=== PATIENT | female | born 1925 | race Caucasian/White ===

== ENCOUNTER 2016-08-24 10:37 | Inpatient (IN) | payer MEDICARE, BC ==
[2016-08-24] VITALS (12 sets, daily range): BP systolic 107–138; BP diastolic 62–98; PULSE 87–140; RESP 14–24; TEMP 97.5–98; O2SAT 94–100
[~2016-08-24] VITALS: Ht 157.5 cm; Wt 44.9 kg
[~2016-08-24 10:37] MED LIST: APIX2.5 PO; CHOL4 PO; FURO1TAB93 PO; NEBI5 PO; OMEP20TA OR; REFR0.5D4 EACH EYE; SIMV40TA PO; SYNT50TA PO; [UNRECOGNIZED DRUG - OTHER]
--- NOTE | 2016-08-24 11:05 | PD ---
HPI Chief Complaint: Cardiac Complaint Time Seen by Provider: 11:05 Travel History International Travel<30 days: No Contact w/Intl Traveler<30days: No History of Present Illness HPI 89 year old female presents to the emergency department for evaluation of shortness of breath for 2 weeks. Patient does report a history of atrial fibrillation, hypertension, CHF. She states that she saw her regulatory affairs strategy specialist, Dr. Mcgarry, 2 weeks ago for this issue. He wanted her to start a low dose of atenolol and stop the Bystolic. However, she states she is allergic to atenolol so she quit her Bystolic but did not start the atenolol. The patient denies any fevers or chills. She does report a mild cough and congestion. She denies any chest pain. She denies any leg edema. She states that her primary care physician is Dr. Vasquez. She states that she saw him today who sent her to the emergency department. Patient denies any abdominal pain. No vomiting. No other complaints. PFSH Past Medical History Hx Anticoagulant Therapy: Yes Anemia: Yes Arthritis: Yes Asthma: No Autoimmune Disease: No Blood Disorders: No Heart Rhythm Problems: Yes (A-FIB) Cancer: Yes (COLON) Cardiovascular Problems: Yes (A-FIB ) High Cholesterol: Yes Chemotherapy: Yes (FINISHED IN 2000) Chest Pain: No Congestive Heart Failure: Yes COPD: Yes Cerebrovascular Accident: Yes (no residual) Diabetes: No Diminished Hearing: No Endocrine: No GERD: Yes Genitourinary: Yes Hiatal Hernia: No Hypertension: Yes Immune Disorder: No Implanted Vascular Access Dvce: Yes Kidney Stones: Yes (left kidney- leave til having problems) Musculoskeletal: Yes Neurologic: Yes Psychiatric: No Reproductive: No Respiratory: Yes (COPD) Migraines: No Radiation Therapy: Yes (2000) Renal Failure: No Seizures: No Sleep Apnea: No Thyroid Disease: No Ulcer: Yes Menopausal: Yes Past Surgical History Abdominal Surgery: Yes (MULTIPLE COLONOSCOPY) AICD: No Arteriovenous Shunt: No Cardiac Surgery: No Cholecystectomy: Yes Ear Surgery: No Endocrine Surgery: No Eye Surgery: Yes (CATARACTS) Genitourinary Surgery: No Gynecologic Surgery: Yes (HYSTERECTOMY ) Hysterectomy: Yes Insulin Pump: No Joint Replacement: Yes (RIGHT HIP AND KNEE) Oral Surgery: Yes Pacemaker: No Thoracic Surgery: No Other Surgery: Yes ([place], hysterectomy, right hip, right knee) Social History Alcohol Use: No Tobacco Use: No Substance Use: No Allergies-Medications (Allergen,Severity, Reaction): Coded Allergies: Atenolol (Verified Allergy, Severe, 08/24/16) LIGHT HEADED/FAINT Cardizem (Verified Allergy, Severe, AIRWAY SWELLING, 05/25/16) AIRWAY OBSTRUCTION Levofloxacin (Verified Allergy, Severe, 05/25/16) Lisinopril (Verified Allergy, Severe, CP, 05/25/16) Phenergan (Verified Allergy, Severe, RASH, 05/25/16) Sulfa (Verified Allergy, Severe, 05/25/16) Toprol Xl (Verified Allergy, Severe, BRADYCARDIA, 05/25/16) Verapamil (Verified Allergy, Severe, Anaphylaxis, 05/25/16) Amoxicillin (Verified Allergy, Mild, 05/25/16) Levaquin (Verified Allergy, Mild, Irritability/Anxiety, 05/25/16) EDOXABAN (Verified Adverse Reaction, Severe, LIGHT HEADED, 08/24/16) Potassium (Verified Adverse Reaction, Severe, CAN'T BREATHE, 08/24/16) Uncoded Allergies: GINGERALE (Adverse Reaction, Severe, VOMITING, 08/24/16) Reported Meds & Prescriptions Reported Meds & Active Scripts Active Reported Tylenol Extra Strength (Acetaminophen) 500 Mg Tab 500 Mg PO Q4-6H PRN Ferrous Sulfate 325 Mg Tab 325 Mg PO DAILY Refresh Opth Drops (Polyvinyl Alcohol-Povidone Opth Drops) 1.4-0.6% Drops 1-2 Drop EACH EYE PRN PRN Centrum Silver (Multiple Vitamins W/ Minerals) 1 Tab 1 Tab PO DAILY Furosemide 20 Mg Tab 20 Mg PO DAILY Omeprazole 20 Mg Tab Mg PO DAILY Simvastatin 40 Mg Tab 40 Mg PO HS Synthroid (Levothyroxine Sodium) 50 Mcg Tab 50 Mcg PO DAILY Megestrol (Megestrol Acetate) 20 Mg Tab 20 Mg PO DAILY Eliquis (Apixaban) 2.5 Mg Tab 2.5 Mg PO BID Review of Systems Except as stated in HPI: all other systems reviewed are Neg Physical Exam Narrative GENERAL: Well-developed well-nourished elderly female patient, afebrile. SKIN: Warm and dry. HEAD: Normocephalic. Atraumatic. EYES: No scleral icterus. No injection or drainage. NECK: Supple, trachea midline. No JVD or lymphadenopathy. CARDIOVASCULAR: Patient has a regular rhythm with a heart rate between 120-150, without murmurs, gallops, or rubs. RESPIRATORY: Breath sounds equal bilaterally. No accessory muscle use. Lungs sounds clear to auscultation. GASTROINTESTINAL: Abdomen soft, non-tender, nondistended. MUSCULOSKELETAL: No cyanosis, or edema. BACK: Nontender without obvious deformity. No CVA tenderness. Data Data Last Documented VS Vital Signs Date Time Temp Pulse Resp B/P Pulse Ox O2 Delivery O2 Flow Rate FiO2 08/24/16 12:41 115 20 132/64 98 Nasal Cannula 2 08/24/16 11:02 98.0 Orders Electrocardiogram (08/24/16 10:44) Complete Blood Count With Diff (08/24/16 11:03) Basic Metabolic Panel (Bmp) (08/24/16 11:03) B-Type Natriuretic Peptide (08/24/16 11:03) Act Partial Throm Time (Ptt) (08/24/16 11:03) Prothrombin Time / Inr (Pt) (08/24/16 11:03) Magnesium (Mg) (08/24/16 11:03) Ckmb (Isoenzyme) Profile (08/24/16 11:03) Troponin I (08/24/16 11:03) Urinalysis - C+S If Indicated (08/24/16 11:03) Iv Access Insert/Monitor (08/24/16 11:03) Ecg Monitoring (08/24/16 11:03) Oximetry (08/24/16 11:03) Oxygen Administration (08/24/16 11:03) Chest, Single Ap (08/24/16 11:03) Sodium Chloride 0.9% Flush (Ns Flush) (08/24/16 11:15) CKMB (08/24/16 11:00) CKMB% (08/24/16 11:00) Amiodarone Inj (Cordarone Inj) (08/24/16 12:45) Amiodarone Inj (Cordarone Inj) (08/24/16 12:30) Diphenhydramine Inj (Benadryl Inj) (08/24/16 13:15) Admit Order (Ed Use Only) (08/24/16 13:50) Electrocardiogram (08/24/16 10:58) Labs Laboratory Tests Test 08/24/16 08/24/16 08/24/16 11:00 11:34 12:07 White Blood Count 7.4 TH/MM3 Red Blood Count 3.48 MIL/MM3 Hemoglobin 11.2 GM/DL Hematocrit 33.3 % Mean Corpuscular Volume 95.6 FL Mean Corpuscular Hemoglobin 32.1 PG Mean Corpuscular Hemoglobin 33.6 % Concent Red Cell Distribution Width 15.7 % Platelet Count 249 TH/MM3 Mean Platelet Volume 9.4 FL Neutrophils (%) (Auto) 79.5 % Lymphocytes (%) (Auto) 9.6 % Monocytes (%) (Auto) 9.5 % Eosinophils (%) (Auto) 0.9 % Basophils (%) (Auto) 0.5 % Neutrophils # (Auto) 5.9 TH/MM3 Lymphocytes # (Auto) 0.7 TH/MM3 Monocytes # (Auto) 0.7 TH/MM3 Eosinophils # (Auto) 0.1 TH/MM3 Basophils # (Auto) 0.0 TH/MM3 CBC Comment DIFF FINAL Differential Comment Sodium Level 137 MEQ/L Potassium Level 5.7 MEQ/L Chloride Level 112 MEQ/L Carbon Dioxide Level 16.7 MEQ/L Anion Gap 8 MEQ/L Blood Urea Nitrogen 31 MG/DL Creatinine 1.96 MG/DL Estimat Glomerular Filtration 24 ML/MIN Rate Random Glucose 95 MG/DL Calcium Level 8.7 MG/DL Magnesium Level 1.2 MG/DL Total Creatine Kinase 181 U/L Creatine Kinase MB 2.5 NG/ML Troponin I 0.04 NG/ML Urine Color YELLOW Urine Turbidity HAZY Urine pH 5.0 Urine Specific [place] 1.009 Urine Protein TRACE mg/dL Urine Glucose (UA) NEG mg/dL Urine Ketones NEG mg/dL Urine Occult Blood NEG Urine Nitrite NEG Urine Bilirubin NEG Urine Urobilinogen LESS THAN 2.0 MG/DL Urine Leukocyte Esterase SMALL Urine RBC 2 /hpf Urine WBC 4 /hpf Urine Squamous Epithelial 1 /hpf Cells Urine Amorphous Sediment RARE Microscopic Urinalysis Comment CULT NOT INDICATED Prothrombin Time 13.1 SEC Prothromb Time International 1.2 RATIO Ratio Activated Partial 28.5 SEC Thromboplast Time B-Type Natriuretic Peptide 730 PG/ML MDM Medical Decision Making Medical Screen Exam Complete: Yes Emergency Medical Condition: Yes Medical Record Reviewed: Yes Interpretation(s) Last Impressions Chest X-Ray 08/24/16 1103 Signed Impressions: Service Date/Time: August 11:08 - CONCLUSION: Stable appearance with no acute disease. Zack Baca MD Differential Diagnosis A. fib with RVR versus CHF exacerbation versus pneumonia versus ACS versus anemia Narrative Course 89-year-old female presents to the emergency department for evaluation of shortness of breath for 2 weeks. EKG shows atrial fibrillation with heart rate of 136. CBC, BMP, BNP, PTT, PT/INR, magnesium, CK, troponin are ordered and pending. Chest x-ray is ordered and pending. Patient reports allergy to Cardizem, Toprol, verapamil. Patient's regulatory affairs strategy specialist, Dr. Mcgarry is paged. CBC shows slight anemia with a Hgb of 11.2, Hct of 33.3. BMP shows hyperkalemia 5.7, but hemolysis is noted. BUS and is 31, currently 1.96 which is chronic for patient. CK is 181. CK-MB is 2.5. Troponin is 0.04. BNP [-]. Magnesium is 1.2. Coags show no acute abnormality. UA is negative for infection. Chest x-ray shows stable appearance with no acute disease. 1227 - I spoke with Dr. Mcgarry's PA, Nargis Cartwright, who recommends amiodarone bolus with drip and for the patient to be admitted with a consult to Dr. Mcgarry. [facility] is paged for admission. Dr. Romero accepted admission. Diagnosis Primary Impression: Atrial fibrillation Qualified Code: I48.2 - Chronic atrial fibrillation Additional Impression: Chronic kidney disease Qualified Code: N18.9 - Chronic kidney disease, unspecified stage Admitting Information Admitting Physician Requests: Admit Klarissa eWller Aug 24, 2016 11:05
[2016-08-24] MEDS ORDERED: LEVO.05 PO (11:15)
[2016-08-24] MEDS ORDERED: OMEP20TA PO (11:15)
[2016-08-24] MEDS ORDERED: SODIUM CHLORIDE 0.9% FLUSH 5 ML FLUSH IVF PRN (11:15)
[2016-08-24] MEDS ORDERED: MEGE20TA PO (11:15)
[2016-08-24] MEDS ORDERED: APIX2.5T PO (11:15)
[2016-08-24] MEDS ORDERED: SIMV40TA PO (11:15)
[2016-08-24] MEDS ORDERED: FURO20TA PO (11:18)
[2016-08-24] MEDS ORDERED: CENTTAB PO (11:18)
[2016-08-24] MEDS ORDERED: REFRDRO EACH EYE (11:18)
[2016-08-24] MEDS ORDERED: ACET-703 PO (11:18)
[2016-08-24] MEDS ORDERED: FERR325T PO (11:18)
[2016-08-24 11:26] LABS: AUTOMATED NEUTROPHIL # 5.9 TH/MM3 (1.8-7.7); BASOPHIL % 0.5 % (0.0-2.0); EOSINOPHIL # 0.1 TH/MM3 (0-0.4); EOSINOPHIL % 0.9 % (0.0-4.0); HEMATOCRIT 33.3 % (35.0-46.0); HEMO FLAGS DIFF FINAL; LYMPH % 9.6 % (9.0-44.0); LYMPHOCYTE # 0.7 TH/MM3 (1.0-4.8); MEAN CELL VOLUME 95.6 FL (80.0-100.0); MEAN CORPUSCULAR HEMOGLOBIN 32.1 PG (27.0-34.0); MEAN CORPUSCULAR HGB CONC 33.6 % (32.0-36.0); MONO % 9.5 % (0.0-8.0); NEUT % 79.5 % (16.0-70.0); PLATELET COUNT 249 TH/MM3 (150-450); RED BLOOD COUNT 3.48 MIL/MM3 (4.00-5.30); RED CELL DISTRIBUTION WIDTH 15.7 % (11.6-17.2); WHITE BLOOD COUNT 7.4 TH/MM3 (4.0-11.0)
[2016-08-24 11:46] LABS: BLOOD, URINE NEG (NEG); COMMENT (UR) CULT NOT INDICATED; CULTURE IF INDICATED CULT NOT INDICATED; GLUCOSE,URINE NEG (NEG); KETONE, URINE NEG (NEG); NITRITE,URINE NEG (NEG); SQUAMOUS EPITHELIAL CELL URINE 1 /hpf (0-5); URINE COLOR YELLOW (YELLW/STRAW)
--- NOTE | 2016-08-24 11:56 | RADRPT ---
EXAM DATE/TIME: 08/24/2016 11:08 [facility] COMPARISON: CHEST SINGLE AP, September 23, 2015, 13:37. INDICATIONS : Patient complains of short of breath. MEDICAL HISTORY : None. SURGICAL HISTORY : None. ENCOUNTER: Initial ACUITY: 1 day PAIN SCORE: 0/10 LOCATION: Bilateral chest FINDINGS: A single view of the chest demonstrates the lungs to be symmetrically aerated without evidence of mas s, infiltrate or effusion. Changes are present in the aorta. There are multiple overlying cardiac le ads. Ossification is noted in the mitral valve annulus. The cardiomediastinal contours are unremarkab le. Osseous structures are intact. CONCLUSION: Stable appearance with no acute disease. Zack Baca MD on August 24, 2016 at 11:49 Board Certified Radiologist. This report was verified electronically.
[2016-08-24 11:58] LABS: ANION GAP 8 MEQ/L (5-15); BICARBONATE 16.7 MEQ/L (21.0-32.0); BLOOD UREA NITROGEN 31 MG/DL (7-18); CHLORIDE 112 MEQ/L (98-107); CREATINE KINASE 181 U/L (26-192); GLOMERULAR FILTRATION RATE 24 ML/MIN (>89); MAGNESIUM 1.2 MG/DL (1.5-2.5); SODIUM (NA) 137 MEQ/L (136-145)
[2016-08-24 12:01] LABS: POTASSIUM 5.7 MEQ/L (3.5-5.1)
[2016-08-24 12:14] LABS: CKMB 2.5 NG/ML (0.5-3.6)
[2016-08-24] MEDS ORDERED: AMIODARONE INJ 150 MG in DEXTROSE 5% IN WATER 100ML INJ 97 ML IV ONE ×2 (12:30)
[2016-08-24 12:33] LABS: APTT (PATIENT) 28.5 SEC (24.3-30.1); INTERNATIONAL NORMALIZED RATIO 1.2 RATIO; PROTHROMBIN TIME - PATIENT 13.1 SEC (9.8-11.6)
[2016-08-24] MEDS ORDERED: AMIODARONE INJ 900 MG in D5W 500 ML (EXCEL BAG) 482 ML IV SCH (12:45)
[2016-08-24] MEDS ORDERED: diphenhydrAMINE HCL 50 MG/ML VIAL IV PUSH ONE (13:15)
[2016-08-24] MEDS: AMIODARONE INJ 450 MG in DEXTROSE 5% IN WATE(EXCEL) INJ 241 ML IV SCH ×2 (14:56)
--- NOTE | 2016-08-24 16:05 | MB ---
cc: ZEE CAM M.D., HUMAYUN A. M.D. DATE OF CONSULTATION: 08/24/2016. HISTORY OF PRESENT ILLNESS: Thank you for asking us to see this very pleasant 89-year-old white female who was admitted with atrial fibrillation with a rapid ventricular response. She was seen in the office by the undersigned recently and she was switched to atenolol, but it was felt that she had an allergy to atenolol so she quit her Bystolic but did not take the atenolol. She is now in atrial fibrillation with rapid ventricular response. MEDICATIONS: Her medications at home have included: 1. Eliquis. 2. Megestrol. 3. Synthroid. 4. Simvastatin. 5. Omeprazole. 6. Furosemide. 7. Peristaltic. 8. Centrum Silver. At this point, she is worried out having intravenous amiodarone to control her rate as she is worried she might be allergic to this. PAST MEDICAL HISTORY: Her past medical history is positive for: 1. Being on Eliquis. 2. Anemia. 3. Arthritis. 4. History of colon cancer with chemotherapy in 2000. 5. Congestive heart failure. 6. Hypertension. 7. Hyperlipidemia. 8. Hypothyroidism. 9. Gastroesophageal reflux disease (GERD). 10. Chronic kidney disease. 11. GI bleed. 12. Stroke in 2010. 13. Kidney stones. PAST SURGICAL HISTORY: 1. History of hip replacement. 2. Knee replacement. 3. Hysterectomy. SOCIAL HISTORY: Nonsmoker, nondrinker, no drugs. MEDICATIONS: Medications include : 1. Cardizem. 2. Atenolol. 4. Levofloxacin. 5. Lisinopril. 6. Phenergan. 7. Sulfa. 8. Toprol. 9. Verapamil. 10. Amoxicillin. 11. Levaquin. 12. Potassium. 13. Gloria lauri. REVIEW OF SYSTEMS: Denies seizure, headaches. The remainder of the review of systems is negative. PHYSICAL EXAMINATION: VITAL SIGNS: On examination, pulse was 128, blood pressure 138/95, respirations HEAD, EYES, EARS, NOSE, THROAT: Eyes show no xanthelasma. Mouth shows no cyanosis or pallor. NECK: No jugular venous distention. HEART: She had two heart sounds. No murmurs. CHEST: Clear. ABDOMEN: Abdomen soft. No hepatosplenomegaly. EXTREMITIES: Legs reveal no evidence of edema. NEUROLOGICAL EXAMINATION: Grossly intact. LABORATORY TESTS: INR 1.2. Creatinine 1.96. Potassium 5.7. Hemoglobin 11.2. EKGS: EKG showed atrial fibrillation with a rapid ventricular response. ASSESSMENT AND PLAN: 1. Rule out myocardial infarction with serial cardiac enzymes. Initial troponin was 0.04. 2. She has mild congestive heart failure with a BNP of 730, although her creatinine is markedly elevated. 3. INR is 1.2. The patient continues on Eliquis however. 4. We will continue her on her current medications with the addition of amiodarone if she converts. Thank you for asking us to see this very pleasant lady. Hawk Mcgarry MD, FRCP,[facility] RAFAELAJ/JCCarlos /2:39 PM /3:57 PM GUSTAVO
[2016-08-24] MEDS ORDERED: ONDANSETRON HCL 4 MG/2 ML VIAL IVP PRN (16:15)
[2016-08-24] MEDS ORDERED: ACETAMINOPHEN 325 MG TAB PO PRN ×2 (16:15)
[2016-08-24] MEDS ORDERED: SENNOSIDES 8.6 MG TAB PO PRN (16:15)
[2016-08-24] MEDS ORDERED: SODIUM CHLORIDE 0.9% FLUSH 5 ML FLUSH FLUSH PRN (16:15)
[2016-08-24] MEDS ORDERED: NALOXONE HCL 0.4 MG/ML AMP IV PRN (16:15)
[2016-08-24] MEDS ORDERED: PILL SPLITTER OTHER PRN (16:30)
--- NOTE | 2016-08-24 16:56 | HHI.HP ---
[facility] Service [facility] Primary Care Physician Juan R Evans MD Admission Diagnosis AFib with RVR Diagnoses: Chief Complaint: Shortness of breath, lightheaded Travel History International Travel<30 Days: No Contact w/Intl Traveler <30 Da: No Traveled to Known Affected Are: No History of Present Illness The patient is an 89-year-old female with past medical history of atrial fibrillation who is presenting to the hospital with 2 weeks of lightheadedness and shortness of breath. The patient says that over the past 2 weeks she has had episodes where the room spins around when she sits up from a chair. She says she has lightheaded and almost passes out sometimes. She says she has been having shortness of breath for the past 2 weeks as well. She says she has been taking Tylenol regularly and that has been helping with her symptoms. She went to her primary care doctor today where she was told to come to the emergency department for further evaluation and treatment. The patient does endorse palpitations. She mentions she has been having chest pain in the center of her chest rated at 8 out of 10 in severity. She describes the chest pain as pressure sensation. She says she has been feeling very cold lately. She says she has been eating well. She has not had any urinary difficulties. She has not had diarrhea or constipation. She has not had any recent travel. She denies any fever. Review of Systems Constitutional: COMPLAINS OF: Chills, Dizziness Respiratory: COMPLAINS OF: Shortness of breath Cardiovascular: COMPLAINS OF: Chest pain, Palpitations, Syncope, Dyspnea on Exertion Gastrointestinal: DENIES: Constipation, Nausea Genitourinary: DENIES: Dysuria Past Family Social History Past Medical History A fib Anemia Arthritis History of colon cancer with chemotherapy in 2000 Congestive heart failure Hypertension Hyperlipidemia Hypothyroidism Gastroesophageal reflux disease Chronic kidney disease GI bleed CVA Kidney stones Past Surgical History History of hip replacement Knee replacement Hysterectomy Allergies: Coded Allergies: Atenolol (Verified Allergy, Severe, 08/24/16) LIGHT HEADED/FAINT Cardizem (Verified Allergy, Severe, AIRWAY SWELLING, 05/25/16) AIRWAY OBSTRUCTION Levofloxacin (Verified Allergy, Severe, 05/25/16) Lisinopril (Verified Allergy, Severe, CP, 05/25/16) Phenergan (Verified Allergy, Severe, RASH, 05/25/16) Sulfa (Verified Allergy, Severe, 05/25/16) Toprol Xl (Verified Allergy, Severe, BRADYCARDIA, 05/25/16) Verapamil (Verified Allergy, Severe, Anaphylaxis, 05/25/16) Amoxicillin (Verified Allergy, Mild, 05/25/16) Levaquin (Verified Allergy, Mild, Irritability/Anxiety, 05/25/16) EDOXABAN (Verified Adverse Reaction, Severe, LIGHT HEADED, 08/24/16) Potassium (Verified Adverse Reaction, Severe, CAN'T BREATHE, 08/24/16) Uncoded Allergies: GINGERALE (Adverse Reaction, Severe, VOMITING, 08/24/16) Active Ordered Medications Current Medications Medications (Trade) Dose Ordered Sig/Neva Route Start Time Stop Time Status Last Admin (Cordarone Inj/ D5W ([place]) Inj) 250 ml @ 0 mls/hr CONTINUOUS IV 08/24/16 14:45 08/24/16 14:56 (NS Flush) 2 ml UNSCH PRN FLUSH 08/24/16 16:15 (NS Flush) 2 ml BID FLUSH 08/24/16 21:00 (Tylenol) 650 mg Q4H PRN PO 08/24/16 16:15 (Zofran Inj) 4 mg Q6H PRN IVP 08/24/16 16:15 (Colace) 100 mg Q12H PO 08/24/16 18:00 (Senokot) 17.2 mg Q12H PRN PO 08/24/16 16:15 (Tylenol) 650 mg Q6H PRN PO 08/24/16 16:15 (Roxicodone) 5 mg Q4H PRN PO 08/24/16 16:15 (Narcan Inj) 0.4 mg UNSCH PRN IV 08/24/16 16:15 (Eliquis) 2.5 mg BID PO 08/24/16 21:00 (Ferrous Sulfate) 325 mg DAILY PO 08/25/16 09:00 (Lasix) 20 mg DAILY PO 08/25/16 09:00 (Synthroid) 50 mcg DAILY@06 PO 08/25/16 06:00 (Megace) 20 mg DAILY PO 08/25/16 09:00 (Pravachol) 80 mg HS PO 08/24/16 21:00 Miscellaneous 1 ea 1 ea UNSCH PRN OTHER 08/24/16 16:30 (Magnesium Sulfate 1 Gm Premix) 100 ml @ 100 mls/hr Q1H IV 08/24/16 16:45 08/24/16 19:44 Family History CAD Brain aneurysm Social History The pt does not smoke or drink. Physical Exam Vital Signs Vital Signs Date Time Temp Pulse Resp B/P Pulse Ox O2 Delivery O2 Flow Rate FiO2 08/24/16 16:11 99 Nasal Cannula 2.00 08/24/16 14:35 95 20 115/77 99 Nasal Cannula 2 08/24/16 12:41 115 20 132/64 98 Nasal Cannula 2 08/24/16 11:45 128 20 138/95 94 Nasal Cannula 2 08/24/16 11:26 99 Room Air 08/24/16 11:02 98.0 128 20 136/98 98 08/24/16 10:42 97.5 140 24 122/89 98 Physical Exam GENERAL: This is a well-nourished, well-developed patient, in no apparent distress. SKIN: No rashes, ecchymoses or lesions. Cool and dry. HEAD: Atraumatic. Normocephalic. No temporal or scalp tenderness. EYES: Pupils equal round and reactive. Extraocular motions intact. No scleral icterus. No injection or drainage. ENT: Nose without bleeding, purulent drainage or septal hematoma. Throat without erythema, tonsillar hypertrophy or exudate. Uvula midline. Airway patent. NECK: Trachea midline. No JVD or lymphadenopathy. Supple, nontender, no meningeal signs. CARDIOVASCULAR: Tachycardic, irregularly irregular. RESPIRATORY: Clear to auscultation. Breath sounds equal bilaterally. No wheezes , rales, or rhonchi. GASTROINTESTINAL: Abdomen soft, non-tender, nondistended. No hepato-splenomegaly , or palpable masses. No guarding. MUSCULOSKELETAL: Extremities without clubbing, cyanosis, or edema. No joint tenderness, effusion, or edema noted. NEUROLOGICAL: Awake and alert. Cranial nerves II through XII intact. Motor and sensory grossly within normal limits. Five out of 5 muscle strength in all muscle groups. Normal speech. PSYCH: Mood and affect appropriate. Laboratory Laboratory Tests Test 08/24/16 08/24/16 08/24/16 11:00 11:34 12:07 White Blood Count 7.4 Red Blood Count 3.48 Hemoglobin 11.2 Hematocrit 33.3 Mean Corpuscular Volume 95.6 Mean Corpuscular Hemoglobin 32.1 Mean Corpuscular Hemoglobin 33.6 Concent Red Cell Distribution Width 15.7 Platelet Count 249 Mean Platelet Volume 9.4 Neutrophils (%) (Auto) 79.5 Lymphocytes (%) (Auto) 9.6 Monocytes (%) (Auto) 9.5 Eosinophils (%) (Auto) 0.9 Basophils (%) (Auto) 0.5 Neutrophils # (Auto) 5.9 Lymphocytes # (Auto) 0.7 Monocytes # (Auto) 0.7 Eosinophils # (Auto) 0.1 Basophils # (Auto) 0.0 CBC Comment DIFF FINAL Differential Comment Sodium Level 137 Potassium Level 5.7 Chloride Level 112 Carbon Dioxide Level 16.7 Anion Gap 8 Blood Urea Nitrogen 31 Creatinine 1.96 Estimat Glomerular Filtration 24 Rate Random Glucose 95 Calcium Level 8.7 Magnesium Level 1.2 Total Creatine Kinase 181 Creatine Kinase MB 2.5 Troponin I 0.04 Urine Color YELLOW Urine Turbidity HAZY Urine pH 5.0 Urine Specific [place] 1.009 Urine Protein TRACE Urine Glucose (UA) NEG Urine Ketones NEG Urine Occult Blood NEG Urine Nitrite NEG Urine Bilirubin NEG Urine Urobilinogen LESS THAN 2.0 Urine Leukocyte Esterase SMALL Urine RBC 2 Urine WBC 4 Urine Squamous Epithelial 1 Cells Urine Amorphous Sediment RARE Microscopic Urinalysis Comment CULT NOT INDICATED Prothrombin Time 13.1 Prothromb Time International 1.2 Ratio Activated Partial 28.5 Thromboplast Time B-Type Natriuretic Peptide 730 Result Diagram: 08/24/16 1100 08/24/16 1100 Imaging Last Impressions Chest X-Ray 08/24/16 1103 Signed Impressions: Service Date/Time: August 11:08 - CONCLUSION: Stable appearance with no acute disease. Zack Baca MD Assessment and Plan Assessment and Plan A fib with RVR The patient's docket specialist evaluated the patient in the emergency department. Heart rate has been controlled on an amiodarone drip. - Continue amiodarone per cardiology. - Telemetry. - Continue Eliquis. - trend troponins. - check a TSH level. Dyspnea/ lightheadedness Likely s/t A fib with RVR. CXR unremarkable. Improved. - treatment as above. - oxygen and nebs as needed. Chronic renal disease Creatinine is around baseline. - monitor as needed. - avoid nephrotoxins. Hypomagnesemia Magnesium level was 1.2. - replete with magnesium sulfate and monitor. CHF Echo in May with EF 45-50% and mod-severe MR and severe TR. BNP elevated over 700. - continue home Lasix. - follow up with cardiology. Hypothyroidism Pt is on levothyroxine as an outpt. - continue home meds. - check TSH in setting of A fib. PPx: Eliquis. Code Status Full Discussed Condition With Dr. Gunderson, pt. Physician Certification 2 Midnight Certification Type: Admission for Inpatient Services Order for Inpatient Services The services are ordered in accordance with Medicare regulations or non- Medicare payer requirements, as applicable. In the case of services not specified as inpatient-only, they are appropriately provided as inpatient services in accordance with the 2-midnight benchmark. Estimated LOS (days): 2 days is the estimated time the patient will need to remain in the hospital, assuming treatment plan goals are met and no additional complications. Post-Hospital Plan: Home Zack Romero DO Aug 24, 2016 16:56
[2016-08-24] MEDS: DOCUSATE SODIUM 100 MG CAP PO SCH (18:00)
[2016-08-24] MEDS: MAGNESIUM SULFATE 1 GM PREMIX 100 ML IV SCH ×3 (18:19→20:55)
[2016-08-24] MEDS: PRAVASTATIN SOD 80 MG TAB PO SCH (20:55)
[2016-08-24] MEDS: APIXABAN 2.5 MG TABLET PO SCH (20:55)
[2016-08-24] MEDS: SODIUM CHLORIDE 0.9% FLUSH 5 ML FLUSH FLUSH SCH (20:55)
[2016-08-25] VITALS (28 sets, daily range): BP systolic 101–121; BP diastolic 64–82; PULSE 89–110; RESP 16–18; TEMP 97.6–98.8; O2SAT 95–99
[2016-08-25] MEDS: AMIODARONE INJ 450 MG in DEXTROSE 5% IN WATE(EXCEL) INJ 241 ML IV SCH ×2 (03:26)
[2016-08-25] MEDS: LEVOTHYROXINE SODIUM 50 MCG TAB PO SCH (05:51)
[2016-08-25] MEDS: DOCUSATE SODIUM 100 MG CAP PO SCH ×3 (06:00→17:06)
[2016-08-25 06:28] LABS: AUTOMATED NEUTROPHIL # 9.5 TH/MM3 (1.8-7.7); BASOPHIL % 0.3 % (0.0-2.0); EOSINOPHIL # 0.1 TH/MM3 (0-0.4); EOSINOPHIL % 0.5 % (0.0-4.0); HEMO FLAGS DIFF FINAL; LYMPH % 5.2 % (9.0-44.0); LYMPHOCYTE # 0.6 TH/MM3 (1.0-4.8); MEAN CELL VOLUME 96.5 FL (80.0-100.0); MEAN CORPUSCULAR HEMOGLOBIN 32.1 PG (27.0-34.0); MEAN CORPUSCULAR HGB CONC 33.3 % (32.0-36.0); MONO % 6.8 % (0.0-8.0); NEUT % 87.2 % (16.0-70.0); PLATELET COUNT 172 TH/MM3 (150-450); RED BLOOD COUNT 3.22 MIL/MM3 (4.00-5.30); RED CELL DISTRIBUTION WIDTH 15.6 % (11.6-17.2); WHITE BLOOD COUNT 10.9 TH/MM3 (4.0-11.0)
[2016-08-25 06:53] LABS: BICARBONATE 13.3 MEQ/L (21.0-32.0); MAGNESIUM 1.9 MG/DL (1.5-2.5); POTASSIUM 4.3 MEQ/L (3.5-5.1)
--- NOTE | 2016-08-25 08:58 | HHI.PR ---
Subjective Remarks The patient feels much better this morning. She was sitting up in bed and wanted to go back to lay down in bed. She says she was feeling a little cold and wanted to be covered up in blankets. She had no acute complaints. Discussed with nursing. Objective Vitals Vital Signs Date Time Temp Pulse Resp B/P Pulse Ox O2 Delivery O2 Flow Rate FiO2 08/25/16 07:55 96 Room Air 08/25/16 07:55 96 08/25/16 07:55 97.9 96 16 108/67 95 08/25/16 06:00 96 08/25/16 05:00 92 08/25/16 04:00 96 08/25/16 03:00 98.3 89 18 110/64 99 08/25/16 03:00 89 08/25/16 02:00 94 08/25/16 01:00 98 08/25/16 00:00 95 08/24/16 23:00 97.9 93 18 108/76 100 08/24/16 23:00 93 08/24/16 22:00 87 08/24/16 21:00 92 08/24/16 20:30 98.0 94 22 125/83 99 08/24/16 20:30 91 08/24/16 19:32 93 14 107/91 Room Air 08/24/16 18:01 105 20 108/62 97 Nasal Cannula 2 08/24/16 16:11 99 Nasal Cannula 2.00 08/24/16 14:35 95 20 115/77 99 Nasal Cannula 2 08/24/16 12:41 115 20 132/64 98 Nasal Cannula 2 08/24/16 11:45 128 20 138/95 94 Nasal Cannula 2 08/24/16 11:26 99 Room Air 08/24/16 11:02 98.0 128 20 136/98 98 08/24/16 10:42 97.5 140 24 122/89 98 I/O 08/24/16 08/24/16 08/24/16 08/25/16 08/25/16 08/25/16 07:00 15:00 23:00 07:00 15:00 23:00 Intake Total 533 ml Output Total 425 ml Balance 108 ml Intake Oral 240 ml IV Total 293 ml Output Urine Total 425 ml # Voids 1 # Bowel Movements 1 0 Result Diagram: 08/25/16 0600 08/25/16 0600 Imaging Last Impressions Chest X-Ray 08/24/16 1103 Signed Impressions: Service Date/Time: August 11:08 - CONCLUSION: Stable appearance with no acute disease. Zack Baca MD Objective Remarks GENERAL: This is a well-nourished, well-developed patient, in no apparent distress. SKIN: No rashes, ecchymoses or lesions. Cool and dry. HEAD: Atraumatic. Normocephalic. No temporal or scalp tenderness. EYES: Pupils equal round and reactive. Extraocular motions intact. No scleral icterus. No injection or drainage. ENT: Nose without bleeding, purulent drainage or septal hematoma. Throat without erythema, tonsillar hypertrophy or exudate. Uvula midline. Airway patent. NECK: Trachea midline. No JVD or lymphadenopathy. Supple, nontender, no meningeal signs. CARDIOVASCULAR: Tachycardic, irregularly irregular. RESPIRATORY: Scattered rhonchi. GASTROINTESTINAL: Abdomen soft, non-tender, nondistended. No hepato-splenomegaly , or palpable masses. No guarding. MUSCULOSKELETAL: Extremities without clubbing, cyanosis, or edema. No joint tenderness, effusion, or edema noted. NEUROLOGICAL: Awake and alert. Cranial nerves II through XII intact. Motor and sensory grossly within normal limits. Five out of 5 muscle strength in all muscle groups. Normal speech. PSYCH: Mood and affect appropriate. Medications and IVs Current Medications Medications (Trade) Dose Ordered Sig/Neva Route Start Time Stop Time Status Last Admin (Cordarone Inj/ D5W ([place]) Inj) 250 ml @ 0 mls/hr CONTINUOUS IV 08/24/16 14:45 08/25/16 03:26 (NS Flush) 2 ml UNSCH PRN FLUSH 08/24/16 16:15 (NS Flush) 2 ml BID FLUSH 08/24/16 21:00 08/24/16 20:55 (Tylenol) 650 mg Q4H PRN PO 08/24/16 16:15 (Zofran Inj) 4 mg Q6H PRN IVP 08/24/16 16:15 (Colace) 100 mg Q12H PO 08/24/16 18:00 (Senokot) 17.2 mg Q12H PRN PO 08/24/16 16:15 (Tylenol) 650 mg Q6H PRN PO 08/24/16 16:15 (Roxicodone) 5 mg Q4H PRN PO 08/24/16 16:15 (Narcan Inj) 0.4 mg UNSCH PRN IV 08/24/16 16:15 (Eliquis) 2.5 mg BID PO 08/24/16 21:00 08/24/16 20:55 (Ferrous Sulfate) 325 mg DAILY PO 08/25/16 09:00 (Lasix) 20 mg DAILY PO 08/25/16 09:00 (Synthroid) 50 mcg DAILY@06 PO 08/25/16 06:00 08/25/16 05:51 (Megace) 20 mg DAILY PO 08/25/16 09:00 (Pravachol) 80 mg HS PO 08/24/16 21:00 08/24/16 20:55 (Pill Splitter) 1 ea UNSCH PRN OTHER 08/24/16 16:30 A/P Assessment and Plan A fib with RVR 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 Heart rate has been controlled on an amiodarone drip. The pt says her symptoms have resolved. TSH WNL and trops negative. - Continue amiodarone per cardiology. Switch to PO when appropriate. - Telemetry. - Continue Eliquis. Dyspnea/ lightheadedness Likely s/t A fib with RVR. CXR unremarkable. Symptoms have resolved with heart rate control. - treatment as above. - oxygen and nebs as needed. - incentive spirometry. - home oxygen walk test. - PT eval. Chronic renal disease Creatinine is around baseline. - monitor as needed. - avoid nephrotoxins. Hypomagnesemia Magnesium level was 1.2. Improved 08/25. - monitor. CHF Echo in May with EF 45-50% and mod-severe MR and severe TR. BNP elevated over 700. - continue home Lasix. - follow up with cardiology. - home oxygen walk test. Hypothyroidism Pt is on levothyroxine as an outpt. TSH WNL. - continue home meds. PPx: Eliquis. Discharge Planning Awaiting cardiology clearance. Zack Romero DO Aug 25, 2016 08:58
[2016-08-25] MEDS: FUROSEMIDE 20 MG TAB PO SCH (09:00)
[2016-08-25] MEDS: FERROUS SULFATE 325 MG (65 MG ELEMENTAL IRON) TAB PO SCH (09:00)
[2016-08-25] MEDS: APIXABAN 2.5 MG TABLET PO SCH ×2 (09:00→20:36)
[2016-08-25] MEDS: MEGESTROL ACETATE 40 MG TAB PO SCH (09:00)
[2016-08-25] MEDS: SODIUM CHLORIDE 0.9% FLUSH 5 ML FLUSH FLUSH SCH ×2 (09:00→20:36)
[2016-08-25 09:34] LABS: BLOOD GAS BASE EXCESS -10.6 mmol/L (-2-2); BLOOD GAS CARBOXYHEMOGLOBIN 1.6 % (0-4); BLOOD GAS HCO3 14 mmol/L (22-26); BLOOD GAS O2 HGB SATURATION 94 % (90-100); BLOOD GAS PCO2 23 mmHg (38-42); BLOOD GAS PO2 85 mmHg (61-120); BLOOD GAS TOTAL HGB 10.5 G/DL (12.0-16.0); CRITICAL VALUE YES; TEMP CORR TO 98.6
[2016-08-25 09:35] LABS: DRAW SITE LT RADIAL; FIO2 21 %; NUMBER OF ARTERIAL PUNCTURES 1; STAT NO; ULNAR PULSE PRESENT
--- NOTE | 2016-08-25 10:42 | PD.CARD.PN ---
Subjective Subjective Remarks HR improved on Amiodarone drip. Having pain and redness at IV infusion site. Patient feels "much better" compared to yesterday (Nargis Cartwright) Objective Medications Current Medications Medications (Trade) Dose Ordered Sig/Neva Route Start Time Stop Time Status Last Admin (Cordarone Inj/ D5W ([place]) Inj) 250 ml @ 0 mls/hr CONTINUOUS IV 08/24/16 14:45 08/25/16 03:26 (NS Flush) 2 ml UNSCH PRN FLUSH 08/24/16 16:15 (NS Flush) 2 ml BID FLUSH 08/24/16 21:00 08/24/16 20:55 (Tylenol) 650 mg Q4H PRN PO 08/24/16 16:15 (Zofran Inj) 4 mg Q6H PRN IVP 08/24/16 16:15 (Colace) 100 mg Q12H PO 08/24/16 18:00 (Senokot) 17.2 mg Q12H PRN PO 08/24/16 16:15 (Tylenol) 650 mg Q6H PRN PO 08/24/16 16:15 (Roxicodone) 5 mg Q4H PRN PO 08/24/16 16:15 (Narcan Inj) 0.4 mg UNSCH PRN IV 08/24/16 16:15 (Eliquis) 2.5 mg BID PO 08/24/16 21:00 08/24/16 20:55 (Ferrous Sulfate) 325 mg DAILY PO 08/25/16 09:00 (Lasix) 20 mg DAILY PO 08/25/16 09:00 (Synthroid) 50 mcg DAILY@06 PO 08/25/16 06:00 08/25/16 05:51 (Megace) 20 mg DAILY PO 08/25/16 09:00 (Pravachol) 80 mg HS PO 08/24/16 21:00 08/24/16 20:55 (Pill Splitter) 1 ea UNSCH PRN OTHER 08/24/16 16:30 Vital Signs / I&O Vital Signs Date Time Temp Pulse Resp B/P Pulse Ox O2 Delivery O2 Flow Rate FiO2 08/25/16 07:55 96 Room Air 08/25/16 07:55 96 08/25/16 07:55 97.9 96 16 108/67 95 08/25/16 06:00 96 08/25/16 05:00 92 08/25/16 04:00 96 08/25/16 03:00 98.3 89 18 110/64 99 08/25/16 03:00 89 08/25/16 02:00 94 08/25/16 01:00 98 08/25/16 00:00 95 08/24/16 23:00 97.9 93 18 108/76 100 08/24/16 23:00 93 08/24/16 22:00 87 08/24/16 21:00 92 08/24/16 20:30 98.0 94 22 125/83 99 08/24/16 20:30 91 08/24/16 19:32 93 14 107/91 Room Air 08/24/16 18:01 105 20 108/62 97 Nasal Cannula 2 08/24/16 16:11 99 Nasal Cannula 2.00 08/24/16 14:35 95 20 115/77 99 Nasal Cannula 2 08/24/16 12:41 115 20 132/64 98 Nasal Cannula 2 08/24/16 11:45 128 20 138/95 94 Nasal Cannula 2 08/24/16 11:26 99 Room Air 08/24/16 11:02 98.0 128 20 136/98 98 08/24/16 10:42 97.5 140 24 122/89 98 I/O 08/24/16 08/24/16 08/24/16 08/25/16 08/25/16 08/25/16 07:00 15:00 23:00 07:00 15:00 23:00 Intake Total 533 ml Output Total 425 ml Balance 108 ml Intake Oral 240 ml IV Total 293 ml Output Urine Total 425 ml # Voids 1 # Bowel Movements 1 0 Physical Exam GENERAL: Elderly female, no distress SKIN: Warm and dry. HEAD: Normocephalic. EYES: No scleral icterus. No injection or drainage. NECK: Supple, trachea midline. No lymphadenopathy. JVD 2 cm CARDIOVASCULAR: rate controlled, irreg irreg RESPIRATORY: Breath sounds equal bilaterally. No accessory muscle use. GASTROINTESTINAL: Abdomen soft, non-tender, nondistended. MUSCULOSKELETAL: No cyanosis, or edema. erythema of right forearm BACK: Nontender without obvious deformity. No CVA tenderness. Laboratory Laboratory Tests Test 1/1908/24/16 08/24/16 08/24/16 11:00 11:34 12:07 18:00 White Blood Count 7.4 TH/MM3 Red Blood Count 3.48 MIL/MM3 Hemoglobin 11.2 GM/DL Hematocrit 33.3 % Mean Corpuscular Volume 95.6 FL Mean Corpuscular Hemoglobin 32.1 PG Mean Corpuscular Hemoglobin 33.6 % Concent Red Cell Distribution Width 15.7 % Platelet Count 249 TH/MM3 Mean Platelet Volume 9.4 FL Neutrophils (%) (Auto) 79.5 % Lymphocytes (%) (Auto) 9.6 % Monocytes (%) (Auto) 9.5 % Eosinophils (%) (Auto) 0.9 % Basophils (%) (Auto) 0.5 % Neutrophils # (Auto) 5.9 TH/MM3 Lymphocytes # (Auto) 0.7 TH/MM3 Monocytes # (Auto) 0.7 TH/MM3 Eosinophils # (Auto) 0.1 TH/MM3 Basophils # (Auto) 0.0 TH/MM3 CBC Comment DIFF FINAL Differential Comment Sodium Level 137 MEQ/L Potassium Level 5.7 MEQ/L Chloride Level 112 MEQ/L Carbon Dioxide Level 16.7 MEQ/L Anion Gap 8 MEQ/L Blood Urea Nitrogen 31 MG/DL Creatinine 1.96 MG/DL Estimat Glomerular Filtration 24 ML/MIN Rate Random Glucose 95 MG/DL Calcium Level 8.7 MG/DL Magnesium Level 1.2 MG/DL Total Creatine Kinase 181 U/L Creatine Kinase MB 2.5 NG/ML Troponin I 0.04 NG/ML 0.04 NG/ML Urine Color YELLOW Urine Turbidity HAZY Urine pH 5.0 Urine Specific [place] 1.009 Urine Protein TRACE mg/dL Urine Glucose (UA) NEG mg/dL Urine Ketones NEG mg/dL Urine Occult Blood NEG Urine Nitrite NEG Urine Bilirubin NEG Urine Urobilinogen LESS THAN 2.0 MG/DL Urine Leukocyte Esterase SMALL Urine RBC 2 /hpf Urine WBC 4 /hpf Urine Squamous Epithelial 1 /hpf Cells Urine Amorphous Sediment RARE Microscopic Urinalysis Comment CULT NOT INDICATED Prothrombin Time 13.1 SEC Prothromb Time International 1.2 RATIO Ratio Activated Partial 28.5 SEC Thromboplast Time B-Type Natriuretic Peptide 730 PG/ML Test 08/24/16 08/25/16 08/25/16 22:56 06:00 09:24 Troponin I 0.04 NG/ML Thyroid Stimulating Hormone 2.050 uIU/ML 3rd Gen White Blood Count 10.9 TH/MM3 Red Blood Count 3.22 MIL/MM3 Hemoglobin 10.3 GM/DL Hematocrit 31.0 % Mean Corpuscular Volume 96.5 FL Mean Corpuscular Hemoglobin 32.1 PG Mean Corpuscular Hemoglobin 33.3 % Concent Red Cell Distribution Width 15.6 % Platelet Count 172 TH/MM3 Mean Platelet Volume 8.9 FL Neutrophils (%) (Auto) 87.2 % Lymphocytes (%) (Auto) 5.2 % Monocytes (%) (Auto) 6.8 % Eosinophils (%) (Auto) 0.5 % Basophils (%) (Auto) 0.3 % Neutrophils # (Auto) 9.5 TH/MM3 Lymphocytes # (Auto) 0.6 TH/MM3 Monocytes # (Auto) 0.7 TH/MM3 Eosinophils # (Auto) 0.1 TH/MM3 Basophils # (Auto) 0.0 TH/MM3 CBC Comment DIFF FINAL Differential Comment Sodium Level 134 MEQ/L Potassium Level 4.3 MEQ/L Chloride Level 111 MEQ/L Carbon Dioxide Level 13.3 MEQ/L Anion Gap 10 MEQ/L Blood Urea Nitrogen 30 MG/DL Creatinine 1.80 MG/DL Estimat Glomerular Filtration 26 ML/MIN Rate Random Glucose 106 MG/DL Calcium Level 8.1 MG/DL Magnesium Level 1.9 MG/DL Blood Gas Puncture Site LT RADIAL Blood Gas Patient Temperature 98.6 Blood Gas HCO3 14 mmol/L Blood Gas Base Excess -10.6 mmol/L Blood Gas Oxygen Saturation 94 % Arterial Blood pH 7.39 Arterial Blood Partial 23 mmHg Pressure CO2 Arterial Blood Partial 85 mmHg Pressure O2 Arterial Blood Oxygen Content 14.0 Vol % Arterial Blood 1.6 % Carboxyhemoglobin Arterial Blood Methemoglobin 1.0 % Blood Gas Hemoglobin 10.5 G/DL Blood Gas Inspired Oxygen 21 % Imaging Last 72 hours Impressions Chest X-Ray 08/24/16 1103 Signed Impressions: Service Date/Time: August 11:08 - CONCLUSION: Stable appearance with no acute disease. Zack Baca MD (Nargis Cartwright) Assessment and Plan Assessment and Plan Assessment Afib RVR, multiple allergies and side effects to rate control therapy. On Eliquis, dose appropriately for Cr, Age and weight Acute diastolic CHF exacerbation due to afib RVR. BNP increased, no evidence of CHF on CXR Chronic anemia, history of presumed GI bleed. H/H stable. SOB- see above Echo 04/2016 EF 45-50%, Moderate MR, Moderate TR Low bicarb- patient admits to long-standing history of diarrhea Multiple medication allergies and side effects Plan: Change from amio IV to amio po 200 mg BID. Will decrease to daily prior to discharge Attending aware of low bicarb Continue with careful diuresis with Lasix PO Assessment and plan discussed with Dr. Mcgarry (Nargis Cartwright) Assessment and Plan The exam, history, and the medical decision-making described in the above note were completed with the assistance of the mid-level provider. I reviewed and agree with the findings presented. I attest that I had a [id number] encounter with the patient on the same day, and personally performed and documented my assessment and findings in the medical record, Overall doing better, continue amiodarone. (Hawk Mcgarry MD) Nargis Cartwright Aug 25, 2016 10:42 Hawk Mcgarry MD Aug 25, 2016 14:29
[2016-08-25] MEDS: AMIODARONE 200 MG TAB PO SCH ×2 (11:35→20:36)
[2016-08-25] MEDS: PRAVASTATIN SOD 80 MG TAB PO SCH (20:36)
--- NOTE | 2016-08-25 22:59 | EKG ---
Date Performed: 08/24/2016 Time Performed: 13:17:05 PTAGE: 89 years EKG: ATRIAL FIBRILLATION WITH RAPID VENTRICULAR RESPONSE POSSIBLE ANTERIOR MYOCARDIAL INFARCTION INFERIOR MYOCARDIAL INFARCTION ABNORMAL ECG PREVIOUS TRACING : 08/24/2016 10.58 DOCTOR: Miller Dyer Interpretating Date/Time 08/25/2016 22:51:38
--- NOTE | 2016-08-25 23:03 | EKG ---
Date Performed: 08/24/2016 Time Performed: 10:58:38 PTAGE: 89 years EKG: ATRIAL FIBRILLATION WITH RAPID VENTRICULAR RESPONSE MARKED LEFT AXIS DEVIATION POSSIBLE ANT ERIOR MYOCARDIAL INFARCTION ABNORMAL ECG PREVIOUS TRACING : 05/25/2016 17.01 DOCTOR: Miller Dyer Interpretating Date/Time 08/25/2016 22:54:19
[2016-08-26] VITALS (27 sets, daily range): BP systolic 91–117; BP diastolic 53–67; PULSE 95–136; RESP 16–20; TEMP 98.5–99.1; O2SAT 96–100
[2016-08-26] MEDS: DOCUSATE SODIUM 100 MG CAP PO SCH ×2 (06:00→18:00)
[2016-08-26] MEDS: LEVOTHYROXINE SODIUM 50 MCG TAB PO SCH (06:16)
[2016-08-26 08:55] LABS: BICARBONATE 18.2 MEQ/L (21.0-32.0); MAGNESIUM 1.7 MG/DL (1.5-2.5); POTASSIUM 4.1 MEQ/L (3.5-5.1)
[2016-08-26] MEDS: FUROSEMIDE 20 MG TAB PO SCH (09:09)
[2016-08-26] MEDS: SODIUM CHLORIDE 0.9% FLUSH 5 ML FLUSH FLUSH SCH ×2 (09:09→21:21)
[2016-08-26] MEDS: MEGESTROL ACETATE 40 MG TAB PO SCH (09:09)
[2016-08-26] MEDS: AMIODARONE 200 MG TAB PO SCH ×2 (09:10→21:22)
[2016-08-26] MEDS: FERROUS SULFATE 325 MG (65 MG ELEMENTAL IRON) TAB PO SCH (09:10)
[2016-08-26] MEDS: APIXABAN 2.5 MG TABLET PO SCH ×2 (09:10→21:22)
--- NOTE | 2016-08-26 09:41 | HHI.PR ---
Subjective Remarks The patient was sitting up in a chair. She says she was tired and wanted to go to bed. She said she still has lightheadedness and dizziness sometimes. She said she had a bowel movement yesterday. She denied any chest pain or shortness of breath. Discussed with nursing. Objective Vitals Vital Signs Date Time Temp Pulse Resp B/P Pulse Ox O2 Delivery O2 Flow Rate FiO2 08/26/16 07:00 98.8 114 18 95/65 100 08/26/16 06:00 107 08/26/16 05:00 100 08/26/16 04:00 103 08/26/16 03:00 98.5 97 16 91/60 98 08/26/16 03:00 104 08/26/16 02:00 100 08/26/16 01:00 100 08/26/16 00:00 110 08/25/16 23:00 95 08/25/16 23:00 98.8 95 16 101/70 99 08/25/16 22:00 110 08/25/16 21:00 108 08/25/16 20:57 98 Nasal Cannula 2.00 08/25/16 20:00 101 08/25/16 20:00 98 Nasal Cannula 2.00 08/25/16 20:00 98.3 94 16 112/71 98 08/25/16 19:00 99 08/25/16 18:00 109 08/25/16 17:00 95 08/25/16 16:00 99 08/25/16 15:30 97.6 99 16 115/65 95 08/25/16 15:00 95 08/25/16 14:00 95 08/25/16 13:00 100 08/25/16 12:00 94 08/25/16 11:30 98.0 94 16 121/82 96 08/25/16 11:00 97 08/25/16 10:26 96 Nasal Cannula 2.00 08/25/16 10:00 99 I/O 08/25/16 08/25/16 08/25/16 08/26/16 08/26/16 08/26/16 07:00 15:00 23:00 07:00 15:00 23:00 Intake Total 533 ml 825 ml 240 ml Output Total 425 ml 600 ml 750 ml Balance 108 ml 225 ml -510 ml Intake Oral 240 ml 740 ml 240 ml IV Total 293 ml 85 ml Output Urine Total 425 ml 600 ml 750 ml # Bowel Movements 0 1 0 Result Diagram: 08/25/16 0600 08/26/16 0806 Imaging Last Impressions Chest X-Ray 08/24/16 1103 Signed Impressions: Service Date/Time: August 11:08 - CONCLUSION: Stable appearance with no acute disease. Zack Baca MD Objective Remarks GENERAL: This is a well-nourished, well-developed patient, in no apparent distress. SKIN: No rashes, ecchymoses or lesions. Cool and dry. HEAD: Atraumatic. Normocephalic. No temporal or scalp tenderness. EYES: Pupils equal round and reactive. Extraocular motions intact. No scleral icterus. No injection or drainage. ENT: Nose without bleeding, purulent drainage or septal hematoma. Throat without erythema, tonsillar hypertrophy or exudate. Uvula midline. Airway patent. NECK: Trachea midline. No JVD or lymphadenopathy. Supple, nontender, no meningeal signs. CARDIOVASCULAR: Tachycardic, irregularly irregular. RESPIRATORY: Scattered rhonchi. GASTROINTESTINAL: Abdomen soft, non-tender, nondistended. No hepato-splenomegaly , or palpable masses. No guarding. MUSCULOSKELETAL: Extremities without clubbing, cyanosis, or edema. No joint tenderness, effusion, or edema noted. NEUROLOGICAL: Awake and alert. Cranial nerves II through XII intact. Motor and sensory grossly within normal limits. Five out of 5 muscle strength in all muscle groups. Normal speech. PSYCH: Slightly flattened affect. Medications and IVs Current Medications Medications (Trade) Dose Ordered Sig/Neva Route Start Time Stop Time Status Last Admin (Cordarone Inj/ D5W ([place]) Inj) 250 ml @ 0 mls/hr CONTINUOUS IV 08/24/16 14:45 08/25/16 03:26 (NS Flush) 2 ml UNSCH PRN FLUSH 08/24/16 16:15 (NS Flush) 2 ml BID FLUSH 08/24/16 21:00 08/26/16 09:09 (Tylenol) 650 mg Q4H PRN PO 08/24/16 16:15 (Zofran Inj) 4 mg Q6H PRN IVP 08/24/16 16:15 (Colace) 100 mg Q12H PO 08/24/16 18:00 (Senokot) 17.2 mg Q12H PRN PO 08/24/16 16:15 (Tylenol) 650 mg Q6H PRN PO 08/24/16 16:15 (Roxicodone) 5 mg Q4H PRN PO 08/24/16 16:15 (Narcan Inj) 0.4 mg UNSCH PRN IV 08/24/16 16:15 (Eliquis) 2.5 mg BID PO 08/24/16 21:00 08/26/16 09:10 (Ferrous Sulfate) 325 mg DAILY PO 08/25/16 09:00 08/26/16 09:10 (Lasix) 20 mg DAILY PO 08/25/16 09:00 08/26/16 09:09 (Synthroid) 50 mcg DAILY@06 PO 08/25/16 06:00 08/26/16 06:16 (Megace) 20 mg DAILY PO 08/25/16 09:00 08/26/16 09:09 (Pravachol) 80 mg HS PO 08/24/16 21:00 08/25/16 20:36 (Pill Splitter) 1 ea UNSCH PRN OTHER 08/24/16 16:30 (Cordarone) 200 mg Q12HR PO 08/25/16 12:00 08/26/16 09:10 (Flu (Quadrivalent) Vaccine Inj) 0.5 ml ONCE ONCE IM 08/26/16 10:00 08/26/16 10:01 A/P Assessment and Plan A fib with RVR 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 Heart rate has been controlled on an amiodarone drip. The pt says her symptoms have resolved. TSH WNL and trops negative. - Continue amiodarone per cardiology. Currently on twice a day dosing. - Telemetry. - Continue Eliquis. Dyspnea/ lightheadedness Likely s/t A fib with RVR. CXR unremarkable. Symptoms have resolved with heart rate control. May be secondary to chronic anemia. - treatment as above. - oxygen and nebs. - incentive spirometry. - home oxygen walk test. The patient will require home oxygen. - PT eval. - CT of the chest is pending. Metabolic acidosis ABG revealed respiratory alkalosis with metabolic compensation. Bicarbonate level improved. - Respiratory workup as above. Chronic renal disease Creatinine is around baseline. - monitor as needed. - avoid nephrotoxins. CHF Echo in May with EF 45-50% and mod-severe MR and severe TR. BNP elevated over 700. - continue home Lasix. - follow up with cardiology. Hypothyroidism Pt is on levothyroxine as an outpt. TSH WNL. - continue home meds. PPx: Eliquis. Discharge Planning Awaiting clinical improvement. Zack Romero DO Aug 26, 2016 09:41
[2016-08-26] MEDS ORDERED: INFLUENZA VIRUS VACCINE (QUADRIVALENT) 0.5 ML SYR IM ONE (10:00)
[2016-08-26] MEDS: RESP: ALBUTEROL 2.5 MG/IPRATROPIUM 0.5 MG NEB (SCH) NEB ×3 (10:29→19:05)
[2016-08-26 10:46] LABS: FERRITIN 195 NG/ML (8-252); TRANSFERRIN IRON PROFILE 225 MG/DL (200-360)
[2016-08-26] MEDS: PRAVASTATIN SOD 80 MG TAB PO SCH (21:22)
[2016-08-27] VITALS (20 sets, daily range): BP systolic 110–117; BP diastolic 59–74; PULSE 96–127; RESP 18–20; TEMP 98.4–98.8; O2SAT 95–99
[2016-08-27] MEDS ORDERED: AMIODARONE 200 MG TAB PO ONE
[2016-08-27 06:59] LABS: HEMATOCRIT 27.4 % (35.0-46.0); MEAN CELL VOLUME 93.7 FL (80.0-100.0); MEAN CORPUSCULAR HEMOGLOBIN 32.2 PG (27.0-34.0); MEAN CORPUSCULAR HGB CONC 34.4 % (32.0-36.0); PLATELET COUNT 179 TH/MM3 (150-450); RED BLOOD COUNT 2.93 MIL/MM3 (4.00-5.30); REVIEW FLAG FINAL; WHITE BLOOD COUNT 7.8 TH/MM3 (4.0-11.0)
[2016-08-27 07:15] LABS: MAGNESIUM 1.5 MG/DL (1.5-2.5); POTASSIUM 3.4 MEQ/L (3.5-5.1)
[2016-08-27] MEDS: RESP: LEVALBUTEROL HYDROCHLORIDE 1.25 MG/3 ML NEB (SCH) NEB ×3 (08:00→19:18)
[2016-08-27] MEDS: FUROSEMIDE 20 MG TAB PO SCH (09:46)
[2016-08-27] MEDS: FERROUS SULFATE 325 MG (65 MG ELEMENTAL IRON) TAB PO SCH (09:46)
[2016-08-27] MEDS: AMIODARONE 200 MG TAB PO SCH ×2 (09:46→22:48)
[2016-08-27] MEDS: APIXABAN 2.5 MG TABLET PO SCH ×2 (09:47→22:47)
[2016-08-27] MEDS: MEGESTROL ACETATE 40 MG TAB PO SCH (09:47)
[2016-08-27] MEDS: DOCUSATE SODIUM 100 MG CAP PO SCH ×2 (09:48→18:26)
[2016-08-27] MEDS: LEVOTHYROXINE SODIUM 50 MCG TAB PO SCH (09:48)
[2016-08-27] MEDS: SODIUM CHLORIDE 0.9% FLUSH 5 ML FLUSH FLUSH SCH ×2 (09:48→22:48)
--- NOTE | 2016-08-27 11:38 | PD.CARD.PN ---
Subjective Subjective Remarks For Dr Mcgarry Pateint with rapid AF was on IV amiodarone now oral. HR in high 90s at rest. Amira is frail and lives with elderly . Yesterday I told nurse she needs social consult for placment. Objective Vital Signs / I&O Vital Signs Date Time Temp Pulse Resp B/P Pulse Ox O2 Delivery O2 Flow Rate FiO2 08/27/16 09:04 98.8 125 18 111/74 95 08/27/16 06:00 99 Nasal Cannula 2.00 08/27/16 02:00 119 08/27/16 01:00 122 08/27/16 00:00 125 08/26/16 23:07 99 Nasal Cannula 2.00 08/26/16 23:06 98.6 132 20 109/62 99 08/26/16 23:00 136 08/26/16 22:00 122 08/26/16 21:00 136 08/26/16 20:01 99 Nasal Cannula 2.00 08/26/16 20:00 125 08/26/16 20:00 98.5 127 20 117/63 98 08/26/16 19:00 122 08/26/16 18:00 117 08/26/16 17:00 108 08/26/16 16:56 96 Nasal Cannula 2.00 08/26/16 16:00 103 08/26/16 15:00 96 08/26/16 15:00 99.1 114 20 100/53 99 08/26/16 15:00 99 Nasal Cannula 2.00 08/26/16 14:00 109 08/26/16 13:00 110 08/26/16 12:00 100 08/26/16 11:42 100 Nasal Cannula 2.00 I/O 08/26/16 08/26/16 08/26/16 08/27/16 08/27/16 08/27/16 07:00 15:00 23:00 07:00 15:00 23:00 Intake Total 240 ml 1816 ml Output Total 750 ml 1 ml Balance -510 ml 1815 ml Intake Oral 240 ml 1080 ml IV Total 736 ml Output Urine Total 750 ml Stool Total 1 ml # Voids 2 # Bowel Movements 0 Physical Exam No JVD Decreased BS with rhonchi Irregular no S3 soft not tender abdomen tr edema somnolent this [facility] Laboratory Laboratory Tests Test 08/27/16 05:20 White Blood Count 7.8 TH/MM3 Red Blood Count 2.93 MIL/MM3 Hemoglobin 9.4 GM/DL Hematocrit 27.4 % Mean Corpuscular Volume 93.7 FL Mean Corpuscular Hemoglobin 32.2 PG Mean Corpuscular Hemoglobin 34.4 % Concent Red Cell Distribution Width 15.0 % Platelet Count 179 TH/MM3 Mean Platelet Volume 9.2 FL Sodium Level 136 MEQ/L Potassium Level 3.4 MEQ/L Chloride Level 107 MEQ/L Carbon Dioxide Level 17.0 MEQ/L Anion Gap 12 MEQ/L Blood Urea Nitrogen 36 MG/DL Creatinine 2.09 MG/DL Estimat Glomerular Filtration 22 ML/MIN Rate Random Glucose 85 MG/DL Calcium Level 7.8 MG/DL Magnesium Level 1.5 MG/DL Assessment and Plan Problem List: (1) COPD (chronic obstructive pulmonary disease) (2) Anemia (3) Afib (4) CHF (congestive heart failure) (5) Chronic kidney disease Problem Qualifiers (1) COPD (chronic obstructive pulmonary disease): Qualified Code: J44.9 - Chronic obstructive pulmonary disease, unspecified COPD type (2) Anemia: Qualified Code: D64.9 - Anemia, unspecified type (3) Afib: Qualified Code: I48.1 - Persistent atrial fibrillation (4) CHF (congestive heart failure): (5) Chronic kidney disease: Qualified Code: N18.4 - Chronic kidney disease, stage 4 (severe) Scott Lopez MD Aug 27, 2016 11:38
--- NOTE | 2016-08-27 13:35 | HHI.PR ---
Subjective Remarks The patient was resting in bed comfortably. She said she was breathing well. She said she will not take potassium because it gives her shortness of breath. Objective Vitals Vital Signs Date Time Temp Pulse Resp B/P Pulse Ox O2 Delivery O2 Flow Rate FiO2 08/27/16 13:09 97 Nasal Cannula 2.00 08/27/16 12:52 98.4 111 20 112/68 98 08/27/16 09:04 98.8 125 18 111/74 95 08/27/16 06:00 99 Nasal Cannula 2.00 08/27/16 02:00 119 08/27/16 01:00 122 08/27/16 00:00 125 08/26/16 23:07 99 Nasal Cannula 2.00 08/26/16 23:06 98.6 132 20 109/62 99 08/26/16 23:00 136 08/26/16 22:00 122 08/26/16 21:00 136 08/26/16 20:01 99 Nasal Cannula 2.00 08/26/16 20:00 125 08/26/16 20:00 98.5 127 20 117/63 98 08/26/16 19:00 122 08/26/16 18:00 117 08/26/16 17:00 108 08/26/16 16:56 96 Nasal Cannula 2.00 08/26/16 16:00 103 08/26/16 15:00 96 08/26/16 15:00 99.1 114 20 100/53 99 08/26/16 15:00 99 Nasal Cannula 2.00 08/26/16 14:00 109 I/O 08/26/16 08/26/16 08/26/16 08/27/16 08/27/16 08/27/16 07:00 15:00 23:00 07:00 15:00 23:00 Intake Total 240 ml 1816 ml Output Total 750 ml 1 ml 600 ml Balance -510 ml 1815 ml -600 ml Intake Oral 240 ml 1080 ml IV Total 736 ml Output Urine Total 750 ml 600 ml Stool Total 1 ml # Voids 2 # Bowel Movements 0 1 Result Diagram: 08/27/16 0520 08/27/16 0520 Imaging Last Impressions Chest X-Ray 08/24/16 1103 Signed Impressions: Service Date/Time: August 11:08 - CONCLUSION: Stable appearance with no acute disease. Zack Baca MD Objective Remarks GENERAL: This is a well-nourished, well-developed patient, in no apparent distress. SKIN: No rashes, ecchymoses or lesions. Cool and dry. HEAD: Atraumatic. Normocephalic. No temporal or scalp tenderness. EYES: Pupils equal round and reactive. Extraocular motions intact. No scleral icterus. No injection or drainage. ENT: Nose without bleeding, purulent drainage or septal hematoma. Throat without erythema, tonsillar hypertrophy or exudate. Uvula midline. Airway patent. NECK: Trachea midline. No JVD or lymphadenopathy. Supple, nontender, no meningeal signs. CARDIOVASCULAR: Tachycardic, irregularly irregular. RESPIRATORY: Clear to auscultation bilaterally. No wheezing, rales or rhonchi. GASTROINTESTINAL: Abdomen soft, non-tender, nondistended. No hepato-splenomegaly , or palpable masses. No guarding. MUSCULOSKELETAL: Extremities without clubbing, cyanosis, or edema. No joint tenderness, effusion, or edema noted. NEUROLOGICAL: Awake and alert. Cranial nerves II through XII intact. Motor and sensory grossly within normal limits. Five out of 5 muscle strength in all muscle groups. Normal speech. PSYCH: Slightly flattened affect. Medications and IVs Current Medications Medications (Trade) Dose Ordered Sig/Neva Route Start Time Stop Time Status Last Admin (Cordarone Inj/ D5W ([place]) Inj) 250 ml @ 0 mls/hr CONTINUOUS IV 08/24/16 14:45 08/25/16 03:26 (NS Flush) 2 ml UNSCH PRN FLUSH 08/24/16 16:15 (NS Flush) 2 ml BID FLUSH 08/24/16 21:00 08/27/16 09:48 (Tylenol) 650 mg Q4H PRN PO 08/24/16 16:15 (Zofran Inj) 4 mg Q6H PRN IVP 08/24/16 16:15 (Colace) 100 mg Q12H PO 08/24/16 18:00 08/27/16 09:48 (Senokot) 17.2 mg Q12H PRN PO 08/24/16 16:15 (Tylenol) 650 mg Q6H PRN PO 08/24/16 16:15 (Roxicodone) 5 mg Q4H PRN PO 08/24/16 16:15 (Narcan Inj) 0.4 mg UNSCH PRN IV 08/24/16 16:15 (Eliquis) 2.5 mg BID PO 08/24/16 21:00 08/27/16 09:47 (Ferrous Sulfate) 325 mg DAILY PO 08/25/16 09:00 08/27/16 09:46 (Lasix) 20 mg DAILY PO 08/25/16 09:00 08/27/16 09:46 (Synthroid) 50 mcg DAILY@06 PO 08/25/16 06:00 08/27/16 09:48 (Megace) 20 mg DAILY PO 08/25/16 09:00 08/27/16 09:47 (Pravachol) 80 mg HS PO 08/24/16 21:00 08/26/16 21:22 (Pill Splitter) 1 ea UNSCH PRN OTHER 08/24/16 16:30 Amiodarone HCl 200 mg 200 mg Q12HR PO 08/25/16 12:00 08/27/16 09:46 (Magnesium Sulfate 1 Gm Premix) 100 ml @ 100 mls/hr Q1H IV 08/27/16 13:30 08/27/16 15:29 UNV A/P Assessment and Plan A fib with RVR 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 Heart rate has been controlled on an amiodarone drip. The pt says her symptoms have resolved. TSH WNL and trops negative. Heart rate still in the low 100s- 120s. - Continue amiodarone by mouth twice a day per cardiology. - Telemetry. - Continue Eliquis. - Follow up with cardiology. Dyspnea/ lightheadedness Likely s/t A fib with RVR. CXR unremarkable. Symptoms have resolved with heart rate control. May be secondary to chronic anemia. - treatment as above. - oxygen and nebs. - incentive spirometry. - home oxygen walk test. The patient will require home oxygen. - PT eval. Metabolic acidosis Maybe secondary to underlying chronic renal disease. Bicarbonate level stable. - Continue to monitor. Chronic renal disease Creatinine is around baseline. - monitor as needed. - avoid nephrotoxins. CHF Echo in May with EF 45-50% and mod-severe MR and severe TR. BNP elevated over 700. - continue home Lasix. - follow up with cardiology. Hypothyroidism Pt is on levothyroxine as an outpt. TSH WNL. - continue home meds. PPx: Eliquis. Discharge Planning Awaiting clinical improvement. Zack Romero DO Aug 27, 2016 13:35
[2016-08-27] MEDS: MAGNESIUM SULFATE 1 GM PREMIX 100 ML IV SCH ×2 (14:43→16:47)
--- NOTE | 2016-08-27 16:50 | HHI.FF ---
Face to Face Verification Diagnosis: (1) Afib (2) Chronic kidney disease (3) CHF (congestive heart failure) Home Health Nursing Order: Medical education Signs/symptoms of disease process CHF education Oxygen administration education Medication education-adverse effect Nursing assessment with vital signs I have seen patient Pennie Calvert on 08/27/16. My clinical findings support the need for the requested home health care services because: Ltd mobility - disease progression Patient has SOB Deconditioned w/ increased weakness Limited ability to care for self I certify that my clinical findings support that this patient is homebound because: Unsteady gait/balance Unsafe to leave home unassisted Zack Romero DO Aug 27, 2016 16:50
[2016-08-27] MEDS: PRAVASTATIN SOD 80 MG TAB PO SCH (22:48)
[2016-08-28] VITALS (27 sets, daily range): BP systolic 114–128; BP diastolic 54–80; PULSE 93–133; RESP 18–20; TEMP 97.6–98.7; O2SAT 95–100
[2016-08-28 05:05] LABS: HEMATOCRIT 28.8 % (35.0-46.0); MEAN CELL VOLUME 94.1 FL (80.0-100.0); MEAN CORPUSCULAR HEMOGLOBIN 32.4 PG (27.0-34.0); MEAN CORPUSCULAR HGB CONC 34.4 % (32.0-36.0); PLATELET COUNT 200 TH/MM3 (150-450); RED BLOOD COUNT 3.06 MIL/MM3 (4.00-5.30); RED CELL DISTRIBUTION WIDTH 14.7 % (11.6-17.2); REVIEW FLAG FINAL; WHITE BLOOD COUNT 9.1 TH/MM3 (4.0-11.0)
[2016-08-28 05:34] LABS: BICARBONATE 18.5 MEQ/L (21.0-32.0); MAGNESIUM 2.2 MG/DL (1.5-2.5); POTASSIUM 3.4 MEQ/L (3.5-5.1)
[2016-08-28] MEDS: DOCUSATE SODIUM 100 MG CAP PO SCH ×2 (06:00→17:41)
[2016-08-28] MEDS: LEVOTHYROXINE SODIUM 50 MCG TAB PO SCH (06:00)
[2016-08-28] MEDS: RESP: LEVALBUTEROL HYDROCHLORIDE 1.25 MG/3 ML NEB (SCH) NEB ×3 (07:34→21:05)
[2016-08-28] MEDS: AMIODARONE 200 MG TAB PO SCH ×2 (08:17→20:44)
[2016-08-28] MEDS: FERROUS SULFATE 325 MG (65 MG ELEMENTAL IRON) TAB PO SCH (08:17)
[2016-08-28] MEDS: MEGESTROL ACETATE 40 MG TAB PO SCH (08:17)
[2016-08-28] MEDS: SODIUM CHLORIDE 0.9% FLUSH 5 ML FLUSH FLUSH SCH ×2 (08:18→20:43)
[2016-08-28] MEDS: APIXABAN 2.5 MG TABLET PO SCH ×2 (08:18→20:44)
--- NOTE | 2016-08-28 08:42 | HHI.PR ---
Subjective Remarks Follow up for Afib with RVR. Ms. Calvert is doing well. Denies any chest pain, SOB, fever, chills. She remains in Afib with RVR. Objective Vitals Vital Signs Date Time Temp Pulse Resp B/P Pulse Ox O2 Delivery O2 Flow Rate FiO2 08/28/16 07:35 99 Nasal Cannula 1.00 08/28/16 06:29 98.6 112 20 119/64 95 08/28/16 06:06 99 Nasal Cannula 2.00 08/28/16 06:00 108 08/28/16 05:00 107 08/28/16 04:00 105 08/28/16 03:00 104 08/28/16 02:00 112 08/28/16 01:00 108 08/28/16 00:25 98.6 100 20 117/79 99 08/28/16 00:11 99 Nasal Cannula 2.00 08/28/16 00:00 110 08/27/16 23:00 119 08/27/16 22:00 110 08/27/16 21:08 98.5 96 20 110/65 98 08/27/16 21:00 108 08/27/16 20:43 99 Nasal Cannula 2.00 08/27/16 20:00 111 08/27/16 19:19 95 Nasal Cannula 1.00 08/27/16 19:00 100 08/27/16 18:00 107 08/27/16 17:00 98.6 107 18 117/59 99 08/27/16 17:00 118 08/27/16 14:00 98 08/27/16 13:09 97 Nasal Cannula 2.00 08/27/16 13:00 104 08/27/16 12:52 98.4 111 20 112/68 98 08/27/16 11:00 103 08/27/16 10:00 109 08/27/16 09:04 98.8 125 18 111/74 95 08/27/16 09:00 127 I/O 08/27/16 08/27/16 08/27/16 08/28/16 08/28/16 08/28/16 07:00 15:00 23:00 07:00 15:00 23:00 Output Total 600 ml Balance -600 ml Output Urine Total 600 ml # Bowel Movements 1 Result Diagram: 1/23/17 0315 1/23/17 0315 Imaging Last Impressions Chest X-Ray 08/24/16 1103 Signed Impressions: Service Date/Time: August 11:08 - CONCLUSION: Stable appearance with no acute disease. Zack Baca MD Objective Remarks GENERAL: AOX3, NAD SKIN: Warm and dry. HEAD: Normocephalic. EYES: No scleral icterus. No injection or drainage. NECK: Supple, trachea midline. No JVD or lymphadenopathy. CARDIOVASCULAR: Irreg Irreg, tachycardic without murmurs, gallops, or rubs. RESPIRATORY: Breath sounds equal bilaterally. No accessory muscle use. GASTROINTESTINAL: Abdomen soft, non-tender, nondistended. MUSCULOSKELETAL: No cyanosis, or edema. BACK: Nontender without obvious deformity. No CVA tenderness. Procedures None. A/P Assessment and Plan Ms. Calvert is a pleasant 89 year old female with a history of Afib who was admitted to the hospital due to numbness of breath and lightheadedness. - A fib with RVR - Continue amiodarone 200mg Q12hrs. - Continue Apixaban 2.5mg BID. - Digoxin use is restricted due to patient's acute on chronic kidney disease. However, renal dosing maybe possible if rate control is difficult to achieve. - Dyspnea/ lightheadedness - Likely s/t A fib with RVR. CXR unremarkable. Symptoms have resolved with heart rate control. May be secondary to chronic anemia - Hgb stable 9.4 --> 9.9. No significant drop during this hospitalization. - oxygen and nebs - incentive spirometry. - home oxygen walk test on 08/25/2016 indicates need for home O2. Will need another walk test prior to discharge. - Metabolic acidosis - Acute on chronic kidney disease. - CKD Stage III - Nephrology has been consulted. - CHF - Echo in May with EF 45-50% and mod-severe MR and severe TR. BNP elevated over 700. - Lasix on hold per cardiology. - Hypothyroidism - Pt is on levothyroxine 50 mcg Qday. - continue home meds. Full code. Apixaban. Chyna Louis DO Aug 28, 2016 08:42
[2016-08-28] MEDS: FUROSEMIDE 20 MG TAB PO SCH (08:43)
--- NOTE | 2016-08-28 10:27 | PD.CARD.PN ---
Subjective Subjective Remarks The patient denies acute complaints today. "she feels better and better". Telemetry shows Afib with rate 100-110 bpm on evaluation. Hbg trending down. Creatine trending up. (Nargis Cartwright) Objective Medications Current Medications Medications (Trade) Dose Ordered Sig/Neva Route Start Time Stop Time Status Last Admin (Cordarone Inj/ D5W ([place]) Inj) 250 ml @ 0 mls/hr CONTINUOUS IV 08/24/16 14:45 08/25/16 03:26 (NS Flush) 2 ml UNSCH PRN FLUSH 08/24/16 16:15 (NS Flush) 2 ml BID FLUSH 08/24/16 21:00 08/28/16 08:18 (Tylenol) 650 mg Q4H PRN PO 08/24/16 16:15 (Zofran Inj) 4 mg Q6H PRN IVP 08/24/16 16:15 (Colace) 100 mg Q12H PO 08/24/16 18:00 08/27/16 18:26 (Senokot) 17.2 mg Q12H PRN PO 08/24/16 16:15 (Tylenol) 650 mg Q6H PRN PO 08/24/16 16:15 (Roxicodone) 5 mg Q4H PRN PO 08/24/16 16:15 (Narcan Inj) 0.4 mg UNSCH PRN IV 08/24/16 16:15 (Eliquis) 2.5 mg BID PO 08/24/16 21:00 08/28/16 08:18 (Ferrous Sulfate) 325 mg DAILY PO 08/25/16 09:00 08/28/16 08:17 (Lasix) 20 mg DAILY PO 08/25/16 09:00 08/27/16 09:46 (Synthroid) 50 mcg DAILY@06 PO 08/25/16 06:00 08/28/16 06:00 (Megace) 20 mg DAILY PO 08/25/16 09:00 08/28/16 08:17 (Pravachol) 80 mg HS PO 08/24/16 21:00 08/27/16 22:48 (Pill Splitter) 1 ea UNSCH PRN OTHER 08/24/16 16:30 (Cordarone) 200 mg Q12HR PO 08/25/16 12:00 08/28/16 08:17 Vital Signs / I&O Vital Signs Date Time Temp Pulse Resp B/P Pulse Ox O2 Delivery O2 Flow Rate FiO2 08/28/16 10:00 106 08/28/16 09:00 133 08/28/16 08:00 131 08/28/16 07:35 99 Nasal Cannula 1.00 08/28/16 07:30 94 Nasal Cannula 2.00 08/28/16 07:30 98.0 126 18 124/71 98 08/28/16 07:30 116 08/28/16 06:29 98.6 112 20 119/64 95 08/28/16 06:06 99 Nasal Cannula 2.00 08/28/16 06:00 108 08/28/16 05:00 107 08/28/16 04:00 105 08/28/16 03:00 104 08/28/16 02:00 112 08/28/16 01:00 108 08/28/16 00:25 98.6 100 20 117/79 99 08/28/16 00:11 99 Nasal Cannula 2.00 08/28/16 00:00 110 08/27/16 23:00 119 08/27/16 22:00 110 08/27/16 21:08 98.5 96 20 110/65 98 08/27/16 21:00 108 08/27/16 20:43 99 Nasal Cannula 2.00 08/27/16 20:00 111 08/27/16 19:19 95 Nasal Cannula 1.00 08/27/16 19:00 100 08/27/16 18:00 107 08/27/16 17:00 98.6 107 18 117/59 99 08/27/16 17:00 118 08/27/16 14:00 98 08/27/16 13:09 97 Nasal Cannula 2.00 08/27/16 13:00 104 08/27/16 12:52 98.4 111 20 112/68 98 08/27/16 11:00 103 I/O 08/27/16 08/27/16 08/27/16 08/28/16 08/28/16 08/28/16 07:00 15:00 23:00 07:00 15:00 23:00 Output Total 600 ml Balance -600 ml Output Urine Total 600 ml # Bowel Movements 1 Physical Exam GENERAL: Elderly female, no distress SKIN: Warm and dry. HEAD: Normocephalic. EYES: No scleral icterus. No injection or drainage. NECK: Supple, trachea midline. No lymphadenopathy. JVD 2 cm CARDIOVASCULAR: rate controlled, irreg irreg RESPIRATORY: Breath sounds equal bilaterally. No accessory muscle use. GASTROINTESTINAL: Abdomen soft, non-tender, nondistended. MUSCULOSKELETAL: No cyanosis, or edema. erythema of right forearm BACK: Nontender without obvious deformity. No CVA tenderness. Laboratory Laboratory Tests Test 08/28/16 03:15 White Blood Count 9.1 TH/MM3 Red Blood Count 3.06 MIL/MM3 Hemoglobin 9.9 GM/DL Hematocrit 28.8 % Mean Corpuscular Volume 94.1 FL Mean Corpuscular Hemoglobin 32.4 PG Mean Corpuscular Hemoglobin 34.4 % Concent Red Cell Distribution Width 14.7 % Platelet Count 200 TH/MM3 Mean Platelet Volume 9.1 FL Sodium Level 134 MEQ/L Potassium Level 3.4 MEQ/L Chloride Level 104 MEQ/L Carbon Dioxide Level 18.5 MEQ/L Anion Gap 12 MEQ/L Blood Urea Nitrogen 40 MG/DL Creatinine 2.17 MG/DL Estimat Glomerular Filtration 21 ML/MIN Rate Random Glucose 86 MG/DL Calcium Level 8.3 MG/DL Magnesium Level 2.2 MG/DL (Nargis Cartwright) Assessment and Plan Problem List: (1) COPD (chronic obstructive pulmonary disease) (2) Anemia (3) Afib (4) CHF (congestive heart failure) (5) Chronic kidney disease Assessment and Plan Assessment Afib RVR, multiple allergies and side effects to rate control therapy. On Eliquis, dose appropriately for Cr, Age and weight Acute diastolic CHF exacerbation due to afib RVR. BNP increased, no evidence of CHF on CXR. Chronic anemia, history of presumed GI bleed. H/H trending down. SOB- see above Echo 04/2016 EF 45-50%, Moderate MR, Moderate TR Metabolic acidosis with respiratory compromise Multiple medication allergies and side effects Plan: CONSULT NEPHROLOGY FOR LOW BICARB and worsening renal function. Hold Lasix We cannot use digoxin due to renal function. The patient has multiple contributing factors to elevated rate including worsening H/H and electrolyte abnormalities. Check occult stool for active bleeding Assessment and plan discussed with Dr. Mcgarry (Nargis Cartwright) Assessment and Plan The exam, history, and the medical decision-making described in the above note were completed with the assistance of the mid-level provider. I reviewed and agree with the findings presented. I attest that I had a [id number] encounter with the patient on the same day, and personally performed and documented my assessment and findings in the medical record.Doing better cardiac pierre will plan to address respiratory acidosis ?? RTA type 2 (Hawk Mcgarry MD) Problem Qualifiers (1) COPD (chronic obstructive pulmonary disease): Qualified Code: J44.9 - Chronic obstructive pulmonary disease, unspecified COPD type (2) Anemia: Qualified Code: D64.9 - Anemia, unspecified type (3) Afib: Qualified Code: I48.1 - Persistent atrial fibrillation (4) CHF (congestive heart failure): (5) Chronic kidney disease: Qualified Code: N18.4 - Chronic kidney disease, stage 4 (severe) Nargis Cartwright Aug 28, 2016 10:27 Hawk Mcgarry MD Aug 28, 2016 18:30
[2016-08-28] MEDS ORDERED: AMIODARONE 200 MG TAB PO ONE (19:00)
[2016-08-28] MEDS: PRAVASTATIN SOD 80 MG TAB PO SCH (20:43)
[2016-08-29] VITALS (18 sets, daily range): BP systolic 99–126; BP diastolic 55–68; PULSE 88–123; RESP 18–22; TEMP 97.7–98.9; O2SAT 97–99
[2016-08-29] MEDS: DOCUSATE SODIUM 100 MG CAP PO SCH (05:25)
[2016-08-29] MEDS: LEVOTHYROXINE SODIUM 50 MCG TAB PO SCH (05:25)
[2016-08-29] MEDS: FERROUS SULFATE 325 MG (65 MG ELEMENTAL IRON) TAB PO SCH (09:20)
[2016-08-29] MEDS: SODIUM CHLORIDE 0.9% FLUSH 5 ML FLUSH FLUSH SCH (09:20)
[2016-08-29] MEDS: MEGESTROL ACETATE 40 MG TAB PO SCH (09:20)
[2016-08-29] MEDS: APIXABAN 2.5 MG TABLET PO SCH (09:21)
[2016-08-29] MEDS: FUROSEMIDE 20 MG TAB PO SCH (09:21)
[2016-08-29] MEDS: AMIODARONE 200 MG TAB PO SCH (09:23)
[2016-08-29] MEDS: RESP: LEVALBUTEROL HYDROCHLORIDE 1.25 MG/3 ML NEB (SCH) NEB ×2 (09:33→13:32)
--- NOTE | 2016-08-29 10:01 | PD.CARD.PN ---
Subjective Subjective Remarks Patient denies acute complaints today. "I feel good" (Nargis Cartwright) Objective Medications Current Medications Medications (Trade) Dose Ordered Sig/Neva Route Start Time Stop Time Status Last Admin (Cordarone Inj/ D5W ([place]) Inj) 250 ml @ 0 mls/hr CONTINUOUS IV 08/24/16 14:45 08/25/16 03:26 (NS Flush) 2 ml UNSCH PRN FLUSH 08/24/16 16:15 (NS Flush) 2 ml BID FLUSH 08/24/16 21:00 08/29/16 09:20 (Tylenol) 650 mg Q4H PRN PO 08/24/16 16:15 (Zofran Inj) 4 mg Q6H PRN IVP 08/24/16 16:15 (Colace) 100 mg Q12H PO 08/24/16 18:00 08/27/16 18:26 (Senokot) 17.2 mg Q12H PRN PO 08/24/16 16:15 (Tylenol) 650 mg Q6H PRN PO 08/24/16 16:15 (Roxicodone) 5 mg Q4H PRN PO 08/24/16 16:15 (Narcan Inj) 0.4 mg UNSCH PRN IV 08/24/16 16:15 (Eliquis) 2.5 mg BID PO 08/24/16 21:00 08/29/16 09:21 (Ferrous Sulfate) 325 mg DAILY PO 08/25/16 09:00 08/29/16 09:20 (Lasix) 20 mg DAILY PO 08/25/16 09:00 08/29/16 09:21 (Synthroid) 50 mcg DAILY@06 PO 08/25/16 06:00 08/29/16 05:25 (Megace) 20 mg DAILY PO 08/25/16 09:00 08/29/16 09:20 (Pravachol) 80 mg HS PO 08/24/16 21:00 08/28/16 20:43 (Pill Splitter) 1 ea UNSCH PRN OTHER 08/24/16 16:30 (Cordarone) 200 mg Q12HR PO 08/25/16 12:00 08/29/16 09:23 Vital Signs / I&O Vital Signs Date Time Temp Pulse Resp B/P Pulse Ox O2 Delivery O2 Flow Rate FiO2 08/29/16 07:00 98.5 89 18 116/65 99 08/29/16 07:00 99 08/29/16 06:00 98 08/29/16 05:00 98.6 94 20 99/55 97 08/29/16 05:00 99 08/29/16 04:05 94 08/29/16 03:00 100 08/29/16 02:00 102 08/29/16 01:00 105 08/29/16 00:00 102 08/29/16 00:00 98.9 107 20 111/60 98 08/28/16 23:00 120 08/28/16 22:00 115 08/28/16 21:06 98 Nasal Cannula 1.00 08/28/16 21:00 98.7 106 18 120/80 100 08/28/16 21:00 100 Nasal Cannula 2.00 08/28/16 21:00 107 08/28/16 20:00 99 08/28/16 18:20 102 08/28/16 17:00 118 08/28/16 16:00 101 08/28/16 15:44 98 Nasal Cannula 2.00 08/28/16 15:00 113 08/28/16 15:00 97.6 113 20 114/54 98 08/28/16 14:08 121 08/28/16 13:23 109 08/28/16 12:10 106 08/28/16 11:58 94 Nasal Cannula 2.00 08/28/16 11:00 98.1 108 18 128/79 100 08/28/16 11:00 93 08/28/16 10:00 106 I/O 08/28/16 08/28/16 08/28/16 08/29/16 08/29/16 08/29/16 07:00 15:00 23:00 07:00 15:00 23:00 Intake Total 500 ml 240 ml Output Total 500 ml 800 ml Balance 0 ml -560 ml Intake Oral 500 ml IV Total 240 ml Output Urine Total 500 ml 800 ml # Bowel Movements 1 Physical Exam GENERAL: Elderly female, no distress, sitting up in the chair SKIN: Warm and dry. HEAD: Normocephalic. EYES: No scleral icterus. No injection or drainage. NECK: Supple, trachea midline. No lymphadenopathy CARDIOVASCULAR: rate controlled, irreg irreg RESPIRATORY: Breath sounds equal bilaterally. No accessory muscle use. GASTROINTESTINAL: Abdomen soft, non-tender, nondistended. MUSCULOSKELETAL: No cyanosis, or edema. BACK: Nontender without obvious deformity. No CVA tenderness. (Nargis Cartwright) Assessment and Plan Problem List: (1) COPD (chronic obstructive pulmonary disease) (2) Anemia (3) Afib (4) CHF (congestive heart failure) (5) Chronic kidney disease Assessment and Plan Assessment Afib RVR, multiple allergies and side effects to rate control therapy. On Eliquis, dose appropriately for Cr, Age and weight Acute diastolic CHF exacerbation due to afib RVR. BNP increased, no evidence of CHF on CXR. Chronic anemia, history of presumed GI bleed. H/H trending down. SOB- see above Echo 04/2016 EF 45-50%, Moderate MR, Moderate TR Metabolic acidosis with respiratory compromise Multiple medication allergies and side effects Plan: Recommend nephrology consult if ok with Dr Louis for RTA We cannot use digoxin due to renal function. The patient has multiple contributing factors to elevated rate including worsening H/H and electrolyte abnormalities. Continue Amiodarone. Decrease to daily Pending occult stool for active bleeding Check BMP and CBC this morning. Assessment and plan discussed with Dr. Mcgarry (Nargis Cartwright) Assessment and Plan The exam, history, and the medical decision-making described in the above note were completed with the assistance of the mid-level provider. I reviewed and agree with the findings presented. I attest that I had a [id number] encounter with the patient on the same day, and personally performed and documented my assessment and findings in the medical record.bHR still elevated waiting fro amiodarone to kick in (Hawk Mcgarry MD) Problem Qualifiers (1) COPD (chronic obstructive pulmonary disease): Qualified Code: J44.9 - Chronic obstructive pulmonary disease, unspecified COPD type (2) Anemia: Qualified Code: D64.9 - Anemia, unspecified type (3) Afib: Qualified Code: I48.1 - Persistent atrial fibrillation (4) CHF (congestive heart failure): (5) Chronic kidney disease: Qualified Code: N18.4 - Chronic kidney disease, stage 4 (severe) Nargis Cartwright Aug 29, 2016 10:01 Hawk Mcgarry MD Aug 29, 2016 13:33
[2016-08-29 11:27] LABS: HEMATOCRIT 33.9 % (35.0-46.0); MEAN CELL VOLUME 94.5 FL (80.0-100.0); MEAN CORPUSCULAR HEMOGLOBIN 31.8 PG (27.0-34.0); MEAN CORPUSCULAR HGB CONC 33.7 % (32.0-36.0); PLATELET COUNT 258 TH/MM3 (150-450); RED BLOOD COUNT 3.59 MIL/MM3 (4.00-5.30); RED CELL DISTRIBUTION WIDTH 14.5 % (11.6-17.2); REVIEW FLAG FINAL; WHITE BLOOD COUNT 7.3 TH/MM3 (4.0-11.0)
[2016-08-29 11:48] LABS: BICARBONATE 21.5 MEQ/L (21.0-32.0)
[2016-08-29] MEDS ORDERED: SODIUM BICARBONATE 650 MG TAB PO SCH (12:15)
--- NOTE | 2016-08-29 12:23 | PD.CONS ---
[facility] Service Nephrology Consult Requested By Reason for Consult CKD, "RTA" Primary Care Physician Juan R Evans MD History of Present Illness Ms. Calvert is an 89 year old lady with history of atrial fibrillation. She was admitted to the hospital with palpitations and found to have atrial fibrillation with RVR. She has been evaluated by Cardiology. She is on Eliquis. She claims allergy to multiple medications. EF is about 45 %. Patient is noted to have abnormal renal function. Creatinine between 1.9 and 2.1 as baseline. She has low bicarbonate, suggesting metabolic acidosis. ABG on the suggests metabolic acidosis with respiratory alkalosis, as PCO2 is lower than is expected compensation. Anion gap is not high. Review of Systems Constitutional: DENIES: Fatigue, Fever, Weight gain Respiratory: DENIES: Cough, Snoring, Hemoptysis Cardiovascular: DENIES: Chest pain, Palpitations, Dyspnea on Exertion, PND Gastrointestinal: DENIES: Abdominal pain, Black stools Musculoskeletal: DENIES: Joint pain, Muscle aches Neurologic: DENIES: Abnormal gait, Headache Past Family Social History Allergies: Coded Allergies: Atenolol (Verified Allergy, Severe, 08/24/16) LIGHT HEADED/FAINT Cardizem (Verified Allergy, Severe, AIRWAY SWELLING, 05/25/16) AIRWAY OBSTRUCTION Levofloxacin (Verified Allergy, Severe, 05/25/16) Lisinopril (Verified Allergy, Severe, CP, 05/25/16) Phenergan (Verified Allergy, Severe, RASH, 05/25/16) Sulfa (Verified Allergy, Severe, 05/25/16) Toprol Xl (Verified Allergy, Severe, BRADYCARDIA, 05/25/16) Verapamil (Verified Allergy, Severe, Anaphylaxis, 05/25/16) Amoxicillin (Verified Allergy, Mild, 05/25/16) Levaquin (Verified Allergy, Mild, Irritability/Anxiety, 05/25/16) EDOXABAN (Verified Adverse Reaction, Severe, LIGHT HEADED, 08/24/16) Potassium (Verified Adverse Reaction, Severe, CAN'T BREATHE, 08/24/16) Uncoded Allergies: GINGERALE (Adverse Reaction, Severe, VOMITING, 08/24/16) Past Medical History A fib Anemia Arthritis History of colon cancer with chemotherapy in 2000 Congestive heart failure Hypertension Hyperlipidemia Hypothyroidism Gastroesophageal reflux disease Chronic kidney disease GI bleed CVA Kidney stones Past Surgical History History of hip replacement Knee replacement Hysterectomy Reported Medications Tylenol Extra Strength (Acetaminophen) 500 Mg Tab 500 Mg PO Q4-6H PRN Ferrous Sulfate 325 Mg Tab 325 Mg PO DAILY Refresh Opth Drops (Polyvinyl Alcohol-Povidone Opth Drops) 1.4-0.6% Drops 1-2 Drop EACH EYE PRN PRN Centrum Silver (Multiple Vitamins W/ Minerals) 1 Tab 1 Tab PO DAILY Furosemide 20 Mg Tab 20 Mg PO DAILY Omeprazole 20 Mg Tab Mg PO DAILY Simvastatin 40 Mg Tab 40 Mg PO HS Synthroid (Levothyroxine Sodium) 50 Mcg Tab 50 Mcg PO DAILY Megestrol (Megestrol Acetate) 20 Mg Tab 20 Mg PO DAILY Eliquis (Apixaban) 2.5 Mg Tab 2.5 Mg PO BID Active Ordered Medications Current Medications Medications (Trade) Dose Ordered Sig/Neva Route Start Time Stop Time Status Last Admin (Cordarone Inj/ D5W (Welch) Inj) 250 ml @ 0 mls/hr CONTINUOUS IV 08/24/16 14:45 08/25/16 03:26 (NS Flush) 2 ml UNSCH PRN FLUSH 08/24/16 16:15 (NS Flush) 2 ml BID FLUSH 08/24/16 21:00 08/29/16 09:20 (Tylenol) 650 mg Q4H PRN PO 08/24/16 16:15 (Zofran Inj) 4 mg Q6H PRN IVP 08/24/16 16:15 (Colace) 100 mg Q12H PO 08/24/16 18:00 08/27/16 18:26 (Senokot) 17.2 mg Q12H PRN PO 08/24/16 16:15 (Tylenol) 650 mg Q6H PRN PO 08/24/16 16:15 (Roxicodone) 5 mg Q4H PRN PO 08/24/16 16:15 (Narcan Inj) 0.4 mg UNSCH PRN IV 08/24/16 16:15 (Eliquis) 2.5 mg BID PO 08/24/16 21:00 08/29/16 09:21 (Ferrous Sulfate) 325 mg DAILY PO 08/25/16 09:00 08/29/16 09:20 (Lasix) 20 mg DAILY PO 08/25/16 09:00 08/29/16 09:21 (Synthroid) 50 mcg DAILY@06 PO 08/25/16 06:00 08/29/16 05:25 (Megace) 20 mg DAILY PO 08/25/16 09:00 08/29/16 09:20 (Pravachol) 80 mg HS PO 08/24/16 21:00 08/28/16 20:43 (Pill Splitter) 1 ea UNSCH PRN OTHER 08/24/16 16:30 (Cordarone) 200 mg DAILY PO 08/30/16 09:00 Family History non contributory Social History no tobacco or ETOH Physical Exam Vital Signs Vital Signs Date Time Temp Pulse Resp B/P Pulse Ox O2 Delivery O2 Flow Rate FiO2 08/29/16 10:27 97 21 08/29/16 07:15 98 Room Air 08/29/16 07:00 98.5 89 18 116/65 99 08/29/16 07:00 99 08/29/16 07:00 100 Nasal Cannula 1.00 08/29/16 07:00 102 08/29/16 06:00 98 08/29/16 05:00 98.6 94 20 99/55 97 08/29/16 05:00 99 08/29/16 04:05 94 08/29/16 03:00 100 08/29/16 02:00 102 08/29/16 01:00 105 08/29/16 00:00 102 08/29/16 00:00 98.9 107 20 111/60 98 08/28/16 23:00 120 08/28/16 22:00 115 08/28/16 21:06 98 Nasal Cannula 1.00 08/28/16 21:00 98.7 106 18 120/80 100 08/28/16 21:00 100 Nasal Cannula 2.00 08/28/16 21:00 107 08/28/16 20:00 99 08/28/16 18:20 102 08/28/16 17:00 118 08/28/16 16:00 101 08/28/16 15:44 98 Nasal Cannula 2.00 08/28/16 15:00 113 08/28/16 15:00 97.6 113 20 114/54 98 08/28/16 14:08 121 08/28/16 13:23 109 08/28/16 12:10 106 Physical Exam GENERAL: comfortable. Alert and oriented. SKIN: Warm and dry. HEAD: Normocephalic. EYES: No scleral icterus. No injection or drainage. NECK: Supple, trachea midline. No JVD or lymphadenopathy. CARDIOVASCULAR:irregularly irregular. RESPIRATORY: Breath sounds equal bilaterally. No accessory muscle use. GASTROINTESTINAL: Abdomen soft, non-tender, nondistended. MUSCULOSKELETAL: No cyanosis, or edema. BACK: Nontender without obvious deformity. No CVA tenderness. Vital Signs Date Time Temp Pulse Resp B/P Pulse Ox O2 Delivery O2 Flow Rate FiO2 08/29/16 10:27 97 21 08/29/16 07:15 98 Room Air 08/29/16 07:00 98.5 89 18 116/65 99 08/29/16 07:00 99 08/29/16 07:00 100 Nasal Cannula 1.00 08/29/16 07:00 102 08/29/16 06:00 98 08/29/16 05:00 98.6 94 20 99/55 97 08/29/16 05:00 99 08/29/16 04:05 94 08/29/16 03:00 100 08/29/16 02:00 102 08/29/16 01:00 105 08/29/16 00:00 102 08/29/16 00:00 98.9 107 20 111/60 98 08/28/16 23:00 120 08/28/16 22:00 115 08/28/16 21:06 98 Nasal Cannula 1.00 08/28/16 21:00 98.7 106 18 120/80 100 08/28/16 21:00 100 Nasal Cannula 2.00 08/28/16 21:00 107 08/28/16 20:00 99 08/28/16 18:20 102 08/28/16 17:00 118 08/28/16 16:00 101 08/28/16 15:44 98 Nasal Cannula 2.00 08/28/16 15:00 113 08/28/16 15:00 97.6 113 20 114/54 98 08/28/16 14:08 121 08/28/16 13:23 109 Laboratory Laboratory Tests Test 08/29/16 11:01 White Blood Count 7.3 Red Blood Count 3.59 Hemoglobin 11.4 Hematocrit 33.9 Mean Corpuscular Volume 94.5 Mean Corpuscular Hemoglobin 31.8 Mean Corpuscular Hemoglobin 33.7 Concent Red Cell Distribution Width 14.5 Platelet Count 258 Mean Platelet Volume 8.7 Sodium Level 134 Potassium Level 4.0 Chloride Level 102 Carbon Dioxide Level 21.5 Anion Gap 11 Blood Urea Nitrogen 37 Creatinine 2.14 Estimat Glomerular Filtration 22 Rate Random Glucose 85 Calcium Level 8.7 Date/Time Procedure Status Source Growth 08/29/16 09:30 Stool Occult Blood (RICHARD) Received Stool Stool Pending Result Diagram: 08/29/16 1101 08/29/16 1101 Assessment and Plan Problem List: (1) Chronic kidney disease, stage 4 (severe) Plan: patient likely has nephrosclerosis due to hypertension or microvascular disease. Metabolic acidosis is likely due to renal disease. I doubt she has renal tubular acidosis. Obtain renal US. Obtain SPEP. Paraproteinemia is a common cause of proximal renal tubular acidosis in this age group. She is not on medications that are known to cause proximal RTA. Also noted is the fact that UA is benign without the presence of glucosuria. Furthermore, urine pH was 5, ( appropriately low) essentially ruling out RTA. Avoid nephrotoxic agents. Obtain renal US. (2) Afib Plan: rate controlled. On Eliquis. Cardiology following. (3) CHF (congestive heart failure) Plan: Improved symptoms. (4) COPD (chronic obstructive pulmonary disease) Plan: bronchodilators. Assessment and Plan Thanks for the consult. She can be discharged from renal standpoint. Problem Qualifiers (1) Afib: Qualified Code: I48.1 - Persistent atrial fibrillation (2) CHF (congestive heart failure): (3) COPD (chronic obstructive pulmonary disease): Qualified Code: J44.9 - Chronic obstructive pulmonary disease, unspecified COPD type Mario Mercado MD Aug 29, 2016 12:23
--- NOTE | 2016-08-29 14:08 | HHI.PR ---
Subjective Remarks Follow up for atrial fibrillation, CKD. Ms. Calvert is doing well. Sitting in her chair. Denies any acute concerns. Her heart rate has been mostly controlled - below 100. However, sometimes her heart rate does go above 120. Objective Vitals Vital Signs Date Time Temp Pulse Resp B/P Pulse Ox O2 Delivery O2 Flow Rate FiO2 08/29/16 13:00 98 08/29/16 12:00 102 08/29/16 11:00 97.7 88 22 126/68 99 08/29/16 11:00 108 08/29/16 11:00 99 Room Air 08/29/16 10:27 97 21 08/29/16 07:15 98 Room Air 08/29/16 07:00 98.5 89 18 116/65 99 08/29/16 07:00 99 08/29/16 07:00 100 Nasal Cannula 1.00 08/29/16 07:00 102 08/29/16 06:00 98 08/29/16 05:00 98.6 94 20 99/55 97 08/29/16 05:00 99 08/29/16 04:05 94 08/29/16 03:00 100 08/29/16 02:00 102 08/29/16 01:00 105 08/29/16 00:00 102 08/29/16 00:00 98.9 107 20 111/60 98 08/28/16 23:00 120 08/28/16 22:00 115 08/28/16 21:06 98 Nasal Cannula 1.00 08/28/16 21:00 98.7 106 18 120/80 100 08/28/16 21:00 100 Nasal Cannula 2.00 08/28/16 21:00 107 08/28/16 20:00 99 08/28/16 18:20 102 08/28/16 17:00 118 08/28/16 16:00 101 08/28/16 15:44 98 Nasal Cannula 2.00 08/28/16 15:00 113 08/28/16 15:00 97.6 113 20 114/54 98 08/28/16 14:08 121 I/O 08/28/16 08/28/16 08/28/16 08/29/16 08/29/16 08/29/16 07:00 15:00 23:00 07:00 15:00 23:00 Intake Total 500 ml 240 ml Output Total 500 ml 800 ml Balance 0 ml -560 ml Intake Oral 500 ml IV Total 240 ml Output Urine Total 500 ml 800 ml # Bowel Movements 1 Result Diagram: 08/29/16 1101 08/29/16 1101 Imaging Last Impressions Chest X-Ray 08/24/16 1103 Signed Impressions: Service Date/Time: August 11:08 - CONCLUSION: Stable appearance with no acute disease. Zack Baca MD Objective Remarks GENERAL: AOX3, NAD SKIN: Warm and dry. HEAD: Normocephalic. EYES: No scleral icterus. No injection or drainage. NECK: Supple, trachea midline. No JVD or lymphadenopathy. CARDIOVASCULAR: Irreg Irreg, tachycardic without murmurs, gallops, or rubs. RESPIRATORY: Breath sounds equal bilaterally. No accessory muscle use. GASTROINTESTINAL: Abdomen soft, non-tender, nondistended. MUSCULOSKELETAL: No cyanosis, or edema. BACK: Nontender without obvious deformity. No CVA tenderness. Procedures None. A/P Assessment and Plan Ms. Calvert is a pleasant 89 year old female with a history of Afib who was admitted to the hospital due to numbness of breath and lightheadedness. - A fib with RVR - Continue amiodarone 200mg Q12hrs. - Continue Apixaban 2.5mg BID. - Will discuss with Dr. Mcgarry regarding trying a beta brittani - metoprolol tartrate to control heart rate. Patient's long list of medication allergy is questionable. - Patient cannot tell me any specific symptoms of allergy. - Other option would be to give 0.125mg Digoxin Q48hrs - Nephrology recommended this dosing ONLY other agents cannot be used. - Dyspnea/ lightheadedness - Likely s/t A fib with RVR. CXR unremarkable. Symptoms have resolved with heart rate control. May be secondary to chronic anemia - Hgb stable 9.4 --> 9.9. No significant drop during this hospitalization. Hemoccult negative. - oxygen and nebs - incentive spirometry. - home oxygen walk test on 08/25/2016 indicates need for home O2. Will need another walk test prior to discharge. - Metabolic acidosis - Acute on chronic kidney disease. - CKD Stage III - Nephrology has been consulted. Nephrology started patient on oral sodium bicarb and cleared for discharge. - CHF, systolic. - Echo in May with EF 45-50% and mod-severe MR and severe TR. BNP elevated over 700. - Lasix on hold per cardiology. - Hypothyroidism - Pt is on levothyroxine 50 mcg Qday. - continue home meds. Full code. Apixaban. Chyna Louis DO Aug 29, 2016 2:08 pm
[2016-08-29] MEDS ORDERED: DIGOXIN 0.125 MG TAB PO SCH (14:30)
[2016-08-29 14:47] LABS: TOTAL PROTEIN SPE 6.1 GM/DL (6.0-7.6)
--- NOTE | 2016-08-29 15:33 | RADRPT ---
EXAM DATE/TIME: 08/29/2016 14:22 [facility] COMPARISON: No previous studies available for comparison. INDICATIONS : Increased BUN and creatinine. MEDICAL HISTORY : Congestive heart failure. Hypercholesterolemia. Hypertension. Cerebrovascular accident. Syncope. COPD . GERD. A-Fib. Ulcer. Anemia. Renal calculi, left kidney. SURGICAL HISTORY : Cholecystectomy. Hysterectomy. Cataract surgery. Oral surgery. Colonoscopy. Right hip and knee repl acement. ENCOUNTER: Initial ACUITY: 1 day PAIN SCORE: 3/10 LOCATION: Bilateral flank MEASUREMENTS: RIGHT KIDNEY: 8.8 x 4.0 x 4.3 cm LEFT KIDNEY: 7.7 x 4.3 x 3.9 cm FINDINGS: Bilateral kidneys there is the lower limits of normal vertical height and cortex is echogenic with so mewhat indistinct cortical medullary junctions consistent with right parenchymal disease and there is no evidence of hydronephrosis or obstructive uropathy. There is a 1.3 cm cyst right kidney upper marcelo e. Bladder is normal. CONCLUSION: Small echogenic kidneys decreased cortical width and loss of cortical medullary junction consistent w ith parenchymal disease. No evidence of obstructive uropathy Biju Barnhart MD on August 29, 2016 at 15:30 Board Certified Radiologist. This report was verified electronically.
[2016-08-29] MEDS ORDERED: AMIO200T PO (16:36)
[2016-08-29] MEDS ORDERED: DIGO0.12 PO (16:36)
[2016-08-29] MEDS ORDERED: SODI650T PO (16:41)
--- NOTE | 2016-08-29 16:43 | HHI.DS ---
Discharge Summary Admission Date Aug 24, 2016 at 1:52 pm Discharge Date: Aug 29, 2016 Admitting Diagnosis AFib with RVR (1) Atrial fibrillation ICD Code: I48.91 Diagnosis: Principal (2) Chronic kidney disease ICD Code: N18.9 (3) Hypothyroidism ICD Code: E03.9 Procedures None. Brief History - From Admission The patient is an 89-year-old female with past medical history of atrial fibrillation who is presenting to the hospital with 2 weeks of lightheadedness and shortness of breath. The patient says that over the past 2 weeks she has had episodes where the room spins around when she sits up from a chair. She says she has lightheaded and almost passes out sometimes. She says she has been having shortness of breath for the past 2 weeks as well. She says she has been taking Tylenol regularly and that has been helping with her symptoms. She went to her primary care doctor today where she was told to come to the emergency department for further evaluation and treatment. The patient does endorse palpitations. She mentions she has been having chest pain in the center of her chest rated at 8 out of 10 in severity. She describes the chest pain as pressure sensation. She says she has been feeling very cold lately. She says she has been eating well. She has not had any urinary difficulties. She has not had diarrhea or constipation. She has not had any recent travel. She denies any fever. CBC/BMP: 08/29/16 1101 08/29/16 1101 Significant Findings Laboratory Tests Test 08/27/16 08/28/16 08/29/16 05:20 03:15 11:01 Red Blood Count 2.93 MIL/MM3 3.06 MIL/MM3 3.59 MIL/MM3 (4.00-5.30) (4.00-5.30) (4.00-5.30) Hemoglobin 9.4 GM/DL 9.9 GM/DL 11.4 GM/DL (11.6-15.3) (11.6-15.3) (11.6-15.3) Hematocrit 27.4 % 28.8 % 33.9 % (35.0-46.0) (35.0-46.0) (35.0-46.0) Potassium Level 3.4 MEQ/L 3.4 MEQ/L (3.5-5.1) (3.5-5.1) Carbon Dioxide Level 17.0 MEQ/L 18.5 MEQ/L (21.0-32.0) (21.0-32.0) Blood Urea Nitrogen 36 MG/DL (7-18) 40 MG/DL (7-18) 37 MG/DL (7-18) Creatinine 2.09 MG/DL 2.17 MG/DL 2.14 MG/DL (0.50-1.00) (0.50-1.00) (0.50-1.00) Estimat Glomerular Filtration 22 ML/MIN (>89) 21 ML/MIN (>89) 22 ML/MIN (>89) Rate Calcium Level 7.8 MG/DL 8.3 MG/DL (8.5-10.1) (8.5-10.1) Sodium Level 134 MEQ/L 134 MEQ/L (136-145) (136-145) Imaging Last Impressions Renal Ultrasound 08/29/16 0000 Signed Impressions: Service Date/Time: Monday, August 29, 2016 14:22 - CONCLUSION: Small echogenic kidneys decreased cortical width and loss of cortical medullary junction consistent with parenchymal disease. No evidence of obstructive uropathy Biju Barnhart MD Chest X-Ray 08/24/16 1103 Signed Impressions: Service Date/Time: August 11:08 - CONCLUSION: Stable appearance with no acute disease. Zack Baca MD PE at Discharge GENERAL: AOX3, NAD SKIN: Warm and dry. HEAD: Normocephalic. EYES: No scleral icterus. No injection or drainage. NECK: Supple, trachea midline. No JVD or lymphadenopathy. CARDIOVASCULAR: Irreg Irreg, tachycardic without murmurs, gallops, or rubs. RESPIRATORY: Breath sounds equal bilaterally. No accessory muscle use. GASTROINTESTINAL: Abdomen soft, non-tender, nondistended. MUSCULOSKELETAL: No cyanosis, or edema. BACK: Nontender without obvious deformity. No CVA tenderness. Pt update on day of discharge Patient is doing well. No acute concerns. Denies any chest pain, SOB, fever, chills. Hospital Course Ms. Calvert is a pleasant 89 year old female with a history of Afib who was admitted to the hospital due to numbness of breath and lightheadedness. - A fib with RVR - Continue amiodarone 200mg Q12hrs. - Continue Apixaban 2.5mg BID. - Will discuss with Dr. Mcgarry regarding trying a beta brittani - metoprolol tartrate to control heart rate. - Patient cannot tell me any specific symptoms of allergy. - Other option would be to give 0.125mg Digoxin Q48hrs - Nephrology recommended this dosing ONLY other agents cannot be used. - Discussed with cardiology - we will start patient on Digoxin 0.125mg Every other day. Patient understands this arrangement as well. - Cardiology follow up in one week. - Dyspnea/ lightheadedness - Likely s/t A fib with RVR. CXR unremarkable. Symptoms have resolved with heart rate control. May be secondary to chronic anemia - Hgb stable 9.4 --> 9.9. No significant drop during this hospitalization. Hemoccult negative. - oxygen and nebs - incentive spirometry. - home oxygen walk test on 08/25/2016 indicates need for home O2. - Metabolic acidosis - Acute on chronic kidney disease. - CKD Stage III - Nephrology has been consulted. No RTA. Nephrology started patient on oral sodium bicarb and cleared for discharge. - Nephrology also ordered 24 hour urine which can be done in the outpatient setting. - CHF, systolic. - Echo in May with EF 45-50% and mod-severe MR and severe TR. BNP elevated over 700. - Continue lasix 20mg Qday. - Hypothyroidism - Pt is on levothyroxine 50 mcg Qday. Discussed with patient and friend in the room. Patient will be discharged today. Patient's friend will drive her home. Pt Condition on Discharge: Good Discharge Disposition: Discharge Home Discharge Time: > 30 minutes Discharge Instructions DIET: Follow Instructions for: Heart Healthy Diet Activities you can perform: Regular-No Restrictions Follow up Referrals: Cardiology - 1 Week with Hawk Mcgarry MD Nephrology - 1 Week with Mario Mercado MD PCP Follow-up - 2 Weeks New Medications: Oxygen tank (Oxygen tank) 1 Ea Tank 2 LITER SHADIA.CANULA CONTINUOUS Oxygen Concentrator Portable Gaseous 2 L/min via Nasal Cannula Continuous For 99 months HYPOXEMIA PREVENTION #2 CYLINDER Amiodarone (Amiodarone) 200 Mg Tab 200 MG PO DAILY Afib #30 TAB Digoxin (Digoxin) 0.125 Mg Tab 0.125 MG PO EVERY OTHER DAY START on 08/31/2016. Afib #30 TAB Sodium Bicarbonate (Sodium Bicarbonate) 650 Mg Tab 650 MG PO Q12HR kidney #60 TAB Continued Medications: Acetaminophen (Tylenol Extra Strength) 500 Mg Tab 500 MG PO Q4-6H PRN PAIN Ref 0 TAB Apixaban (Eliquis) 2.5 Mg Tab 2.5 MG PO BID Blood Clot Prevention Ref 0 TAB Ferrous Sulfate (Ferrous Sulfate) 325 Mg Tab 325 MG PO DAILY Nutritional Supplement Ref 0 TAB Furosemide (Furosemide) 20 Mg Tab 20 MG PO DAILY Ref 0 TAB Levothyroxine (Synthroid) 50 Mcg Tab 50 MCG PO DAILY Thyroid Ref 0 TAB Megestrol (Megestrol) 20 Mg Tab 20 MG PO DAILY Ref 0 TAB Multiple Vitamins W/ Minerals (Centrum Silver) 1 Tab 1 TAB PO DAILY Nutritional Supplement Ref 0 TAB Omeprazole (Omeprazole) 20 Mg Tab MG PO DAILY Ref 0 TAB Polyvinyl Alcohol-Povidone Opth Drops (Refresh Opth Drops) 1.4-0.6% Drops 1-2 DROP EACH EYE PRN PRN DRY EYE Ref 0 BOTTLE Simvastatin (Simvastatin) 40 Mg Tab 40 MG PO HS Cholesterol Management Ref 0 TAB Chyna Louis DO Aug 29, 2016 4:43 pm
[2016-08-29 22:30] LABS: ALBUMIN SPE 3.37 GM/DL (3.50-5.00); ALPHA 1 GLOBULIN 0.28 GM/DL (0.11-0.29); ALPHA 2 GLOBULIN 0.9 GM/DL (0.22-1.00); BETA GLOBULINS (SPE) 0.57 GM/DL (0.53-1.03)
[2016-08-30] MEDS ORDERED: AMIODARONE 200 MG TAB PO SCH (09:00)
== END 2016-08-29 18:25 | disposition home health service (06) | DRG 308 ==
LOC: NEPA 10:37 → NEDA 13:52 → NEDH 18:13 → HCIN 20:20
PROVIDERS: ADMIT Hospitalist; ATTEND Hospitalist
DX: I48.1 Persistent atrial fibrillation (principal); I50.23 Acute on chronic systolic (congestive) heart failure; E87.2 Acidosis; E87.3 Alkalosis; E87.5 Hyperkalemia; I08.1 Rheumatic disorders of both mitral and tricuspid valves; E83.42 Hypomagnesemia; N18.4 Chronic kidney disease, stage 4 (severe); I13.0 Hypertensive heart and chronic kidney disease with heart failure and stage 1 through stage 4 chronic kidney disease, or unspecified chronic kidney disease; J44.9 Chronic obstructive pulmonary disease, unspecified; D64.9 Anemia, unspecified; I48.2 Chronic atrial fibrillation; E03.9 Hypothyroidism, unspecified; E78.5 Hyperlipidemia, unspecified; R42 Dizziness and giddiness; K21.9 Gastro-esophageal reflux disease without esophagitis; Z85.038 Personal history of other malignant neoplasm of large intestine; Z92.21 Personal history of antineoplastic chemotherapy; Z86.73 Personal history of transient ischemic attack (TIA), and cerebral infarction without residual deficits; Z88.1 Allergy status to other antibiotic agents; Z88.2 Allergy status to sulfonamides; Z88.8 Allergy status to other drugs, medicaments and biological substances
CPT/HCPCS: 36600; 71010; 76775; 80048; 81001; 82272; 82550; 82552; 82607; 82728; 82746; 82805; 83540; 83550; 83735; 83880; 84165; 84443; 84484; 85025; 85027; 85610; 85730; 93005; 94150; 94620; 94640; 94664; 96374; 96375; J0282; J1200; J3475; J7060; J7614

== ENCOUNTER → 2016-08-31 | Outpatient (CLI) | payer MEDICARE, BC ==
[~2016-08-31] MED LIST changes: +ACET-703 PO; +ACET325T PO; +ADVI200C5 PO; +AMIO200T PO; -APIX2.5 PO; +APIX2.5T PO; +BUSP5TAB PO; +BYST2.5T2 PO; +CENTTAB PO; -CHOL4 PO; +CHOL4POW4 PO; +CULT10CA PO; +DIGO0.12 PO; +DULC10SU3 RECTAL; +FERR325T PO; +FLEEENE3 RECTAL; -FURO1TAB93 PO; +FURO20TA PO; +LATA0.002 EACH EYE; +LEVA.63I NEB; +LEVO.05 PO; +LEVO75TA3 PO; +LOPE2TAB PO; +MAGN400T2 PO; +MEGE20TA PO; -NEBI5 PO; +NORM0.9I4 IV; +NYST1000 SWISH-SWAL; -OMEP20TA OR; +OMEP20TA PO; -REFR0.5D4 EACH EYE; +REFRDRO EACH EYE; +SODI650T PO; -SYNT50TA PO; +TRAM50TA PO; +[UNRECOGNIZED DRUG - CODE] SQ; -[UNRECOGNIZED DRUG - OTHER]
[2016-09-01 07:13] LABS: URINE TOTAL PROTEIN TIMED 15.1 MG/DL
== END ==
LOC: CLAB 14:42
PROVIDERS: ATTEND Hospitalist
DX: I48.91 Unspecified atrial fibrillation (principal)
CPT/HCPCS: 86335

== ENCOUNTER 2016-09-05 01:17 | Inpatient (IN) | payer MEDICARE, BC ==
[2016-09-05] VITALS (11 sets, daily range): BP systolic 112–142; BP diastolic 56–76; PULSE 92–130; RESP 17–20; TEMP 97.1–98.1; O2SAT 98–100
[~2016-09-05] VITALS: Ht 167.6 cm; Wt 51.2 kg
[~2016-09-05 01:17] MED LIST changes: -ACET325T PO; -ADVI200C5 PO; -BUSP5TAB PO; -BYST2.5T2 PO; -CHOL4POW4 PO; -CULT10CA PO; -DULC10SU3 RECTAL; -FLEEENE3 RECTAL; -LATA0.002 EACH EYE; -LEVA.63I NEB; -LEVO75TA3 PO; -LOPE2TAB PO; -MAGN400T2 PO; -NORM0.9I4 IV; -NYST1000 SWISH-SWAL; -TRAM50TA PO; -[UNRECOGNIZED DRUG - CODE] SQ
[2016-09-05] MEDS ORDERED: SODIUM CHLORIDE 0.9% FLUSH 5 ML FLUSH IVF PRN ×2 (01:30→04:00)
[2016-09-05 02:01] LABS: HEMATOCRIT 30.6 % (35.0-46.0); MEAN CELL VOLUME 95.3 FL (80.0-100.0); MEAN CORPUSCULAR HEMOGLOBIN 32.5 PG (27.0-34.0); MEAN CORPUSCULAR HGB CONC 34.1 % (32.0-36.0); PLATELET COUNT 226 TH/MM3 (150-450); RED BLOOD COUNT 3.21 MIL/MM3 (4.00-5.30); RED CELL DISTRIBUTION WIDTH 14.5 % (11.6-17.2); WHITE BLOOD COUNT 7.6 TH/MM3 (4.0-11.0)
--- NOTE | 2016-09-05 02:01 | RADRPT ---
EXAM DATE/TIME: 09/05/2016 01:45 [facility] COMPARISON: CHEST SINGLE AP, August 24, 2016, 11:08. INDICATIONS : Shortness of breath. MEDICAL HISTORY : Hypertension. Hypercholesterolemia. Carcinoma, colon. CHF, AFIB, COPD, Ulcer, GERD, Kidney stones , Arthritis, Anemia SURGICAL HISTORY : Cholecystectomy. Total knee replacement, right. Hysterectomy. Right total hip replacement ENCOUNTER: Initial ACUITY: 1 day PAIN SCORE: 0/10 LOCATION: Bilateral chest FINDINGS: Vague opacity seen laterally of the right mid to upper lung, could be focal pneumonia or a mass. Lung s otherwise appear clear. No pleural effusion or pneumothorax. Heart size stable, upper limits of normal. Thoracic aorta is tortuous and atherosclerotic. CONCLUSION: Suspected mass versus focal infiltrate laterally of the right midlung. Noncontrast chest CT recommend ed. Jones Lucero MD on September 05, 2016 at 1:57 Board Certified Radiologist. This report was verified electronically.
[2016-09-05 02:03] LABS: HEMO FLAGS AUTO DIFF
[2016-09-05 02:13] LABS: APTT (PATIENT) 31.1 SEC (24.3-30.1); INTERNATIONAL NORMALIZED RATIO 1.2 RATIO; PROTHROMBIN TIME - PATIENT 13.4 SEC (9.8-11.6)
[2016-09-05 02:28] LABS: ALT (GPT) 27 U/L (10-53); ANION GAP 12 MEQ/L (5-15); AST (GOT) 32 U/L (15-37); BICARBONATE 18.2 MEQ/L (21.0-32.0); BLOOD UREA NITROGEN 31 MG/DL (7-18); CHLORIDE 105 MEQ/L (98-107); GLOMERULAR FILTRATION RATE 20 ML/MIN (>89); MAGNESIUM 1.3 MG/DL (1.5-2.5); POTASSIUM 3.5 MEQ/L (3.5-5.1); SODIUM (NA) 135 MEQ/L (136-145)
[2016-09-05 02:32] LABS: ALKALINE PHOSPHATASE 63 U/L (45-117); TOTAL BILIRUBIN ADULT 0.5 MG/DL (0.2-1.0)
[2016-09-05 02:36] LABS: CREATINE KINASE 88 U/L (26-192)
[2016-09-05 02:38] LABS: BANDS 4 % (0-6); BASOPHILS 1 % (0-2); NEUTROPHIL # MANUAL DIFF 5.8 TH/MM3 (1.8-7.7); POLYS (SEG NEUTROPHILS) 72 % (16-70); SCAN/DIFF FINAL DIFF MANUAL; WBC DIFF SAMPLE 100
[2016-09-05 02:39] LABS: PLATELET ESTIMATE SMEAR NORMAL (NORMAL); PLATELET MORPHOLOGY NORMAL (NORMAL)
--- NOTE | 2016-09-05 03:26 | PD ---
HPI Chief Complaint: Respiratory Symptoms Time Seen by Provider: 01:26 Travel History International Travel<30 days: No Contact w/Intl Traveler<30days: No Traveled to known affect area: No History of Present Illness HPI 89-year-old female presents to the emergency department by EMS transport from home for evaluation of shortness of breath with cough and congestion. 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 Evans as her primary care provider. Patient was recently hospitalized August 24 and was discharged with new prescription for Elocon this amiodarone and digoxin. Patient was found to be intolerant of beta blockers and calcium channel brittani specifically atenolol and Cardizem. Patient has done fairly well as an outpatient until recently her has been ill with respiratory illness and she seemed to develop similar symptoms. No reported fever or chills. Per EMS report patient did have low O2 saturations at home was placed on supplemental oxygen updraft treatments were administered. Patient does have history of atrial fibrillation was noted to have mild RVR however after updraft treatments heart rate had increased and is starting to taper after removal of bronchodilator therapy. PFSH Past Medical History Narrative Medical Chronic kidney disease electrolytes disturbance CHF EF 45-50% hypothyroidism anemia arthritis colon cancer chemotherapy high blood pressure dyslipidemia GI bleed CVA no tobacco use no alcohol use Hx Anticoagulant Therapy: Yes Anemia: Yes Arthritis: Yes Asthma: No Autoimmune Disease: No Blood Disorders: No Heart Rhythm Problems: Yes (A-FIB) Cancer: Yes (COLON) Cardiovascular Problems: Yes High Cholesterol: Yes Chemotherapy: Yes (FINISHED IN 2000) Chest Pain: No Congestive Heart Failure: Yes COPD: Yes Cerebrovascular Accident: Yes (no residual) Diabetes: No Diminished Hearing: No Endocrine: No GERD: Yes Genitourinary: Yes Hiatal Hernia: No Hypertension: Yes Immune Disorder: No Implanted Vascular Access Dvce: Yes Kidney Stones: Yes (left kidney- leave til having problems) Musculoskeletal: Yes Neurologic: Yes Psychiatric: No Reproductive: No Respiratory: Yes (COPD) Immunizations Current: Yes Migraines: No Radiation Therapy: Yes (2000) Renal Failure: No Seizures: No Sleep Apnea: No Thyroid Disease: No Ulcer: Yes Tetanus Vaccination: Unknown Influenza Vaccination: Yes ?: Not Menopausal: Yes Past Surgical History Abdominal Surgery: Yes (MULTIPLE COLONOSCOPY) AICD: No Arteriovenous Shunt: No Cardiac Surgery: No Cholecystectomy: Yes Ear Surgery: No Endocrine Surgery: No Eye Surgery: Yes (CATARACTS) Genitourinary Surgery: No Gynecologic Surgery: Yes (HYSTERECTOMY ) Hysterectomy: Yes Insulin Pump: No Joint Replacement: Yes (RIGHT HIP AND KNEE) Oral Surgery: Yes Pacemaker: No Thoracic Surgery: No Other Surgery: Yes ([place], hysterectomy, right hip, right knee) Social History Alcohol Use: No Tobacco Use: No Substance Use: No Allergies-Medications (Allergen,Severity, Reaction): Coded Allergies: Atenolol (Verified Allergy, Severe, 09/05/16) LIGHT HEADED/FAINT Cardizem (Verified Allergy, Severe, AIRWAY SWELLING, 09/05/16) AIRWAY OBSTRUCTION Levofloxacin (Verified Allergy, Severe, 09/05/16) Lisinopril (Verified Allergy, Severe, CP, 09/05/16) Phenergan (Verified Allergy, Severe, RASH, 09/05/16) Sulfa (Verified Allergy, Severe, 09/05/16) Toprol Xl (Verified Allergy, Severe, BRADYCARDIA, 09/05/16) Verapamil (Verified Allergy, Severe, Anaphylaxis, 09/05/16) Amoxicillin (Verified Allergy, Mild, 09/05/16) Levaquin (Verified Allergy, Mild, Irritability/Anxiety, 09/05/16) EDOXABAN (Verified Adverse Reaction, Severe, LIGHT HEADED, 09/05/16) Potassium (Verified Adverse Reaction, Severe, CAN'T BREATHE, 09/05/16) Uncoded Allergies: GINGERALE (Adverse Reaction, Severe, VOMITING, 08/24/16) Reported Meds & Prescriptions Reported Meds & Active Scripts Active Sodium Bicarbonate 650 Mg Tab 650 Mg PO Q12HR Digoxin 0.125 Mg Tab 0.125 Mg PO EVERY OTHER DAY START on 08/31/2016. Amiodarone (Amiodarone HCl) 200 Mg Tab 200 Mg PO DAILY Reported Tylenol Extra Strength (Acetaminophen) 500 Mg Tab 500 Mg PO Q4-6H PRN Ferrous Sulfate 325 Mg Tab 325 Mg PO DAILY Refresh Opth Drops (Polyvinyl Alcohol-Povidone Opth Drops) 1.4-0.6% Drops 1-2 Drop EACH EYE PRN PRN Centrum Silver (Multiple Vitamins W/ Minerals) 1 Tab 1 Tab PO DAILY Furosemide 20 Mg Tab 20 Mg PO DAILY Omeprazole 20 Mg Tab Mg PO DAILY Simvastatin 40 Mg Tab 40 Mg PO HS Synthroid (Levothyroxine Sodium) 50 Mcg Tab 50 Mcg PO DAILY Megestrol (Megestrol Acetate) 20 Mg Tab 20 Mg PO DAILY Eliquis (Apixaban) 2.5 Mg Tab 2.5 Mg PO BID Review of Systems Except as stated in HPI: all other systems reviewed are Neg General / Constitutional: Positive: Chills, No: Fever HENT: No: Congestion Cardiovascular: No: Chest Pain or Discomfort Respiratory: Positive: Cough, Shortness of Breath, Wheezing Gastrointestinal: No: Nausea, Vomiting, Abdominal Pain Genitourinary: No: Dysuria, Flank Pain Musculoskeletal: No: Myalgias, Arthralgias Skin: No Rash Neurologic: Positive: Weakness, No: Dizziness, Syncope, Focal Abnormalities, Coordination Problem Psychiatric: Positive: Anxiety Hematologic/Lymphatic: No: Easy Bruising Physical Exam Narrative GENERAL: Frail elderly appearing female in mild respiratory distress SKIN: Warm and dry. HEAD: Normocephalic. EYES: No scleral icterus. No injection or drainage. NECK: Supple, trachea midline. No JVD or lymphadenopathy. CARDIOVASCULAR: Increased irregular irregular Regular rate and rhythm without murmurs, gallops, or rubs. RESPIRATORY: Breath sounds equal bilaterally clear to auscultation except for crackles to the right base. No accessory muscle use. GASTROINTESTINAL: Abdomen soft, non-tender, nondistended. MUSCULOSKELETAL: No cyanosis, or edema. BACK: Nontender without obvious deformity. No CVA tenderness. Data Data Last Documented VS Vital Signs Date Time Temp Pulse Resp B/P Pulse Ox O2 Delivery O2 Flow Rate FiO2 09/05/16 01:33 130 20 130/70 100 Room Air 09/05/16 01:24 98.0 Orders Complete Blood Count With Diff (09/05/16 01:26) Comprehensive Metabolic Panel (09/05/16 01:26) B-Type Natriuretic Peptide (09/05/16 01:26) Act Partial Throm Time (Ptt) (09/05/16 01:26) Prothrombin Time / Inr (Pt) (09/05/16 01:26) Magnesium (Mg) (09/05/16 01:26) Ckmb (Isoenzyme) Profile (09/05/16 01:26) Troponin I (1/31/17 01:26) Urinalysis - C+S If Indicated (09/05/16 01:26) Influenzae A/B Antigen (09/05/16 01:26) Blood Culture (09/05/16 01:26) Iv Access Insert/Monitor (09/05/16 01:26) Electrocardiogram (09/05/16 01:26) Ecg Monitoring (09/05/16 01:26) Oximetry (09/05/16 01:26) Oxygen Administration (09/05/16 01:26) Chest, Single Ap (09/05/16 01:26) Sodium Chloride 0.9% Flush (Ns Flush) (09/05/16 01:30) Lactic Acid (09/05/16 01:26) Digoxin (09/05/16 03:27) Ceftriaxone Inj (Rocephin Inj) (09/05/16 03:30) Ct Thorax/ Chest Wo Iv Contras (09/05/16 ) Admit To Inpatient (09/05/16 ) Vital Signs (Adult) Q4H (09/05/16 03:45) Activity Oob With Assistance (09/05/16 03:45) Classer / Telemetry .CONTINUOUS (09/05/16 03:45) Intake + Output RICH.QSHIFT (09/05/16 03:45) Diet Heart Healthy (09/05/16 Breakfast) Sodium Chloride 0.9% Flush (Ns Flush) (09/05/16 03:45) Sodium Chloride 0.9% Flush (Ns Flush) (09/05/16 09:00) Creatine Kinase (Cpk) (09/05/16 07:45) Creatine Kinase (Cpk) (09/05/16 13:45) Troponin I (09/05/16 07:45) Troponin I (09/05/16 13:45) Electrocardiogram (09/05/16 07:45) Electrocardiogram (09/05/16 13:45) Pt Request For Service (09/05/16 03:45) Naloxone Inj (Narcan Inj) (09/05/16 03:45) Inpatient Certification (09/05/16 ) Ceftriaxone Inj (Rocephin Inj) (09/05/16 14:00) Admit Order (Ed Use Only) (09/05/16 ) ^ Saline Lock (09/05/16 03:48) Resp Oxygen Gary C Titrat 1-4 L (09/05/16 ) ^ Notify Dr: Other (09/05/16 03:48) Sodium Chloride 0.9% Flush (Ns Flush) (09/05/16 09:00) Sodium Chloride 0.9% Flush (Ns Flush) (09/05/16 04:00) Labs Laboratory Tests Test 09/05/16 09/05/16 01:35 01:45 White Blood Count 7.6 TH/MM3 Red Blood Count 3.21 MIL/MM3 Hemoglobin 10.4 GM/DL Hematocrit 30.6 % Mean Corpuscular Volume 95.3 FL Mean Corpuscular Hemoglobin 32.5 PG Mean Corpuscular Hemoglobin 34.1 % Concent Red Cell Distribution Width 14.5 % Platelet Count 226 TH/MM3 Mean Platelet Volume 8.8 FL Neutrophils (%) (Auto) % Lymphocytes (%) (Auto) % Monocytes (%) (Auto) % Eosinophils (%) (Auto) % Basophils (%) (Auto) % Neutrophils # (Auto) TH/MM3 Lymphocytes # (Auto) TH/MM3 Monocytes # (Auto) TH/MM3 Eosinophils # (Auto) TH/MM3 Basophils # (Auto) TH/MM3 CBC Comment AUTO DIFF Differential Total Cells 100 Counted Neutrophils % (Manual) 72 % Band Neutrophils % 4 % Lymphocytes % 18 % Monocytes % 5 % Basophils % 1 % Neutrophils # (Manual) 5.8 TH/MM3 Differential Comment FINAL DIFF MANUAL Platelet Estimate NORMAL Platelet Morphology Comment NORMAL Red Cell Morphology Comment NORMAL Prothrombin Time 13.4 SEC Prothromb Time International 1.2 RATIO Ratio Activated Partial 31.1 SEC Thromboplast Time Sodium Level 135 MEQ/L Potassium Level 3.5 MEQ/L Chloride Level 105 MEQ/L Carbon Dioxide Level 18.2 MEQ/L Anion Gap 12 MEQ/L Blood Urea Nitrogen 31 MG/DL Creatinine 2.31 MG/DL Estimat Glomerular Filtration 20 ML/MIN Rate Random Glucose 117 MG/DL Calcium Level 8.6 MG/DL Magnesium Level 1.3 MG/DL Total Bilirubin 0.5 MG/DL Aspartate Amino Transf 32 U/L (AST/SGOT) Alanine Aminotransferase 27 U/L (ALT/SGPT) Alkaline Phosphatase 63 U/L Total Creatine Kinase 88 U/L Troponin I 0.07 NG/ML B-Type Natriuretic Peptide 559 PG/ML Total Protein 7.1 GM/DL Albumin 3.5 GM/DL Lactic Acid Level 3.2 mmol/L MDM Medical Decision Making Medical Screen Exam Complete: Yes Emergency Medical Condition: Yes Medical Record Reviewed: Yes Interpretation(s) EKG: Atrial fibrillation with rapid ventricular response QS septally no acute ST elevation lateral ischemic changes noted Last Impressions Chest X-Ray 09/05/16 0126 Signed Impressions: Service Date/Time: Monday, September 05, 2016 01:45 - CONCLUSION: Suspected mass versus focal infiltrate laterally of the right midlung. Noncontrast chest CT recommended. Jones Lucero MD CBC & BMP Diagram 09/05/16 01:35 troponin I: elevated 0.07 bnp: 559, mildly elevated Differential Diagnosis Dyspnea, exacerbation COPD, CHF, pneumonia, PE, ACS, atrial fibrillation with RVR Narrative Course Patient was on early childhood specialist IV access obtained specimens collected and sent for resulting including blood cultures and influenza antigen and lactic acid; patient presently comfortable voicing no concerns or complaints denies shortness of breath and heart rate is diminishing its rate as patient is settling down and no further bronchodilator therapy administered Patient resting comfortably waiting on lab results Chest x-ray reveals possible infiltrate versus right-sided mass with recommendation for CT noncontrast to be performed CBC is automated differential total white cell count is normal however manual differential shows elevated 72% neutrophils also lactic acid is elevated at 3.5 patient treated presumptively with Rocephin and may need to add doxycycline as patient is currently on amiodarone and therefore may not tolerate azithromycin nor quinolones however she is allergic to Levaquin so we would not administer that medication; additional iv antibiotic doxycycline x 1 dose. Patient also noted to have troponin elevation of 0.07 and elevation of BNP of 559. Serial enzymes will be needed although no acute ST elevation or injury pattern change on EKG dated patient does have chronic ischemic changes and QRS septally inferiorly,. Low-dose Lasix administered IV Patient informed of plan for admission Physician Communication Physician Communication discussed w Dr Mayen for admission Diagnosis Primary Impression: Dyspnea Qualified Code: R06.00 - Dyspnea, unspecified type Additional Impressions: Pneumonia Qualified Code: J18.1 - Pneumonia of right middle lobe due to infectious organism COPD (chronic obstructive pulmonary disease) Qualified Code: J44.1 - Chronic obstructive pulmonary disease with acute exacerbation Atrial fibrillation Qualified Code: I48.1 - Persistent atrial fibrillation Admitting Information Admitting Physician Requests: it Kristy Brooks MD Sep 05, 2016 03:26
[2016-09-05] MEDS ORDERED: cefTRIAXone INJ 1,000 MG in SODIUM CHLORIDE 0.9% INJ 100 ML IV ONE (03:30)
[2016-09-05] MEDS ORDERED: NALOXONE HCL 0.4 MG/ML AMP IV PRN (03:45)
[2016-09-05] MEDS ORDERED: DOXYCYCLINE INJ 100 MG in SODIUM CHLORIDE 0.9% INJ 100 ML IV ONE (04:00)
[2016-09-05] MEDS ORDERED: FUROSEMIDE 20 MG/2 ML VIAL IV PUSH ONE (04:00)
--- NOTE | 2016-09-05 04:25 | RADRPT ---
EXAM DATE/TIME: 09/05/2016 03:55 [facility] COMPARISON: No previous studies available for comparison. INDICATIONS : Abnormal chest x-ray, short of breath. RADIATION DOSE: 3.36 CTDIvol (mGy) MEDICAL HISTORY : Cardiovascular disease. Hypertension. Chronic obstructive pulmonary disease. GERD, colon cancer SURGICAL HISTORY : Cholecystectomy. Hysterectomy. right hip and knee replacement ENCOUNTER: Initial ACUITY: 1 day PAIN SCALE: 0/10 LOCATION: chest TECHNIQUE: Volumetric scanning of the chest was performed. Using automated exposure control and adjustment of t he mA and/or kV according to patient size, radiation dose was kept as low as reasonably achievable to obtain optimal diagnostic quality images. FINDINGS: LUNGS: Very mild and focal infiltrates seen posterolaterally in the right upper lobe, series 3 image 27. No pulmonary mass demonstrated. Lungs are otherwise clear. No pleural effusion. No pneumothorax. PLEURAE: There is no pleural thickening or pleural effusion. MEDIASTINUM: There is mild panchamber enlargement of the heart. There is atherosclerotic plaque of the thoracic an d visualized portions of the upper abdominal aorta and branch vessels. No aneurysm. Central pulmonary arteries are prominent caliber suggesting pulmonary hypertension. There is dense calcification of th e mitral valve annulus. AXILLAE: Within normal limits. No lymphadenopathy. MUSCULOSKELETAL: Within normal limits for patient age. MISCELLANEOUS: The visualized upper abdominal organs demonstrate no acute abnormality. CONCLUSION: 1. Small and very mild infiltrate in the right upper lobe. No pulmonary mass. 2. Mild panchamber enlargement of the heart. 3. Suspected pulmonary hypertension. 4. Severely atherosclerotic aorta. Jones Lucero MD on September 05, 2016 at 4:20 Board Certified Radiologist. This report was verified electronically.
[2016-09-05] MEDS ORDERED: Vancomycin Consult Pharmacy 1 EA OTHER SCH (08:45)
[2016-09-05] MEDS ORDERED: SODIUM CHLORIDE 0.9% FLUSH 5 ML FLUSH FLUSH SCH (09:00)
[2016-09-05] MEDS ORDERED: SODIUM CHLORIDE 0.9% FLUSH 5 ML FLUSH IVF SCH (09:00)
--- NOTE | 2016-09-05 09:43 | HHI.HP ---
[facility] Service [place] [facility] Primary Care Physician Juan R Evans MD Admission Diagnosis dyspnea, early pneumonia, exac copd, afrvr Diagnoses: Chief Complaint: Shortness of breath Travel History International Travel<30 Days: No Contact w/Intl Traveler <30 Da: No Traveled to Known Affected Are: No History of Present Illness The patient is an 89-year-old female with past medical history of atrial fibrillation and congestive heart failure who was recently admitted to the hospital for atrial fibrillation who is presenting with increasing shortness of breath. The patient had been at home for 1 week since being discharged from the hospital and as of yesterday started to develop symptoms of shortness of breath. She says she has a productive cough of yellow sputum. She says she has had a measured temperature at home but she is unsure what the value was. She says she has had some chest pain associated with the coughing fits. She says the shortness of breath got so bad that she had to call 911. She says she has a neighbor who visits her often and he came down with the symptoms of cough and shortness of breath before she did and she believes she got the symptoms from him. She said the breathing treatment in the emergency department helped. She says she has been tolerating a diet well. She denies any diarrhea or constipation. She says she has been ambulating without a walker. Review of Systems Constitutional: COMPLAINS OF: Fever, DENIES: Change in appetite Respiratory: COMPLAINS OF: Cough, Sputum production, Shortness of breath Cardiovascular: COMPLAINS OF: Chest pain, Dyspnea on Exertion Gastrointestinal: DENIES: Constipation, Diarrhea Musculoskeletal: COMPLAINS OF: Muscle aches Neurologic: DENIES: Abnormal gait Past Family Social History Past Medical History A fib Anemia Arthritis History of colon cancer with chemotherapy in 2000 Congestive heart failure Hypertension Hyperlipidemia Hypothyroidism Gastroesophageal reflux disease Chronic kidney disease GI bleed CVA Kidney stones Past Surgical History History of hip replacement Knee replacement Hysterectomy Allergies: Coded Allergies: Atenolol (Verified Allergy, Severe, 09/05/16) LIGHT HEADED/FAINT Cardizem (Verified Allergy, Severe, AIRWAY SWELLING, 09/05/16) AIRWAY OBSTRUCTION Levofloxacin (Verified Allergy, Severe, 09/05/16) Lisinopril (Verified Allergy, Severe, CP, 09/05/16) Phenergan (Verified Allergy, Severe, RASH, 09/05/16) Sulfa (Verified Allergy, Severe, 09/05/16) Toprol Xl (Verified Allergy, Severe, BRADYCARDIA, 09/05/16) Verapamil (Verified Allergy, Severe, Anaphylaxis, 09/05/16) Amoxicillin (Verified Allergy, Mild, 09/05/16) Levaquin (Verified Allergy, Mild, Irritability/Anxiety, 09/05/16) EDOXABAN (Verified Adverse Reaction, Severe, LIGHT HEADED, 09/05/16) Potassium (Verified Adverse Reaction, Severe, CAN'T BREATHE, 09/05/16) Uncoded Allergies: GINGERALE (Adverse Reaction, Severe, VOMITING, 08/24/16) Active Ordered Medications Current Medications Medications (Trade) Dose Ordered Sig/Neva Route Start Time Stop Time Status Last Admin (NS Flush) 2 ml UNSCH PRN IVF 09/05/16 01:30 09/05/16 03:45 (NS Flush) 2 ml UNSCH PRN FLUSH 09/05/16 03:45 Naloxone HCl 0.4 mg 0.4 mg UNSCH PRN IV 09/05/16 03:45 Magnesium Sulfate/ Dextrose 100 ml @ 100 mls/hr Q1H IV 09/05/16 11:00 09/05/16 13:59 Cefepime HCl 2000 mg/Sodium Chloride 100 ml @ 200 mls/hr DAILY IV 09/05/16 09:00 Pharmacy Profile Note 0 ml @ 0 mls/hr UNSCH OTHER 09/05/16 08:45 (Vancomycin Inj/ NS 250 ml Inj) 257.5 ml @ 257.5 mls/ hr ONCE ONCE IV 09/05/16 10:00 09/05/16 10:59 Family History CAD Brain aneurysm Social History The pt does not smoke or drink. Physical Exam Vital Signs Vital Signs Date Time Temp Pulse Resp B/P Pulse Ox O2 Delivery O2 Flow Rate FiO2 09/05/16 08:00 98.1 97 20 112/56 100 09/05/16 06:10 110 20 142/76 100 Room Air 09/05/16 04:24 100 09/05/16 01:33 130 20 130/70 100 Room Air 09/05/16 01:32 20 09/05/16 01:32 Room Air 09/05/16 01:24 98.0 128 20 134/73 100 Physical Exam GENERAL: This is a well-nourished, well-developed patient, in no apparent distress. SKIN: No rashes, ecchymoses or lesions. Cool and dry. HEAD: Atraumatic. Normocephalic. No temporal or scalp tenderness. EYES: Pupils equal round and reactive. Extraocular motions intact. No scleral icterus. No injection or drainage. ENT: Nose without bleeding, purulent drainage or septal hematoma. Throat without erythema, tonsillar hypertrophy or exudate. Uvula midline. Airway patent. NECK: Trachea midline. No JVD or lymphadenopathy. Supple, nontender, no meningeal signs. CARDIOVASCULAR: Tachycardic, irregularly irregular. No murmur appreciated. RESPIRATORY: Mild crackles at the right lung base. GASTROINTESTINAL: Abdomen soft, non-tender, nondistended. No hepato-splenomegaly , or palpable masses. No guarding. MUSCULOSKELETAL: Extremities without clubbing, cyanosis, or edema. No joint tenderness, effusion, or edema noted. NEUROLOGICAL: Awake and alert. Cranial nerves II through XII intact. Motor and sensory grossly within normal limits. Five out of 5 muscle strength in all muscle groups. Normal speech. PSYCH: Mood and affect appropriate. Laboratory Laboratory Tests Test 09/05/16 09/05/16 01:35 01:45 White Blood Count 7.6 Red Blood Count 3.21 Hemoglobin 10.4 Hematocrit 30.6 Mean Corpuscular Volume 95.3 Mean Corpuscular Hemoglobin 32.5 Mean Corpuscular Hemoglobin 34.1 Concent Red Cell Distribution Width 14.5 Platelet Count 226 Mean Platelet Volume 8.8 Neutrophils (%) (Auto) Lymphocytes (%) (Auto) Monocytes (%) (Auto) Eosinophils (%) (Auto) Basophils (%) (Auto) Neutrophils # (Auto) Lymphocytes # (Auto) Monocytes # (Auto) Eosinophils # (Auto) Basophils # (Auto) CBC Comment AUTO DIFF Differential Total Cells 100 Counted Neutrophils % (Manual) 72 Band Neutrophils % 4 Lymphocytes % 18 Monocytes % 5 Basophils % 1 Neutrophils # (Manual) 5.8 Differential Comment FINAL DIFF MANUAL Platelet Estimate NORMAL Platelet Morphology Comment NORMAL Red Cell Morphology Comment NORMAL Prothrombin Time 13.4 Prothromb Time International 1.2 Ratio Activated Partial 31.1 Thromboplast Time Sodium Level 135 Potassium Level 3.5 Chloride Level 105 Carbon Dioxide Level 18.2 Anion Gap 12 Blood Urea Nitrogen 31 Creatinine 2.31 Estimat Glomerular Filtration 20 Rate Random Glucose 117 Calcium Level 8.6 Magnesium Level 1.3 Total Bilirubin 0.5 Aspartate Amino Transf 32 (AST/SGOT) Alanine Aminotransferase 27 (ALT/SGPT) Alkaline Phosphatase 63 Total Creatine Kinase 88 Troponin I 0.07 B-Type Natriuretic Peptide 559 Total Protein 7.1 Albumin 3.5 Digoxin Level 0.5 Lactic Acid Level 3.2 Date/Time Procedure Status Source Growth 09/05/16 01:45 Aerobic Blood Culture Received Blood Peripheral Pending 09/05/16 01:45 Anaerobic Blood Culture Received Blood Peripheral Pending 09/05/16 01:40 Influenza Types A,B Antigen (RICHARD) - Final Complete Nasal Washing NEGATIVE FOR FLU A AND B ANTIGEN.... Result Diagram: 09/05/16 0135 09/05/16 013 Imaging Last Impressions Chest X-Ray 09/05/16 0126 Signed Impressions: Service Date/Time: Monday, September 05, 2016 01:45 - CONCLUSION: Suspected mass versus focal infiltrate laterally of the right midlung. Noncontrast chest CT recommended. Jones Lucero MD Chest CT 09/05/16 0000 Signed Impressions: Service Date/Time: Monday, September 05, 2016 03:55 - CONCLUSION: 1. Small and very mild infiltrate in the right upper lobe. No pulmonary mass. 2. Mild panchamber enlargement of the heart. 3. Suspected pulmonary hypertension. 4. Severely atherosclerotic aorta. Jones Lucero MD Assessment and Plan Assessment and Plan HCAP The pt has shortness of breath and a productive cough. CXR and CT scan imaging indicative of a right infiltrate. She was recently hospitalized. Has lactic acid level of 3.1. - start cefepime and vanco to treat HCAP. - oxygen and nebs as needed. - incentive spirometry. - sputum and blood cultures. - trend lactate. - consider pulmonology consult. - physical therapy. A fib with RVR Recently admitted for Afib with RVR. On Amiodarone and digoxin. - Continue home meds. - Telemetry. - Continue Eliquis. - trend troponins. Chronic renal disease Creatinine is around baseline. Started on bicarbonate on last admission by nephrology. - monitor as needed. - avoid nephrotoxins. - continue sodium bicarbonate. - hold Lasix for now. Hypomagnesemia Magnesium level was 1.3. - replete with magnesium sulfate and monitor. CHF Echo in May with EF 45-50% and mod-severe MR and severe TR. BNP elevated over 500. Appears euvolemic. - holding home Lasix. - monitor fluid status. PPx: Jacque. Discussed Condition With Pt. Physician Certification 2 Midnight Certification Type: Admission for Inpatient Services Order for Inpatient Services The services are ordered in accordance with Medicare regulations or non- Medicare payer requirements, as applicable. In the case of services not specified as inpatient-only, they are appropriately provided as inpatient services in accordance with the 2-midnight benchmark. Estimated LOS (days): 2 days is the estimated time the patient will need to remain in the hospital, assuming treatment plan goals are met and no additional complications. Post-Hospital Plan: Not yet determined Zack Romero DO Sep 05, 2016 09:42
[2016-09-05] MEDS ORDERED: VANCOMYCIN INJ 750 MG in SODIUM CHLOR 0.9% 250 ML INJ 250 ML IV ONE (10:00)
[2016-09-05] MEDS: CEFEPIME INJ 2,000 MG in SODIUM CHLORIDE 0.9% INJ 100 ML IV SCH (10:10)
[2016-09-05] MEDS ORDERED: cloNIDine HCL 0.1 MG TAB PO PRN (10:15)
[2016-09-05] MEDS ORDERED: PILL SPLITTER OTHER PRN (10:15)
[2016-09-05] MEDS ORDERED: RESP: ALBUTEROL 2.5 MG/IPRATROPIUM 0.5 MG NEB (SCH) NEB ONE (10:30)
[2016-09-05] MEDS: SODIUM CHLOR 0.9% 1000 ML INJ 1,000 ML IV SCH ×2 (11:00→21:00)
[2016-09-05] MEDS: MAGNESIUM SULFATE 1 GM PREMIX 100 ML IV SCH ×3 (11:06→15:08)
[2016-09-05] MEDS: AMIODARONE 200 MG TAB PO SCH (12:04)
[2016-09-05] MEDS: SODIUM BICARBONATE 650 MG TAB PO SCH ×2 (12:05→21:10)
[2016-09-05] MEDS: FERROUS SULFATE 325 MG (65 MG ELEMENTAL IRON) TAB PO SCH (12:05)
[2016-09-05] MEDS: LEVOTHYROXINE SODIUM 50 MCG TAB PO SCH (12:05)
[2016-09-05] MEDS: APIXABAN 2.5 MG TABLET PO SCH ×2 (12:05→21:10)
[2016-09-05] MEDS: MEGESTROL ACETATE 40 MG TAB PO SCH (12:05)
--- NOTE | 2016-09-05 13:45 | EKG ---
Date Performed: 09/05/2016 Time Performed: 01:27:54 PTAGE: 89 years EKG: ATRIAL FIBRILLATION WITH RAPID VENTRICULAR RESPONSE MARKED LEFT AXIS DEVIATION POSSIBLE ANT ERIOR MYOCARDIAL INFARCTION ST DEPRESSION, CONSIDER SUBENDOCARDIAL INJURY ABNORMAL ECG Compared to pr ior tracing no significant change PREVIOUS TRACING 08/24/2016 13.17.05 DOCTOR: Linda Ascencio Interpretating Date/Time 09/05/2016 13:43:46
[2016-09-05] MEDS ORDERED: cefTRIAXone INJ 1,000 MG in SODIUM CHLORIDE 0.9% INJ 100 ML IV SCH (14:00)
[2016-09-05] MEDS: DOCUSATE SODIUM 100 MG CAP PO SCH (21:10)
[2016-09-05] MEDS: PRAVASTATIN SOD 80 MG TAB PO SCH (21:10)
[2016-09-05 22:07] LABS: BICARBONATE 16.2 MEQ/L (21.0-32.0); MAGNESIUM 2.5 MG/DL (1.5-2.5); POTASSIUM 3.9 MEQ/L (3.5-5.1)
[2016-09-06] VITALS (11 sets, daily range): BP systolic 105–146; BP diastolic 63–83; PULSE 95–112; RESP 17–20; TEMP 96.4–98.7; O2SAT 91–99
[2016-09-06] MEDS: RESP: ALBUTEROL 2.5 MG/IPRATROPIUM 0.5 MG NEB (PRN) NEB ×2 (05:10→16:57)
[2016-09-06] MEDS: LEVOTHYROXINE SODIUM 50 MCG TAB PO SCH (06:34)
[2016-09-06] MEDS: DOCUSATE SODIUM 100 MG CAP PO SCH ×2 (09:00→21:00)
[2016-09-06] MEDS: FERROUS SULFATE 325 MG (65 MG ELEMENTAL IRON) TAB PO SCH (10:01)
[2016-09-06] MEDS: MEGESTROL ACETATE 40 MG TAB PO SCH (10:01)
[2016-09-06] MEDS: AMIODARONE 200 MG TAB PO SCH (10:01)
[2016-09-06] MEDS: APIXABAN 2.5 MG TABLET PO SCH ×2 (10:01→22:33)
[2016-09-06] MEDS: SODIUM BICARBONATE 650 MG TAB PO SCH ×2 (10:01→22:32)
[2016-09-06] MEDS: CEFEPIME INJ 2,000 MG in SODIUM CHLORIDE 0.9% INJ 100 ML IV SCH (10:06)
[2016-09-06] MEDS: VANCOMYCIN INJ 750 MG in SODIUM CHLOR 0.9% 250 ML INJ 250 ML IV SCH (12:09)
--- NOTE | 2016-09-06 14:13 | HHI.PR ---
Subjective Remarks The patient said that she had a breathing fit overnight and it improved after she received a breathing treatment with a nebulizer. She said that she has been feeling lightheaded upon ambulation. She said that goes away when she rests. She has been having bowel movements. Objective Vitals Vital Signs Date Time Temp Pulse Resp B/P Pulse Ox O2 Delivery O2 Flow Rate FiO2 09/06/16 12:57 96.9 95 20 139/80 98 09/06/16 08:38 98.7 112 20 109/69 99 09/06/16 08:00 112 09/06/16 07:47 98.7 112 20 109/69 99 09/06/16 05:18 104 09/06/16 05:17 98 21 09/06/16 04:40 97.6 98 17 105/63 96 09/06/16 00:04 97.7 105 18 144/67 98 09/05/16 20:02 97.2 101 17 115/69 98 09/05/16 16:00 97.4 100 18 118/62 99 I/O 09/05/16 09/05/16 09/05/16 09/06/16 09/06/16 09/06/16 07:00 15:00 23:00 07:00 15:00 23:00 Intake Total 300 ml 480 ml 120 ml 120 ml 100 ml Balance 300 ml 480 ml 120 ml 120 ml 100 ml Intake Oral 480 ml 120 ml 120 ml 100 ml IV Total 300 ml # Voids 2 2 3 1 # Bowel Movements 1 Result Diagram: 09/05/16 0135 09/06/16 0730 Imaging Last Impressions Chest X-Ray 09/05/16 0126 Signed Impressions: Service Date/Time: Monday, September 05, 2016 01:45 - CONCLUSION: Suspected mass versus focal infiltrate laterally of the right midlung. Noncontrast chest CT recommended. Jones Lucero MD Chest CT 09/05/16 0000 Signed Impressions: Service Date/Time: Monday, September 05, 2016 03:55 - CONCLUSION: 1. Small and very mild infiltrate in the right upper lobe. No pulmonary mass. 2. Mild panchamber enlargement of the heart. 3. Suspected pulmonary hypertension. 4. Severely atherosclerotic aorta. Jones Lucero MD Objective Remarks GENERAL: This is a well-nourished, well-developed patient, in no apparent distress. SKIN: No rashes, ecchymoses or lesions. Cool and dry. HEAD: Atraumatic. Normocephalic. No temporal or scalp tenderness. EYES: Pupils equal round and reactive. Extraocular motions intact. No scleral icterus. No injection or drainage. ENT: Nose without bleeding, purulent drainage or septal hematoma. Throat without erythema, tonsillar hypertrophy or exudate. Uvula midline. Airway patent. NECK: Trachea midline. No JVD or lymphadenopathy. Supple, nontender, no meningeal signs. CARDIOVASCULAR: Tachycardic, irregularly irregular. No murmur appreciated. RESPIRATORY: Mild crackles at the bases. GASTROINTESTINAL: Abdomen soft, non-tender, nondistended. No hepato-splenomegaly , or palpable masses. No guarding. MUSCULOSKELETAL: Extremities without clubbing, cyanosis, or edema. No joint tenderness, effusion, or edema noted. NEUROLOGICAL: Awake and alert. Cranial nerves II through XII intact. Motor and sensory grossly within normal limits. Five out of 5 muscle strength in all muscle groups. Normal speech. PSYCH: Mood and affect appropriate. Medications and IVs Current Medications Medications (Trade) Dose Ordered Sig/Neva Route Start Time Stop Time Status Last Admin (NS Flush) 2 ml UNSCH PRN IVF 09/05/16 01:30 09/05/16 03:45 (NS Flush) 2 ml UNSCH PRN FLUSH 09/05/16 03:45 Naloxone HCl 0.4 mg 0.4 mg UNSCH PRN IV 09/05/16 03:45 Cefepime HCl 2000 mg/Sodium Chloride 100 ml @ 200 mls/hr DAILY IV 09/05/16 09:00 09/06/16 10:06 (Vancomycin Consult Pharmacy) 0 ml @ 0 mls/hr UNSCH OTHER 09/05/16 08:45 (Cordarone) 200 mg DAILY PO 09/05/16 09:45 09/06/16 10:01 (Eliquis) 2.5 mg BID PO 09/05/16 09:45 09/06/16 10:01 (Ferrous Sulfate) 325 mg DAILY PO 09/05/16 09:45 09/06/16 10:01 (Synthroid) 50 mcg DAILY@0600 PO 09/05/16 09:45 09/06/16 06:34 (Megace) 20 mg DAILY PO 09/05/16 09:45 09/06/16 10:01 (Sodium Bicarbonate) 650 mg Q12HR PO 09/05/16 09:45 09/06/16 10:01 (Pravachol) 80 mg HS PO 09/05/16 21:00 09/05/16 21:10 (Colace) 100 mg BID PO 09/05/16 21:00 09/05/16 21:10 (Tylenol) 650 mg Q4H PRN PO 09/05/16 10:00 (Catapres) 0.1 mg Q6H PRN PO 09/05/16 10:15 Miscellaneous 1 ea 1 ea UNSCH PRN OTHER 09/05/16 10:15 (Vancomycin Inj/ NS 250 ml Inj) 257.5 ml @ 250 mls/hr Q24H IV 09/06/16 11:00 09/06/16 12:09 Miscellaneous Information SPECIFIC LAB TO BE DRAWN:VANCOMYCIN TROUGH DATE TO... ONCE ONCE XX 09/08/16 10:45 09/08/16 10:46 A/P Assessment and Plan HCAP The pt has shortness of breath and a productive cough. CXR and CT scan imaging indicative of a right infiltrate. She was recently hospitalized. Had lactic acid level of 5. - continue cefepime and vanco to treat HCAP. - oxygen and nebs as needed. - incentive spirometry. - sputum and blood cultures. - trend lactate. - consider pulmonology consult. - physical therapy. - Guaifenesin. - IV fluids. - Repeat chest x-ray. A fib with RVR Recently admitted for Afib with RVR. On Amiodarone and digoxin. Trops peaked at 0.11. Likely s/t tachycardia, PNA. - Continue home meds. - Telemetry. - Continue Eliquis. Chronic renal disease Creatinine is around baseline. Started on bicarbonate on last admission by nephrology. - monitor as needed. - avoid nephrotoxins. - continue sodium bicarbonate. - hold Lasix for now. - IVFs. Hypomagnesemia/ hypophosphatemia Magnesium level was 1.3. Phos also low. - replete with magnesium sulfate and Na-phos and monitor. CHF Echo in May with EF 45-50% and mod-severe MR and severe TR. BNP elevated over 500. Appears euvolemic. - holding home Lasix. - monitor fluid status. - repeat CXR. D/c fluids if evidence of congestion. PPx: Jacque. Discharge Planning Awaiting clinical improvement. Zack Romero DO Sep 06, 2016 14:13
[2016-09-06] MEDS ORDERED: SODIUM CHLOR 0.9% 1000 ML INJ 1,000 ML IV SCH (14:15)
[2016-09-06] MEDS ORDERED: SODIUM PHOSPHATE INJ 30 MMOL in SODIUM CHLOR 0.9% 250 ML INJ 250 ML IV ONE (15:00)
[2016-09-06] MEDS: guaiFENesin E.R. 600 MG TAB PO SCH ×2 (15:27→22:37)
--- NOTE | 2016-09-06 15:31 | RADRPT ---
EXAM DATE/TIME: 09/06/2016 14:26 [facility] COMPARISON: CT THORAX W/O CONTRAST, September 05, 2016, 3:55. CHEST SINGLE AP, September 05, 2016, 1:45. INDICATIONS: Cough and difficulty breathing for 2 days. MEDICAL HISTORY: Cardiovascular disease. Hypertension. Chronic obstructive pulmonary disease. GERD, colon cancer. SURGICAL HISTORY: Cholecystectomy. Hysterectomy. Right hip and knee replacement ENCOUNTER: Initial ACUITY: 2 days PAIN SCORE: 2/10 LOCATION: Bilateral chest FINDINGS: Heart is enlarged, pulmonary vascularity is normal. Minimal parenchymal changes are seen laterally i n the right lung partially obscured by EKG lead. There is no pneumothorax. Calcified valve azygous is noted. CONCLUSION: 1. Compensated cardiomegaly. 2. Minimal air space disease laterally in the right lung. Quang Gardner MD FACR on September 06, 2016 at 14:50 Board Certified Radiologist. This report was verified electronically.
--- NOTE | 2016-09-06 15:56 | EKG ---
Date Performed: 09/05/2016 Time Performed: 22:34:13 PTAGE: 89 years EKG: ATRIAL FIBRILLATION WITH RAPID VENTRICULAR RESPONSE WITH ABERRANT CONDUCTION OR VENTRICULAR PREMATURE COMPLEXES INTRAVENTRICULAR CONDUCTION DELAY POSSIBLE ANTERIOR MYOCARDIAL INFARCTION , OF I NDETERMINATE AGE Compared to prior tracing no significant change ABNORMAL ECG PREVIOUS TRACING : 09/05/2016 01.27 DOCTOR: Hawk Mcgarry Interpretating Date/Time 09/06/2016 15:54:47
[2016-09-06] MEDS: RESP: ALBUTEROL 2.5 MG/IPRATROPIUM 0.5 MG NEB (SCH) NEB (19:33)
[2016-09-06] MEDS: PRAVASTATIN SOD 80 MG TAB PO SCH (22:32)
[2016-09-07] VITALS (10 sets, daily range): BP systolic 119–154; BP diastolic 67–83; PULSE 90–121; RESP 18–23; TEMP 97–99.3; O2SAT 95–99
[2016-09-07] MEDS: RESP: ALBUTEROL 2.5 MG/IPRATROPIUM 0.5 MG NEB (PRN) NEB ×3 (02:12→21:37)
[2016-09-07] MEDS ORDERED: AMIODARONE 200 MG TAB PO ONE (06:30)
[2016-09-07] MEDS: LEVOTHYROXINE SODIUM 50 MCG TAB PO SCH (06:58)
[2016-09-07 07:24] LABS: HEMATOCRIT 26.1 % (35.0-46.0); MEAN CELL VOLUME 95.8 FL (80.0-100.0); MEAN CORPUSCULAR HEMOGLOBIN 32.3 PG (27.0-34.0); MEAN CORPUSCULAR HGB CONC 33.7 % (32.0-36.0); PLATELET COUNT 171 TH/MM3 (150-450); RED BLOOD COUNT 2.73 MIL/MM3 (4.00-5.30); RED CELL DISTRIBUTION WIDTH 14.8 % (11.6-17.2); REVIEW FLAG FINAL; WHITE BLOOD COUNT 14.7 TH/MM3 (4.0-11.0)
[2016-09-07 07:54] LABS: BICARBONATE 13.4 MEQ/L (21.0-32.0); MAGNESIUM 1.8 MG/DL (1.5-2.5); POTASSIUM 3.6 MEQ/L (3.5-5.1)
[2016-09-07] MEDS: RESP: ALBUTEROL 2.5 MG/IPRATROPIUM 0.5 MG NEB (SCH) NEB (08:00)
[2016-09-07 08:07] LABS: CALCIUM-PROTEIN CORRECTED 8.1 MG/DL (8.5-10.1)
[2016-09-07] MEDS: AMIODARONE 200 MG TAB PO SCH (08:41)
[2016-09-07] MEDS: APIXABAN 2.5 MG TABLET PO SCH ×2 (08:41→22:10)
[2016-09-07] MEDS: SODIUM BICARBONATE 650 MG TAB PO SCH ×2 (08:42→22:10)
[2016-09-07] MEDS: FERROUS SULFATE 325 MG (65 MG ELEMENTAL IRON) TAB PO SCH (08:42)
[2016-09-07] MEDS: MEGESTROL ACETATE 40 MG TAB PO SCH (08:42)
[2016-09-07] MEDS: DIGOXIN 0.125 MG TAB PO SCH (08:43)
[2016-09-07] MEDS: DOCUSATE SODIUM 100 MG CAP PO SCH ×2 (08:43→22:10)
[2016-09-07] MEDS: guaiFENesin E.R. 600 MG TAB PO SCH ×2 (08:43→22:10)
[2016-09-07] MEDS ORDERED: DIGOXIN 0.125 MG TAB PO SCH (09:00)
[2016-09-07] MEDS: CEFEPIME INJ 2,000 MG in SODIUM CHLORIDE 0.9% INJ 100 ML IV SCH (11:50)
--- NOTE | 2016-09-07 11:59 | PD.CONS ---
HPI Service Cardiology Physicians Consult Requested By Dr. Romero Reason for Consult Afib RVR Primary Care Physician Juan R Evans MD History of Present Illness The patient is an 89 year old female known to our practice recently in the hospital for afib RVR with a medical history of persistent atrial fibrillation on oral anticoagulation, Mod MR, Mod TR, chronic diastolic CHF, chronic anemia, COPD and electrolyte abnormalities. The patient presented to the hospital with severe SOB, wheezing, coughing, and near syncope. We were consulted for afib with RVR. Today, on evaluation, she feels better compared to admission, but continues to have SOB and wheezing. CXR suggests pneumonia. Historically, the patient has a history of multiple drug allergies and side effects to rate control therapy. Digoxin and amiodarone were started recently. She is unable to tolerate CCB or BB. (Nargis Cartwright) Review of Systems Consitutional: COMPLAINS OF: Fatigue, DENIES: Fever, Chills, Weight gain, Weight loss Eyes: DENIES: Amaurosis Fugax, Change in vision HEENT: COMPLAINS OF: Lightheadedness, DENIES: Change in hearing Respiratory: COMPLAINS OF: Cough, Shortness of breath, Wheezing, Sputum production, DENIES: See HPI, Snoring Cardiovascular: COMPLAINS OF: Tachycardia, DENIES: See HPI, Chest pain, Palpitations, Syncope Gastrointestinal: DENIES: Nausea, Vomiting, Change in bowel habits, Reflux, Bloody stools, Melena Genitourinary: DENIES: Urinary incontinence, Difficulty voiding Integumentary: DENIES: Rash Neurologic: DENIES: Tingling or numbness, Memory problems, Poor Balance, Stroke symptoms Musculoskeletal: DENIES: Joint pain, Muscle pain, Limited range of motion, Back pain Hematologic: DENIES: Bruising tendencies, Bleeding tendencies Endocrine: DENIES: Weight gain, Weight loss, Thyroid disease (Nargis Cartwright ) Past Family Social History Allergies: Coded Allergies: Atenolol (Verified Allergy, Severe, 09/05/16) LIGHT HEADED/FAINT Cardizem (Verified Allergy, Severe, AIRWAY SWELLING, 09/05/16) AIRWAY OBSTRUCTION Levofloxacin (Verified Allergy, Severe, 09/05/16) Lisinopril (Verified Allergy, Severe, CP, 09/05/16) Phenergan (Verified Allergy, Severe, RASH, 09/05/16) Sulfa (Verified Allergy, Severe, 09/05/16) Toprol Xl (Verified Allergy, Severe, BRADYCARDIA, 09/05/16) Verapamil (Verified Allergy, Severe, Anaphylaxis, 09/05/16) Amoxicillin (Verified Allergy, Mild, 09/05/16) Levaquin (Verified Allergy, Mild, Irritability/Anxiety, 09/05/16) EDOXABAN (Verified Adverse Reaction, Severe, LIGHT HEADED, 09/05/16) Potassium (Verified Adverse Reaction, Severe, CAN'T BREATHE, 09/05/16) Uncoded Allergies: GINGERALE (Adverse Reaction, Severe, VOMITING, 08/24/16) Past Medical History See HPI Past Surgical History Hip replacement Knee replacement Hysterectomy Reported Medications Reviewed Active Ordered Medications Current Medications Medications (Trade) Dose Ordered Sig/Neva Route Start Time Stop Time Status Last Admin (NS Flush) 2 ml UNSCH PRN IVF 09/05/16 01:30 09/05/16 03:45 (NS Flush) 2 ml UNSCH PRN FLUSH 09/05/16 03:45 Naloxone HCl 0.4 mg 0.4 mg UNSCH PRN IV 09/05/16 03:45 Cefepime HCl 2000 mg/Sodium Chloride 100 ml @ 200 mls/hr DAILY IV 09/05/16 09:00 09/06/16 10:06 (Vancomycin Consult Pharmacy) 0 ml @ 0 mls/hr UNSCH OTHER 09/05/16 08:45 (Cordarone) 200 mg DAILY PO 09/05/16 09:45 09/07/16 08:41 (Eliquis) 2.5 mg BID PO 09/05/16 09:45 09/07/16 08:41 (Ferrous Sulfate) 325 mg DAILY PO 09/05/16 09:45 09/07/16 08:42 (Synthroid) 50 mcg DAILY@0600 PO 09/05/16 09:45 09/07/16 06:58 (Megace) 20 mg DAILY PO 09/05/16 09:45 09/07/16 08:42 (Sodium Bicarbonate) 650 mg Q12HR PO 09/05/16 09:45 09/07/16 08:42 (Pravachol) 80 mg HS PO 09/05/16 21:00 09/06/16 22:32 (Colace) 100 mg BID PO 09/05/16 21:00 09/07/16 08:43 (Tylenol) 650 mg Q4H PRN PO 09/05/16 10:00 (Catapres) 0.1 mg Q6H PRN PO 09/05/16 10:15 Miscellaneous 1 ea 1 ea UNSCH PRN OTHER 09/05/16 10:15 (Vancomycin Inj/ NS 250 ml Inj) 257.5 ml @ 250 mls/hr Q24H IV 09/06/16 11:00 09/06/16 12:09 Miscellaneous Information SPECIFIC LAB TO BE DRAWN:VANCOMYCIN TROUGH DATE TO... ONCE ONCE XX 09/08/16 10:45 09/08/16 10:46 (Mucinex Er) 1,200 mg BID PO 09/06/16 15:00 09/07/16 08:43 Family History non contributory Social History Non smoker, no ETOH, no drugs (Nargis Cartwright) Physical Exam Vital Signs Vital Signs Date Time Temp Pulse Resp B/P Pulse Ox O2 Delivery O2 Flow Rate FiO2 09/07/16 09:11 96 09/07/16 08:01 99.3 121 20 142/83 96 09/07/16 04:00 97.0 119 18 119/67 99 09/07/16 02:12 95 09/07/16 00:00 98.0 90 18 138/70 98 09/06/16 20:00 97.0 97 18 134/78 93 09/06/16 16:57 96.4 95 20 146/83 91 09/06/16 16:57 97 21 09/06/16 14:14 97 09/06/16 12:57 96.9 95 20 139/80 98 Physical Exam GENERAL: Mild distress, elderly, this female SKIN: Warm and dry. HEAD: Atraumatic. Normocephalic. EYES: Pupils equal and round. No scleral icterus. No injection or drainage. ENT: No nasal bleeding or discharge. NECK: Trachea midline. No JVD. CARDIOVASCULAR: Irregularly irregular, tachycardia, murmur RESPIRATORY: Accessory muscle use. Wheezing bilateral GASTROINTESTINAL: Abdomen soft, non-tender, nondistended. MUSCULOSKELETAL: Extremities without clubbing, cyanosis, or edema. Ecchymosis right arm NEUROLOGICAL: Awake and alert. No obvious cranial nerve deficits. Normal speech. PSYCHIATRIC: Appropriate mood and affect; insight and judgment normal. Laboratory Laboratory Tests Test 09/07/16 07:04 White Blood Count 14.7 Red Blood Count 2.73 Hemoglobin 8.8 Hematocrit 26.1 Mean Corpuscular Volume 95.8 Mean Corpuscular Hemoglobin 32.3 Mean Corpuscular Hemoglobin 33.7 Concent Red Cell Distribution Width 14.8 Platelet Count 171 Mean Platelet Volume 8.4 Sodium Level 137 Potassium Level 3.6 Chloride Level 110 Carbon Dioxide Level 13.4 Anion Gap 14 Blood Urea Nitrogen 29 Creatinine 1.83 Estimat Glomerular Filtration 26 Rate Random Glucose 84 Lactic Acid Level 1.6 Calcium Level 7.4 Protein Corrected Calcium 8.1 Phosphorus Level 3.4 Magnesium Level 1.8 Total Protein 5.8 Date/Time Procedure Status Source Growth 09/05/16 01:45 Aerobic Blood Culture - Preliminary Resulted Blood Peripheral NO GROWTH IN 2 DAYS 09/05/16 01:45 Anaerobic Blood Culture - Preliminary Resulted Blood Peripheral NO GROWTH IN 2 DAYS 09/05/16 01:40 Influenza Types A,B Antigen (RICHARD) - Final Complete Nasal Washing NEGATIVE FOR FLU A AND B ANTIGEN.... (Nargis Cartwright) Result Diagram: 09/07/16 0704 09/07/16 0704 Imaging Last 72 hours Impressions Chest X-Ray 09/06/16 0000 Signed Impressions: Service Date/Time: Tuesday, September 06, 2016 14:26 - CONCLUSION: 1. Compensated cardiomegaly. 2. Minimal air space disease laterally in the right lung. Quang Gardner MD FACR Chest X-Ray 09/05/16 0126 Signed Impressions: Service Date/Time: Monday, September 05, 2016 01:45 - CONCLUSION: Suspected mass versus focal infiltrate laterally of the right midlung. Noncontrast chest CT recommended. Jones Lucero MD Chest CT 09/05/16 0000 Signed Impressions: Service Date/Time: Monday, September 05, 2016 03:55 - CONCLUSION: 1. Small and very mild infiltrate in the right upper lobe. No pulmonary mass. 2. Mild panchamber enlargement of the heart. 3. Suspected pulmonary hypertension. 4. Severely atherosclerotic aorta. Jones Lucero MD (Nargis Cartwright) Assessment and Plan Assessment and Plan ASSESSMENT RUL Pneumonia Persistent atrial fibrillation with increased ventricular rate. On Eliquis, Amio and digoxin. Unable to tolerate CCB and BB due to allergies/side effects Chronic diastolic CHF Chronic anemia. Moderate MR, Moderate TR on echo 04/2016 Renal insufficiency/chronic low bicarb. Evaluated by Nephrology on recent admission PLAN Elevated HR physiologic secondary to underlying infection and albuterol. The patient is hemodynamically stable and denies palpitations. Caution with amio/digoxin- amio increases risk for digoxin toxicity. Also renal insufficiency No evidence of CHF on CXR. BNP elevated due to pneumonia. Will continue to hold Lasix Consult Pulmonary medicine if ok with Hospitalist We will continue to follow with you Patient seen and evaluated by Dr Mcgarry. (Nargis Cartwright) Assessment and Plan The exam, history, and the medical decision-making described in the above note were completed with the assistance of the mid-level provider. I reviewed and agree with the findings presented. I attest that I had a [id number] encounter with the patient on the same day, and personally performed and documented my assessment and findings in the medical record. Doing much better ( Hawk Mcgarry MD) Nargis Cartwright Sep 07, 2016 11:59 Hawk Mcgarry MD Sep 08, 2016 16:18
[2016-09-07] MEDS: VANCOMYCIN INJ 750 MG in SODIUM CHLOR 0.9% 250 ML INJ 250 ML IV SCH (12:21)
--- NOTE | 2016-09-07 14:43 | HHI.PR ---
Subjective Remarks The patient said she had a bad coughing fit overnight. She said she has been nauseous. She says she is short of breath. She said she doesn't want to get out of bed today. She says they have a hard time getting an IV on her. Discussed with nursing. Objective Vitals Vital Signs Date Time Temp Pulse Resp B/P Pulse Ox O2 Delivery O2 Flow Rate FiO2 09/07/16 12:50 98.9 115 20 154/80 96 09/07/16 09:11 96 09/07/16 08:01 99.3 121 20 142/83 96 09/07/16 04:00 97.0 119 18 119/67 99 09/07/16 02:12 95 09/07/16 00:00 98.0 90 18 138/70 98 09/06/16 20:00 97.0 97 18 134/78 93 09/06/16 16:57 96.4 95 20 146/83 91 09/06/16 16:57 97 21 I/O 09/06/16 09/06/16 09/06/16 09/07/16 09/07/16 09/07/16 07:00 15:00 23:00 07:00 15:00 23:00 Intake Total 120 ml 340 ml 240 ml Balance 120 ml 340 ml 240 ml Intake Oral 120 ml 340 ml 240 ml # Voids 3 3 3 2 # Bowel Movements 1 2 1 Result Diagram: 09/07/16 0704 09/07/16 0704 Imaging Last Impressions Chest X-Ray 09/06/16 0000 Signed Impressions: Service Date/Time: Tuesday, September 06, 2016 14:26 - CONCLUSION: 1. Compensated cardiomegaly. 2. Minimal air space disease laterally in the right lung. Quang Gardner MD FACR Chest CT 09/05/16 0000 Signed Impressions: Service Date/Time: Monday, September 05, 2016 03:55 - CONCLUSION: 1. Small and very mild infiltrate in the right upper lobe. No pulmonary mass. 2. Mild panchamber enlargement of the heart. 3. Suspected pulmonary hypertension. 4. Severely atherosclerotic aorta. Jones Lucero MD Objective Remarks GENERAL: This is a well-nourished, well-developed patient, in no apparent distress. SKIN: No rashes, ecchymoses or lesions. Cool and dry. HEAD: Atraumatic. Normocephalic. No temporal or scalp tenderness. EYES: Pupils equal round and reactive. Extraocular motions intact. No scleral icterus. No injection or drainage. ENT: Nose without bleeding, purulent drainage or septal hematoma. Throat without erythema, tonsillar hypertrophy or exudate. Uvula midline. Airway patent. NECK: Trachea midline. No JVD or lymphadenopathy. Supple, nontender, no meningeal signs. CARDIOVASCULAR: Tachycardic, irregularly irregular. No murmur appreciated. RESPIRATORY: Diffuse wheezing. GASTROINTESTINAL: Abdomen soft, non-tender, nondistended. No hepato-splenomegaly , or palpable masses. No guarding. MUSCULOSKELETAL: Extremities without clubbing, cyanosis, or edema. No joint tenderness, effusion, or edema noted. NEUROLOGICAL: Awake and alert. Cranial nerves II through XII intact. Motor and sensory grossly within normal limits. Five out of 5 muscle strength in all muscle groups. Normal speech. PSYCH: Mood and affect appropriate. Medications and IVs Current Medications Medications (Trade) Dose Ordered Sig/Neva Route Start Time Stop Time Status Last Admin (NS Flush) 2 ml UNSCH PRN IVF 09/05/16 01:30 09/05/16 03:45 (NS Flush) 2 ml UNSCH PRN FLUSH 09/05/16 03:45 Naloxone HCl 0.4 mg 0.4 mg UNSCH PRN IV 09/05/16 03:45 Cefepime HCl 2000 mg/Sodium Chloride 100 ml @ 200 mls/hr DAILY IV 09/05/16 09:00 09/07/16 11:50 (Vancomycin Consult Pharmacy) 0 ml @ 0 mls/hr UNSCH OTHER 09/05/16 08:45 (Cordarone) 200 mg DAILY PO 09/05/16 09:45 09/07/16 08:41 (Eliquis) 2.5 mg BID PO 09/05/16 09:45 09/07/16 08:41 (Ferrous Sulfate) 325 mg DAILY PO 09/05/16 09:45 09/07/16 08:42 (Synthroid) 50 mcg DAILY@0600 PO 09/05/16 09:45 09/07/16 06:58 (Megace) 20 mg DAILY PO 09/05/16 09:45 09/07/16 08:42 (Sodium Bicarbonate) 650 mg Q12HR PO 09/05/16 09:45 09/07/16 08:42 (Pravachol) 80 mg HS PO 09/05/16 21:00 09/06/16 22:32 (Colace) 100 mg BID PO 09/05/16 21:00 09/07/16 08:43 (Tylenol) 650 mg Q4H PRN PO 09/05/16 10:00 (Catapres) 0.1 mg Q6H PRN PO 09/05/16 10:15 Miscellaneous 1 ea 1 ea UNSCH PRN OTHER 09/05/16 10:15 (Vancomycin Inj/ NS 250 ml Inj) 257.5 ml @ 250 mls/hr Q24H IV 09/06/16 11:00 09/07/16 12:21 Miscellaneous Information SPECIFIC LAB TO BE DRAWN:VANCOMYCIN TROUGH DATE TO... ONCE ONCE XX 09/08/16 10:45 09/08/16 10:46 Guaifenesin 1200 mg 1,200 mg BID PO 09/06/16 15:00 09/07/16 08:43 (Magnesium Sulfate 1 Gm Premix) 100 ml @ 100 mls/hr Q1H IV 09/07/16 14:30 09/07/16 16:29 UNV A/P Assessment and Plan HCAP/ COPD exacerbation The pt has shortness of breath and a productive cough. CXR and CT scan imaging indicative of a right infiltrate. She was recently hospitalized. Had lactic acid level of 5. - continue cefepime and vanco to treat HCAP. - oxygen and nebs as needed. - incentive spirometry. - sputum and blood cultures. - pulmonology consult requested. - physical therapy. - Solumedrol, guaifenesin. A fib with RVR Recently admitted for Afib with RVR. On Amiodarone and digoxin. Trops peaked at 0.11. Likely s/t tachycardia, PNA. - Continue home meds. - Telemetry. - Continue Eliquis. - cardiology consult requested. Chronic renal disease Creatinine is around baseline. Started on bicarbonate on last admission by nephrology. - monitor as needed. - avoid nephrotoxins. - continue sodium bicarbonate. - hold Lasix for now. Hypomagnesemia/ hypophosphatemia Magnesium level was 1.3. Phos also low. Improved 2/. - replete with magnesium sulfate and Na-phos and monitor. CHF Echo in May with EF 45-50% and mod-severe MR and severe TR. BNP elevated over 500. Appears euvolemic. - holding home Lasix. - monitor fluid status. PPx: Jacque. Discharge Planning Awaiting clinical improvement. Zack Romero DO Sep 07, 2016 14:43
[2016-09-07] MEDS: MAGNESIUM SULFATE 1 GM PREMIX 100 ML IV SCH ×2 (16:35→18:16)
[2016-09-07] MEDS: methylPREDNISolone SOD SUCC 40 MG/1 ML VIAL IV PUSH SCH (18:16)
[2016-09-07] MEDS: PRAVASTATIN SOD 80 MG TAB PO SCH (22:10)
[2016-09-08] VITALS (10 sets, daily range): BP systolic 129–148; BP diastolic 67–83; PULSE 100–118; RESP 18–28; TEMP 96–98.1; O2SAT 95–98
[2016-09-08] MEDS: methylPREDNISolone SOD SUCC 40 MG/1 ML VIAL IV PUSH SCH ×4 (05:31→18:09)
[2016-09-08] MEDS: LEVOTHYROXINE SODIUM 50 MCG TAB PO SCH (05:31)
[2016-09-08 07:16] LABS: MAGNESIUM 2.2 MG/DL (1.5-2.5); POTASSIUM 3.8 MEQ/L (3.5-5.1)
[2016-09-08 07:20] LABS: HEMATOCRIT 26.3 % (35.0-46.0); MEAN CELL VOLUME 94.8 FL (80.0-100.0); MEAN CORPUSCULAR HEMOGLOBIN 32.8 PG (27.0-34.0); MEAN CORPUSCULAR HGB CONC 34.6 % (32.0-36.0); PLATELET COUNT 181 TH/MM3 (150-450); RED BLOOD COUNT 2.77 MIL/MM3 (4.00-5.30); RED CELL DISTRIBUTION WIDTH 14.8 % (11.6-17.2); REVIEW FLAG FINAL; WHITE BLOOD COUNT 9.5 TH/MM3 (4.0-11.0)
[2016-09-08] MEDS: CEFEPIME INJ 2,000 MG in SODIUM CHLORIDE 0.9% INJ 100 ML IV SCH (09:55)
[2016-09-08] MEDS: AMIODARONE 200 MG TAB PO SCH (09:55)
[2016-09-08] MEDS: FERROUS SULFATE 325 MG (65 MG ELEMENTAL IRON) TAB PO SCH (09:55)
[2016-09-08] MEDS: MEGESTROL ACETATE 40 MG TAB PO SCH (09:56)
[2016-09-08] MEDS: DOCUSATE SODIUM 100 MG CAP PO SCH ×2 (09:56→21:00)
[2016-09-08] MEDS: guaiFENesin E.R. 600 MG TAB PO SCH ×2 (09:56→21:41)
[2016-09-08] MEDS: SODIUM BICARBONATE 650 MG TAB PO SCH ×2 (09:56→21:42)
[2016-09-08] MEDS: APIXABAN 2.5 MG TABLET PO SCH ×2 (09:56→21:42)
--- NOTE | 2016-09-08 10:02 | PD.CARD.PN ---
Subjective Subjective Remarks The patient is breathing easier today. Less wheezing. Slept well last night. She continues to have afib with rate 100-130 bpm on tele. Occasional PVCs. No palpitations. She states that "whatever antibiotic they gave me last night is making my skin crawl" -- No rash or itching. Objective Medications Current Medications Medications (Trade) Dose Ordered Sig/Neva Route Start Time Stop Time Status Last Admin (NS Flush) 2 ml UNSCH PRN IVF 09/05/16 01:30 09/05/16 03:45 (NS Flush) 2 ml UNSCH PRN FLUSH 09/05/16 03:45 Naloxone HCl 0.4 mg 0.4 mg UNSCH PRN IV 09/05/16 03:45 Cefepime HCl 2000 mg/Sodium Chloride 100 ml @ 200 mls/hr DAILY IV 09/05/16 09:00 09/07/16 11:50 (Vancomycin Consult Pharmacy) 0 ml @ 0 mls/hr UNSCH OTHER 09/05/16 08:45 (Cordarone) 200 mg DAILY PO 09/05/16 09:45 09/07/16 08:41 (Eliquis) 2.5 mg BID PO 09/05/16 09:45 09/07/16 22:10 (Ferrous Sulfate) 325 mg DAILY PO 09/05/16 09:45 09/07/16 08:42 (Synthroid) 50 mcg DAILY@0600 PO 09/05/16 09:45 09/08/16 05:31 (Megace) 20 mg DAILY PO 09/05/16 09:45 09/07/16 08:42 (Sodium Bicarbonate) 650 mg Q12HR PO 09/05/16 09:45 09/07/16 22:10 (Pravachol) 80 mg HS PO 09/05/16 21:00 09/07/16 22:10 (Colace) 100 mg BID PO 09/05/16 21:00 09/07/16 22:10 (Tylenol) 650 mg Q4H PRN PO 09/05/16 10:00 (Catapres) 0.1 mg Q6H PRN PO 09/05/16 10:15 Miscellaneous 1 ea 1 ea UNSCH PRN OTHER 09/05/16 10:15 (Vancomycin Inj/ NS 250 ml Inj) 257.5 ml @ 250 mls/hr Q24H IV 09/06/16 11:00 09/07/16 12:21 Miscellaneous Information SPECIFIC LAB TO BE DRAWN:VANCOMYCIN TROUGH DATE TO... ONCE ONCE XX 09/08/16 10:45 09/08/16 10:46 (Mucinex Er) 1,200 mg BID PO 09/06/16 15:00 09/07/16 22:10 (SoluMEDROL INJ) 40 mg Q6HR IV PUSH 09/07/16 18:00 09/08/16 05:31 Vital Signs / I&O Vital Signs Date Time Temp Pulse Resp B/P Pulse Ox O2 Delivery O2 Flow Rate FiO2 09/08/16 08:05 96.0 118 18 133/83 95 09/08/16 05:00 98.0 104 23 129/67 97 09/08/16 00:00 98.1 105 23 130/69 98 09/07/16 21:37 98 Nasal Cannula 09/07/16 20:30 97.9 115 23 135/74 98 09/07/16 16:20 97.6 115 20 138/77 97 09/07/16 12:50 98.9 115 20 154/80 96 I/O 09/07/16 09/07/16 09/07/16 09/08/16 09/08/16 09/08/16 07:00 15:00 23:00 07:00 15:00 23:00 Intake Total 240 ml 500 ml 1000 ml Balance 240 ml 500 ml 1000 ml Intake Oral 240 ml 500 ml 1000 ml # Voids 3 2 1 8 # Bowel Movements 2 1 0 0 Physical Exam GENERAL: Looks better today, no distress SKIN: Warm and dry. HEAD: Normocephalic. EYES: No scleral icterus. No injection or drainage. NECK: Supple, trachea midline. 1 cm JVD CARDIOVASCULAR: Irregularly irregular, systolic murmur, tachycardia RESPIRATORY: Breath sounds equal bilaterally. Less wheezing, no accessory muscle use GASTROINTESTINAL: Abdomen soft, non-tender, nondistended. MUSCULOSKELETAL: No cyanosis, or edema. BACK: Nontender without obvious deformity Laboratory Laboratory Tests Test 09/08/16 06:34 White Blood Count 9.5 TH/MM3 Red Blood Count 2.77 MIL/MM3 Hemoglobin 9.1 GM/DL Hematocrit 26.3 % Mean Corpuscular Volume 94.8 FL Mean Corpuscular Hemoglobin 32.8 PG Mean Corpuscular Hemoglobin 34.6 % Concent Red Cell Distribution Width 14.8 % Platelet Count 181 TH/MM3 Mean Platelet Volume 8.6 FL Sodium Level 134 MEQ/L Potassium Level 3.8 MEQ/L Chloride Level 108 MEQ/L Carbon Dioxide Level 15.0 MEQ/L Anion Gap 11 MEQ/L Blood Urea Nitrogen 25 MG/DL Creatinine 1.71 MG/DL Estimat Glomerular Filtration 28 ML/MIN Rate Random Glucose 139 MG/DL Calcium Level 7.9 MG/DL Magnesium Level 2.2 MG/DL Imaging Last 72 hours Impressions Chest X-Ray 09/06/16 0000 Signed Impressions: Service Date/Time: Tuesday, September 06, 2016 14:26 - CONCLUSION: 1. Compensated cardiomegaly. 2. Minimal air space disease laterally in the right lung. Quang Gardner MD FACR Assessment and Plan Assessment and Plan ASSESSMENT RUL Pneumonia Persistent atrial fibrillation with increased ventricular rate. On Eliquis, Amio and digoxin. Unable to tolerate CCB and BB due to allergies/side effects Chronic diastolic CHF Chronic anemia. Moderate MR, Moderate TR on echo 04/2016 Renal insufficiency/chronic low bicarb. Evaluated by Nephrology on recent admission Slight elevation of troponin. Suspect demand ischemia and CKD. Last stress test 2011 negative PLAN Elevated HR physiologic secondary to underlying infection and albuterol. Caution with amio/digoxin- amio increases risk for digoxin toxicity. Also renal insufficiency We will continue to follow with you We will consider outpatient ischemic workup for slightly elevated troponin. Patient seen and evaluated by Dr Mcgarry. Nargis Cartwright Sep 08, 2016 10:02
[2016-09-08] MEDS ORDERED: PHARMACY ORDERED LAB XX ONE (10:45)
[2016-09-08] MEDS: VANCOMYCIN INJ 750 MG in SODIUM CHLOR 0.9% 250 ML INJ 250 ML IV SCH (13:25)
--- NOTE | 2016-09-08 13:50 | HHI.PR ---
Subjective Remarks The patient said that she was feeling better today. She said she received an IV medication last night because her to have a reaction. She says it was similar to the reaction she had with potassium in the past. She was able to work with physical therapy today. She says she saw her pegger dobby looms earlier. Objective Vitals Vital Signs Date Time Temp Pulse Resp B/P Pulse Ox O2 Delivery O2 Flow Rate FiO2 09/08/16 12:28 96.1 118 28 130/70 98 09/08/16 09:29 96 21 09/08/16 08:05 96.0 118 18 133/83 95 09/08/16 05:00 98.0 104 23 129/67 97 09/08/16 00:00 98.1 105 23 130/69 98 09/07/16 21:37 98 Nasal Cannula 09/07/16 20:30 97.9 115 23 135/74 98 09/07/16 16:20 97.6 115 20 138/77 97 I/O 09/07/16 09/07/16 09/07/16 09/08/16 09/08/16 09/08/16 07:00 15:00 23:00 07:00 15:00 23:00 Intake Total 240 ml 500 ml 1000 ml Balance 240 ml 500 ml 1000 ml Intake Oral 240 ml 500 ml 1000 ml # Voids 3 2 1 8 1 # Bowel Movements 2 1 0 0 1 Result Diagram: 09/08/16 0634 09/08/16 0634 Imaging Last Impressions Chest X-Ray 09/06/16 0000 Signed Impressions: Service Date/Time: Tuesday, September 06, 2016 14:26 - CONCLUSION: 1. Compensated cardiomegaly. 2. Minimal air space disease laterally in the right lung. Quang Gardner MD FACR Chest CT 09/05/16 0000 Signed Impressions: Service Date/Time: Monday, September 05, 2016 03:55 - CONCLUSION: 1. Small and very mild infiltrate in the right upper lobe. No pulmonary mass. 2. Mild panchamber enlargement of the heart. 3. Suspected pulmonary hypertension. 4. Severely atherosclerotic aorta. Jones Lucero MD Objective Remarks GENERAL: This is a well-nourished, well-developed patient, in no apparent distress, slightly hard of hearing. SKIN: No rashes, ecchymoses or lesions. Cool and dry. HEAD: Atraumatic. Normocephalic. No temporal or scalp tenderness. EYES: Pupils equal round and reactive. Extraocular motions intact. No scleral icterus. No injection or drainage. ENT: Nose without bleeding, purulent drainage or septal hematoma. Throat without erythema, tonsillar hypertrophy or exudate. Uvula midline. Airway patent. NECK: Trachea midline. No JVD or lymphadenopathy. Supple, nontender, no meningeal signs. CARDIOVASCULAR: Tachycardic, irregularly irregular. No murmur appreciated. RESPIRATORY: Diffuse wheezing has improved. GASTROINTESTINAL: Abdomen soft, non-tender, nondistended. No hepato-splenomegaly , or palpable masses. No guarding. MUSCULOSKELETAL: Extremities without clubbing, cyanosis, or edema. No joint tenderness, effusion, or edema noted. NEUROLOGICAL: Awake and alert. Cranial nerves II through XII intact. Motor and sensory grossly within normal limits. Five out of 5 muscle strength in all muscle groups. Normal speech. PSYCH: Mood and affect appropriate. Medications and IVs Current Medications Medications (Trade) Dose Ordered Sig/Neva Route Start Time Stop Time Status Last Admin (NS Flush) 2 ml UNSCH PRN IVF 09/05/16 01:30 09/05/16 03:45 (NS Flush) 2 ml UNSCH PRN FLUSH 09/05/16 03:45 Naloxone HCl 0.4 mg 0.4 mg UNSCH PRN IV 09/05/16 03:45 Cefepime HCl 2000 mg/Sodium Chloride 100 ml @ 200 mls/hr DAILY IV 09/05/16 09:00 09/08/16 09:55 (Vancomycin Consult Pharmacy) 0 ml @ 0 mls/hr UNSCH OTHER 09/05/16 08:45 (Cordarone) 200 mg DAILY PO 09/05/16 09:45 09/08/16 09:55 (Eliquis) 2.5 mg BID PO 09/05/16 09:45 09/08/16 09:56 (Ferrous Sulfate) 325 mg DAILY PO 09/05/16 09:45 09/08/16 09:55 (Synthroid) 50 mcg DAILY@0600 PO 09/05/16 09:45 09/08/16 05:31 (Megace) 20 mg DAILY PO 09/05/16 09:45 09/08/16 09:56 (Sodium Bicarbonate) 650 mg Q12HR PO 09/05/16 09:45 09/08/16 09:56 (Pravachol) 80 mg HS PO 09/05/16 21:00 09/07/16 22:10 (Colace) 100 mg BID PO 09/05/16 21:00 09/08/16 09:56 (Tylenol) 650 mg Q4H PRN PO 09/05/16 10:00 (Catapres) 0.1 mg Q6H PRN PO 09/05/16 10:15 Miscellaneous 1 ea 1 ea UNSCH PRN OTHER 09/05/16 10:15 (Vancomycin Inj/ NS 250 ml Inj) 257.5 ml @ 250 mls/hr Q24H IV 09/06/16 11:00 09/08/16 13:25 (Mucinex Er) 1,200 mg BID PO 09/06/16 15:00 09/08/16 09:56 (SoluMEDROL INJ) 40 mg Q6HR IV PUSH 09/07/16 18:00 09/08/16 13:26 A/P Assessment and Plan HCAP/ COPD exacerbation The pt has shortness of breath and a productive cough. CXR and CT scan imaging indicative of a right infiltrate. She was recently hospitalized. Had lactic acid level of 5. - continue cefepime and vanco to treat HCAP. - oxygen and nebs as needed. - incentive spirometry. - sputum and blood cultures. NGTD. - pulmonology consult requested. - physical therapy. - Solumedrol, guaifenesin. A fib with RVR Recently admitted for Afib with RVR. On Amiodarone and digoxin. Trops peaked at 0.11. Likely s/t tachycardia, PNA. Appreciate cardiology consult. - Continue home meds. - Telemetry. - Continue Eliquis. Chronic renal disease Creatinine is around baseline. Started on bicarbonate on last admission by nephrology. - monitor as needed. - avoid nephrotoxins. - continue sodium bicarbonate. - hold Lasix for now. Hypomagnesemia/ hypophosphatemia Magnesium level was 1.3. Phos also low. Improved 2/2. - replete with magnesium sulfate and Na-phos and monitor. CHF Echo in May with EF 45-50% and mod-severe MR and severe TR. BNP elevated over 500. Appears euvolemic. - holding home Lasix. - monitor fluid status. Metabolic acidosis Bicarb level is low and pt appears to be having respiratory compensation. May be s/t renal disease. - check an ABG. - follow labs. - consider nephrology consult. PPx: Jacque. Discharge Planning Awaiting clinical improvement. Zack Romero DO Sep 08, 2016 13:50
[2016-09-08 13:59] LABS: BLOOD GAS BASE EXCESS -9.1 mmol/L (-2-2); BLOOD GAS CARBOXYHEMOGLOBIN 1.4 % (0-4); BLOOD GAS HCO3 14 mmol/L (22-26); BLOOD GAS METHEMOGLOBIN 0.9 % (0-2); BLOOD GAS O2 HGB SATURATION 96 % (90-100); BLOOD GAS OXYGEN CONTENT 12.1 Vol % (12.0-20.0); BLOOD GAS PCO2 20 mmHg (38-42); BLOOD GAS PO2 98 mmHg (61-120); BLOOD GAS TOTAL HGB 8.9 G/DL (12.0-16.0); TEMP CORR TO 98.6
[2016-09-08 14:00] LABS: CRITICAL VALUE YES; DRAW SITE LT RADIAL; FIO2 21 %; NUMBER OF ARTERIAL PUNCTURES 1; STAT NO; ULNAR PULSE PRESENT
--- NOTE | 2016-09-08 20:20 | HHI.PR ---
Subjective Remarks 89 YOWF with Pneumonia,CHF,AF Has mild wheezing Not able to expactorate No Fever Objective Vital Signs Vital Signs Date Time Temp Pulse Resp B/P Pulse Ox O2 Delivery O2 Flow Rate FiO2 09/08/16 16:23 96.1 110 18 148/78 98 09/08/16 12:28 96.1 118 28 130/70 98 09/08/16 09:29 96 21 09/08/16 08:05 96.0 118 18 133/83 95 09/08/16 08:00 110 09/08/16 05:00 98.0 104 23 129/67 97 09/08/16 00:00 98.1 105 23 130/69 98 09/07/16 21:37 98 Nasal Cannula 09/07/16 20:30 97.9 115 23 135/74 98 I/O 09/07/16 09/07/16 09/07/16 09/08/16 09/08/16 09/08/16 07:00 15:00 23:00 07:00 15:00 23:00 Intake Total 240 ml 500 ml 1000 ml 520 ml Balance 240 ml 500 ml 1000 ml 520 ml Intake Oral 240 ml 500 ml 1000 ml 520 ml # Voids 3 2 1 8 3 # Bowel Movements 2 1 0 0 2 Result Diagram: 09/08/16 0634 09/08/16 0634 Objective Remarks GENERAL: Thin built WF, NAD SKIN: Warm and dry. HEAD: Normocephalic. EYES: No scleral icterus. No injection or drainage. NECK: Supple, trachea midline. No JVD or lymphadenopathy. CARDIOVASCULAR: Regular rate and rhythm without murmurs, gallops, or rubs. RESPIRATORY: Breath sounds equal bilaterally. No accessory muscle use. GASTROINTESTINAL: Abdomen soft, non-tender, nondistended. MUSCULOSKELETAL: No cyanosis, or edema. BACK: Nontender without obvious deformity. No CVA tenderness. A/P Assessment and Plan Pneumonia CHF AF CKD PLAN: Cont Abx Aerosol nebs IV Solumedrol Monitor Lytes Acapella q 1 hr while awake Nash Dutta MD Sep 08, 2016 20:20
[2016-09-08] MEDS: PRAVASTATIN SOD 80 MG TAB PO SCH (21:41)
[2016-09-08] MEDS: RESP: ALBUTEROL 2.5 MG/IPRATROPIUM 0.5 MG NEB (PRN) NEB (21:49)
[2016-09-09] VITALS (8 sets, daily range): BP systolic 130–150; BP diastolic 68–81; PULSE 106–130; RESP 20–23; TEMP 96.1–98.4; O2SAT 95–98
[2016-09-09] MEDS: LEVOTHYROXINE SODIUM 50 MCG TAB PO SCH (06:38)
[2016-09-09] MEDS: methylPREDNISolone SOD SUCC 40 MG/1 ML VIAL IV PUSH SCH ×4 (06:38→22:19)
[2016-09-09 08:14] LABS: BICARBONATE 16.2 MEQ/L (21.0-32.0); MAGNESIUM 2.1 MG/DL (1.5-2.5); POTASSIUM 3.7 MEQ/L (3.5-5.1)
[2016-09-09] MEDS: AMIODARONE 200 MG TAB PO SCH (08:57)
[2016-09-09] MEDS: SODIUM BICARBONATE 650 MG TAB PO SCH ×2 (08:57→22:20)
[2016-09-09] MEDS: DIGOXIN 0.125 MG TAB PO SCH (08:57)
[2016-09-09] MEDS: APIXABAN 2.5 MG TABLET PO SCH ×2 (08:57→22:18)
[2016-09-09] MEDS: DOCUSATE SODIUM 100 MG CAP PO SCH ×2 (08:58→21:00)
[2016-09-09] MEDS: FERROUS SULFATE 325 MG (65 MG ELEMENTAL IRON) TAB PO SCH (08:58)
[2016-09-09] MEDS: MEGESTROL ACETATE 40 MG TAB PO SCH (08:58)
[2016-09-09] MEDS: guaiFENesin E.R. 600 MG TAB PO SCH ×2 (08:58→22:19)
[2016-09-09] MEDS: CEFEPIME INJ 2,000 MG in SODIUM CHLORIDE 0.9% INJ 100 ML IV SCH (08:59)
[2016-09-09] MEDS: RESP: ALBUTEROL 2.5 MG/IPRATROPIUM 0.5 MG NEB (PRN) NEB (09:05)
--- NOTE | 2016-09-09 11:28 | PD.CARD.PN ---
Objective Vital Signs / I&O Vital Signs Date Time Temp Pulse Resp B/P Pulse Ox O2 Delivery O2 Flow Rate FiO2 09/09/16 09:05 98 21 09/09/16 04:45 98.4 118 22 135/68 96 09/09/16 00:30 97.7 115 23 138/74 97 09/08/16 21:50 98 21 09/08/16 21:00 98.1 110 23 140/75 96 09/08/16 18:00 100 09/08/16 16:23 96.1 110 18 148/78 98 09/08/16 12:28 96.1 118 28 130/70 98 I/O 09/08/16 09/08/16 09/08/16 09/09/16 09/09/16 09/09/16 07:00 15:00 23:00 07:00 15:00 23:00 Intake Total 1000 ml 520 ml 900 ml 625 ml Output Total 600 ml Balance 1000 ml 520 ml 900 ml 25 ml Intake Oral 1000 ml 520 ml 900 ml 625 ml Output Urine Total 600 ml # Voids 8 3 1 # Bowel Movements 0 2 0 0 Physical Exam EXAM GENERAL: alert, oriented Mild distress and anxious EYES: sclera white, conjunctiva quiet MOUTH: mucous membranes are moist and pink NECK: supple, trachea midline LUNGS: decreased air entry HEART: regular rate, S1 S2 ABDOMEN: soft, flat, non-tender, bowel sounds present EXTREMITIES: no edema, no calf tenderness Laboratory Laboratory Tests Test 09/08/16 09/08/16 09/09/16 11:45 13:52 06:13 Vancomycin Level Trough 9.9 MCG/ML Blood Gas Puncture Site LT RADIAL Blood Gas Patient Temperature 98.6 Blood Gas HCO3 14 mmol/L Blood Gas Base Excess -9.1 mmol/L Blood Gas Oxygen Saturation 96 % Arterial Blood pH 7.46 Arterial Blood Partial 20 mmHg Pressure CO2 Arterial Blood Partial 98 mmHg Pressure O2 Arterial Blood Oxygen Content 12.1 Vol % Arterial Blood 1.4 % Carboxyhemoglobin Arterial Blood Methemoglobin 0.9 % Blood Gas Hemoglobin 8.9 G/DL Blood Gas Inspired Oxygen 21 % Sodium Level 134 MEQ/L Potassium Level 3.7 MEQ/L Chloride Level 105 MEQ/L Carbon Dioxide Level 16.2 MEQ/L Anion Gap 13 MEQ/L Blood Urea Nitrogen 29 MG/DL Creatinine 1.87 MG/DL Estimat Glomerular Filtration 25 ML/MIN Rate Random Glucose 134 MG/DL Calcium Level 7.6 MG/DL Magnesium Level 2.1 MG/DL Assessment and Plan Assessment and Plan The exam, history, and the medical decision-making described in the above note were completed with the assistance of the mid-level provider. I reviewed and agree with the findings presented. I attest that I had a [id number] encounter with the patient on the same day, and personally performed and documented my assessment and findings in the medical record. Doing much better Hawk Mcgarry MD Sep 09, 2016 11:28
[2016-09-09] MEDS: VANCOMYCIN INJ 750 MG in SODIUM CHLOR 0.9% 250 ML INJ 250 ML IV SCH (11:51)
--- NOTE | 2016-09-09 13:18 | HHI.PR ---
Subjective Remarks The patient complained of shortness of breath earlier but she says she was feeling better now. She said she tolerated her lunch. She talked to her lease analyst earlier today. Objective Vitals Vital Signs Date Time Temp Pulse Resp B/P Pulse Ox O2 Delivery O2 Flow Rate FiO2 09/09/16 12:12 98.0 106 20 130/73 96 09/09/16 09:05 98 21 09/09/16 04:45 98.4 118 22 135/68 96 09/09/16 00:30 97.7 115 23 138/74 97 09/08/16 21:50 98 21 09/08/16 21:00 98.1 110 23 140/75 96 09/08/16 18:00 100 09/08/16 16:23 96.1 110 18 148/78 98 I/O 09/08/16 09/08/16 09/08/16 09/09/16 09/09/16 09/09/16 07:00 15:00 23:00 07:00 15:00 23:00 Intake Total 1000 ml 520 ml 900 ml 625 ml Output Total 600 ml Balance 1000 ml 520 ml 900 ml 25 ml Intake Oral 1000 ml 520 ml 900 ml 625 ml Output Urine Total 600 ml # Voids 8 3 1 # Bowel Movements 0 2 0 0 1 Result Diagram: 09/08/16 0634 09/09/16 0613 Imaging Last Impressions Chest X-Ray 09/06/16 0000 Signed Impressions: Service Date/Time: Tuesday, September 06, 2016 14:26 - CONCLUSION: 1. Compensated cardiomegaly. 2. Minimal air space disease laterally in the right lung. Quang Gardner MD FACR Chest CT 09/05/16 0000 Signed Impressions: Service Date/Time: Monday, September 05, 2016 03:55 - CONCLUSION: 1. Small and very mild infiltrate in the right upper lobe. No pulmonary mass. 2. Mild panchamber enlargement of the heart. 3. Suspected pulmonary hypertension. 4. Severely atherosclerotic aorta. Jones Lucero MD Objective Remarks GENERAL: This is a well-nourished, well-developed patient, in no apparent distress, slightly hard of hearing. SKIN: No rashes, ecchymoses or lesions. Cool and dry. HEAD: Atraumatic. Normocephalic. No temporal or scalp tenderness. EYES: Pupils equal round and reactive. Extraocular motions intact. No scleral icterus. No injection or drainage. ENT: Nose without bleeding, purulent drainage or septal hematoma. Throat without erythema, tonsillar hypertrophy or exudate. Uvula midline. Airway patent. NECK: Trachea midline. No JVD or lymphadenopathy. Supple, nontender, no meningeal signs. CARDIOVASCULAR: Tachycardic, irregularly irregular. No murmur appreciated. RESPIRATORY: Diffuse wheezing has improved. GASTROINTESTINAL: Abdomen soft, non-tender, nondistended. No hepato-splenomegaly , or palpable masses. No guarding. MUSCULOSKELETAL: Extremities without clubbing, cyanosis, or edema. No joint tenderness, effusion, or edema noted. NEUROLOGICAL: Awake and alert. Cranial nerves II through XII intact. Motor and sensory grossly within normal limits. Five out of 5 muscle strength in all muscle groups. Normal speech. PSYCH: Mood and affect appropriate. Medications and IVs Current Medications Medications (Trade) Dose Ordered Sig/Neva Route Start Time Stop Time Status Last Admin (NS Flush) 2 ml UNSCH PRN IVF 09/05/16 01:30 09/05/16 03:45 (NS Flush) 2 ml UNSCH PRN FLUSH 09/05/16 03:45 Naloxone HCl 0.4 mg 0.4 mg UNSCH PRN IV 09/05/16 03:45 Cefepime HCl 2000 mg/Sodium Chloride 100 ml @ 200 mls/hr DAILY IV 09/05/16 09:00 09/09/16 08:59 (Vancomycin Consult Pharmacy) 0 ml @ 0 mls/hr UNSCH OTHER 09/05/16 08:45 (Cordarone) 200 mg DAILY PO 09/05/16 09:45 09/09/16 08:57 (Eliquis) 2.5 mg BID PO 09/05/16 09:45 09/09/16 08:57 (Ferrous Sulfate) 325 mg DAILY PO 09/05/16 09:45 09/09/16 08:58 (Synthroid) 50 mcg DAILY@0600 PO 09/05/16 09:45 09/09/16 06:38 (Megace) 20 mg DAILY PO 09/05/16 09:45 09/09/16 08:58 (Sodium Bicarbonate) 650 mg Q12HR PO 09/05/16 09:45 09/09/16 08:57 (Pravachol) 80 mg HS PO 09/05/16 21:00 09/08/16 21:41 (Colace) 100 mg BID PO 09/05/16 21:00 09/08/16 09:56 (Tylenol) 650 mg Q4H PRN PO 09/05/16 10:00 (Catapres) 0.1 mg Q6H PRN PO 09/05/16 10:15 Miscellaneous 1 ea 1 ea UNSCH PRN OTHER 09/05/16 10:15 (Vancomycin Inj/ NS 250 ml Inj) 257.5 ml @ 250 mls/hr Q24H IV 09/06/16 11:00 09/09/16 11:51 (Mucinex Er) 1,200 mg BID PO 09/06/16 15:00 09/09/16 08:58 (SoluMEDROL INJ) 40 mg Q6HR IV PUSH 09/07/16 18:00 09/09/16 11:52 Miscellaneous Information SPECIFIC LAB TO BE ... ONCE ONCE XX 09/10/16 10:45 09/10/16 10:46 A/P Assessment and Plan HCAP/ COPD exacerbation The pt has shortness of breath and a productive cough. CXR and CT scan imaging indicative of a right infiltrate. She was recently hospitalized. Had lactic acid level of 5. - continue cefepime and vanco to treat HCAP. - oxygen and nebs as needed. - incentive spirometry, Acapella. - sputum and blood cultures. NGTD. - pulmonology following. - physical therapy. - Solumedrol, guaifenesin. A fib with RVR Recently admitted for Afib with RVR. On Amiodarone and digoxin. Trops peaked at 0.11. Likely s/t tachycardia, PNA. Appreciate cardiology consult. - Continue home meds. - Telemetry. - Continue Eliquis. Chronic renal disease/ metabolic acidosis Creatinine is around baseline. Started on bicarbonate on last admission by nephrology. Bicarb level is low and pt appears to be having respiratory compensation. ABG noted. - monitor BMP. - avoid nephrotoxins. - continue PO sodium bicarbonate. - hold Lasix for now. - Monitor I's and O's. - Consider nephrology consult. Hypomagnesemia/ hypophosphatemia Magnesium level was 1.3. Phos also low. Improved 2/2. - replete with magnesium sulfate and Na-phos and monitor. CHF Echo in May with EF 45-50% and mod-severe MR and severe TR. BNP elevated over 500. Appears euvolemic. - holding home Lasix. - monitor fluid status. PPx: Eliquis. Discharge Planning Awaiting clinical improvement. Zack Romero DO Sep 09, 2016 13:18
--- NOTE | 2016-09-09 14:07 | RADRPT ---
EXAM DATE/TIME: 09/09/2016 13:45 [facility] COMPARISON: CHEST SINGLE AP, September 06, 2016, 14:26. INDICATIONS : Shortness of breath. MEDICAL HISTORY : Hypertension. Chronic obstructive pulmonary disease. Atrial fibrillation. SURGICAL HISTORY : None. ENCOUNTER: Initial ACUITY: 1 day PAIN SCORE: 0/10 LOCATION: Bilateral chest FINDINGS: A single view of the chest demonstrates cardiomegaly with bibasilar densities. Small pleural effusion s bilaterally.. Osseous structures are intact. CONCLUSION: 1. Cardiomegaly with small bilateral pleural effusions and probable bibasilar atelectasis. Margarito Woodard MD on September 09, 2016 at 14:05 Board Certified Radiologist. This report was verified electronically.
--- NOTE | 2016-09-09 18:16 | HHI.PR ---
Subjective Remarks 89 YOWF with Pneumonia,CHF,AF Has mild wheezing Not able to expactorate No Fever Breathing much better today Daughter at [facility] Objective Vital Signs Vital Signs Date Time Temp Pulse Resp B/P Pulse Ox O2 Delivery O2 Flow Rate FiO2 09/09/16 15:35 96.1 110 20 150/80 96 09/09/16 12:12 98.0 106 20 130/73 96 09/09/16 09:37 130 09/09/16 09:05 98 21 09/09/16 04:45 98.4 118 22 135/68 96 09/09/16 00:30 97.7 115 23 138/74 97 09/08/16 21:50 98 21 09/08/16 21:00 98.1 110 23 140/75 96 I/O 09/08/16 09/08/16 09/08/16 09/09/16 09/09/16 09/09/16 07:00 15:00 23:00 07:00 15:00 23:00 Intake Total 1000 ml 520 ml 900 ml 625 ml 720 ml Output Total 600 ml Balance 1000 ml 520 ml 900 ml 25 ml 720 ml Intake Oral 1000 ml 520 ml 900 ml 625 ml 720 ml Output Urine Total 600 ml # Voids 8 3 1 3 # Bowel Movements 0 2 0 0 1 Result Diagram: 09/08/16 0634 09/09/16 0613 Objective Remarks GENERAL: Thin built WF, NAD SKIN: Warm and dry. HEAD: Normocephalic. EYES: No scleral icterus. No injection or drainage. NECK: Supple, trachea midline. No JVD or lymphadenopathy. CARDIOVASCULAR: Regular rate and rhythm without murmurs, gallops, or rubs. RESPIRATORY: Breath sounds equal bilaterally. No accessory muscle use. GASTROINTESTINAL: Abdomen soft, non-tender, nondistended. MUSCULOSKELETAL: No cyanosis, or edema. BACK: Nontender without obvious deformity. No CVA tenderness. A/P Assessment and Plan Pneumonia CHF AF CKD PLAN: Cont Abx Aerosol nebs IV Solumedrol Monitor Lytes Acapella q 1 hr while awake DW Daughter and pt at BS Nash Dutta MD Sep 09, 2016 18:16
[2016-09-09] MEDS: PRAVASTATIN SOD 80 MG TAB PO SCH (22:19)
[2016-09-09] MEDS: SODIUM CHLORIDE 0.9% FLUSH 5 ML FLUSH FLUSH PRN (22:22)
[2016-09-10] VITALS (7 sets, daily range): BP systolic 122–155; BP diastolic 62–85; PULSE 70–120; RESP 18–21; TEMP 95.7–98.3; O2SAT 93–98
[2016-09-10] MEDS: ONDANSETRON HCL 4 MG/2 ML VIAL IV PUSH PRN (06:12)
[2016-09-10] MEDS: LEVOTHYROXINE SODIUM 50 MCG TAB PO SCH (06:12)
[2016-09-10] MEDS: SODIUM BICARBONATE 650 MG TAB PO SCH ×2 (09:30→17:30)
[2016-09-10] MEDS: APIXABAN 2.5 MG TABLET PO SCH ×2 (09:30→20:28)
[2016-09-10] MEDS: guaiFENesin E.R. 600 MG TAB PO SCH ×2 (09:30→20:29)
[2016-09-10] MEDS: methylPREDNISolone SOD SUCC 40 MG/1 ML VIAL IV PUSH SCH ×2 (09:30→20:29)
[2016-09-10] MEDS: DOCUSATE SODIUM 100 MG CAP PO SCH ×2 (09:31→20:29)
[2016-09-10] MEDS: AMIODARONE 200 MG TAB PO SCH (09:31)
[2016-09-10] MEDS: FERROUS SULFATE 325 MG (65 MG ELEMENTAL IRON) TAB PO SCH (09:31)
[2016-09-10] MEDS: CEFEPIME INJ 2,000 MG in SODIUM CHLORIDE 0.9% INJ 100 ML IV SCH (09:31)
[2016-09-10] MEDS: MEGESTROL ACETATE 40 MG TAB PO SCH (09:31)
[2016-09-10 10:11] LABS: BICARBONATE 14.9 MEQ/L (21.0-32.0); POTASSIUM 3.7 MEQ/L (3.5-5.1)
[2016-09-10] MEDS ORDERED: PHARMACY ORDERED LAB XX ONE (10:45)
--- NOTE | 2016-09-10 10:56 | HHI.PR ---
Subjective Remarks The patient was nauseous this morning. She said her breathing was better. She says she overall feels better except for the nausea. Nursing was at the bedside. Objective Vitals Vital Signs Date Time Temp Pulse Resp B/P Pulse Ox O2 Delivery O2 Flow Rate FiO2 09/10/16 07:56 96.8 120 18 155/84 96 09/10/16 04:38 98.3 105 21 134/63 96 09/10/16 00:33 97.1 111 21 125/85 93 09/09/16 21:50 96 21 09/09/16 20:00 96.5 106 21 132/81 95 09/09/16 15:35 96.1 110 20 150/80 96 09/09/16 12:12 98.0 106 20 130/73 96 I/O 09/09/16 09/09/16 09/09/16 09/10/16 09/10/16 09/10/16 07:00 15:00 23:00 07:00 15:00 23:00 Intake Total 625 ml 720 ml Output Total 600 ml Balance 25 ml 720 ml Intake Oral 625 ml 720 ml Output Urine Total 600 ml # Voids 3 1 # Bowel Movements 0 1 1 Result Diagram: 09/08/16 0634 09/10/16 0830 Imaging Last Impressions Chest X-Ray 09/09/16 0000 Signed Impressions: Service Date/Time: Friday, September 09, 2016 13:45 - CONCLUSION: 1. Cardiomegaly with small bilateral pleural effusions and probable bibasilar atelectasis. Margarito Woodard MD Chest CT 09/05/16 0000 Signed Impressions: Service Date/Time: Monday, September 05, 2016 03:55 - CONCLUSION: 1. Small and very mild infiltrate in the right upper lobe. No pulmonary mass. 2. Mild panchamber enlargement of the heart. 3. Suspected pulmonary hypertension. 4. Severely atherosclerotic aorta. Jones Lucero MD Objective Remarks GENERAL: This is a well-nourished, well-developed patient, in no apparent distress, slightly hard of hearing. SKIN: No rashes, ecchymoses or lesions. Cool and dry. HEAD: Atraumatic. Normocephalic. No temporal or scalp tenderness. EYES: Pupils equal round and reactive. Extraocular motions intact. No scleral icterus. No injection or drainage. ENT: Nose without bleeding, purulent drainage or septal hematoma. Throat without erythema, tonsillar hypertrophy or exudate. Uvula midline. Airway patent. NECK: Trachea midline. No JVD or lymphadenopathy. Supple, nontender, no meningeal signs. CARDIOVASCULAR: Tachycardic, irregularly irregular. No murmur appreciated. RESPIRATORY: Diffuse wheezing has improved, slight crackles at the left base. GASTROINTESTINAL: Abdomen soft, non-tender, nondistended. No hepato-splenomegaly , or palpable masses. No guarding. MUSCULOSKELETAL: Extremities without clubbing, cyanosis, or edema. No joint tenderness, effusion, or edema noted. NEUROLOGICAL: Awake and alert. Cranial nerves II through XII intact. Motor and sensory grossly within normal limits. Five out of 5 muscle strength in all muscle groups. Normal speech. PSYCH: Mood and affect appropriate. Medications and IVs Current Medications Medications (Trade) Dose Ordered Sig/Neva Route Start Time Stop Time Status Last Admin (NS Flush) 2 ml UNSCH PRN IVF 09/05/16 01:30 09/05/16 03:45 (NS Flush) 2 ml UNSCH PRN FLUSH 09/05/16 03:45 09/09/16 22:22 Naloxone HCl 0.4 mg 0.4 mg UNSCH PRN IV 09/05/16 03:45 Cefepime HCl 2000 mg/Sodium Chloride 100 ml @ 200 mls/hr DAILY IV 09/05/16 09:00 09/10/16 09:31 (Vancomycin Consult Pharmacy) 0 ml @ 0 mls/hr UNSCH OTHER 09/05/16 08:45 (Cordarone) 200 mg DAILY PO 09/05/16 09:45 09/10/16 09:31 (Eliquis) 2.5 mg BID PO 09/05/16 09:45 09/10/16 09:30 (Ferrous Sulfate) 325 mg DAILY PO 09/05/16 09:45 09/10/16 09:31 (Synthroid) 50 mcg DAILY@0600 PO 09/05/16 09:45 09/10/16 06:12 (Megace) 20 mg DAILY PO 09/05/16 09:45 09/10/16 09:31 (Sodium Bicarbonate) 650 mg Q12HR PO 09/05/16 09:45 09/10/16 09:30 (Pravachol) 80 mg HS PO 09/05/16 21:00 09/09/16 22:19 (Colace) 100 mg BID PO 09/05/16 21:00 09/08/16 09:56 (Tylenol) 650 mg Q4H PRN PO 09/05/16 10:00 (Catapres) 0.1 mg Q6H PRN PO 09/05/16 10:15 Miscellaneous 1 ea 1 ea UNSCH PRN OTHER 09/05/16 10:15 (Vancomycin Inj/ NS 250 ml Inj) 257.5 ml @ 250 mls/hr Q24H IV 09/06/16 11:00 09/09/16 11:51 (Mucinex Er) 1,200 mg BID PO 09/06/16 15:00 09/10/16 09:30 (SoluMEDROL INJ) 40 mg BID IV PUSH 09/09/16 21:00 09/10/16 09:30 (Zofran Inj) 4 mg Q6HR PRN IV PUSH 09/10/16 05:45 09/10/16 06:12 A/P Assessment and Plan HCAP/ COPD exacerbation The pt has shortness of breath and a productive cough. CXR and CT scan imaging indicative of a right infiltrate. She was recently hospitalized. Had lactic acid level of 5. Influenza negative. Symptoms improving 09/10. - continue cefepime and vanco to treat HCAP. - oxygen and nebs as needed. - incentive spirometry, Acapella. - sputum and blood cultures. NGTD. - pulmonology following. - physical therapy. - Solumedrol, guaifenesin. A fib with RVR Recently admitted for Afib with RVR. On Amiodarone and digoxin. Trops peaked at 0.11. Likely s/t tachycardia, PNA. Appreciate cardiology consult. HR in the low 100s 09/10. - Continue home meds. - Telemetry. - Continue Eliquis. Chronic renal disease/ metabolic acidosis Creatinine is around baseline. Started on bicarbonate on last admission by nephrology. Bicarb level is low and pt appears to be having respiratory compensation. ABG noted. - monitor BMP. - avoid nephrotoxins. - continue PO sodium bicarbonate. - hold Lasix for now. - Monitor I's and O's. - nephrology consult consult requested. Hypomagnesemia/ hypophosphatemia Magnesium level was 1.3. Phos also low. Improved. - replete with magnesium sulfate and Na-phos and monitor. CHF Echo in May with EF 45-50% and mod-severe MR and severe TR. BNP elevated over 500. Appears euvolemic. - holding home Lasix. - monitor fluid status. Anemia Hemoglobin is around baseline. Likely s/t renal disease. - monitor as needed. PPx: Jacque. Discharge Planning Awaiting clinical improvement. Zack Romero DO Sep 10, 2016 10:56
--- NOTE | 2016-09-10 13:20 | PD.CARD.PN ---
Subjective Subjective Remarks Breathing better, yellow sputum, tachycardia with ambulation, HR at rest improved Objective Medications Current Medications Medications (Trade) Dose Ordered Sig/Neva Route Start Time Stop Time Status Last Admin (NS Flush) 2 ml UNSCH PRN IVF 09/05/16 01:30 09/05/16 03:45 (NS Flush) 2 ml UNSCH PRN FLUSH 09/05/16 03:45 09/09/16 22:22 Naloxone HCl 0.4 mg 0.4 mg UNSCH PRN IV 09/05/16 03:45 Cefepime HCl 2000 mg/Sodium Chloride 100 ml @ 200 mls/hr DAILY IV 09/05/16 09:00 09/10/16 09:31 (Vancomycin Consult Pharmacy) 0 ml @ 0 mls/hr UNSCH OTHER 09/05/16 08:45 (Cordarone) 200 mg DAILY PO 09/05/16 09:45 09/10/16 09:31 (Eliquis) 2.5 mg BID PO 09/05/16 09:45 09/10/16 09:30 (Ferrous Sulfate) 325 mg DAILY PO 09/05/16 09:45 09/10/16 09:31 (Synthroid) 50 mcg DAILY@0600 PO 09/05/16 09:45 09/10/16 06:12 (Megace) 20 mg DAILY PO 09/05/16 09:45 09/10/16 09:31 (Sodium Bicarbonate) 650 mg Q12HR PO 09/05/16 09:45 09/10/16 09:30 (Pravachol) 80 mg HS PO 09/05/16 21:00 09/09/16 22:19 (Colace) 100 mg BID PO 09/05/16 21:00 09/08/16 09:56 (Tylenol) 650 mg Q4H PRN PO 09/05/16 10:00 (Catapres) 0.1 mg Q6H PRN PO 09/05/16 10:15 Miscellaneous 1 ea 1 ea UNSCH PRN OTHER 09/05/16 10:15 (Vancomycin Inj/ NS 250 ml Inj) 257.5 ml @ 250 mls/hr Q24H IV 09/06/16 11:00 09/09/16 11:51 (Mucinex Er) 1,200 mg BID PO 09/06/16 15:00 09/10/16 09:30 (SoluMEDROL INJ) 40 mg BID IV PUSH 09/09/16 21:00 09/10/16 09:30 (Zofran Inj) 4 mg Q6HR PRN IV PUSH 09/10/16 05:45 09/10/16 06:12 Vital Signs / I&O Vital Signs Date Time Temp Pulse Resp B/P Pulse Ox O2 Delivery O2 Flow Rate FiO2 09/10/16 12:38 97.8 70 18 127/70 98 09/10/16 07:56 96.8 120 18 155/84 96 09/10/16 04:38 98.3 105 21 134/63 96 09/10/16 00:33 97.1 111 21 125/85 93 09/09/16 21:50 96 21 09/09/16 20:00 96.5 106 21 132/81 95 09/09/16 15:35 96.1 110 20 150/80 96 I/O 09/09/16 09/09/16 09/09/16 09/10/16 09/10/16 09/10/16 07:00 15:00 23:00 07:00 15:00 23:00 Intake Total 625 ml 720 ml Output Total 600 ml Balance 25 ml 720 ml Intake Oral 625 ml 720 ml Output Urine Total 600 ml # Voids 3 1 # Bowel Movements 0 1 1 Physical Exam GENERAL: Looks better today, no distress SKIN: Warm and dry. HEAD: Normocephalic. EYES: No scleral icterus. No injection or drainage. NECK: Supple, trachea midline. 3 cm JVD CARDIOVASCULAR: Irregularly irregular, systolic murmur, tachycardia RESPIRATORY: Breath sounds equal bilaterally. wheezing, no accessory muscle use GASTROINTESTINAL: Abdomen soft, non-tender, nondistended. MUSCULOSKELETAL: No cyanosis, or edema. BACK: Nontender without obvious deformity Laboratory Laboratory Tests Test 09/10/16 09/10/16 08:30 12:05 Sodium Level 131 MEQ/L Potassium Level 3.7 MEQ/L Chloride Level 103 MEQ/L Carbon Dioxide Level 14.9 MEQ/L Anion Gap 13 MEQ/L Blood Urea Nitrogen 35 MG/DL Creatinine 2.03 MG/DL Estimat Glomerular Filtration 23 ML/MIN Rate Random Glucose 135 MG/DL Calcium Level 7.7 MG/DL Magnesium Level 2.0 MG/DL Vancomycin Level Trough 17.8 MCG/ML Imaging Last 72 hours Impressions Chest X-Ray 09/09/16 0000 Signed Impressions: Service Date/Time: Friday, September 09, 2016 13:45 - CONCLUSION: 1. Cardiomegaly with small bilateral pleural effusions and probable bibasilar atelectasis. Margarito Woodard MD Assessment and Plan Assessment and Plan ASSESSMENT RUL Pneumonia Persistent atrial fibrillation with increased ventricular rate. On Eliquis, Amio and digoxin. Unable to tolerate CCB and BB due to allergies/side effects Chronic diastolic CHF with some exacerbation Chronic anemia. Moderate MR, Moderate TR on echo 04/2016 Renal insufficiency Slight elevation of troponin. Suspect demand ischemia and CKD. Last stress test 2011 negative PLAN Elevated HR physiologic secondary to underlying infection and albuterol. Caution with amio/digoxin- amio increases risk for digoxin toxicity. Give lasix 20 mg PO once today Evaluated by Nephrology on recent admission- pending consult We will consider outpatient ischemic workup for slightly elevated troponin. Assessment and plan discussed with Nargis Jimenez Sep 10, 2016 13:20
[2016-09-10] MEDS ORDERED: FUROSEMIDE 20 MG TAB PO ONE (13:30)
[2016-09-10] MEDS: VANCOMYCIN INJ 750 MG in SODIUM CHLOR 0.9% 250 ML INJ 250 ML IV SCH (14:21)
--- NOTE | 2016-09-10 16:37 | HHI.PR ---
Subjective Remarks 89 YOWF with Pneumonia,CHF,AF Has mild wheezing Not able to expactorate No Fever Breathing much better today Was feeling sick due to spitting up Mucous Better now Objective Vital Signs Vital Signs Date Time Temp Pulse Resp B/P Pulse Ox O2 Delivery O2 Flow Rate FiO2 09/10/16 15:47 96.9 100 20 130/83 98 09/10/16 15:41 96 09/10/16 12:38 97.8 70 18 127/70 98 09/10/16 07:56 96.8 120 18 155/84 96 09/10/16 04:38 98.3 105 21 134/63 96 09/10/16 00:33 97.1 111 21 125/85 93 09/09/16 21:50 96 21 09/09/16 20:00 96.5 106 21 132/81 95 I/O 09/09/16 09/09/16 09/09/16 09/10/16 09/10/16 09/10/16 07:00 15:00 23:00 07:00 15:00 23:00 Intake Total 625 ml 720 ml 1820 ml Output Total 600 ml Balance 25 ml 720 ml 1820 ml Intake Oral 625 ml 720 ml 1320 ml IV Total 500 ml Output Urine Total 600 ml # Voids 3 1 3 # Bowel Movements 0 1 1 2 Result Diagram: 09/08/16 0634 09/10/16 0830 Objective Remarks GENERAL: Thin built WF, NAD SKIN: Warm and dry. HEAD: Normocephalic. EYES: No scleral icterus. No injection or drainage. NECK: Supple, trachea midline. No JVD or lymphadenopathy. CARDIOVASCULAR: Regular rate and rhythm without murmurs, gallops, or rubs. RESPIRATORY: Breath sounds equal bilaterally. No accessory muscle use. GASTROINTESTINAL: Abdomen soft, non-tender, nondistended. MUSCULOSKELETAL: No cyanosis, or edema. BACK: Nontender without obvious deformity. No CVA tenderness. A/P Assessment and Plan Pneumonia CHF AF CKD PLAN: Cont Abx Aerosol nebs IV Solumedrol Monitor Lytes Acapella q 1 hr while awake Nash Dutta MD Sep 10, 2016 16:37
[2016-09-10 17:42] LABS: BACTERIA, URINE RARE /hpf; BLOOD, URINE MOD (NEG); COMMENT (UR) CULT NOT INDICATED; CULTURE IF INDICATED CULT NOT INDICATED; GLUCOSE,URINE NEG (NEG); KETONE, URINE NEG (NEG); MUCUS URINE FEW /lpf (OCC); NITRITE,URINE NEG (NEG); PH, URINE 5.5 (5.0-8.5); SQUAMOUS EPITHELIAL CELL URINE 1 /hpf (0-5); URINE COLOR LIGHT-YELLOW (YELLW/STRAW)
--- NOTE | 2016-09-10 17:58 | MB ---
cc: JENNIFER BLANK MD DATE OF CONSULTATION: 09/10/2016. REASON FOR CONSULTATION: Decreased bicarbonate level. HISTORY OF PRESENT ILLNESS: This is an 89-year-old female with history of atrial fibrillation as well as congestive heart failure. The patient was recently admitted in the hospital in August for atrial fibrillation. She had been home for one week after discharge and presented again with shortness of breath. She was found to have findings of a hospital-acquired pneumonia and was admitted here to the hospital. She was also found to have ongoing atrial fibrillation and she seen with cardiology and continued on medical management with Eliquis, amiodarone and digoxin. She has multiple allergies to multiple other medications. The patient was recently seen here in August with Dr. Mercado for findings of decreased bicarbonate levels. At that point she was considered to have of some metabolic acidosis secondary to her chronic kidney disease. Her creatinine has been stable through this hospital course and she has a baseline creatinine that has ranged between 1.90 and 1.1. Her creatinine is 2.0 today corresponding to a GFR in the 20s with chronic kidney disease stage IV. Of note, her bicarbonate level on admission here was 16.2. Over the course her hospital stay, her serum bicarbonate levels have ranged between 16 and 13 and the level of 14.9 today. A blood gas was done which showed a pH of 7.46, a CO2 of 20 and a bicarbonate at 14. On her previous hospital visit, the patient was started on p.o. sodium bicarbonate with Dr. Mercado. At this time the patient is resting in bed comfortably. Lasix was started today with cardiology. The patient reports her symptoms of shortness of breath have significantly improved since her admission here and her breathing is significantly improved. She has voided several times after she was given Lasix earlier. She has no acute complaints at this time. REVIEW OF SYSTEMS: No fevers, no chills, no nausea, no vomiting, no diarrhea, no chest pains. Patient has had some abdominal pains; however, this is improved today. The patient had initial dyspnea which is improved at this time. No dizziness. No loss of consciousness. Otherwise, her review of systems is negative. PAST MEDICAL HISTORY: 1. Atrial fibrillation. 2. Anemia. 3. Arthritis. 4. Colon cancer with chemotherapy in 2000. 5. Congestive heart failure. 6. Hypertension. 7. Dyslipidemia. 8. Hypothyroidism. 9. Gastroesophageal reflux disease (GERD). 10. Chronic kidney disease. Apparently a baseline GFR in the 20s with baseline creatinine between 1.9 and 2.1. 11. History of GI bleed. 12. CVA. 13. Kidney stones. PAST SURGICAL HISTORY: 1. Hip replacement. 2. Knee replacement. 3. Hysterectomy. ALLERGIES: 1. ATENOLOL. 2. CARDIZEM. 3. LEVOFLOXACIN. 4. LISINOPRIL. 5. PHENERGAN. 6. SULFA. 7. METOPROLOL. 8. VERAPAMIL. 9. AMOXICILLIN. 10. LEVAQUIN. 11. EDOXABAN. 12. POTASSIUM. 13. TREVON APURVA. FAMILY HISTORY: Family history includes coronary disease, brain aneurysms. SOCIAL HISTORY: No tobacco or alcohol use. PHYSICAL EXAMINATION: VITAL SIGNS: At the time of evaluation, temperature 97.8, pulse 70, respiratory rate 18, blood pressure 127/70, pulse oximetry 98. GENERAL: Awake, alert and oriented and in no apparent distress. HEAD, EYES, EARS, NOSE, THROAT: Neck soft supple. No lymphadenopathy. CARDIAC: Regular rate and rhythm. PULMONARY: Bilateral wheezing. ABDOMEN: The abdomen is soft, nontender and nondistended. EXTREMITIES: No edema. LABORATORY FINDINGS: ABG with pH 7.46, pCO2 28, pO2 98, bicarbonate of 14, this is on September 08. Sodium 131, potassium 3.7, chloride 103, bicarb 14.9, BUN 35, creatinine 2.03, glucose of 135. White count 9.5, hemoglobin 9.1, hematocrit 96.3 with platelet count 181,000. The patient had a recent acid pep which was done on previous admission which was negative. ASSESSMENT AND PLAN; 1. Decreased bicarbonate level. The patient has a serum bicarbonate of 14.9 today. Upon review of her labs, she has recently had a decrease in bicarbonate levels. However, this appears to be a compensatory response to low CO2 levels consistent with respiratory alkalosis. I suspect she has some chronic respiratory alkalosis due to intrinsic lung disease, perhaps secondary to her recent pneumonia as well as congestive heart failure. At this point, the primary management will be further treatment of pulmonary issues. She is being followed with pulmonary at this time. She is receiving and inhalers and she has significant wheezing on exam. Diuretics were started today with cardiology and this should further help her respiratory symptoms. At this point she reports her breathing is significantly improved since her admission here and again I believe much of this bicarbonate depression is secondary to her decreased CO2. She does have chronic kidney disease with a GFR in the 20s and has been started previously on sodium bicarbonate. Agree to continue with sodium bicarbonate at this time and will go ahead and increase the dose from 650 q. 12 hours to three times a day dosing. Otherwise this is stable and continue to treat underlying respiratory issues. IV sodium bicarbonate would be ideal; however given her CHF and pulmonary symptoms, will continue with PO NaHCO3. 2. Chronic kidney disease. The patient has a baseline creatinine between 1.9 and 2.1. Her creatinine is near her baseline range at this point. Continue to monitor her closely. Of note, caution with Vancomycin as the patient is being treated for hospital-acquired pneumonia and closely monitor her Vancomycin levels. 3. Pneumonia. The patient presented with hospital-acquired pneumonia after a recent admission here. She is being treated with Solu-Medrol and antibiotics as well as Vancomycin and cefepime. Closely monitor Vancomycin dosing and stop Vancomycin when possible. Continue to monitor with the primary team. 4. Congestive heart failure. The patient has a known ejection fraction between 45 and 50%. She was started on p.o. Lasix at 20 milligrams today. Further diuresis may further help her congestive heart failure as well as her pulmonary issues. Continue to monitor with cardiology. 5. History of atrial fibrillation. The patient has multiple allergies to drugs and she is currently being managed for atrial fibrillation with Eliquis, amiodarone and Digoxin. Continue to closely monitor the digoxin levels. 6. Hyponatremia. The patient has a serum sodium of 131. Lasix was started today and agree with Lasix as this should further help with volume overload and may help the patient's serum sodium level as well. Should creatinine be stable tomorrow, may consider to further increase Lasix dosing as tolerated. MD ARAMIS Taylor/SOM /3:34 PM /5:41 PM GUSTAVO
[2016-09-10] MEDS: SODIUM CHLORIDE 0.9% FLUSH 5 ML FLUSH FLUSH PRN (20:27)
[2016-09-10] MEDS: PRAVASTATIN SOD 80 MG TAB PO SCH (20:28)
[2016-09-11] VITALS (8 sets, daily range): BP systolic 127–166; BP diastolic 64–88; PULSE 83–130; RESP 20–26; TEMP 95.5–98.6; O2SAT 93–96
[2016-09-11 06:50] LABS: BLOOD GAS BASE EXCESS -7.8 mmol/L (-2-2); BLOOD GAS CARBOXYHEMOGLOBIN 1.4 % (0-4); BLOOD GAS HCO3 16 mmol/L (22-26); BLOOD GAS METHEMOGLOBIN 0.8 % (0-2); BLOOD GAS O2 HGB SATURATION 95 % (90-100); BLOOD GAS OXYGEN CONTENT 12.5 Vol % (12.0-20.0); BLOOD GAS PCO2 23 mmHg (38-42); BLOOD GAS PO2 85 mmHg (61-120); BLOOD GAS TOTAL HGB 9.3 G/DL (12.0-16.0); TEMP CORR TO 98.6
[2016-09-11] MEDS: ONDANSETRON HCL 4 MG/2 ML VIAL IV PUSH PRN (06:50)
[2016-09-11 06:51] LABS: CRITICAL VALUE YES; DRAW SITE RT RADIAL; NUMBER OF ARTERIAL PUNCTURES 1; OXYGEN DEVICE NO
[2016-09-11] MEDS: LEVOTHYROXINE SODIUM 50 MCG TAB PO SCH (06:51)
[2016-09-11 06:52] LABS: STAT NO; ULNAR PULSE PRESENT
[2016-09-11 08:15] LABS: BICARBONATE 16.5 MEQ/L (21.0-32.0); MAGNESIUM 1.8 MG/DL (1.5-2.5); POTASSIUM 3.9 MEQ/L (3.5-5.1)
[2016-09-11 08:17] LABS: HEMATOCRIT 28.8 % (35.0-46.0); MEAN CELL VOLUME 93.4 FL (80.0-100.0); MEAN CORPUSCULAR HEMOGLOBIN 31.4 PG (27.0-34.0); MEAN CORPUSCULAR HGB CONC 33.7 % (32.0-36.0); PLATELET COUNT 234 TH/MM3 (150-450); RED BLOOD COUNT 3.09 MIL/MM3 (4.00-5.30); RED CELL DISTRIBUTION WIDTH 14.3 % (11.6-17.2); REVIEW FLAG FINAL; WHITE BLOOD COUNT 17.7 TH/MM3 (4.0-11.0)
[2016-09-11] MEDS: DOCUSATE SODIUM 100 MG CAP PO SCH ×2 (09:00→21:00)
[2016-09-11] MEDS: CEFEPIME INJ 2,000 MG in SODIUM CHLORIDE 0.9% INJ 100 ML IV SCH (09:00)
[2016-09-11] MEDS: DIGOXIN 0.125 MG TAB PO SCH (09:32)
[2016-09-11] MEDS: SODIUM BICARBONATE 650 MG TAB PO SCH ×3 (09:32→17:41)
[2016-09-11] MEDS: guaiFENesin E.R. 600 MG TAB PO SCH ×2 (09:32→21:07)
[2016-09-11] MEDS: MEGESTROL ACETATE 40 MG TAB PO SCH (09:32)
[2016-09-11] MEDS: AMIODARONE 200 MG TAB PO SCH (09:33)
[2016-09-11] MEDS: APIXABAN 2.5 MG TABLET PO SCH ×2 (09:33→21:06)
[2016-09-11] MEDS: methylPREDNISolone SOD SUCC 40 MG/1 ML VIAL IV PUSH SCH ×2 (09:34→21:07)
[2016-09-11] MEDS: FERROUS SULFATE 325 MG (65 MG ELEMENTAL IRON) TAB PO SCH (09:34)
--- NOTE | 2016-09-11 10:34 | HHI.NPPN ---
Subjective Complaints: Shortness of Breath General Problems: Mebatolic Acidosis Interval History Renal function is stable. She is reporting nausea, decreased oral intake. Still coughing. (Berna Godinez) Review of Systems Respiratory Lungs: SOB, Cough, Sputum (Berna Godinez) Gastrointestinal Gastrointestinal: Nausea & Vomiting (Berna Godinez) Objective Data Data 09/10/16 09/11/16 19:00 07:00 Intake Total 1820 ml Balance 1820 ml Intake Oral 1320 ml IV Total 500 ml # Voids 3 3 # Bowel Movements 2 Vital Signs Date Time Temp Pulse Resp B/P Pulse Ox O2 Delivery O2 Flow Rate FiO2 09/11/16 08:00 96.2 103 26 139/88 93 09/11/16 05:00 97.1 100 20 127/65 94 09/11/16 00:15 98.6 83 20 166/78 95 09/10/16 20:31 95.7 104 20 122/62 95 09/10/16 15:47 96.9 100 20 130/83 98 09/10/16 15:41 96 09/10/16 12:38 97.8 70 18 127/70 98 (Berna Godinez) -: 09/11/16 0651 09/11/16 0651 Imaging Last 72 hours Impressions Chest X-Ray 09/09/16 0000 Signed Impressions: Service Date/Time: Friday, September 09, 2016 13:45 - CONCLUSION: 1. Cardiomegaly with small bilateral pleural effusions and probable bibasilar atelectasis. Margarito Woodard MD (Berna Godinez) Physical Exam General Appearance: Well Developed, Well Nourished, Comfortable (Berna Godinez) Throat Throat Exam: Oral Mucosa [place] & Moist (Berna Godinez) Pulmonary Resp Exam: Breath Sounds Equal, Crackles (Berna Godinez) Cardiology CV Exam: Good Perfusion, Irregular (Berna Godinez) Gastrointestinal/Abdomen GI Exam: Soft, Non-Tender (Berna Godinez) Musculoskeletal MS Exam: Joints Intact, Normal Tone (Berna Godinez) Integumentary Skin Exam: Clear, Warm, Dry, Intact (Berna Godinez) Extremeties Extremities Exam: No Edema, Pedal Pulses Palpable (Berna Godinez) Neurologic Neuro Exam: Alert, Awake, Oriented, Speech Clear, Moving All Extremities ( Berna Godinez) Psychiatric Psych Exam: Appropriate Responses (Berna Godinez) Assessment/Plan Discussed Condition With: Patient Assessment Summary: Anemia of CKD, CKD Stage IV Electrolyte Assessment: Metabolic Acidosis Problem List: (1) Chronic kidney disease, stage 4 (severe) Plan: baseline creatinine 1.8-2 renal function is stable and at baseline this admission she has improving compensatory acidosis secondary to pulmonary disease with respiratory alkalosis, on oral bicarbonate TID fluid volume status stable continue lasix BID per cardiology renal panel in am avoid IVF and nephrotoxins (2) CHF (congestive heart failure) Plan: on lasix to manage fluid volume status EF 40-50% (3) Atrial fibrillation Plan: rate controlled , on digoxin, amiodarone, and Eliquis for anticoagulation (4) Pneumonia Plan: she is on cefepime, solumedrol, ad vancomycin vanc level is high today, minimize antimicrobial therapy when able (5) Anemia Plan: on oral iron , hemoglobin stable (Berna Godinez) Problem List: (1) Chronic kidney disease, stage 4 (severe) Plan: baseline creatinine 1.8-2 renal function is stable and at baseline this admission she has improving compensatory decrease in bicarbonate secondary to pulmonary disease with respiratory alkalosis. May also have underlying metabolic acidosis. fluid volume status stable continue lasix BID per cardiology renal panel in am avoid IVF and nephrotoxins (2) CHF (congestive heart failure) Plan: on lasix to manage fluid volume status EF 40-50% (3) Atrial fibrillation Plan: rate controlled , on digoxin, amiodarone, and Eliquis for anticoagulation (4) Pneumonia Plan: she is on cefepime, solumedrol, ad vancomycin vanc level is high today, minimize antimicrobial therapy when able (5) Anemia Plan: on oral iron , hemoglobin stable (Mario Mercado MD) Problem Qualifiers (1) Atrial fibrillation: Qualified Code: I48.1 - Persistent atrial fibrillation (2) Pneumonia: Qualified Code: J18.1 - Pneumonia of right middle lobe due to infectious organism Berna Godinez Sep 11, 2016 10:08 Mario Mercado MD Sep 12, 2016 10:03
[2016-09-11] MEDS: VANCOMYCIN INJ 750 MG in SODIUM CHLOR 0.9% 250 ML INJ 250 ML IV SCH (12:03)
--- NOTE | 2016-09-11 14:52 | PD.CARD.PN ---
Subjective Subjective Remarks The patient had an episode of emesis this morning. Continues to have a productive cough. Tele - afib with increased ventricular rates with ambulation. Objective Medications Current Medications Medications (Trade) Dose Ordered Sig/Neva Route Start Time Stop Time Status Last Admin (NS Flush) 2 ml UNSCH PRN IVF 09/05/16 01:30 09/05/16 03:45 (NS Flush) 2 ml UNSCH PRN FLUSH 09/05/16 03:45 09/10/16 20:27 Naloxone HCl 0.4 mg 0.4 mg UNSCH PRN IV 09/05/16 03:45 Cefepime HCl 2000 mg/Sodium Chloride 100 ml @ 200 mls/hr DAILY IV 09/05/16 09:00 09/11/16 09:00 (Vancomycin Consult Pharmacy) 0 ml @ 0 mls/hr UNSCH OTHER 09/05/16 08:45 (Cordarone) 200 mg DAILY PO 09/05/16 09:45 09/11/16 09:33 (Eliquis) 2.5 mg BID PO 09/05/16 09:45 09/11/16 09:33 (Ferrous Sulfate) 325 mg DAILY PO 09/05/16 09:45 09/11/16 09:34 (Synthroid) 50 mcg DAILY@0600 PO 09/05/16 09:45 09/11/16 06:51 (Megace) 20 mg DAILY PO 09/05/16 09:45 09/11/16 09:32 (Pravachol) 80 mg HS PO 09/05/16 21:00 09/10/16 20:28 (Colace) 100 mg BID PO 09/05/16 21:00 09/08/16 09:56 (Tylenol) 650 mg Q4H PRN PO 09/05/16 10:00 (Catapres) 0.1 mg Q6H PRN PO 09/05/16 10:15 Miscellaneous 1 ea 1 ea UNSCH PRN OTHER 09/05/16 10:15 (Vancomycin Inj/ NS 250 ml Inj) 257.5 ml @ 250 mls/hr Q24H IV 09/06/16 11:00 09/11/16 12:03 (Mucinex Er) 1,200 mg BID PO 09/06/16 15:00 09/11/16 09:32 (SoluMEDROL INJ) 40 mg BID IV PUSH 09/09/16 21:00 09/11/16 09:34 (Zofran Inj) 4 mg Q6HR PRN IV PUSH 09/10/16 05:45 09/11/16 06:50 (Sodium Bicarbonate) 650 mg TID PO 09/10/16 18:00 09/11/16 13:00 Vital Signs / I&O Vital Signs Date Time Temp Pulse Resp B/P Pulse Ox O2 Delivery O2 Flow Rate FiO2 09/11/16 12:00 95.6 102 26 134/87 93 09/11/16 08:00 96.2 103 26 139/88 93 09/11/16 05:00 97.1 100 20 127/65 94 09/11/16 00:15 98.6 83 20 166/78 95 09/10/16 20:31 95.7 104 20 122/62 95 09/10/16 15:47 96.9 100 20 130/83 98 09/10/16 15:41 96 I/O 09/10/16 09/10/16 09/10/16 09/11/16 09/11/16 09/11/16 07:00 15:00 23:00 07:00 15:00 23:00 Intake Total 1820 ml Balance 1820 ml Intake Oral 1320 ml IV Total 500 ml # Voids 1 4 2 # Bowel Movements 1 2 Physical Exam GENERAL: Looks better today, no distress SKIN: Warm and dry. HEAD: Normocephalic. EYES: No scleral icterus. No injection or drainage. NECK: Supple, trachea midline. 2 cm JVD CARDIOVASCULAR: Irregularly irregular, systolic murmur, tachycardia RESPIRATORY: Breath sounds equal bilaterally. wheezing, no accessory muscle use GASTROINTESTINAL: Abdomen soft, non-tender, nondistended. MUSCULOSKELETAL: No cyanosis, or edema. BACK: Nontender without obvious deformity Laboratory Laboratory Tests Test 09/10/16 09/11/16 09/11/16 17:00 06:38 06:51 Urine Color LIGHT-YELLOW Urine Turbidity CLEAR Urine pH 5.5 Urine Specific [place] 1.012 Urine Protein 30 mg/dL Urine Glucose (UA) NEG mg/dL Urine Ketones NEG mg/dL Urine Occult Blood MOD Urine Nitrite NEG Urine Bilirubin NEG Urine Urobilinogen LESS THAN 2.0 MG/DL Urine Leukocyte Esterase NEG Urine RBC LESS THAN 1 /hpf Urine WBC 2 /hpf Urine Squamous Epithelial 1 /hpf Cells Urine Bacteria RARE /hpf Urine Mucus FEW /lpf Microscopic Urinalysis Comment CULT NOT INDICATED Blood Gas Puncture Site RT RADIAL Blood Gas Patient Temperature 98.6 Blood Gas HCO3 16 mmol/L Blood Gas Base Excess -7.8 mmol/L Blood Gas Oxygen Saturation 95 % Arterial Blood pH 7.45 Arterial Blood Partial 23 mmHg Pressure CO2 Arterial Blood Partial 85 mmHg Pressure O2 Arterial Blood Oxygen Content 12.5 Vol % Arterial Blood 1.4 % Carboxyhemoglobin Arterial Blood Methemoglobin 0.8 % Blood Gas Hemoglobin 9.3 G/DL Oxygen Delivery Device NO White Blood Count 17.7 TH/MM3 Red Blood Count 3.09 MIL/MM3 Hemoglobin 9.7 GM/DL Hematocrit 28.8 % Mean Corpuscular Volume 93.4 FL Mean Corpuscular Hemoglobin 31.4 PG Mean Corpuscular Hemoglobin 33.7 % Concent Red Cell Distribution Width 14.3 % Platelet Count 234 TH/MM3 Mean Platelet Volume 9.0 FL Hematology Comments Sodium Level 132 MEQ/L Potassium Level 3.9 MEQ/L Chloride Level 103 MEQ/L Carbon Dioxide Level 16.5 MEQ/L Anion Gap 13 MEQ/L Blood Urea Nitrogen 38 MG/DL Creatinine 2.05 MG/DL Estimat Glomerular Filtration 23 ML/MIN Rate Random Glucose 118 MG/DL Calcium Level 7.6 MG/DL Magnesium Level 1.8 MG/DL Imaging Last 72 hours Impressions Chest X-Ray 09/09/16 0000 Signed Impressions: Service Date/Time: Friday, September 09, 2016 13:45 - CONCLUSION: 1. Cardiomegaly with small bilateral pleural effusions and probable bibasilar atelectasis. Margarito Woodard MD Assessment and Plan Assessment and Plan ASSESSMENT RUL Pneumonia Persistent atrial fibrillation with increased ventricular rate. On Eliquis, Amio and digoxin. Unable to tolerate CCB and BB due to allergies/side effects. Chronic diastolic CHF Chronic anemia. Moderate MR, Moderate TR on echo 04/2016 Renal insufficiency Slight elevation of troponin. Suspect demand ischemia and CKD. Last stress test 2011 negative PLAN Elevated HR physiologic secondary to underlying infection and albuterol. Caution with amio/digoxin-now with nausea. Will hold digoxin. Possible toxicity. Serum dig level not helpful due to amio. We will consider outpatient ischemic workup for slightly elevated troponin. Assessment and plan discussed with Nargis Jimenezb 6, 2017 14:52
[2016-09-11] MEDS: RESP: ALBUTEROL 2.5 MG/IPRATROPIUM 0.5 MG NEB (PRN) NEB ×2 (15:37→21:39)
--- NOTE | 2016-09-11 17:23 | HHI.PR ---
Subjective Remarks Follow up for COPD, pneumonia. Ms. Calvert is doing well. Not on any supplemental O2, denies any fever, chills. Objective Vitals Vital Signs Date Time Temp Pulse Resp B/P Pulse Ox O2 Delivery O2 Flow Rate FiO2 09/11/16 16:00 95.5 98 24 155/67 93 09/11/16 15:39 96 21 09/11/16 12:00 95.6 102 26 134/87 93 09/11/16 08:00 96.2 103 26 139/88 93 09/11/16 05:00 97.1 100 20 127/65 94 09/11/16 00:15 98.6 83 20 166/78 95 09/10/16 20:31 95.7 104 20 122/62 95 I/O 09/10/16 09/10/16 09/10/16 09/11/16 09/11/16 09/11/16 07:00 15:00 23:00 07:00 15:00 23:00 Intake Total 1820 ml Balance 1820 ml Intake Oral 1320 ml IV Total 500 ml # Voids 1 4 2 1 # Bowel Movements 1 2 1 Result Diagram: 09/11/16 0651 09/11/16 0651 Imaging Last Impressions Chest X-Ray 09/09/16 0000 Signed Impressions: Service Date/Time: Friday, September 09, 2016 13:45 - CONCLUSION: 1. Cardiomegaly with small bilateral pleural effusions and probable bibasilar atelectasis. Margarito Woodard MD Chest CT 09/05/16 0000 Signed Impressions: Service Date/Time: Monday, September 05, 2016 03:55 - CONCLUSION: 1. Small and very mild infiltrate in the right upper lobe. No pulmonary mass. 2. Mild panchamber enlargement of the heart. 3. Suspected pulmonary hypertension. 4. Severely atherosclerotic aorta. Jones Lucero MD Objective Remarks GENERAL: AOx3, NAD. SKIN: Warm and dry. HEAD: Normocephalic. EYES: No scleral icterus. No injection or drainage. NECK: Supple, trachea midline. No JVD or lymphadenopathy. CARDIOVASCULAR: Regular rate and rhythm without murmurs, gallops, or rubs. RESPIRATORY: Breath sounds equal bilaterally. No accessory muscle use. GASTROINTESTINAL: Abdomen soft, non-tender, nondistended. MUSCULOSKELETAL: No cyanosis, or edema. BACK: Nontender without obvious deformity. No CVA tenderness. Procedures None. A/P Assessment and Plan HCAP/ COPD exacerbation The pt has shortness of breath and a productive cough. CXR and CT scan imaging indicative of a right infiltrate. She was recently hospitalized. Had lactic acid level of 5. Influenza negative. Symptoms improving 09/10. - Received cefepime and vanco for pneumonia. Currently not requiring any supplemental O2. We can switch her to PO Levaquin. - We will provide Levaquin 500mg Q48hrs X 2 doses. - oxygen and nebs as needed. - incentive spirometry, Acapella. - sputum and blood cultures. NGTD. - pulmonology following. - A fib with RVR - Recently admitted for Afib with RVR. - On amiodarone. Digoxin on hold today. Continue Apixaban. - Chronic renal disease/ metabolic acidosis - Creatinine is around baseline. Started on bicarbonate on last admission by nephrology. Bicarb level is low and pt appears to be having respiratory compensation. ABG noted. - monitor BMP. - avoid nephrotoxins. - continue PO sodium bicarbonate. - hold Lasix for now. - Monitor I's and O's. - Hypomagnesemia/ hypophosphatemia - Magnesium replaced. Magnesium 1.8 on 09/11/2016. - Mild systolic CHF. - Echo in May with EF 45-50% and mod-severe MR and severe TR. BNP elevated over 500. Appears euvolemic. - holding home Lasix. - monitor fluid status. - Probable Anemia of chronic disease. - Hemoglobin is around baseline. Likely s/t renal disease. Full code. Apixaban 2.5mg BID. Chyna Louis DO Sep 11, 2016 17:23
--- NOTE | 2016-09-11 19:29 | HHI.PR ---
Subjective Remarks 89 YOWF with Pneumonia,CHF,AF Has mild wheezing Not able to expactorate No Fever Breathing much better today ' I am not going home until comletly better" Objective Vital Signs Vital Signs Date Time Temp Pulse Resp B/P Pulse Ox O2 Delivery O2 Flow Rate FiO2 09/11/16 16:00 95.5 98 24 155/67 93 09/11/16 15:39 96 21 09/11/16 12:00 95.6 102 26 134/87 93 09/11/16 08:00 96.2 103 26 139/88 93 09/11/16 05:00 97.1 100 20 127/65 94 09/11/16 00:15 98.6 83 20 166/78 95 09/10/16 20:31 95.7 104 20 122/62 95 I/O 09/10/16 09/10/16 09/10/16 09/11/16 09/11/16 09/11/16 07:00 15:00 23:00 07:00 15:00 23:00 Intake Total 1820 ml Balance 1820 ml Intake Oral 1320 ml IV Total 500 ml # Voids 1 4 2 1 # Bowel Movements 1 2 1 Result Diagram: 09/11/16 0651 09/11/16 0651 Objective Remarks GENERAL: Thin built WF, NAD SKIN: Warm and dry. HEAD: Normocephalic. EYES: No scleral icterus. No injection or drainage. NECK: Supple, trachea midline. No JVD or lymphadenopathy. CARDIOVASCULAR: Regular rate and rhythm without murmurs, gallops, or rubs. RESPIRATORY: Breath sounds equal bilaterally. No accessory muscle use. GASTROINTESTINAL: Abdomen soft, non-tender, nondistended. MUSCULOSKELETAL: No cyanosis, or edema. BACK: Nontender without obvious deformity. No CVA tenderness. A/P Assessment and Plan Pneumonia CHF AF CKD PLAN: Cont Abx Aerosol nebs IV Solumedrol Monitor Lytes Acapella q 1 hr while awake DC plans underway. Nash Dutta MD Sep 11, 2016 19:29
[2016-09-11] MEDS: PRAVASTATIN SOD 80 MG TAB PO SCH (21:06)
[2016-09-12] VITALS (8 sets, daily range): BP systolic 110–168; BP diastolic 66–101; PULSE 94–112; RESP 18–26; TEMP 95.4–97.5; O2SAT 91–98
[2016-09-12] MEDS: LEVOTHYROXINE SODIUM 50 MCG TAB PO SCH (05:55)
--- NOTE | 2016-09-12 06:43 | RADRPT ---
EXAM DATE/TIME: 09/12/2016 05:25 [facility] COMPARISON: CHEST SINGLE AP, September 09, 2016, 13:45. INDICATIONS : Coughing, short of breath, pain in chest and back from coughing MEDICAL HISTORY : Chronic obstructive pulmonary disease. A-fib SURGICAL HISTORY : N/A ENCOUNTER: Subsequent ACUITY: 1 week PAIN SCORE: 2/10 LOCATION: Bilateral chest FINDINGS: Calcification of the mitral anulus and extensive aortic calcification. Cardiomegaly. Small right effu grace not excluded. Improved aeration. CONCLUSION: Improved aeration. Wenceslao Bobby MD on September 12, 2016 at 6:41 Board Certified Radiologist. This report was verified electronically.
--- NOTE | 2016-09-12 08:02 | PD.CARD.PN ---
Subjective Subjective Remarks Primary complaint today is "my mouth is dry, and I cant taste anything". Continues to have a productive cough, No palpitations, cp, or edema. Objective Vital Signs / I&O Vital Signs Date Time Temp Pulse Resp B/P Pulse Ox O2 Delivery O2 Flow Rate FiO2 09/12/16 04:00 97.5 101 20 159/83 97 09/12/16 00:00 97.5 108 18 138/76 98 09/11/16 20:00 95.9 112 20 141/64 96 09/11/16 20:00 130 09/11/16 16:00 95.5 98 24 155/67 93 09/11/16 15:39 96 21 09/11/16 12:00 95.6 102 26 134/87 93 09/11/16 08:00 96.2 103 26 139/88 93 I/O 09/11/16 09/11/16 09/11/16 09/12/16 09/12/16 09/12/16 07:00 15:00 23:00 07:00 15:00 23:00 Output Total 1950 ml Balance -1950 ml Output Urine Total 1950 ml # Voids 2 1 # Bowel Movements 1 1 Physical Exam GENERAL: Looks better today, no distress SKIN: Warm and dry. HEAD: Normocephalic. ORAL THRUSH EYES: No scleral icterus. No injection or drainage. NECK: Supple, trachea midline. CARDIOVASCULAR: Irregularly irregular, systolic murmur, tachycardia RESPIRATORY: Breath sounds equal bilaterally. wheezing, no accessory muscle use GASTROINTESTINAL: Abdomen soft, non-tender, nondistended. MUSCULOSKELETAL: No cyanosis, or edema. BACK: Nontender without obvious deformity Laboratory Laboratory Tests Test 09/12/16 05:25 Creatinine 2.26 MG/DL Estimat Glomerular Filtration 20 ML/MIN Rate Imaging Last 72 hours Impressions Chest X-Ray 09/12/16 0600 Signed Impressions: Service Date/Time: Monday, September 12, 2016 05:25 - CONCLUSION: Improved aeration. Wenceslao Bobby MD Assessment and Plan Assessment and Plan ASSESSMENT RUL Pneumonia Persistent atrial fibrillation with increased ventricular rate. On Eliquis, Amio and digoxin. Unable to tolerate CCB and BB due to allergies/side effects. Chronic diastolic CHF Chronic anemia. Moderate MR, Moderate TR on echo 04/2016 Renal insufficiency Slight elevation of troponin. Suspect demand ischemia and CKD. Last stress test 2011 negative Oral thrush PLAN Elevated HR physiologic secondary to underlying infection and albuterol. Continue amio, resume digoxin and add bystolic 2.5 mg once per day Start Swish and swallow for thrush We will consider outpatient ischemic workup for slightly elevated troponin. Assessment and plan discussed with Nargis Jimenez Sep 12, 2016 08:02
[2016-09-12] MEDS: APIXABAN 2.5 MG TABLET PO SCH ×2 (08:43→22:10)
[2016-09-12] MEDS: SODIUM BICARBONATE 650 MG TAB PO SCH ×2 (08:43→17:22)
[2016-09-12] MEDS: FERROUS SULFATE 325 MG (65 MG ELEMENTAL IRON) TAB PO SCH (08:43)
[2016-09-12] MEDS: guaiFENesin E.R. 600 MG TAB PO SCH ×2 (08:45→22:10)
[2016-09-12] MEDS: AMIODARONE 200 MG TAB PO SCH (08:45)
[2016-09-12] MEDS: MEGESTROL ACETATE 40 MG TAB PO SCH (08:45)
[2016-09-12] MEDS: DOCUSATE SODIUM 100 MG CAP PO SCH ×2 (08:46→21:00)
[2016-09-12] MEDS: NYSTATIN SUSP 500,000 U/5 ML CUP SWISH-SWAL SCH ×4 (08:52→21:00)
[2016-09-12] MEDS ORDERED: LEVOFLOXACIN 500 MG TAB PO SCH (09:00)
--- NOTE | 2016-09-12 10:24 | HHI.NPPN ---
Subjective Complaints: Shortness of Breath General Problems: [place] Acidosis Renal Failure: Chronic, Acute Interval History Sitting up on edge of bed. Still weak with cough. Creatinine slightly elevated today. (Berna Godinez) Review of Systems General Constitutional: Fatigue (Berna Godinez) Respiratory Lungs: SOB, Cough, Sputum (Berna Godinez) Gastrointestinal Gastrointestinal: Nausea & Vomiting (Berna Godinez) Objective Data Data 09/11/16 09/12/16 19:00 07:00 Output Total 1950 ml Balance -1950 ml Output Urine Total 1950 ml # Voids 1 # Bowel Movements 1 1 Vital Signs Date Time Temp Pulse Resp B/P Pulse Ox O2 Delivery O2 Flow Rate FiO2 09/12/16 08:00 96.1 100 26 168/101 94 09/12/16 04:00 97.5 101 20 159/83 97 09/12/16 00:00 97.5 108 18 138/76 98 09/11/16 20:00 95.9 112 20 141/64 96 09/11/16 20:00 130 09/11/16 16:00 95.5 98 24 155/67 93 09/11/16 15:39 96 21 09/11/16 12:00 95.6 102 26 134/87 93 (Berna Godinez) -: 09/11/16 0651 09/12/16 0525 Imaging Last 72 hours Impressions Chest X-Ray 09/12/16 0600 Signed Impressions: Service Date/Time: Monday, September 12, 2016 05:25 - CONCLUSION: Improved aeration. Wenceslao Bobby MD (Berna Godinez) Physical Exam General Appearance: Well Developed, Well Nourished, No Acute Distress, Comfortable ( Berna Godinez) Throat Throat Exam: Oral Mucosa [place] & Moist (Berna Godinez) Pulmonary Resp Exam: Breath Sounds Equal, Crackles (Berna Godinez) Cardiology CV Exam: Good Perfusion, Irregular (Berna Godinez) Gastrointestinal/Abdomen GI Exam: Soft, Non-Tender, Bowel Sounds Present (Berna Godinez) Musculoskeletal MS Exam: Joints Intact, Normal Tone (Berna Godinez) Integumentary Skin Exam: Clear, Warm, Dry, Intact (Berna Godinez) Extremeties Extremities Exam: No Edema, Pedal Pulses Palpable (Berna Godinez) Neurologic Neuro Exam: Alert, Awake, Oriented, Speech Clear, Moving All Extremities ( Berna Godinez) Psychiatric Psych Exam: Appropriate Responses (Berna Godinez) Assessment/Plan Discussed Condition With: Patient Assessment Summary: Anemia of CKD, Hypertension, CKD Stage IV Electrolyte Assessment: Metabolic Acidosis Problem List: (1) Chronic kidney disease, stage 4 (severe) Plan: baseline creatinine 1.8-2 creatinine slightly elevated today she has improving compensatory decrease in bicarbonate secondary to pulmonary disease with respiratory alkalosis. May also have underlying metabolic acidosis. on oral bicarb tid fluid volume status stable, tolerating oral fluids continue lasix BID per cardiology renal panel in am avoid IVF and nephrotoxins, vancomycin and solumedrol have been stopped (2) CHF (congestive heart failure) Plan: on lasix to manage fluid volume status EF 40-50% (3) Atrial fibrillation Plan: tachycardic earlier, rate controlled on exam on digoxin, amiodarone, and Eliquis for anticoagulation (4) Pneumonia Plan: she is on cefepime CXR reviewed vanc has been stopped (5) Anemia Plan: on oral iron , hemoglobin stable (Berna Godinez) Plan patient was seen and examined. Agree with above assessment and plan. (Mario Mercado MD) Problem Qualifiers (1) Atrial fibrillation: Qualified Code: I48.1 - Persistent atrial fibrillation (2) Pneumonia: Qualified Code: J18.1 - Pneumonia of right middle lobe due to infectious organism Berna Godinez Sep 12, 2016 10:24 Mario Mercado MD Sep 12, 2016 19:22
[2016-09-12 11:48] LABS: BASOPHIL % 0.2 % (0.0-2.0); HEMATOCRIT 27.7 % (35.0-46.0); HEMO FLAGS AUTO DIFF; LYMPH % 1.2 % (9.0-44.0); LYMPHOCYTE # 0.2 TH/MM3 (1.0-4.8); MEAN CELL VOLUME 93.2 FL (80.0-100.0); MEAN CORPUSCULAR HEMOGLOBIN 31.2 PG (27.0-34.0); MEAN CORPUSCULAR HGB CONC 33.4 % (32.0-36.0); MONO % 7.2 % (0.0-8.0); NEUT % 91.4 % (16.0-70.0); PLATELET COUNT 239 TH/MM3 (150-450); RED BLOOD COUNT 2.97 MIL/MM3 (4.00-5.30); RED CELL DISTRIBUTION WIDTH 14.2 % (11.6-17.2); WHITE BLOOD COUNT 18.6 TH/MM3 (4.0-11.0)
[2016-09-12 12:10] LABS: PLATELET ESTIMATE SMEAR NORMAL (NORMAL); PLATELET MORPHOLOGY NORMAL (NORMAL); SCAN/DIFF AUTO DIFF CONFIRMED
--- NOTE | 2016-09-12 12:16 | HHI.PR ---
Subjective Remarks Offered pneumonia, atrial fibrillation. Ms. Calvert is currently doing well. Denies any chest pain, shortness of breath, fever or chills. She is currently off of antibiotics and steroid. Her heart rate has been in the low 100s. Cardiology rounded on patient today and recommended resuming digoxin. Objective Vitals Vital Signs Date Time Temp Pulse Resp B/P Pulse Ox O2 Delivery O2 Flow Rate FiO2 09/12/16 10:47 95.4 94 20 110/70 98 09/12/16 08:00 96.1 100 26 168/101 94 09/12/16 04:00 97.5 101 20 159/83 97 09/12/16 00:00 97.5 108 18 138/76 98 09/11/16 20:00 95.9 112 20 141/64 96 09/11/16 20:00 130 09/11/16 16:00 95.5 98 24 155/67 93 09/11/16 15:39 96 21 I/O 09/11/16 09/11/16 09/11/16 09/12/16 09/12/16 09/12/16 07:00 15:00 23:00 07:00 15:00 23:00 Output Total 1950 ml Balance -1950 ml Output Urine Total 1950 ml # Voids 2 1 # Bowel Movements 1 1 Result Diagram: 09/12/16 1130 09/12/16 0525 Imaging Last Impressions Chest X-Ray 09/12/16 0600 Signed Impressions: Service Date/Time: Monday, September 12, 2016 05:25 - CONCLUSION: Improved aeration. Wenceslao Bobby MD Chest CT 09/05/16 0000 Signed Impressions: Service Date/Time: Monday, September 05, 2016 03:55 - CONCLUSION: 1. Small and very mild infiltrate in the right upper lobe. No pulmonary mass. 2. Mild panchamber enlargement of the heart. 3. Suspected pulmonary hypertension. 4. Severely atherosclerotic aorta. Jones Lucero MD Objective Remarks GENERAL: AOx3, NAD. SKIN: Warm and dry. HEAD: Normocephalic. EYES: No scleral icterus. No injection or drainage. NECK: Supple, trachea midline. No JVD or lymphadenopathy. CARDIOVASCULAR: Irregular irregular mildly tachycardic without murmurs, gallops , or rubs. RESPIRATORY: Breath sounds equal bilaterally. No accessory muscle use. GASTROINTESTINAL: Abdomen soft, non-tender, nondistended. MUSCULOSKELETAL: No cyanosis, or edema. BACK: Nontender without obvious deformity. No CVA tenderness. Procedures None. A/P Assessment and Plan HCAP/ COPD exacerbation The pt has shortness of breath and a productive cough. CXR and CT scan imaging indicative of a right infiltrate. She was recently hospitalized. Had lactic acid level of 5. Influenza negative. Symptoms improving 09/10. - Received cefepime and vanco for pneumonia. Currently not requiring any supplemental O2. - Patient received about 6-7 days of antibiotics. Patient is allergic to Levaquin. We'll discontinue all her antibiotics. - CXR reviewed by me - better aeration. - Discontinue steroid as well. - oxygen and nebs as needed. - incentive spirometry, Acapella. - sputum and blood cultures. NGTD. - pulmonology following. - A fib with RVR - Recently admitted for Afib with RVR. - On amiodarone.Continue Apixaban. Resume digoxin. - Chronic renal disease/ metabolic acidosis - Creatinine is around baseline. Started on bicarbonate on last admission by nephrology. Bicarb level is low and pt appears to be having respiratory compensation. ABG noted. - Will repeat CBC, BMP in the AM. - avoid nephrotoxins. - continue PO sodium bicarbonate. - hold Lasix for now. - Monitor I's and O's. - Hypomagnesemia/ hypophosphatemia - Magnesium replaced. Magnesium 1.8 on 09/11/2016. - Mild systolic CHF. - Echo in May with EF 45-50% and mod-severe MR and severe TR. BNP elevated over 500. Appears euvolemic. - holding home Lasix. - monitor fluid status. - Probable Anemia of chronic disease. - Hemoglobin is around baseline. Likely due to renal disease. Full code. Apixaban 2.5mg BID. Chyna Louis DO Sep 12, 2016 12:16 pm
[2016-09-12] MEDS ORDERED: NYST1000 SWISH-SWAL (12:57)
[2016-09-12] MEDS ORDERED: BYST2.5T2 PO (12:57)
[2016-09-12] MEDS ORDERED: NEBIVOLOL 2.5 MG TAB PO SCH (13:00)
[2016-09-12] MEDS: NEBIVOLOL 2.5 MG TAB PO SCH (17:21)
--- NOTE | 2016-09-12 20:15 | HHI.PR ---
Subjective Remarks 89 YOWF with Pneumonia,CHF,AF Has mild wheezing Not able to expactorate No Fever Breathing much better today had a coughing episode, better now. Objective Vital Signs Vital Signs Date Time Temp Pulse Resp B/P Pulse Ox O2 Delivery O2 Flow Rate FiO2 09/12/16 16:00 96.4 106 20 143/85 96 09/12/16 12:00 95.4 94 20 110/70 98 09/12/16 10:47 95.4 94 20 110/70 98 09/12/16 08:00 96.1 100 26 168/101 94 09/12/16 07:00 111 09/12/16 04:00 97.5 101 20 159/83 97 09/12/16 00:00 97.5 108 18 138/76 98 I/O 09/11/16 09/11/16 09/11/16 09/12/16 09/12/16 09/12/16 07:00 15:00 23:00 07:00 15:00 23:00 Intake Total 480 ml Output Total 1950 ml Balance -1950 ml 480 ml Intake Oral 480 ml Output Urine Total 1950 ml # Voids 2 1 2 # Bowel Movements 1 1 1 Result Diagram: 09/12/16 1130 09/12/16 0525 Objective Remarks GENERAL: Thin built WF, NAD SKIN: Warm and dry. HEAD: Normocephalic. EYES: No scleral icterus. No injection or drainage. NECK: Supple, trachea midline. No JVD or lymphadenopathy. CARDIOVASCULAR: Regular rate and rhythm without murmurs, gallops, or rubs. RESPIRATORY: Breath sounds equal bilaterally. No accessory muscle use. GASTROINTESTINAL: Abdomen soft, non-tender, nondistended. MUSCULOSKELETAL: No cyanosis, or edema. BACK: Nontender without obvious deformity. No CVA tenderness. A/P Assessment and Plan Pneumonia CHF AF CKD PLAN: Cont Abx Aerosol nebs IV Solumedrol Monitor Lytes Acapella q 1 hr while awake DC plans underway. VERÓNICA pt and her daughter at Nash Dutta MD Sep 12, 2016 20:15
[2016-09-12] MEDS: PRAVASTATIN SOD 80 MG TAB PO SCH (22:09)
[2016-09-13] VITALS (10 sets, daily range): BP systolic 118–132; BP diastolic 57–78; PULSE 77–109; RESP 18–20; TEMP 96.7–97.2; O2SAT 93–98
[2016-09-13] MEDS: LEVOTHYROXINE SODIUM 50 MCG TAB PO SCH (05:29)
[2016-09-13] MEDS: NEBIVOLOL 2.5 MG TAB PO SCH (09:10)
[2016-09-13] MEDS: DOCUSATE SODIUM 100 MG CAP PO SCH ×2 (09:10→21:00)
[2016-09-13] MEDS: AMIODARONE 200 MG TAB PO SCH (09:10)
[2016-09-13] MEDS: DIGOXIN 0.125 MG TAB PO SCH (09:11)
[2016-09-13] MEDS: FERROUS SULFATE 325 MG (65 MG ELEMENTAL IRON) TAB PO SCH (09:11)
[2016-09-13] MEDS: MEGESTROL ACETATE 40 MG TAB PO SCH (09:12)
[2016-09-13] MEDS: guaiFENesin E.R. 600 MG TAB PO SCH ×2 (09:12→21:56)
[2016-09-13] MEDS: APIXABAN 2.5 MG TABLET PO SCH ×2 (09:12→21:56)
[2016-09-13] MEDS: NYSTATIN SUSP 500,000 U/5 ML CUP SWISH-SWAL SCH ×4 (09:12→21:56)
[2016-09-13] MEDS: SODIUM BICARBONATE 650 MG TAB PO SCH ×3 (09:12→18:06)
--- NOTE | 2016-09-13 09:37 | PD.CARD.PN ---
Subjective Subjective Remarks Nausea, increased difficulty breathing this morning. Anxious Objective Medications Current Medications Medications (Trade) Dose Ordered Sig/Neva Route Start Time Stop Time Status Last Admin (NS Flush) 2 ml UNSCH PRN IVF 09/05/16 01:30 09/05/16 03:45 (NS Flush) 2 ml UNSCH PRN FLUSH 09/05/16 03:45 09/10/16 20:27 (Narcan Inj) 0.4 mg UNSCH PRN IV 09/05/16 03:45 (Cordarone) 200 mg DAILY PO 09/05/16 09:45 09/13/16 09:10 (Eliquis) 2.5 mg BID PO 09/05/16 09:45 09/13/16 09:12 (Ferrous Sulfate) 325 mg DAILY PO 09/05/16 09:45 09/13/16 09:11 (Synthroid) 50 mcg DAILY@0600 PO 09/05/16 09:45 09/13/16 05:29 (Megace) 20 mg DAILY PO 09/05/16 09:45 09/13/16 09:12 (Pravachol) 80 mg HS PO 09/05/16 21:00 09/12/16 22:09 (Colace) 100 mg BID PO 09/05/16 21:00 09/13/16 09:10 (Tylenol) 650 mg Q4H PRN PO 09/05/16 10:00 (Catapres) 0.1 mg Q6H PRN PO 09/05/16 10:15 (Pill Splitter) 1 ea UNSCH PRN OTHER 09/05/16 10:15 (Mucinex Er) 1,200 mg BID PO 09/06/16 15:00 09/13/16 09:12 (Zofran Inj) 4 mg Q6HR PRN IV PUSH 09/10/16 05:45 09/11/16 06:50 (Sodium Bicarbonate) 650 mg TID PO 09/10/16 18:00 09/13/16 09:12 (Mycostatin Liq) 5 ml QID SWISH-SWAL 09/12/16 09:00 09/13/16 09:12 (Robitussin Ac 200-20 Mg/10 ml Liq) 10 ml Q6H PRN PO 09/12/16 11:15 (Bystolic) 2.5 mg DAILY PO 09/12/16 14:00 09/13/16 09:10 Vital Signs / I&O Vital Signs Date Time Temp Pulse Resp B/P Pulse Ox O2 Delivery O2 Flow Rate FiO2 09/13/16 08:15 97.2 100 20 132/70 94 09/13/16 04:00 97.2 84 18 118/78 97 09/13/16 00:41 109 09/13/16 00:00 97.2 100 20 118/74 98 09/12/16 20:00 96.7 112 20 121/66 91 09/12/16 16:00 96.4 106 20 143/85 96 09/12/16 12:00 95.4 94 20 110/70 98 09/12/16 10:47 95.4 94 20 110/70 98 I/O 09/12/16 09/12/16 09/12/16 09/13/16 09/13/16 09/13/16 07:00 15:00 23:00 07:00 15:00 23:00 Intake Total 480 ml Output Total 1950 ml 900 ml Balance -1950 ml 480 ml -900 ml Intake Oral 480 ml Output Urine Total 1950 ml 900 ml # Voids 2 # Bowel Movements 1 1 Physical Exam GENERAL: mild distress, anxious SKIN: Warm and dry. HEAD: Normocephalic. ORAL THRUSH improved EYES: No scleral icterus. No injection or drainage. NECK: Supple, trachea midline. CARDIOVASCULAR: Irregularly irregular, systolic murmur RESPIRATORY: Breath sounds equal bilaterally. wheezing, no accessory muscle use GASTROINTESTINAL: Abdomen soft, non-tender, nondistended. MUSCULOSKELETAL: No cyanosis, or edema. BACK: Nontender without obvious deformity Laboratory Laboratory Tests Test 09/12/16 11:30 White Blood Count 18.6 TH/MM3 Red Blood Count 2.97 MIL/MM3 Hemoglobin 9.3 GM/DL Hematocrit 27.7 % Mean Corpuscular Volume 93.2 FL Mean Corpuscular Hemoglobin 31.2 PG Mean Corpuscular Hemoglobin 33.4 % Concent Red Cell Distribution Width 14.2 % Platelet Count 239 TH/MM3 Mean Platelet Volume 8.5 FL Neutrophils (%) (Auto) 91.4 % Lymphocytes (%) (Auto) 1.2 % Monocytes (%) (Auto) 7.2 % Eosinophils (%) (Auto) 0.0 % Basophils (%) (Auto) 0.2 % Neutrophils # (Auto) 17.0 TH/MM3 Lymphocytes # (Auto) 0.2 TH/MM3 Monocytes # (Auto) 1.3 TH/MM3 Eosinophils # (Auto) 0.0 TH/MM3 Basophils # (Auto) 0.0 TH/MM3 CBC Comment AUTO DIFF Differential Comment AUTO DIFF CONFIRMED Platelet Estimate NORMAL Platelet Morphology Comment NORMAL Hematology Comments Imaging Last 72 hours Impressions Chest X-Ray 09/12/16 0600 Signed Impressions: Service Date/Time: Monday, September 12, 2016 05:25 - CONCLUSION: Improved aeration. Wenceslao Bobby MD Assessment and Plan Assessment and Plan ASSESSMENT RUL Pneumonia Persistent atrial fibrillation with increased ventricular rate. On Eliquis, Amio and digoxin. Unable to tolerate CCB and BB due to allergies/side effects. Chronic diastolic CHF Chronic anemia. Moderate MR, Moderate TR on echo 04/2016 Renal insufficiency Slight elevation of troponin. Suspect demand ischemia and CKD. Last stress test 2011 negative Oral thrush PLAN Continue amio and bystolic. Stop dig on basis of nausea. Serum dig level not accurate bc patient is on amio. Swish and swallow for thrush Breathing treatments We will consider outpatient ischemic workup for slightly elevated troponin. Assessment and plan discussed with Nargis Jimenez Sep 13, 2016 09:37
[2016-09-13] MEDS: RESP: ALBUTEROL 2.5 MG/IPRATROPIUM 0.5 MG NEB (PRN) NEB (09:38)
[2016-09-13] MEDS ORDERED: NEBIVOLOL 2.5 MG TAB PO ONE (10:30)
[2016-09-13 10:57] LABS: BICARBONATE 16.7 MEQ/L (21.0-32.0); POTASSIUM 3.6 MEQ/L (3.5-5.1)
[2016-09-13 11:19] LABS: BASOPHIL % 0.1 % (0.0-2.0); EOSINOPHIL % 0.2 % (0.0-4.0); HEMO FLAGS DIFF FINAL; LYMPH % 2.1 % (9.0-44.0); LYMPHOCYTE # 0.4 TH/MM3 (1.0-4.8); MEAN CELL VOLUME 92.8 FL (80.0-100.0); MEAN CORPUSCULAR HEMOGLOBIN 31.1 PG (27.0-34.0); MEAN CORPUSCULAR HGB CONC 33.5 % (32.0-36.0); MONO % 6.4 % (0.0-8.0); NEUT % 91.2 % (16.0-70.0); PLATELET COUNT 214 TH/MM3 (150-450); RED BLOOD COUNT 3.02 MIL/MM3 (4.00-5.30); RED CELL DISTRIBUTION WIDTH 14.2 % (11.6-17.2); WHITE BLOOD COUNT 18.7 TH/MM3 (4.0-11.0)
--- NOTE | 2016-09-13 11:28 | HHI.NPPN ---
Subjective Complaints: Shortness of Breath General Problems: Mebatolic Acidosis Renal Failure: Chronic, Acute Interval History She is anxious this morning, actively vomiting/dry heaving. Tachypneic today. Renal function is better. (Berna Godinez) Review of Systems General Constitutional: Fatigue (Berna Godinez) Respiratory Lungs: SOB, Cough, Sputum (Berna Godinez) Gastrointestinal Gastrointestinal: Nausea & Vomiting (Berna Godinez) Objective Data Data 09/12/16 09/13/16 19:00 07:00 Intake Total 480 ml Output Total 900 ml Balance 480 ml -900 ml Intake Oral 480 ml Output Urine Total 900 ml # Voids 2 # Bowel Movements 1 Vital Signs Date Time Temp Pulse Resp B/P Pulse Ox O2 Delivery O2 Flow Rate FiO2 09/13/16 11:11 92 09/13/16 09:38 93 21 09/13/16 08:15 97.2 100 20 132/70 94 09/13/16 04:00 97.2 84 18 118/78 97 09/13/16 00:41 109 09/13/16 00:00 97.2 100 20 118/74 98 09/12/16 20:00 96.7 112 20 121/66 91 09/12/16 16:00 96.4 106 20 143/85 96 09/12/16 12:00 95.4 94 20 110/70 98 (Berna Godinez) -: 09/13/16 1012 09/13/16 1012 Imaging Last 72 hours Impressions Chest X-Ray 09/12/16 0600 Signed Impressions: Service Date/Time: Monday, September 12, 2016 05:25 - CONCLUSION: Improved aeration. Wenceslao Bobby MD (Berna Godinez) Physical Exam General Appearance: Well Developed, Well Nourished, No Acute Distress, Comfortable, Anxious (Berna Godinez) Throat Throat Exam: Oral Mucosa [place] & Moist (Berna Godinez) Pulmonary Resp Exam: Breath Sounds Equal, Crackles, Rhonchi Resp Remarks wheezing (Berna Godinez) Cardiology CV Exam: Good Perfusion, Irregular (Berna Godinez) Gastrointestinal/Abdomen GI Exam: Soft, Non-Tender, Bowel Sounds Present (Berna Godinez) Musculoskeletal MS Exam: Joints Intact, Normal Tone (Berna Godinez) Integumentary Skin Exam: Clear, Warm, Dry, Intact (Berna Godinez) Extremeties Extremities Exam: No Edema, Pedal Pulses Palpable (Berna Godinez) Neurologic Neuro Exam: Alert, Awake, Oriented, Speech Clear, Moving All Extremities ( Berna Godinez) Psychiatric Psych Exam: Appropriate Responses (Berna Godinez) Assessment/Plan Discussed Condition With: Patient Assessment Summary: Anemia of CKD, Hypertension, CKD Stage IV Electrolyte Assessment: Hypocalcemia, Hyponatremia, Metabolic Acidosis Problem List: (1) Chronic kidney disease, stage 4 (severe) Plan: baseline creatinine 1.8-2 creatinine has improved today she has improving compensatory decrease in bicarbonate secondary to pulmonary disease with respiratory alkalosis. May also have underlying metabolic acidosis. on oral bicarb tid fluid volume status stable, tolerating oral fluids , she is not on diuretic therapy renal panel in am avoid IVF and nephrotoxins, medications reviewed (2) CHF (congestive heart failure) Plan: on lasix to manage fluid volume status EF 40-50% (3) Atrial fibrillation Plan: rate controlled on exam Digoxin held as difficult to measure serum levels while on amiodarone, changed to Bystolic on Eliquis for anticoagulation (4) Pneumonia Plan: she is on cefepime CXR reviewed may benefit from nebs (5) Anemia Plan: on oral iron , hemoglobin stable (6) Hypocalcemia Plan: ionized calcium in process check vitamin D, PTH (7) Hyponatremia Plan: check urine and serum osmolality may need fluid restriction (Berna Godinez) Plan patient was seen and examined. Chronically ill. May have chronic respiratory alkalosis due to chronic lung disease. 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 (Mario Mercado MD) Problem Qualifiers (1) Atrial fibrillation: Qualified Code: I48.1 - Persistent atrial fibrillation (2) Pneumonia: Qualified Code: J18.1 - Pneumonia of right middle lobe due to infectious organism Berna Godinez Sep 13, 2016 11:28 Mario Mercado MD Sep 14, 2016 09:15
[2016-09-13 11:30] LABS: CALCIUM-PROTEIN CORRECTED 8.5 MG/DL (8.5-10.1)
--- NOTE | 2016-09-13 13:16 | HHI.PR ---
Subjective Remarks Follow-up for atrial fibrillation, pneumonia. Ms. Calvert is doing well. She does report feeling more fatigued than usual. Earlier this morning apparently she was having some respiratory difficulty. However at the time of this presentation she is doing well and not requiring any supplemental oxygen. She received breathing treatment this morning. Objective Vitals Vital Signs Date Time Temp Pulse Resp B/P Pulse Ox O2 Delivery O2 Flow Rate FiO2 09/13/16 12:25 97.1 95 20 118/57 96 09/13/16 11:11 92 09/13/16 09:38 93 21 09/13/16 08:15 97.2 100 20 132/70 94 09/13/16 04:00 97.2 84 18 118/78 97 09/13/16 00:41 109 09/13/16 00:00 97.2 100 20 118/74 98 09/12/16 20:00 96.7 112 20 121/66 91 09/12/16 16:00 96.4 106 20 143/85 96 I/O 09/12/16 09/12/16 09/12/16 09/13/16 09/13/16 09/13/16 06:59 14:59 22:59 06:59 14:59 22:59 Intake Total 480 ml Output Total 1950 ml 900 ml Balance -1950 ml 480 ml -900 ml Intake Oral 480 ml Output Urine Total 1950 ml 900 ml # Voids 2 # Bowel Movements 1 1 Result Diagram: 09/13/16 1012 09/13/16 1012 Imaging Last Impressions Chest X-Ray 09/12/16 0600 Signed Impressions: Service Date/Time: Monday, September 12, 2016 05:25 - CONCLUSION: Improved aeration. Wenceslao Bobby MD Chest CT 09/05/16 0000 Signed Impressions: Service Date/Time: Monday, September 05, 2016 03:55 - CONCLUSION: 1. Small and very mild infiltrate in the right upper lobe. No pulmonary mass. 2. Mild panchamber enlargement of the heart. 3. Suspected pulmonary hypertension. 4. Severely atherosclerotic aorta. Jones Lucero MD Objective Remarks GENERAL: AOx3, NAD. SKIN: Warm and dry. HEAD: Normocephalic. EYES: No scleral icterus. No injection or drainage. NECK: Supple, trachea midline. No JVD or lymphadenopathy. CARDIOVASCULAR: Irregular irregular mildly tachycardic without murmurs, gallops , or rubs. RESPIRATORY: Breath sounds equal bilaterally. No accessory muscle use. GASTROINTESTINAL: Abdomen soft, non-tender, nondistended. MUSCULOSKELETAL: No cyanosis, or edema. BACK: Nontender without obvious deformity. No CVA tenderness. Procedures None. A/P Assessment and Plan HCAP/ COPD exacerbation The pt has shortness of breath and a productive cough. CXR and CT scan imaging indicative of a right infiltrate. She was recently hospitalized. Had lactic acid level of 5. Influenza negative. Symptoms improving 09/10. - Received cefepime and vanco for pneumonia. Currently not requiring any supplemental O2. - Patient received about 6-7 days of antibiotics. Patient is allergic to Levaquin. She is off Abx. - CXR from 09/12/2016 reviewed by me - better aeration. - Discontinue steroid as well. - oxygen and nebs as needed. - incentive spirometry, Acapella. - sputum and blood cultures. NGTD. - pulmonology following. - A fib with RVR - Recently admitted for Afib with RVR. - On amiodarone. Continue Apixaban. Digoxin discontinued. - Increase Bystolic from 2.5mg Qday to 5mg Qday. - Change breathing treatments from DuoNeb to Ipratropium Neb only. - Chronic renal disease/ metabolic acidosis - Creatinine is around baseline. Started on bicarbonate on last admission by nephrology. Bicarb level is low and pt appears to be having respiratory compensation. ABG noted. - avoid nephrotoxins. - continue PO sodium bicarbonate. - hold Lasix for now. - Monitor I's and O's. - Hypomagnesemia/ hypophosphatemia - Magnesium replaced. Magnesium 1.8 on 09/11/2016. - Mild systolic CHF. - Echo in May with EF 45-50% and mod-severe MR and severe TR. BNP elevated over 500. Appears euvolemic. - holding home Lasix. - monitor fluid status. - Probable Anemia of chronic disease. - Hemoglobin is around baseline. Likely due to renal disease. Full code. Apixaban 2.5mg BID. Chyna Louis DO Sep 13, 2016 1:16 pm
--- NOTE | 2016-09-13 17:25 | HHI.PR ---
Subjective Remarks 89 YOWF with Pneumonia,CHF,AF Has mild wheezing Not able to expactorate No Fever Breathing much better today Breathing treatment helps Objective Vital Signs Vital Signs Date Time Temp Pulse Resp B/P Pulse Ox O2 Delivery O2 Flow Rate FiO2 09/13/16 14:00 97.0 94 20 120/61 94 09/13/16 12:25 97.1 95 20 118/57 96 09/13/16 11:11 92 09/13/16 09:38 93 21 09/13/16 08:15 97.2 100 20 132/70 94 09/13/16 04:00 97.2 84 18 118/78 97 09/13/16 00:41 109 09/13/16 00:00 97.2 100 20 118/74 98 09/12/16 20:00 96.7 112 20 121/66 91 I/O 09/12/16 09/12/16 09/12/16 09/13/16 09/13/16 09/13/16 07:00 15:00 23:00 07:00 15:00 23:00 Intake Total 480 ml 680 ml Output Total 1950 ml 900 ml Balance -1950 ml 480 ml -900 ml 680 ml Intake Oral 480 ml 680 ml Output Urine Total 1950 ml 900 ml # Voids 2 1 # Bowel Movements 1 1 1 Result Diagram: 09/13/16 1012 09/13/16 1012 Objective Remarks GENERAL: Thin built WF, NAD SKIN: Warm and dry. HEAD: Normocephalic. EYES: No scleral icterus. No injection or drainage. NECK: Supple, trachea midline. No JVD or lymphadenopathy. CARDIOVASCULAR: Regular rate and rhythm without murmurs, gallops, or rubs. RESPIRATORY: Breath sounds equal bilaterally. No accessory muscle use. GASTROINTESTINAL: Abdomen soft, non-tender, nondistended. MUSCULOSKELETAL: No cyanosis, or edema. BACK: Nontender without obvious deformity. No CVA tenderness. A/P Assessment and Plan Pneumonia CHF AF CKD PLAN: Cont Abx Aerosol nebs IV Solumedrol Monitor Lytes Acapella q 1 hr while awake DC plans underway. Nash Dutta MD Sep 13, 2016 17:25
[2016-09-13] MEDS: PRAVASTATIN SOD 80 MG TAB PO SCH (21:56)
[2016-09-14] VITALS (8 sets, daily range): BP systolic 111–135; BP diastolic 53–85; PULSE 60–138; RESP 20–24; TEMP 96.2–99.3; O2SAT 93–98
[2016-09-14] MEDS: LEVOTHYROXINE SODIUM 50 MCG TAB PO SCH (05:11)
[2016-09-14] MEDS ORDERED: BENZONATATE 100 MG CAP PO ONE (05:30)
[2016-09-14 08:35] LABS: BICARBONATE 15.7 MEQ/L (21.0-32.0); POTASSIUM 3.5 MEQ/L (3.5-5.1)
[2016-09-14] MEDS: SODIUM BICARBONATE 650 MG TAB PO SCH ×4 (09:00→18:00)
[2016-09-14] MEDS: DOCUSATE SODIUM 100 MG CAP PO SCH ×3 (09:00→22:12)
[2016-09-14] MEDS ORDERED: AMIODARONE 200 MG TAB PO SCH (09:00)
[2016-09-14] MEDS: NYSTATIN SUSP 500,000 U/5 ML CUP SWISH-SWAL SCH ×5 (09:00→22:12)
[2016-09-14] MEDS: FERROUS SULFATE 325 MG (65 MG ELEMENTAL IRON) TAB PO SCH ×2 (09:00→10:09)
[2016-09-14 09:41] LABS: CALCIUM-PROTEIN CORRECTED 8.7 MG/DL (8.5-10.1)
[2016-09-14] MEDS: POTASSIUM PHOSPHATE/SODIUM PHOSPHATE 250 MG TAB PO SCH ×3 (10:00→22:12)
[2016-09-14] MEDS: AMIODARONE 200 MG TAB PO SCH (10:08)
[2016-09-14] MEDS: guaiFENesin E.R. 600 MG TAB PO SCH ×2 (10:08→22:12)
[2016-09-14] MEDS: NEBIVOLOL 5 MG TAB PO SCH (10:09)
[2016-09-14] MEDS: APIXABAN 2.5 MG TABLET PO SCH ×2 (10:09→22:12)
--- NOTE | 2016-09-14 10:58 | HHI.NPPN ---
Subjective Complaints: Shortness of Breath General Problems: Mebatolic Acidosis Renal Failure: Chronic, Acute Interval History She has hoarseness and cough, states she does not feel well. Renal function is better. (Berna Godinez) Review of Systems General Constitutional: Fatigue (Berna Godinez) Respiratory Lungs: SOB, Cough, Sputum (Berna Godinez) Gastrointestinal Gastrointestinal: Nausea & Vomiting (Berna Godinez) Objective Data Data 09/13/16 09/14/16 19:00 07:00 Intake Total 1680 ml 480 ml Balance 1680 ml 480 ml Intake Oral 1680 ml 480 ml # Voids 3 4 # Bowel Movements 2 3 Vital Signs Date Time Temp Pulse Resp B/P Pulse Ox O2 Delivery O2 Flow Rate FiO2 09/14/16 08:00 97.4 122 24 120/66 93 09/14/16 06:49 119 09/14/16 06:03 96.8 138 20 135/85 98 09/14/16 04:00 99.3 94 20 114/55 94 09/14/16 00:00 98.3 87 20 118/57 95 09/13/16 23:00 90 09/13/16 20:00 96.7 77 20 130/60 94 09/13/16 14:00 97.0 94 20 120/61 94 09/13/16 12:25 97.1 95 20 118/57 96 09/13/16 11:11 92 (Berna Godinez) -: 09/13/16 1012 09/14/16 0745 Microbiology Imaging Last 72 hours Impressions Chest X-Ray 09/12/16 0600 Signed Impressions: Service Date/Time: Monday, September 12, 2016 05:25 - CONCLUSION: Improved aeration. Wenceslao Bobby MD (Berna Godinez) Physical Exam General Appearance: Well Developed, Well Nourished, No Acute Distress, Comfortable, Anxious (Berna Godinez) Throat Throat Exam: Oral Mucosa [place] & Moist (Berna Godinez) Pulmonary Resp Exam: Breath Sounds Equal, Crackles, Rhonchi Resp Remarks wheezing (Berna Godinez) Cardiology CV Exam: Good Perfusion, Irregular (Berna Godinez) Gastrointestinal/Abdomen GI Exam: Soft, Non-Tender, Bowel Sounds Present (Berna Godinez) Musculoskeletal MS Exam: Joints Intact, Normal Tone (Berna Godinez) Integumentary Skin Exam: Clear, Warm, Dry, Intact (Berna Godinez) Extremeties Extremities Exam: No Edema, Pedal Pulses Palpable (Berna Godinez) Neurologic Neuro Exam: Alert, Awake, Oriented, Speech Clear, Moving All Extremities ( Berna Godinez) Psychiatric Psych Exam: Appropriate Responses (Berna Godinez) Assessment/Plan Discussed Condition With: Patient Assessment Summary: Anemia of CKD, Hypertension, CKD Stage IV Electrolyte Assessment: Hypocalcemia, Hyponatremia, Metabolic Acidosis Problem List: (1) Chronic kidney disease, stage 4 (severe) Plan: baseline creatinine 1.8-2 creatinine is better good urine output she has possible compensatory decrease in bicarbonate secondary to pulmonary disease with respiratory alkalosis. May also have underlying metabolic acidosis. 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 on oral bicarb tid, monitor and adjust as needed (she has refused some doses) fluid volume status stable, tolerating oral fluids , she is not on diuretic therapy renal panel in am avoid IVF and nephrotoxins, medications reviewed (2) CHF (congestive heart failure) Plan: monitor fluid volume status EF 40-50% (3) Atrial fibrillation Plan: tachycardic today Digoxin was stopped, on amiodarone and Bystolic cardiology following on Eliquis for anticoagulation (4) Pneumonia Plan: she is on cefepime CXR reviewed may benefit from nebs (5) Anemia Plan: on oral iron , hemoglobin stable (6) Hypocalcemia Plan: ionized calcium in process labs indicating secondary hyperparathyroidism begin vitamin D (7) Hyponatremia Plan: serum osmolality low, urine osmo not sent may need fluid restriction (Berna Godinez) Plan patient was seen and examined. Renal function is stable. Agree with above assessment and plan. (Mraio Mercado MD) Problem Qualifiers (1) Atrial fibrillation: Qualified Code: I48.1 - Persistent atrial fibrillation (2) Pneumonia: Qualified Code: J18.1 - Pneumonia of right middle lobe due to infectious organism Berna Godinez Sep 14, 2016 10:58 Mario Mercado MD Sep 15, 2016 15:40
[2016-09-14 11:23] LABS: AUTOMATED NEUTROPHIL # 17.8 TH/MM3 (1.8-7.7); BASOPHIL % 0.2 % (0.0-2.0); EOSINOPHIL % 0.1 % (0.0-4.0); HEMATOCRIT 23.4 % (35.0-46.0); LYMPH % 1.3 % (9.0-44.0); LYMPHOCYTE # 0.2 TH/MM3 (1.0-4.8); MEAN CELL VOLUME 93.6 FL (80.0-100.0); MEAN CORPUSCULAR HEMOGLOBIN 32.3 PG (27.0-34.0); MEAN CORPUSCULAR HGB CONC 34.5 % (32.0-36.0); MONO % 4.3 % (0.0-8.0); NEUT % 94.1 % (16.0-70.0); PLATELET COUNT 233 TH/MM3 (150-450); WHITE BLOOD COUNT 18.9 TH/MM3 (4.0-11.0)
[2016-09-14 11:26] LABS: HEMO FLAGS AUTO DIFF
[2016-09-14 11:55] LABS: NEUTROPHIL # MANUAL DIFF 17.8 TH/MM3 (1.8-7.7); POLYS (SEG NEUTROPHILS) 94 % (16-70); WBC DIFF SAMPLE 100
[2016-09-14 11:57] LABS: PLATELET ESTIMATE SMEAR NORMAL (NORMAL); PLATELET MORPHOLOGY NORMAL (NORMAL); SCAN/DIFF FINAL DIFF MANUAL; TOXIC GRANULATION 1+ (NORMAL)
--- NOTE | 2016-09-14 13:47 | PD.CONS ---
HPI History of Present Illness This is a 89 year old past medical history of atrial fibrillation ( on Eliquis ) and congestive heart failure, CKD, COPD, GI bleed, colon cancer more than 15 years ago s/p chemo and radiation who is here for shortness of breath and fevers and was found to have pneumonia and is being treated with abx. GI is consulted for black tarry stools and coffee ground emesis. This started last night, daughter by bed side and she is contributing to the HPI, states every time she coughs little black tarry stools come out. This morning she had one episode of coffee ground emesis. Patient was seen by our GI services back in May of 2016, Colonoscopy (05/12/16)------> Normal colonoscopy with normal terminal ileum. SBFT (05/12/16)---> Unremarkable small bowel examination, bleeding scan was negative at that time as well. 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 Enteroscopy was recommended but patient had discussed this with PCP and came to Decision not to proceed. Last EGD was in 2009 and that showed esophageal stricture and hiatal hernia. Hgb 8.1, WBC 18.9 (Venessa Jara) PFSH Past Medical History A fib Anemia Arthritis History of colon cancer with chemotherapy in 2000 Congestive heart failure Hypertension Hyperlipidemia Hypothyroidism Gastroesophageal reflux disease Chronic kidney disease GI bleed CVA Kidney stones AVMs Past Surgical History History of hip replacement Knee replacement Hysterectomy EGD/colonoscopy (Venessa Jara) Coded Allergies: Atenolol (Verified Allergy, Severe, 09/05/16) LIGHT HEADED/FAINT Cardizem (Verified Allergy, Severe, AIRWAY SWELLING, 09/05/16) AIRWAY OBSTRUCTION Levofloxacin (Verified Allergy, Severe, 09/05/16) Lisinopril (Verified Allergy, Severe, CP, 09/05/16) Phenergan (Verified Allergy, Severe, RASH, 09/05/16) Sulfa (Verified Allergy, Severe, 09/05/16) Toprol Xl (Verified Allergy, Severe, BRADYCARDIA, 09/05/16) Verapamil (Verified Allergy, Severe, Anaphylaxis, 09/05/16) Amoxicillin (Verified Allergy, Mild, 09/05/16) Levaquin (Verified Allergy, Mild, Irritability/Anxiety, 09/05/16) EDOXABAN (Verified Adverse Reaction, Severe, LIGHT HEADED, 09/05/16) Potassium (Verified Adverse Reaction, Severe, CAN'T BREATHE, 09/05/16) Uncoded Allergies: GINGERALE (Adverse Reaction, Severe, VOMITING, 08/24/16) Medications Current Medications Medications (Trade) Dose Ordered Sig/Neva Route Start Time Stop Time Status Last Admin (NS Flush) 2 ml UNSCH PRN IVF 09/05/16 01:30 09/05/16 03:45 (NS Flush) 2 ml UNSCH PRN FLUSH 09/05/16 03:45 09/10/16 20:27 (Narcan Inj) 0.4 mg UNSCH PRN IV 09/05/16 03:45 (Eliquis) 2.5 mg BID PO 09/05/16 09:45 09/14/16 10:09 (Ferrous Sulfate) 325 mg DAILY PO 09/05/16 09:45 09/13/16 09:11 (Synthroid) 50 mcg DAILY@0600 PO 09/05/16 09:45 09/14/16 05:11 (Pravachol) 80 mg HS PO 09/05/16 21:00 09/13/16 21:56 (Colace) 100 mg BID PO 09/05/16 21:00 09/13/16 09:10 (Tylenol) 650 mg Q4H PRN PO 09/05/16 10:00 (Catapres) 0.1 mg Q6H PRN PO 09/05/16 10:15 (Pill Splitter) 1 ea UNSCH PRN OTHER 09/05/16 10:15 (Mucinex Er) 1,200 mg BID PO 09/06/16 15:00 09/14/16 10:08 (Zofran Inj) 4 mg Q6HR PRN IV PUSH 09/10/16 05:45 09/11/16 06:50 (Sodium Bicarbonate) 650 mg TID PO 09/10/16 18:00 09/13/16 18:06 (Mycostatin Liq) 5 ml QID SWISH-SWAL 09/12/16 09:00 09/13/16 21:56 (Robitussin Ac 200-20 Mg/10 ml Liq) 10 ml Q6H PRN PO 09/12/16 11:15 (Bystolic) 5 mg DAILY PO 09/14/16 09:00 09/14/16 10:09 (Cordarone) 400 mg DAILY PO 09/14/16 09:00 09/14/16 10:08 (K-Phos Neutral) 250 mg Q8HR PO 09/14/16 10:00 09/15/16 09:59 Family History CAD Brain aneurysm Social History The pt does not smoke or drink. (Venessa Jraa) Review of Systems Constitutional: COMPLAINS OF: Fatigue, Fever Endocrine: DENIES: Polyuria Eyes: DENIES: Double Vision Ears, nose, mouth, throat: DENIES: Hoarseness Respiratory: COMPLAINS OF: Shortness of breath Cardiovascular: DENIES: Lower Extremity Edema Gastrointestinal: COMPLAINS OF: Abdominal pain, Black stools, Diarrhea, Nausea , Vomiting, Heartburn, Hematemesis, DENIES: Bloody stools, Constipation, Difficulty Swallowing, Anorexia, Odynophagia, Swelling of Abdomen Genitourinary: DENIES: Hematuria Musculoskeletal: DENIES: Neck pain Integumentary: DENIES: Jaundice Hematologic/lymphatic: COMPLAINS OF: Bruising Immunologic/allergic: DENIES: Eczema Neurologic: DENIES: Abnormal gait Psychiatric: DENIES: Anxiety (Venessa Jara) GI Exam Vitals I&O Vital Signs Date Time Temp Pulse Resp B/P Pulse Ox O2 Delivery O2 Flow Rate FiO2 09/14/16 12:00 96.2 87 20 130/69 96 09/14/16 08:00 97.4 122 24 120/66 93 09/14/16 06:49 119 09/14/16 06:03 96.8 138 20 135/85 98 09/14/16 04:00 99.3 94 20 114/55 94 09/14/16 00:00 98.3 87 20 118/57 95 09/13/16 23:00 90 09/13/16 20:00 96.7 77 20 130/60 94 09/13/16 14:00 97.0 94 20 120/61 94 I/O 09/13/16 09/13/16 09/13/16 09/14/16 09/14/16 09/14/16 07:00 15:00 23:00 07:00 15:00 23:00 Intake Total 1680 ml 360 ml 120 ml Output Total 900 ml Balance -900 ml 1680 ml 360 ml 120 ml Intake Oral 1680 ml 360 ml 120 ml Output Urine Total 900 ml # Voids 3 1 3 # Bowel Movements 2 0 3 Imaging Last Impressions Chest X-Ray 09/12/16 0600 Signed Impressions: Service Date/Time: Monday, September 12, 2016 05:25 - CONCLUSION: Improved aeration. Wenceslao Bobby MD Chest CT 09/05/16 0000 Signed Impressions: Service Date/Time: Monday, September 05, 2016 03:55 - CONCLUSION: 1. Small and very mild infiltrate in the right upper lobe. No pulmonary mass. 2. Mild panchamber enlargement of the heart. 3. Suspected pulmonary hypertension. 4. Severely atherosclerotic aorta. Jones Lucero MD Laboratory Test 09/14/16 09/14/16 07:45 10:49 Sodium Level 128 MEQ/L Potassium Level 3.5 MEQ/L Chloride Level 98 MEQ/L Carbon Dioxide Level 15.7 MEQ/L Anion Gap 14 MEQ/L Blood Urea Nitrogen 46 MG/DL Creatinine 1.65 MG/DL Estimat Glomerular Filtration 29 ML/MIN Rate Random Glucose 105 MG/DL Serum Osmolality 270 MOSM/KG Calcium Level 7.3 MG/DL Protein Corrected Calcium 8.7 MG/DL Phosphorus Level 1.9 MG/DL Total Protein 4.7 GM/DL Albumin 2.0 GM/DL 25-Hydroxy Vitamin D Total 29.8 ng/ML Parathyroid Hormone (Intact) 78.2 PG/ML White Blood Count 18.9 TH/MM3 Red Blood Count 2.50 MIL/MM3 Hemoglobin 8.1 GM/DL Hematocrit 23.4 % Mean Corpuscular Volume 93.6 FL Mean Corpuscular Hemoglobin 32.3 PG Mean Corpuscular Hemoglobin 34.5 % Concent Red Cell Distribution Width 14.0 % Platelet Count 233 TH/MM3 Mean Platelet Volume 8.3 FL Neutrophils (%) (Auto) 94.1 % Lymphocytes (%) (Auto) 1.3 % Monocytes (%) (Auto) 4.3 % Eosinophils (%) (Auto) 0.1 % Basophils (%) (Auto) 0.2 % Neutrophils # (Auto) 17.8 TH/MM3 Lymphocytes # (Auto) 0.2 TH/MM3 Monocytes # (Auto) 0.8 TH/MM3 Eosinophils # (Auto) 0.0 TH/MM3 Basophils # (Auto) 0.0 TH/MM3 CBC Comment AUTO DIFF Differential Total Cells 100 Counted Neutrophils % (Manual) 94 % Lymphocytes % 1 % Monocytes % 5 % Neutrophils # (Manual) 17.8 TH/MM3 Differential Comment FINAL DIFF MANUAL Toxic Granulation 1+ Platelet Estimate NORMAL Platelet Morphology Comment NORMAL Date/Time Procedure Status Source Growth 09/14/16 12:45 Stool Occult Blood (RICHARD) Received Stool Stool Pending 09/14/16 05:53 Cancelled Sputum Expectorated Sputum Physical Examination HEENT: normocephalic; atraumatic; no jaundice. Throat is clear. NECK: Neck is supple, no JVD, no lymphadenopathy. CHEST: Chest is clear to auscultation and percussion. CARDIAC: Irregular irregular mildly tachycardic ABDOMEN: Soft, nondistended, nontender; no hepatosplenomegaly; bowel sounds are present in all four quadrants. EXTREMITIES: No clubbing, cyanosis, or edema. SKIN: Normal; no rash; no jaundice. MILK OF LIME SLAKER: No focal deficits; alert and oriented times three. (Venessa Jara) Assessment and Plan Plan - Anemia/melena- black tarry stools and coffee ground emesis. This started last night, daughter by bed side and she is contributing to the HPI, states every time she coughs little black tarry stools come out. This morning she had one episode of coffee ground emesis. Patient was seen by our GI services back in May of 2016, Colonoscopy (05/12/16)------> Normal colonoscopy with normal terminal ileum. SBFT (05/12/16)---> Unremarkable small bowel examination, bleeding scan was negative at that time as well. 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 Enteroscopy was recommended but patient had discussed this with PCP and came to Decision not to proceed. Last EGD was in 2009 and that showed esophageal stricture and hiatal hernia. Hgb 8.1, - GERD/hoarseness- will place on PPI - pneumonia, leukocytosis , WBC 18.9 - A-fib on Eliquis , cardiology on the case - CKD nephrology on the case - CHF, COPD per attending Plan: - Soft diet per ST recommendation - Will need enteroscopy, however, patient is high risk for any procedures, she is also on Eliquis, will need cardiology clearance - PPI - Monitor hh - Transfuse as needed - Notify GI for active bleeding - Patient seen and examined by Dr. brand and myself and this note is written on his behalf. (Venessa Jara) Physician Comments Seen and examined in the presence of daughter. No active bleeding. Hoarsness of voice due to Gerd. On protonix, does not want puree diet. Daughter requesting to change back to cardiac diet. On eliquis, if further bleeding hold eliquis. Monitor H/H closely. EGD if active bleeding. Pt. is high risk for sedation and gi procedures. discussed with daughter and pt. Thank you (Miguel Brand MD) Venessa Jara Sep 14, 2016 13:47 Miguel Brand MD Sep 14, 2016 18:22
--- NOTE | 2016-09-14 14:16 | HHI.PR ---
Subjective Remarks Follow-up for atrial fibrillation. Daughter at bedside. Patient had loose dark bowel movement today. Also had difficulty with swallowing. No fever or chills. Heart rate has been in the 130s. Objective Vitals Vital Signs Date Time Temp Pulse Resp B/P Pulse Ox O2 Delivery O2 Flow Rate FiO2 09/14/16 12:00 96.2 87 20 130/69 96 09/14/16 08:00 97.4 122 24 120/66 93 09/14/16 06:49 119 09/14/16 06:03 96.8 138 20 135/85 98 09/14/16 04:00 99.3 94 20 114/55 94 09/14/16 00:00 98.3 87 20 118/57 95 09/13/16 23:00 90 09/13/16 20:00 96.7 77 20 130/60 94 I/O 09/13/16 09/13/16 09/13/16 09/14/16 09/14/16 09/14/16 07:00 15:00 23:00 07:00 15:00 23:00 Intake Total 1680 ml 360 ml 120 ml Output Total 900 ml Balance -900 ml 1680 ml 360 ml 120 ml Intake Oral 1680 ml 360 ml 120 ml Output Urine Total 900 ml # Voids 3 1 3 # Bowel Movements 2 0 3 Result Diagram: 09/14/16 1049 09/14/16 0745 Imaging Last Impressions Chest X-Ray 09/12/16 0600 Signed Impressions: Service Date/Time: Monday, September 12, 2016 05:25 - CONCLUSION: Improved aeration. Wenceslao Bobby MD Chest CT 09/05/16 0000 Signed Impressions: Service Date/Time: Monday, September 05, 2016 03:55 - CONCLUSION: 1. Small and very mild infiltrate in the right upper lobe. No pulmonary mass. 2. Mild panchamber enlargement of the heart. 3. Suspected pulmonary hypertension. 4. Severely atherosclerotic aorta. Jones Lucero MD Objective Remarks GENERAL: AOx3, NAD. SKIN: Warm and dry. HEAD: Normocephalic. EYES: No scleral icterus. No injection or drainage. NECK: Supple, trachea midline. No JVD or lymphadenopathy. CARDIOVASCULAR: Irregular irregular mildly tachycardic without murmurs, gallops , or rubs. RESPIRATORY: Breath sounds equal bilaterally. No accessory muscle use. GASTROINTESTINAL: Abdomen soft, non-tender, nondistended. MUSCULOSKELETAL: No cyanosis, or edema. BACK: Nontender without obvious deformity. No CVA tenderness. Procedures None. A/P Assessment and Plan Ms. Calvert is a pleasant 89 year old female with a history of Afib, multiple drug allergies who was admitted to the hospital due to pneumonia, Afib with RVR. - A fib with RVR - Recently admitted for Afib with RVR. - On amiodarone. Continue Apixaban. Digoxin discontinued. - Increased Bystolic from 2.5mg Qday to 5mg Qday. - Change breathing treatments from DuoNeb to Ipratropium Neb only. - Cardiology plans to load patient up on Amiodarone. - Probable GI bleed - Will obtain Hemoccult study. - H&H this PM and in the morning. - GI consulted since patient has a history of esophageal varices. - May need an EGD. - If Hgb drops, we can discontinue Apixaban. - Pneumonia - COPD exacerbation - CXR and CT scan imaging indicative of a right infiltrate. She was recently hospitalized. Had lactic acid level of 5. Influenza negative. Symptoms improving 09/10. - Received cefepime and vanco for pneumonia. Currently not requiring any supplemental O2. - Patient received about 6-7 days of antibiotics. Patient is allergic to Levaquin. She is off Abx. - CXR from 09/12/2016 reviewed by me - better aeration. - Discontinued steroid as well. - oxygen and nebs as needed. - incentive spirometry, Acapella. - sputum and blood cultures. NGTD. - pulmonology following. - Chronic renal disease/ metabolic acidosis - Creatinine is around baseline. Started on bicarbonate on last admission by nephrology. Bicarb level is low and pt appears to be having respiratory compensation. ABG noted. - avoid nephrotoxins. - continue PO sodium bicarbonate. - hold Lasix for now. - Monitor I's and O's. - Hypomagnesemia/ hypophosphatemia - Magnesium replaced. Magnesium 1.8 on 09/11/2016. - Mild systolic CHF. - Echo in May with EF 45-50% and mod-severe MR and severe TR. BNP elevated over 500. Appears euvolemic. - holding home Lasix. - monitor fluid status. - Probable Anemia of chronic disease. - Hemoglobin is around baseline. Likely due to renal disease. Full code. Apixaban 2.5mg BID. Chyna Louis DO Sep 14, 2016 2:16 pm
[2016-09-14] MEDS: PANTOPRAZOLE SODIUM 40 MG VIAL IV PUSH SCH (14:28)
--- NOTE | 2016-09-14 16:31 | HHI.PR ---
Subjective Remarks 89 YOWF with Pneumonia,CHF,AF Has mild wheezing Not able to expactorate No Fever Had dark stools GI Eval underway Objective Vital Signs Vital Signs Date Time Temp Pulse Resp B/P Pulse Ox O2 Delivery O2 Flow Rate FiO2 09/14/16 12:00 96.2 87 20 130/69 96 09/14/16 08:00 97.4 122 24 120/66 93 09/14/16 06:49 119 09/14/16 06:03 96.8 138 20 135/85 98 09/14/16 04:00 99.3 94 20 114/55 94 09/14/16 00:00 98.3 87 20 118/57 95 09/13/16 23:00 90 09/13/16 20:00 96.7 77 20 130/60 94 I/O 09/13/16 09/13/16 09/13/16 09/14/16 09/14/16 09/14/16 07:00 15:00 23:00 07:00 15:00 23:00 Intake Total 1680 ml 360 ml 120 ml Output Total 900 ml Balance -900 ml 1680 ml 360 ml 120 ml Intake Oral 1680 ml 360 ml 120 ml Output Urine Total 900 ml # Voids 3 1 3 # Bowel Movements 2 0 3 2 Result Diagram: 09/14/16 1049 09/14/16 0745 Objective Remarks GENERAL: Thin built WF, NAD SKIN: Warm and dry. HEAD: Normocephalic. EYES: No scleral icterus. No injection or drainage. NECK: Supple, trachea midline. No JVD or lymphadenopathy. CARDIOVASCULAR: Regular rate and rhythm without murmurs, gallops, or rubs. RESPIRATORY: Breath sounds equal bilaterally. No accessory muscle use. GASTROINTESTINAL: Abdomen soft, non-tender, nondistended. MUSCULOSKELETAL: No cyanosis, or edema. BACK: Nontender without obvious deformity. No CVA tenderness. A/P Assessment and Plan Pneumonia CHF AF CKD PLAN: Cont Abx Aerosol nebs Monitor Lytes Acapella q 1 hr while awake GI Eval Monitor H/H Nash Dutta MD Sep 14, 2016 16:30
[2016-09-14 17:51] LABS: HEMATOCRIT 23.8 % (35.0-46.0); REVIEW FLAG FINAL
[2016-09-14] MEDS: PRAVASTATIN SOD 80 MG TAB PO SCH (21:00)
[2016-09-15] VITALS (9 sets, daily range): BP systolic 102–112; BP diastolic 51–59; PULSE 88–123; RESP 22–25; TEMP 95.8–98.2; O2SAT 93–98
[2016-09-15] MEDS: PANTOPRAZOLE SODIUM 40 MG VIAL IV PUSH SCH ×2 (02:11→15:05)
[2016-09-15] MEDS: POTASSIUM PHOSPHATE/SODIUM PHOSPHATE 250 MG TAB PO SCH (05:31)
[2016-09-15] MEDS: LEVOTHYROXINE SODIUM 50 MCG TAB PO SCH (05:31)
[2016-09-15] MEDS: RESP: ALBUTEROL 2.5 MG/IPRATROPIUM 0.5 MG NEB (PRN) NEB ×2 (06:04→13:33)
[2016-09-15 08:28] LABS: HEMATOCRIT 23.7 % (35.0-46.0); REVIEW FLAG FINAL
[2016-09-15] MEDS: NEBIVOLOL 5 MG TAB PO SCH (08:34)
[2016-09-15] MEDS: FERROUS SULFATE 325 MG (65 MG ELEMENTAL IRON) TAB PO SCH (08:34)
[2016-09-15] MEDS: DOCUSATE SODIUM 100 MG CAP PO SCH ×2 (08:34→20:12)
[2016-09-15] MEDS: NYSTATIN SUSP 500,000 U/5 ML CUP SWISH-SWAL SCH ×2 (08:34→11:52)
[2016-09-15] MEDS: AMIODARONE 200 MG TAB PO SCH (08:34)
[2016-09-15] MEDS: guaiFENesin E.R. 600 MG TAB PO SCH ×2 (08:34→20:12)
[2016-09-15] MEDS: APIXABAN 2.5 MG TABLET PO SCH (08:34)
[2016-09-15] MEDS: SODIUM BICARBONATE 650 MG TAB PO SCH ×3 (08:35→17:32)
[2016-09-15] MEDS: CHOLECALCIFEROL (VIT D3) 1000 UNIT TAB PO SCH (09:50)
[2016-09-15 09:59] LABS: BICARBONATE 19.9 MEQ/L (21.0-32.0); POTASSIUM 3.3 MEQ/L (3.5-5.1)
[2016-09-15 10:16] LABS: CALCIUM-PROTEIN CORRECTED 8.3 MG/DL (8.5-10.1)
[2016-09-15] MEDS ORDERED: POTASSIUM CHLORIDE 20 MEQ CONTROLLED RELEASE TAB PO ONE (10:30)
--- NOTE | 2016-09-15 10:30 | HHI.PR ---
Subjective Remarks This report is in ERROR Please disregard this report and all prior copies ! This report is in ERROR Please disregard this report and all prior copies ! This report is in ERROR Please disregard this report and all prior copies ! Objective Vitals Vital Signs Date Time Temp Pulse Resp B/P Pulse Ox O2 Delivery O2 Flow Rate FiO2 09/15/16 09:19 Room Air 21 09/15/16 08:00 96.7 113 24 107/53 94 09/15/16 06:05 98 21 09/15/16 04:00 97.7 88 22 110/59 95 09/15/16 02:23 102 09/15/16 00:00 98.2 89 22 109/56 93 09/14/16 20:12 Room Air 09/14/16 20:00 98.7 104 20 111/56 94 09/14/16 16:00 97.3 60 20 121/53 96 09/14/16 12:00 96.2 87 20 130/69 96 I/O 09/14/16 09/14/16 09/14/16 09/15/16 09/15/16 09/15/16 07:00 15:00 23:00 07:00 15:00 23:00 Intake Total 120 ml 25 ml 120 ml 120 ml Output Total 1 ml Balance 120 ml 25 ml 120 ml 119 ml Intake Oral 120 ml 25 ml 120 ml 120 ml Output Urine Total 1 ml # Voids 3 2 1 # Bowel Movements 3 2 3 0 Result Diagram: 09/15/16 0650 09/15/1613 Objective Remarks GENERAL: This is a well-nourished, well-developed patient, in no apparent distress, slightly hard of hearing. SKIN: No rashes, ecchymoses or lesions. Cool and dry. HEAD: Atraumatic. Normocephalic. No temporal or scalp tenderness. EYES: Pupils equal round and reactive. Extraocular motions intact. No scleral icterus. No injection or drainage. ENT: Nose without bleeding, purulent drainage or septal hematoma. Throat without erythema, tonsillar hypertrophy or exudate. Uvula midline. Airway patent. NECK: Trachea midline. No JVD or lymphadenopathy. Supple, nontender, no meningeal signs. CARDIOVASCULAR: Tachycardic, irregularly irregular. No murmur appreciated. RESPIRATORY: Diffuse wheezing has improved, slight crackles at the left base. GASTROINTESTINAL: Abdomen soft, non-tender, nondistended. No hepato-splenomegaly , or palpable masses. No guarding. MUSCULOSKELETAL: Extremities without clubbing, cyanosis, or edema. No joint tenderness, effusion, or edema noted. NEUROLOGICAL: Awake and alert. Cranial nerves II through XII intact. Motor and sensory grossly within normal limits. Five out of 5 muscle strength in all muscle groups. Normal speech. PSYCH: Mood and affect appropriate. Procedures None. A/P Assessment and Plan A fib with RVR Recently admitted for Afib with RVR. - On amiodarone. Continue Apixaban. Digoxin discontinued. - Increased Bystolic from 2.5mg Qday to 5mg Qday. - Change breathing treatments from DuoNeb to Ipratropium Neb only. - Cardiology plans to load patient up on Amiodarone. GI bleed Hemoccult positive. - follow CBC and transfuse as needed. - GI consulted since patient has a history of esophageal varices. - If Hgb drops, we can discontinue Apixaban. Pneumonia/ COPD exacerbation CXR and CT scan imaging indicative of a right infiltrate. She was recently hospitalized. Had lactic acid level of 5. Influenza negative. Received cefepime and vanco for pneumonia. Currently not requiring any supplemental O2. S/p steroids. - oxygen and nebs as needed. - incentive spirometry, Acapella. - sputum and blood cultures. NGTD. - pulmonology following. Chronic renal disease/ metabolic acidosis Creatinine is around baseline. Started on bicarbonate on last admission by nephrology. Bicarb level is low and pt appears to be having respiratory compensation. ABG noted. - avoid nephrotoxins. - continue PO sodium bicarbonate. - hold Lasix for now. - Monitor I's and O's. - follow up with nephrology. Mild systolic CHF. Echo in May with EF 45-50% and mod-severe MR and severe TR. BNP elevated over 500. Appears euvolemic. - holding home Lasix. - monitor fluid status. PPX: Apixaban 2.5mg BID. Discharge Planning Awaiting clinical improvement. Zack Romero DO Sep 15, 2016 10:30
--- NOTE | 2016-09-15 10:36 | HHI.NPPN ---
Subjective Complaints: Shortness of Breath General Problems: Mebatolic Acidosis Renal Failure: Chronic, Acute Interval History Still complaining of coughing, some nausea. Voice is hoarse. Renal function is stable. (Berna Godinez) Review of Systems General Constitutional: Fatigue (Berna Godinez) Ears, Nose, & Throat Ears, Nose & Throat: Sore Throat (Berna Godinez) Respiratory Lungs: SOB, Cough, Sputum (Berna Godinez) Gastrointestinal Gastrointestinal: Nausea & Vomiting (Berna Godinez) Objective Data Data 09/14/16 09/15/16 19:00 07:00 Intake Total 25 ml 240 ml Output Total 1 ml Balance 25 ml 239 ml Intake Oral 25 ml 240 ml Output Urine Total 1 ml # Voids 2 1 # Bowel Movements 4 1 Vital Signs Date Time Temp Pulse Resp B/P Pulse Ox O2 Delivery O2 Flow Rate FiO2 09/15/16 09:19 Room Air 21 09/15/16 08:00 96.7 113 24 107/53 94 09/15/16 06:05 98 21 09/15/16 04:00 97.7 88 22 110/59 95 09/15/16 02:23 102 09/15/16 00:00 98.2 89 22 109/56 93 09/14/16 20:12 Room Air 09/14/16 20:00 98.7 104 20 111/56 94 09/14/16 16:00 97.3 60 20 121/53 96 09/14/16 12:00 96.2 87 20 130/69 96 (Berna Godinez) -: 09/15/16 0650 09/15/16 0913 Microbiology 09/14/16 Stool Occult Blood (RICHARD) - Final, Complete HEMOCCULT POSITIVE 09/14/16 Stool Occult Blood (RICHARD) - Final, Complete HEMOCCULT POSITIVE 09/14/16 Stool Occult Blood (RICHARD) - Final, Complete HEMOCCULT POSITIVE 09/14/16 Gram Stain - Final, Resulted 09/14/16 Sputum Culture, Resulted Pending (Berna Godinez) Physical Exam General Appearance: Well Developed, Well Nourished, No Acute Distress, Comfortable, Anxious (Berna Godinez) Throat Throat Exam: Oral Mucosa Jud & Moist Throat Remarks voice hoarseness (Berna Godinez) Pulmonary Resp Exam: Breath Sounds Equal, Crackles, Rhonchi Resp Remarks wheezing (Berna Godinez) Cardiology CV Exam: Good Perfusion, Irregular (Berna Godinez) Gastrointestinal/Abdomen GI Exam: Soft, Non-Tender, Bowel Sounds Present (Berna Godinez) Musculoskeletal MS Exam: Joints Intact, Normal Tone (Berna Godinez) Integumentary Skin Exam: Clear, Warm, Dry, Intact (Berna Godinez) Extremeties Extremities Exam: No Edema, Pedal Pulses Palpable (Berna Godinez) Neurologic Neuro Exam: Alert, Awake, Oriented, Speech Clear, Moving All Extremities ( Berna Godinez) Psychiatric Psych Exam: Appropriate Responses (Berna Godinez) Assessment/Plan Discussed Condition With: Patient Assessment Summary: Anemia of CKD, Hypertension, CKD Stage IV Electrolyte Assessment: Hypocalcemia, Hyponatremia, Metabolic Acidosis Problem List: (1) Chronic kidney disease, stage 4 (severe) Plan: baseline creatinine 1.8-2 renal function is stable, GFR near baseline good urine output she has possible compensatory decrease in bicarbonate secondary to pulmonary disease with respiratory alkalosis. May also have underlying metabolic acidosis. 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 on oral bicarb tid, C02 improving potassium and phosphorus have been replaced, which the deficiency may be from poor oral intake fluid volume status stable, tolerating oral fluids , she is not on diuretic therapy renal panel in am avoid IVF and nephrotoxins, medications reviewed (2) CHF (congestive heart failure) Plan: monitor fluid volume status EF 40-50% (3) Atrial fibrillation Plan: intermittent tachycardia on amiodarone and Bystolic cardiology following on Eliquis for anticoagulation (4) Pneumonia Plan: she is on cefepime CXR reviewed nebulizers prn, given incentive spirometer with instruction cough/deep breathing encouraged monitor clinically (5) Anemia Plan: on oral iron , hemoglobin dropped slightly she does have heme positive stool, on Eliquis for anticoagulation on protonix, GI consulted (6) Secondary hyperparathyroidism of renal origin Plan: PTH elevated, continue vitamin D daily (7) Hyponatremia Plan: improving, discussed fluid restriction monitor (Berna Godinez) Plan patient was seen and examined. Agree with above assessment and plan. Replace potassium. Renal function is stable. (Mario Mercado MD) Problem Qualifiers (1) Atrial fibrillation: Qualified Code: I48.1 - Persistent atrial fibrillation (2) Pneumonia: Qualified Code: J18.1 - Pneumonia of right middle lobe due to infectious organism Berna Godinez Sep 15, 2016 10:36 Mario Mercado MD Sep 15, 2016 15:48
--- NOTE | 2016-09-15 10:45 | HHI.PR ---
Subjective Remarks The patient complained that she was having a hard time speaking. She said yesterday she vomited some blood. She says her stools are dark because she is on iron. She wants to get up out of bed into the chair. She says her breathing is better. Objective Vitals Vital Signs Date Time Temp Pulse Resp B/P Pulse Ox O2 Delivery O2 Flow Rate FiO2 09/15/16 09:19 Room Air 21 09/15/16 08:00 96.7 113 24 107/53 94 09/15/16 06:05 98 21 09/15/16 04:00 97.7 88 22 110/59 95 09/15/16 02:23 102 09/15/16 00:00 98.2 89 22 109/56 93 09/14/16 20:12 Room Air 09/14/16 20:00 98.7 104 20 111/56 94 09/14/16 16:00 97.3 60 20 121/53 96 09/14/16 12:00 96.2 87 20 130/69 96 I/O 09/14/16 09/14/16 09/14/16 09/15/16 09/15/16 09/15/16 07:00 15:00 23:00 07:00 15:00 23:00 Intake Total 120 ml 25 ml 120 ml 120 ml Output Total 1 ml Balance 120 ml 25 ml 120 ml 119 ml Intake Oral 120 ml 25 ml 120 ml 120 ml Output Urine Total 1 ml # Voids 3 2 1 # Bowel Movements 3 2 3 0 Result Diagram: 09/15/16 0650 09/15/16 0913 Imaging Last Impressions Chest X-Ray 09/12/16 0600 Signed Impressions: Service Date/Time: Monday, September 12, 2016 05:25 - CONCLUSION: Improved aeration. Wenceslao Bobby MD Chest CT 09/05/16 0000 Signed Impressions: Service Date/Time: Monday, September 05, 2016 03:55 - CONCLUSION: 1. Small and very mild infiltrate in the right upper lobe. No pulmonary mass. 2. Mild panchamber enlargement of the heart. 3. Suspected pulmonary hypertension. 4. Severely atherosclerotic aorta. Jones Lucero MD Objective Remarks GENERAL: This is a well-nourished, well-developed patient, in no apparent distress, slightly hard of hearing, hoarse voice. SKIN: No rashes, ecchymoses or lesions. Cool and dry. HEAD: Atraumatic. Normocephalic. No temporal or scalp tenderness. EYES: Pupils equal round and reactive. Extraocular motions intact. No scleral icterus. No injection or drainage. ENT: Nose without bleeding, purulent drainage or septal hematoma. Throat without erythema, tonsillar hypertrophy or exudate. Uvula midline. Airway patent. NECK: Trachea midline. No JVD or lymphadenopathy. Supple, nontender, no meningeal signs. CARDIOVASCULAR: Tachycardic, irregularly irregular. No murmur appreciated. RESPIRATORY: CTAB, no W/R/R. GASTROINTESTINAL: Abdomen soft, non-tender, nondistended. No hepato-splenomegaly , or palpable masses. No guarding. MUSCULOSKELETAL: Extremities without clubbing, cyanosis, or edema. No joint tenderness, effusion, or edema noted. NEUROLOGICAL: Awake and alert. Cranial nerves II through XII intact. Motor and sensory grossly within normal limits. Five out of 5 muscle strength in all muscle groups. Normal speech. PSYCH: Anxious. Procedures None. Medications and IVs Current Medications Medications (Trade) Dose Ordered Sig/Neva Route Start Time Stop Time Status Last Admin (NS Flush) 2 ml UNSCH PRN IVF 09/05/16 01:30 09/05/16 03:45 (NS Flush) 2 ml UNSCH PRN FLUSH 09/05/16 03:45 09/10/16 20:27 (Narcan Inj) 0.4 mg UNSCH PRN IV 09/05/16 03:45 (Eliquis) 2.5 mg BID PO 09/05/16 09:45 09/15/16 08:34 (Ferrous Sulfate) 325 mg DAILY PO 09/05/16 09:45 09/15/16 08:34 (Synthroid) 50 mcg DAILY@0600 PO 09/05/16 09:45 09/15/16 05:31 (Pravachol) 80 mg HS PO 09/05/16 21:00 09/14/16 21:00 (Colace) 100 mg BID PO 09/05/16 21:00 09/15/16 08:34 (Tylenol) 650 mg Q4H PRN PO 09/05/16 10:00 (Catapres) 0.1 mg Q6H PRN PO 09/05/16 10:15 (Pill Splitter) 1 ea UNSCH PRN OTHER 09/05/16 10:15 (Mucinex Er) 1,200 mg BID PO 09/06/16 15:00 09/15/16 08:34 (Zofran Inj) 4 mg Q6HR PRN IV PUSH 09/10/16 05:45 09/11/16 06:50 (Sodium Bicarbonate) 650 mg TID PO 09/10/16 18:00 09/15/16 08:35 (Mycostatin Liq) 5 ml QID SWISH-SWAL 09/12/16 09:00 09/15/16 08:34 (Robitussin Ac 200-20 Mg/10 ml Liq) 10 ml Q6H PRN PO 09/12/16 11:15 (Bystolic) 5 mg DAILY PO 09/14/16 09:00 09/15/16 08:34 (Cordarone) 400 mg DAILY PO 09/14/16 09:00 09/15/16 08:34 (Protonix Inj) 40 mg Q12H IV PUSH 09/14/16 14:00 09/15/16 02:11 (Vitamin D3) 1,000 units DAILY PO 09/15/16 09:00 09/15/16 09:50 A/P Assessment and Plan A fib with RVR Recently admitted for Afib with RVR. HR still elevated at times. - On amiodarone. Continue Apixaban. Digoxin discontinued. - Increased Bystolic from 2.5mg Qday to 5mg Qday. - Change breathing treatments from DuoNeb to Ipratropium Neb only. - Cardiology plans to load patient up on Amiodarone. GI bleed Hemoccult positive. Had episode of dark stools and coffee ground emesis. On Eliquis. - follow CBC and transfuse as needed. - GI consulted appreciated. Will need cardiology clearance prior to further evaluation. - If further bleeding we will discontinue Apixaban. - continue PPI. Pneumonia/ COPD exacerbation CXR and CT scan imaging indicative of a right infiltrate. She was recently hospitalized. Had lactic acid level of 5. Influenza negative. Received cefepime and vanco for pneumonia. Currently not requiring any supplemental O2. S/p steroids. - oxygen and nebs as needed. - incentive spirometry, Acapella. - sputum and blood cultures. NGTD. - pulmonology following. Chronic renal disease/ metabolic acidosis Creatinine is around baseline. Started on bicarbonate on last admission by nephrology. Bicarb level is low and pt appears to be having respiratory compensation. ABG noted. - avoid nephrotoxins. - continue PO sodium bicarbonate. - hold Lasix for now. - Monitor I's and O's. - follow up with nephrology. Mild systolic CHF. Echo in May with EF 45-50% and mod-severe MR and severe TR. BNP elevated over 500. Appears euvolemic. - holding home Lasix. - monitor fluid status. Hoarse voice Possibly s/t GERD. - continue PPI. PPX: Apixaban 2.5mg BID. Discharge Planning Awaiting clinical improvement. Zack Romero DO Sep 15, 2016 10:45
--- NOTE | 2016-09-15 12:14 | HHI.GIFU ---
Subjective Remarks Patient is sitting up in chair, still with severe hoarseness, no nausea, no vomiting today, she is having black stools, but not much, she is on iron supplement. (Venessa Jara) Objective Vitals I&O Vital Signs Date Time Temp Pulse Resp B/P Pulse Ox O2 Delivery O2 Flow Rate FiO2 09/15/16 09:19 Room Air 21 09/15/16 08:00 96.7 113 24 107/53 94 09/15/16 06:05 98 21 09/15/16 04:00 97.7 88 22 110/59 95 09/15/16 02:23 102 09/15/16 00:00 98.2 89 22 109/56 93 09/14/16 20:12 Room Air 09/14/16 20:00 98.7 104 20 111/56 94 09/14/16 16:00 97.3 60 20 121/53 96 09/14/16 12:00 96.2 87 20 130/69 96 I/O 09/14/16 09/14/16 09/14/16 09/15/16 09/15/16 09/15/16 06:59 14:59 22:59 06:59 14:59 22:59 Intake Total 120 ml 25 ml 120 ml 120 ml Output Total 1 ml Balance 120 ml 25 ml 120 ml 119 ml Intake Oral 120 ml 25 ml 120 ml 120 ml Output Urine Total 1 ml # Voids 3 2 1 # Bowel Movements 3 2 3 0 Laboratory Laboratory Tests Test 09/14/16 09/14/16 09/15/16 09/15/16 17:09 20:30 06:50 09:13 Hemoglobin 8.1 7.8 Hematocrit 23.8 23.7 Urine Osmolality 532 Sodium Level 130 Potassium Level 3.3 Chloride Level 98 Carbon Dioxide Level 19.9 Anion Gap 12 Blood Urea Nitrogen 41 Creatinine 1.79 Estimat Glomerular Filtration 27 Rate Random Glucose 105 Calcium Level 7.3 Protein Corrected Calcium 8.3 Phosphorus Level 2.3 Total Protein 5.2 Albumin 2.1 Date/Time Procedure Status Source Growth 09/14/16 20:10 Gram Stain - Final Resulted Sputum Expectorated Sputum 09/14/16 20:10 Sputum Culture Resulted Sputum Expectorated Sputum Pending 09/14/16 15:30 Stool Occult Blood (RICHARD) - Final Complete Stool Stool HEMOCCULT POSITIVE 09/14/16 05:53 Cancelled Sputum Expectorated Sputum Imaging Last Impressions Chest X-Ray 09/12/16 0600 Signed Impressions: Service Date/Time: Monday, September 12, 2016 05:25 - CONCLUSION: Improved aeration. Wenceslao Bobby MD Chest CT 09/05/16 0000 Signed Impressions: Service Date/Time: Monday, September 05, 2016 03:55 - CONCLUSION: 1. Small and very mild infiltrate in the right upper lobe. No pulmonary mass. 2. Mild panchamber enlargement of the heart. 3. Suspected pulmonary hypertension. 4. Severely atherosclerotic aorta. Jones Lucero MD Physical Exam HEENT: normocephalic; atraumatic; no jaundice. Throat is clear. NECK: Neck is supple, no JVD, no lymphadenopathy. CHEST: Chest is clear to auscultation and percussion. CARDIAC: Regular rate and rhythm with no murmur gallop or rubs. ABDOMEN: Soft, nondistended, nontender; no hepatosplenomegaly; bowel sounds are present in all four quadrants. EXTREMITIES: No clubbing, cyanosis, or edema. SKIN: Normal; no rash; no jaundice. MASTER CRAFTSMAN: No focal deficits; alert and oriented times three. (Venessa Jara) Assessment and Plan Plan - Anemia/melena- black tarry stools and coffee ground emesis. No hematemesis today, she continue to have black stools, but she is on iron supplement. hgb with slight drop today 7.8 Patient was seen by our GI services back in May of 2016, Colonoscopy ()------> Normal colonoscopy with normal terminal ileum. SBFT (05/12/16)---> Unremarkable small bowel examination, bleeding scan was negative at that time as well. 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 Enteroscopy was recommended but patient had discussed this with PCP and came to Decision not to proceed. Last EGD was in 2009 and that showed esophageal stricture and hiatal hernia. Hgb 8.1, - GERD/hoarseness- will place on PPI, DR. Romero will place on Lozenges - pneumonia, leukocytosis , WBC 18.9 - A-fib on Eliquis , cardiology on the case - CKD nephrology on the case - CHF, COPD per attending Plan: - ANTHONY - Will need enteroscopy, however, patient is high risk for any procedures, she is also on Eliquis, will need cardiology clearance Case was discussed with Dr. Romero, and nurse, patient not a candidate for procedures at this time, unless there's active bleed, - PPI - Consider stopping Eliquis, will defer to cardiology - Monitor hh - Transfuse as needed - Notify GI for active bleeding - Patient seen and examined by Dr. brand and myself and this note is written on his behalf. (Venessa Jara) Physician Comments Seen and examined with [employer], No active bleeding , monitor labs. Enteroscopy when able or if active bleeding. Discussed with daughter. (Miguel Brand MD) Venessa Jara Sep 15, 2016 12:14 Miguel Brand MD Sep 15, 2016 16:48
--- NOTE | 2016-09-15 13:02 | PD.CARD.PN ---
Objective Vital Signs / I&O Vital Signs Date Time Temp Pulse Resp B/P Pulse Ox O2 Delivery O2 Flow Rate FiO2 09/15/16 09:19 Room Air 21 09/15/16 08:00 96.7 113 24 107/53 94 09/15/16 06:05 98 21 09/15/16 04:00 97.7 88 22 110/59 95 09/15/16 02:23 102 09/15/16 00:00 98.2 89 22 109/56 93 09/14/16 20:12 Room Air 09/14/16 20:00 98.7 104 20 111/56 94 09/14/16 16:00 97.3 60 20 121/53 96 I/O 09/14/16 09/14/16 09/14/16 09/15/16 09/15/16 09/15/16 07:00 15:00 23:00 07:00 15:00 23:00 Intake Total 120 ml 25 ml 120 ml 120 ml Output Total 1 ml Balance 120 ml 25 ml 120 ml 119 ml Intake Oral 120 ml 25 ml 120 ml 120 ml Output Urine Total 1 ml # Voids 3 2 1 # Bowel Movements 3 2 3 0 Physical Exam GENERAL: mild distress, anxious SKIN: Warm and dry. HEAD: Normocephalic. ORAL THRUSH improved EYES: No scleral icterus. No injection or drainage. NECK: Supple, trachea midline. CARDIOVASCULAR: Irregularly irregular, systolic murmur RESPIRATORY: Breath sounds equal bilaterally. wheezing, no accessory muscle use GASTROINTESTINAL: Abdomen soft, non-tender, nondistended. MUSCULOSKELETAL: No cyanosis, or edema. BACK: Nontender without obvious deformity Laboratory Laboratory Tests Test 09/14/16 09/14/16 09/15/16 09/15/16 17:09 20:30 06:50 09:13 Hemoglobin 8.1 GM/DL 7.8 GM/DL Hematocrit 23.8 % 23.7 % Urine Osmolality 532 MOSM/KG Sodium Level 130 MEQ/L Potassium Level 3.3 MEQ/L Chloride Level 98 MEQ/L Carbon Dioxide Level 19.9 MEQ/L Anion Gap 12 MEQ/L Blood Urea Nitrogen 41 MG/DL Creatinine 1.79 MG/DL Estimat Glomerular Filtration 27 ML/MIN Rate Random Glucose 105 MG/DL Calcium Level 7.3 MG/DL Protein Corrected Calcium 8.3 MG/DL Phosphorus Level 2.3 MG/DL Total Protein 5.2 GM/DL Albumin 2.1 GM/DL Assessment and Plan Assessment and Plan ASSESSMENT RUL Pneumonia Persistent atrial fibrillation with increased ventricular rate. On Eliquis, Amio and Bystolic. Unable to tolerate multiple CCB and BB due to allergies/side effects. Chronic diastolic CHF Acute on chronic anemia. Now with GI bleed. H/H trending down Moderate MR, Moderate TR on echo 04/2016 Renal insufficiency Slight elevation of troponin. Suspect demand ischemia and CKD. Last stress test 2011 negative PLAN The patient is clear at an intermediate risk from a cardiac standpoint for endoscopy for GI bleeding. Stop Eliquis. Resume per GI Continue amio 400 and bystolic 5. Ventricular rate elevated. Multiple physiologic reasons. Stop Swish and swallow, thrush resolved 24 hrs Breathing treatments Patient seen and evaluated by Nargis Jimenez Sep 15, 2016 13:02
[2016-09-15] MEDS ORDERED: PHENOL 1.4% SOLN 180 ML BTL OROPHARYNG ONE (14:00)
[2016-09-15 16:26] LABS: HEMATOCRIT 22.3 % (35.0-46.0); MEAN CELL VOLUME 94.6 FL (80.0-100.0); MEAN CORPUSCULAR HEMOGLOBIN 31.8 PG (27.0-34.0); MEAN CORPUSCULAR HGB CONC 33.7 % (32.0-36.0); PLATELET COUNT 224 TH/MM3 (150-450); RED BLOOD COUNT 2.35 MIL/MM3 (4.00-5.30); RED CELL DISTRIBUTION WIDTH 14.1 % (11.6-17.2); REVIEW FLAG FINAL; WHITE BLOOD COUNT 19.1 TH/MM3 (4.0-11.0)
--- NOTE | 2016-09-15 18:09 | HHI.PR ---
Subjective Remarks 89 YOWF with Pneumonia,CHF,AF Has mild wheezing Not able to expactorate No Fever Has hoarseness of voice, no difficulty swallowing No Thrush Objective Vital Signs Vital Signs Date Time Temp Pulse Resp B/P Pulse Ox O2 Delivery O2 Flow Rate FiO2 09/15/16 16:00 97.0 88 22 102/51 95 09/15/16 12:00 95.8 123 25 105/51 93 09/15/16 09:19 Room Air 21 09/15/16 08:00 96.7 113 24 107/53 94 09/15/16 06:05 98 21 09/15/16 04:00 97.7 88 22 110/59 95 09/15/16 02:23 102 09/15/16 00:00 98.2 89 22 109/56 93 09/14/16 20:12 Room Air 09/14/16 20:00 98.7 104 20 111/56 94 I/O 09/14/16 09/14/16 09/14/16 09/15/16 09/15/16 09/15/16 07:00 15:00 23:00 07:00 15:00 23:00 Intake Total 120 ml 25 ml 120 ml 120 ml Output Total 1 ml Balance 120 ml 25 ml 120 ml 119 ml Intake Oral 120 ml 25 ml 120 ml 120 ml Output Urine Total 1 ml # Voids 3 2 1 # Bowel Movements 3 2 3 0 Result Diagram: 09/15/16 1615 09/15/16 0913 Objective Remarks GENERAL: Thin built WF, NAD SKIN: Warm and dry. HEAD: Normocephalic. EYES: No scleral icterus. No injection or drainage. NECK: Supple, trachea midline. No JVD or lymphadenopathy. CARDIOVASCULAR: Regular rate and rhythm without murmurs, gallops, or rubs. RESPIRATORY: Breath sounds equal bilaterally. No accessory muscle use. GASTROINTESTINAL: Abdomen soft, non-tender, nondistended. MUSCULOSKELETAL: No cyanosis, or edema. BACK: Nontender without obvious deformity. No CVA tenderness. A/P Assessment and Plan Pneumonia CHF AF CKD PLAN: Cont Abx Aerosol nebs Monitor Lytes Acapella q 1 hr while awake GI Eval Monitor H/H Available prn over weekend. Nash Dutta MD Sep 15, 2016 18:08
[2016-09-15] MEDS: PRAVASTATIN SOD 80 MG TAB PO SCH (20:12)
[2016-09-15] MEDS: PHENOL 1.4% SOLN 180 ML BTL OROPHARYNG PRN (20:12)
[2016-09-16] VITALS (13 sets, daily range): BP systolic 93–138; BP diastolic 51–76; PULSE 67–132; RESP 15–29; TEMP 95.9–98.8; O2SAT 93–99
[2016-09-16] MEDS: PANTOPRAZOLE SODIUM 40 MG VIAL IV PUSH SCH ×2 (02:29→13:18)
[2016-09-16] MEDS: LEVOTHYROXINE SODIUM 50 MCG TAB PO SCH (05:40)
[2016-09-16] MEDS: RESP: IPRATROPIUM 0.5 MG/2.5 ML NEB NEB PRN ×2 (05:51→09:59)
[2016-09-16] MEDS ORDERED: MENTHOL LOZENGE BUCCAL ONE (06:15)
[2016-09-16] MEDS: NEBIVOLOL 5 MG TAB PO SCH (08:31)
[2016-09-16] MEDS: AMIODARONE 200 MG TAB PO SCH (08:34)
[2016-09-16] MEDS: SODIUM BICARBONATE 650 MG TAB PO SCH ×3 (08:35→17:33)
[2016-09-16] MEDS: DOCUSATE SODIUM 100 MG CAP PO SCH ×2 (08:35→21:00)
[2016-09-16] MEDS: guaiFENesin E.R. 600 MG TAB PO SCH ×2 (08:35→21:28)
[2016-09-16] MEDS: FERROUS SULFATE 325 MG (65 MG ELEMENTAL IRON) TAB PO SCH (08:35)
[2016-09-16] MEDS: CHOLECALCIFEROL (VIT D3) 1000 UNIT TAB PO SCH (08:36)
[2016-09-16] MEDS: guaiFENesin/CODEINE SYRUP 200 MG/20 MG/10 ML CUP PO PRN ×2 (08:37→13:17)
[2016-09-16] MEDS: ACETAMINOPHEN 325 MG TAB PO PRN ×2 (08:38→21:17)
[2016-09-16 08:39] LABS: HEMATOCRIT 21.2 % (35.0-46.0); MEAN CELL VOLUME 94.3 FL (80.0-100.0); MEAN CORPUSCULAR HEMOGLOBIN 31.1 PG (27.0-34.0); PLATELET COUNT 212 TH/MM3 (150-450); RED BLOOD COUNT 2.25 MIL/MM3 (4.00-5.30); RED CELL DISTRIBUTION WIDTH 14.2 % (11.6-17.2); REVIEW FLAG FINAL; WHITE BLOOD COUNT 19.5 TH/MM3 (4.0-11.0)
--- NOTE | 2016-09-16 08:50 | RADRPT ---
EXAM DATE/TIME: 09/16/2016 08:39 [facility] COMPARISON: CHEST SINGLE AP, September 12, 2016, 5:25. INDICATIONS : Shortness of breath and cough. MEDICAL HISTORY : Chronic obstructive pulmonary disease. A-fib SURGICAL HISTORY : None. ENCOUNTER: Subsequent ACUITY: 2 weeks PAIN SCORE: 4/10 LOCATION: Bilateral chest FINDINGS: A single view of the chest demonstrates cardiomegaly with bibasilar densities. Small bilateral pleura l effusions are suspected. Increased pulmonary vascularity and interstitial prominence. The cardiomed iastinal contours are unremarkable. Osseous structures are intact. CONCLUSION: 1. Cardiomegaly with bibasilar densities and suspected small pleural effusions. 2. Increased pulmonary vascularity and interstitial prominence likely CHF. Margarito Woodard MD on September 16, 2016 at 8:47 Board Certified Radiologist. This report was verified electronically.
[2016-09-16 08:55] LABS: BICARBONATE 18.1 MEQ/L (21.0-32.0); MAGNESIUM 1.6 MG/DL (1.5-2.5); POTASSIUM 3.7 MEQ/L (3.5-5.1)
[2016-09-16] MEDS ORDERED: AMIODARONE 200 MG TAB PO SCH (09:00)
[2016-09-16 09:21] LABS: BLOOD GAS BASE EXCESS -6.1 mmol/L (-2-2); BLOOD GAS CARBOXYHEMOGLOBIN 1.6 % (0-4); BLOOD GAS HCO3 17 mmol/L (22-26); BLOOD GAS METHEMOGLOBIN 0.7 % (0-2); BLOOD GAS O2 HGB SATURATION 90 % (90-100); BLOOD GAS OXYGEN CONTENT 11.2 Vol % (12.0-20.0); BLOOD GAS PCO2 23 mmHg (38-42); BLOOD GAS PO2 61 mmHg (61-120); BLOOD GAS TOTAL HGB 8.8 G/DL (12.0-16.0); CRITICAL VALUE YES; TEMP CORR TO 98.6
[2016-09-16 09:22] LABS: DRAW SITE RT RADIAL; FIO2 21 %; NUMBER OF ARTERIAL PUNCTURES 3; OXYGEN DEVICE ROOM AIR; STAT NO; ULNAR PULSE PRESENT
--- NOTE | 2016-09-16 11:38 | HHI.GIFU ---
Subjective Remarks Up in chair, daughter at bedside. States she had a black tarry stool last night. No further n/v. Had some back/flank pain last night, resolved with tylenol. She and her daughter would like to proceed with the enteroscopy. ( Nubia Baird) Objective Vitals I&O Vital Signs Date Time Temp Pulse Resp B/P Pulse Ox O2 Delivery O2 Flow Rate FiO2 09/16/16 10:01 94 Nasal Cannula 2.00 09/16/16 07:37 96.6 132 29 107/57 93 09/16/16 07:20 1.00 09/16/16 06:00 96 Nasal Cannula 1.00 09/16/16 05:54 94 Nasal Cannula 1.00 09/16/16 04:00 97.7 111 18 107/60 93 09/16/16 02:00 97.7 111 15 107/60 93 09/16/16 00:00 98.8 107 18 97/55 94 09/15/16 20:00 95 Room Air 21 09/15/16 20:00 112 09/15/16 20:00 97.8 103 22 112/51 95 09/15/16 16:00 97.0 88 22 102/51 95 09/15/16 12:00 95.8 123 25 105/51 93 I/O 09/15/16 09/15/16 09/15/16 09/16/16 09/16/16 09/16/16 07:00 15:00 23:00 07:00 15:00 23:00 Intake Total 120 ml 240 ml 240 ml 320 ml Output Total 1 ml Balance 119 ml 240 ml 240 ml 320 ml Intake Oral 120 ml 240 ml 240 ml 320 ml Output Urine Total 1 ml # Voids 1 1 2 # Bowel Movements 0 1 1 Laboratory Laboratory Tests Test 09/15/16 09/16/16 09/16/16 16:15 06:57 09:05 White Blood Count 19.1 19.5 Red Blood Count 2.35 2.25 Hemoglobin 7.5 7.0 Hematocrit 22.3 21.2 Mean Corpuscular Volume 94.6 94.3 Mean Corpuscular Hemoglobin 31.8 31.1 Mean Corpuscular Hemoglobin 33.7 33.0 Concent Red Cell Distribution Width 14.1 14.2 Platelet Count 224 212 Mean Platelet Volume 8.4 8.3 Sodium Level 129 Potassium Level 3.7 Chloride Level 98 Carbon Dioxide Level 18.1 Anion Gap 13 Blood Urea Nitrogen 39 Creatinine 1.82 Estimat Glomerular Filtration 26 Rate Random Glucose 91 Calcium Level 7.7 Phosphorus Level 2.3 Magnesium Level 1.6 Blood Gas Puncture Site RT RADIAL Blood Gas Patient Temperature 98.6 Blood Gas HCO3 17 Blood Gas Base Excess -6.1 Blood Gas Oxygen Saturation 90 Arterial Blood pH 7.48 Arterial Blood Partial 23 Pressure CO2 Arterial Blood Partial 61 Pressure O2 Arterial Blood Oxygen Content 11.2 Arterial Blood 1.6 Carboxyhemoglobin Arterial Blood Methemoglobin 0.7 Blood Gas Hemoglobin 8.8 Oxygen Delivery Device ROOM AIR Blood Gas Inspired Oxygen 21 Date/Time Procedure Status Source Growth 09/14/16 20:10 Gram Stain - Final Resulted Sputum Expectorated Sputum 09/14/16 20:10 Sputum Culture - Preliminary Resulted Sputum Expectorated Sputum IMMATURE GROWTH - REINCUBATE 09/14/16 15:30 Stool Occult Blood (RICHARD) - Final Complete Stool Stool HEMOCCULT POSITIVE 09/14/16 05:53 Cancelled Sputum Expectorated Sputum Imaging Last Impressions Chest X-Ray 09/16/16 0000 Signed Impressions: Service Date/Time: Friday, September 16, 2016 08:39 - CONCLUSION: 1. Cardiomegaly with bibasilar densities and suspected small pleural effusions. 2. Increased pulmonary vascularity and interstitial prominence likely CHF. Margarito Woodard MD Chest CT 09/05/16 0000 Signed Impressions: Service Date/Time: Monday, September 05, 2016 03:55 - CONCLUSION: 1. Small and very mild infiltrate in the right upper lobe. No pulmonary mass. 2. Mild panchamber enlargement of the heart. 3. Suspected pulmonary hypertension. 4. Severely atherosclerotic aorta. Jones Lucero MD Physical Exam HEENT: Normocephalic; atraumatic; no jaundice. Hoarse CHEST: CTA CARDIAC: RRR ABDOMEN: Soft, nondistended, nontender; no hepatosplenomegaly; bowel sounds are present in all four quadrants. EXTREMITIES: No clubbing, cyanosis, or edema. SKIN: Normal; no rash; no jaundice. ROW BOSS HOEING: No focal deficits; alert and oriented times three. (Nubia Baird) Assessment and Plan Plan ASSESSMENT: - GIB with melena and coffee ground emesis. Colonoscopy (05/12/16)------> Normal colonoscopy with normal terminal ileum. SBFT (05/12/16)---> Unremarkable small bowel examination, bleeding scan was negative at that time as well. 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 Enteroscopy was recommended but patient had discussed this with PCP and came to Decision not to proceed. Last EGD was in 2009 and that showed esophageal stricture and hiatal hernia. Pt continues to have melena and she and her daughter would now like to proceed with the enteroscopy. - Anemia, acute blood loss. 7.0/21.2. PPI. - GERD/hoarseness-. PPI, Chloraseptic spray - pneumonia, leukocytosis , WBC 19.5 - A-fib on Eliquis , cardiology on the case- Eliquis is on hold. - CKD nephrology on the case - CHF, COPD per attending Plan: - Plan for enteroscopy on Sunday- Cleared for GI procedures at an intermediate risk from a cardiac standpoint. Pt reports that Dr. Mcgarry then came in and told her she needed to have the enteroscopy. She and her daughter would like to proceed and understand she is at a higher risk. - Obtain consents - NPO after MN Sunday - PPI - Monitor HH - Transfuse as needed - Notify GI for active bleeding - Eliquis on hold - Further recommendations to follow based on results of above - Patient seen and examined by Dr. Brand and myself and this note is written on his behalf. (Nubia Baird) Physician Comments Seen and examined with ALRETH, doing well. Still melena. Enteroscopy planned for sunday. Transfuse for Hb. < 7.0. Discussed with daughter by Ms. Baird. ( Miguel Brand MD) Nubia Baird Sep 16, 2016 11:38 Miguel Brand MD Sep 16, 2016 13:01
[2016-09-16] MEDS ORDERED: FUROSEMIDE 40 MG/4 ML VIAL IV PUSH ONE (13:30)
--- NOTE | 2016-09-16 13:40 | HHI.PR ---
Subjective Remarks The patient said she was feeling better. She said she had a pain in her right flank that went away. She said her breathing is better. She says she understands that she needs to get a scope in a few days. She said she still has hoarseness in her voice. Discussed with nursing. Objective Vitals Vital Signs Date Time Temp Pulse Resp B/P Pulse Ox O2 Delivery O2 Flow Rate FiO2 09/16/16 11:10 96.2 67 20 97/51 99 09/16/16 10:01 94 Nasal Cannula 2.00 09/16/16 07:37 96.6 132 29 107/57 93 09/16/16 07:20 1.00 09/16/16 06:00 96 Nasal Cannula 1.00 09/16/16 05:54 94 Nasal Cannula 1.00 09/16/16 04:00 97.7 111 18 107/60 93 09/16/16 02:00 97.7 111 15 107/60 93 09/16/16 00:00 98.8 107 18 97/55 94 09/15/16 20:00 95 Room Air 21 09/15/16 20:00 112 09/15/16 20:00 97.8 103 22 112/51 95 09/15/16 16:00 97.0 88 22 102/51 95 I/O 09/15/16 09/15/16 09/15/16 09/16/16 09/16/16 09/16/16 07:00 15:00 23:00 07:00 15:00 23:00 Intake Total 120 ml 240 ml 240 ml 320 ml Output Total 1 ml Balance 119 ml 240 ml 240 ml 320 ml Intake Oral 120 ml 240 ml 240 ml 320 ml Output Urine Total 1 ml # Voids 1 1 2 # Bowel Movements 0 1 1 Result Diagram: 09/16/16 0657 09/16/16 0657 Imaging Last Impressions Chest X-Ray 09/16/16 0000 Signed Impressions: Service Date/Time: Friday, September 16, 2016 08:39 - CONCLUSION: 1. Cardiomegaly with bibasilar densities and suspected small pleural effusions. 2. Increased pulmonary vascularity and interstitial prominence likely CHF. Margarito Woodard MD Chest CT 09/05/16 0000 Signed Impressions: Service Date/Time: Monday, September 05, 2016 03:55 - CONCLUSION: 1. Small and very mild infiltrate in the right upper lobe. No pulmonary mass. 2. Mild panchamber enlargement of the heart. 3. Suspected pulmonary hypertension. 4. Severely atherosclerotic aorta. Jones Lucero MD Objective Remarks GENERAL: This is a well-nourished, well-developed patient, in no apparent distress, slightly hard of hearing, hoarse voice. SKIN: No rashes, ecchymoses or lesions. Cool and dry. HEAD: Atraumatic. Normocephalic. No temporal or scalp tenderness. EYES: Pupils equal round and reactive. Extraocular motions intact. No scleral icterus. No injection or drainage. ENT: Nose without bleeding, purulent drainage or septal hematoma. Throat without erythema, tonsillar hypertrophy or exudate. Uvula midline. Airway patent. NECK: Trachea midline. No JVD or lymphadenopathy. Supple, nontender, no meningeal signs. CARDIOVASCULAR: Tachycardic, irregularly irregular. No murmur appreciated. RESPIRATORY: Mild wheezing GASTROINTESTINAL: Abdomen soft, non-tender, nondistended. No hepato-splenomegaly , or palpable masses. No guarding. MUSCULOSKELETAL: Extremities without clubbing, cyanosis, or edema. No joint tenderness, effusion, or edema noted. NEUROLOGICAL: Awake and alert. Cranial nerves II through XII intact. Motor and sensory grossly within normal limits. Five out of 5 muscle strength in all muscle groups. Normal speech. PSYCH: Mood and affect appropriate. Procedures None. Medications and IVs Current Medications Medications (Trade) Dose Ordered Sig/Neva Route Start Time Stop Time Status Last Admin (NS Flush) 2 ml UNSCH PRN IVF 09/05/16 01:30 09/05/16 03:45 (NS Flush) 2 ml UNSCH PRN FLUSH 09/05/16 03:45 09/10/16 20:27 (Narcan Inj) 0.4 mg UNSCH PRN IV 09/05/16 03:45 (Eliquis) 2.5 mg BID PO 09/05/16 09:45 Hold 09/15/16 08:34 (Ferrous Sulfate) 325 mg DAILY PO 09/05/16 09:45 09/15/16 08:34 (Synthroid) 50 mcg DAILY@0600 PO 09/05/16 09:45 09/16/16 05:40 (Pravachol) 80 mg HS PO 09/05/16 21:00 09/15/16 20:12 (Colace) 100 mg BID PO 09/05/16 21:00 09/15/16 08:34 (Tylenol) 650 mg Q4H PRN PO 09/05/16 10:00 09/16/16 08:38 (Catapres) 0.1 mg Q6H PRN PO 09/05/16 10:15 (Pill Splitter) 1 ea UNSCH PRN OTHER 09/05/16 10:15 (Mucinex Er) 1,200 mg BID PO 09/06/16 15:00 09/15/16 20:12 (Zofran Inj) 4 mg Q6HR PRN IV PUSH 09/10/16 05:45 09/11/16 06:50 (Sodium Bicarbonate) 650 mg TID PO 09/10/16 18:00 09/16/16 13:18 (Robitussin Ac 200-20 Mg/10 ml Liq) 10 ml Q6H PRN PO 09/12/16 11:15 09/16/16 13:17 (Bystolic) 5 mg DAILY PO 09/14/16 09:00 09/16/16 08:31 (Cordarone) 400 mg DAILY PO 09/14/16 09:00 09/16/16 08:34 (Protonix Inj) 40 mg Q12H IV PUSH 09/14/16 14:00 09/16/16 13:18 (Vitamin D3) 1,000 units DAILY PO 09/15/16 09:00 09/15/16 09:50 (Chloraseptic [place]) 2 spray Q2H PRN OROPHARYNG 09/15/16 14:00 09/15/16 20:12 (Lasix Inj) 40 mg ONCE ONCE IV PUSH 09/16/16 13:30 09/16/16 13:31 UNV A/P Assessment and Plan A fib with RVR Recently admitted for Afib with RVR. HR still elevated at times. - On amiodarone. Digoxin discontinued. - Increased Bystolic from 2.5mg Qday to 5mg Qday. - Change breathing treatments from DuoNeb to ipratropium neb only. - Cardiology plans to load patient up on Amiodarone. - holding anticoagulation in the setting of GIB. GI bleed Hemoccult positive. Had episode of dark stools and coffee ground emesis. On Eliquis which has been discontinued. GI consult appreciated. - follow CBC and transfuse as needed. Will transfuse one unit 09/16/16. - GI consulted appreciated. Pt will be scoped on Sunday. - continue PPI. Pneumonia/ COPD exacerbation CXR and CT scan imaging indicative of a right infiltrate. She was recently hospitalized. Had lactic acid level of 5. Influenza negative. Received cefepime and vanco for pneumonia. Currently not requiring any supplemental O2. S/p steroids. - oxygen and nebs as needed. - incentive spirometry, Acapella. - sputum and blood cultures. NGTD. - pulmonology following. Chronic renal disease/ metabolic acidosis Creatinine is around baseline. Started on bicarbonate on last admission by nephrology. Bicarb level is low and pt appears to be having respiratory compensation. ABG noted. - avoid nephrotoxins. - continue PO sodium bicarbonate. - resume diuresis. - Monitor I's and O's. - follow up with nephrology. Systolic CHF. Echo in May with EF 45-50% and mod-severe MR and severe TR. BNP elevated over 500. CXR 09/16 shows vascular congestion. - Lasix 40 mg IV x 1. - monitor fluid status. Hoarse voice Possibly s/t GERD. - continue PPI. PPX: SCDs. Discharge Planning Awaiting clinical improvement. Zack Romero DO Sep 16, 2016 13:39
[2016-09-16] MEDS: PRAVASTATIN SOD 80 MG TAB PO SCH (21:00)
[2016-09-17] VITALS (9 sets, daily range): BP systolic 91–109; BP diastolic 51–59; PULSE 71–91; RESP 18–22; TEMP 96–98.1; O2SAT 92–94
[2016-09-17] MEDS: PANTOPRAZOLE SODIUM 40 MG VIAL IV PUSH SCH ×2 (03:03→13:22)
[2016-09-17] MEDS: guaiFENesin/CODEINE SYRUP 200 MG/20 MG/10 ML CUP PO PRN ×3 (03:08→17:55)
[2016-09-17] MEDS: LEVOTHYROXINE SODIUM 50 MCG TAB PO SCH (05:54)
[2016-09-17 09:00] LABS: AUTOMATED NEUTROPHIL # 13.7 TH/MM3 (1.8-7.7); BASOPHIL # 0.1 TH/MM3 (0-0.2); BASOPHIL % 0.3 % (0.0-2.0); EOSINOPHIL # 0.1 TH/MM3 (0-0.4); EOSINOPHIL % 0.9 % (0.0-4.0); HEMATOCRIT 27.8 % (35.0-46.0); LYMPH % 2.1 % (9.0-44.0); LYMPHOCYTE # 0.3 TH/MM3 (1.0-4.8); MEAN CELL VOLUME 86.6 FL (80.0-100.0); MEAN CORPUSCULAR HGB CONC 33.4 % (32.0-36.0); MONO % 7.2 % (0.0-8.0); NEUT % 89.5 % (16.0-70.0); PLATELET COUNT 189 TH/MM3 (150-450); RED BLOOD COUNT 3.21 MIL/MM3 (4.00-5.30); RED CELL DISTRIBUTION WIDTH 19.3 % (11.6-17.2); WHITE BLOOD COUNT 15.3 TH/MM3 (4.0-11.0)
[2016-09-17] MEDS: CHOLECALCIFEROL (VIT D3) 1000 UNIT TAB PO SCH (09:00)
[2016-09-17 09:01] LABS: HEMO FLAGS AUTO DIFF
[2016-09-17] MEDS: FERROUS SULFATE 325 MG (65 MG ELEMENTAL IRON) TAB PO SCH (09:03)
[2016-09-17] MEDS: NEBIVOLOL 5 MG TAB PO SCH (09:04)
[2016-09-17] MEDS: SODIUM BICARBONATE 650 MG TAB PO SCH ×3 (09:04→17:57)
[2016-09-17] MEDS: DOCUSATE SODIUM 100 MG CAP PO SCH ×2 (09:05→21:00)
[2016-09-17] MEDS: AMIODARONE 200 MG TAB PO SCH (09:05)
[2016-09-17] MEDS: guaiFENesin E.R. 600 MG TAB PO SCH ×2 (09:05→21:00)
[2016-09-17 09:14] LABS: BICARBONATE 17.9 MEQ/L (21.0-32.0); MAGNESIUM 1.6 MG/DL (1.5-2.5); POTASSIUM 4.1 MEQ/L (3.5-5.1)
[2016-09-17] MEDS: RESP: IPRATROPIUM 0.5 MG/2.5 ML NEB NEB PRN ×3 (09:19→21:08)
[2016-09-17 09:51] LABS: CORRECTED NUCLEATED RBC 1 /100 WBC (0-0); EOSINOPHILS 2 % (0-4); MYELOCYTES 1 % (0-0); NEUTROPHIL # MANUAL DIFF 13.8 TH/MM3 (1.8-7.7); POLYS (SEG NEUTROPHILS) 89 % (16-70); WBC DIFF SAMPLE 100
[2016-09-17 09:53] LABS: TOXIC GRANULATION 1+ (NORMAL)
[2016-09-17 09:54] LABS: PLATELET ESTIMATE SMEAR NORMAL (NORMAL); PLATELET MORPHOLOGY NORMAL (NORMAL); SCAN/DIFF FINAL DIFF MANUAL
--- NOTE | 2016-09-17 15:37 | HHI.PR ---
Subjective Remarks The patient was sitting up in a chair. She says she felt better. She has not noticed any blood in her stools. She was anticipating procedure tomorrow. She said she hopefully find the source of bleeding. She says she is breathing comfortably. She says her daughter certainly come to visit her later today. Discussed with nursing. Objective Vitals Vital Signs Date Time Temp Pulse Resp B/P Pulse Ox O2 Delivery O2 Flow Rate FiO2 09/17/16 11:05 96.0 86 21 108/59 93 09/17/16 09:19 92 Nasal Cannula 2.00 09/17/16 09:10 93 Nasal Cannula 2.00 09/17/16 09:10 79 09/17/16 07:25 97.4 82 22 104/56 93 09/17/16 04:00 98.1 85 20 91/51 94 09/17/16 00:00 97.0 91 18 109/59 94 09/16/16 22:17 20 09/16/16 20:54 98.3 84 20 102/76 96 09/16/16 20:54 Room Air 09/16/16 20:00 96.4 98 20 93/54 93 09/16/16 20:00 Room Air 09/16/16 20:00 96 09/16/16 17:10 96.8 94 20 93/53 98 09/16/16 16:55 96.6 89 20 99/54 98 09/16/16 16:34 95.9 78 20 105/55 97 I/O 09/16/16 09/16/16 09/16/16 09/17/16 09/17/16 09/17/16 07:00 15:00 23:00 07:00 15:00 23:00 Intake Total 320 ml 240 ml 212 ml 230 ml 0 ml Balance 320 ml 240 ml 212 ml 230 ml 0 ml Intake Oral 320 ml 240 ml IV Total 0 ml Packed Cells 212 ml 230 ml # Voids 2 1 2 # Bowel Movements 0 Result Diagram: 09/17/16 0742 09/17/16 0742 Imaging Last Impressions Chest X-Ray 09/16/16 0000 Signed Impressions: Service Date/Time: Friday, September 16, 2016 08:39 - CONCLUSION: 1. Cardiomegaly with bibasilar densities and suspected small pleural effusions. 2. Increased pulmonary vascularity and interstitial prominence likely CHF. Margarito Woodard MD Chest CT 09/05/16 0000 Signed Impressions: Service Date/Time: Monday, September 05, 2016 03:55 - CONCLUSION: 1. Small and very mild infiltrate in the right upper lobe. No pulmonary mass. 2. Mild panchamber enlargement of the heart. 3. Suspected pulmonary hypertension. 4. Severely atherosclerotic aorta. Jones Lucero MD Objective Remarks GENERAL: This is a well-nourished, well-developed patient, in no apparent distress, slightly hard of hearing, hoarse voice. SKIN: No rashes, ecchymoses or lesions. Cool and dry. HEAD: Atraumatic. Normocephalic. No temporal or scalp tenderness. EYES: Pupils equal round and reactive. Extraocular motions intact. No scleral icterus. No injection or drainage. ENT: Nose without bleeding, purulent drainage or septal hematoma. Throat without erythema, tonsillar hypertrophy or exudate. Uvula midline. Airway patent. NECK: Trachea midline. No JVD or lymphadenopathy. Supple, nontender, no meningeal signs. CARDIOVASCULAR: Tachycardic, irregularly irregular. Grade 2 systolic murmur appreciated. RESPIRATORY: Fine crackles at the right base. GASTROINTESTINAL: Abdomen soft, non-tender, nondistended. No hepato-splenomegaly , or palpable masses. No guarding. MUSCULOSKELETAL: Extremities without clubbing, cyanosis, or edema. No joint tenderness, effusion, or edema noted. NEUROLOGICAL: Awake and alert. Cranial nerves II through XII intact. Motor and sensory grossly within normal limits. Five out of 5 muscle strength in all muscle groups. Normal speech. PSYCH: Mood and affect appropriate. Procedures None. Medications and IVs Current Medications Medications (Trade) Dose Ordered Sig/Neva Route Start Time Stop Time Status Last Admin (NS Flush) 2 ml UNSCH PRN IVF 09/05/16 01:30 09/05/16 03:45 (NS Flush) 2 ml UNSCH PRN FLUSH 09/05/16 03:45 09/10/16 20:27 (Narcan Inj) 0.4 mg UNSCH PRN IV 09/05/16 03:45 (Eliquis) 2.5 mg BID PO 09/05/16 09:45 Hold 09/15/16 08:34 (Ferrous Sulfate) 325 mg DAILY PO 09/05/16 09:45 09/17/16 09:03 (Synthroid) 50 mcg DAILY@0600 PO 09/05/16 09:45 09/17/16 05:54 (Pravachol) 80 mg HS PO 09/05/16 21:00 09/15/16 20:12 (Colace) 100 mg BID PO 09/05/16 21:00 09/17/16 09:05 (Tylenol) 650 mg Q4H PRN PO 09/05/16 10:00 09/16/16 21:17 (Catapres) 0.1 mg Q6H PRN PO 09/05/16 10:15 (Pill Splitter) 1 ea UNSCH PRN OTHER 09/05/16 10:15 (Mucinex Er) 1,200 mg BID PO 09/06/16 15:00 09/17/16 09:05 (Zofran Inj) 4 mg Q6HR PRN IV PUSH 09/10/16 05:45 09/11/16 06:50 (Sodium Bicarbonate) 650 mg TID PO 09/10/16 18:00 09/17/16 09:04 (Robitussin Ac 200-20 Mg/10 ml Liq) 10 ml Q6H PRN PO 09/12/16 11:15 09/17/16 09:01 (Bystolic) 5 mg DAILY PO 09/14/16 09:00 09/17/16 09:04 (Cordarone) 400 mg DAILY PO 09/14/16 09:00 09/17/16 09:05 (Protonix Inj) 40 mg Q12H IV PUSH 09/14/16 14:00 09/17/16 13:22 (Vitamin D3) 1,000 units DAILY PO 09/15/16 09:00 09/17/16 09:00 (Chloraseptic [place]) 2 spray Q2H PRN OROPHARYNG 09/15/16 14:00 09/15/16 20:12 A/P Assessment and Plan A fib with RVR Recently admitted for Afib with RVR. HR stable 09/17. - On amiodarone. Digoxin discontinued. - Increased Bystolic from 2.5mg Qday to 5mg Qday. - Change breathing treatments from DuoNeb to ipratropium neb only. - follow up with cardiology. - holding anticoagulation in the setting of GIB. GI bleed Hemoccult positive. Had episode of dark stools and coffee ground emesis. On Eliquis which has been discontinued. GI consult appreciated. Transfused 1 unit with appropriate response. - follow CBC and transfuse as needed. - GI consulted appreciated. Pt will be scoped 09/18. - continue PPI. - hold anticoagulation. Pneumonia/ COPD exacerbation CXR and CT scan imaging indicative of a right infiltrate. She was recently hospitalized. Had lactic acid level of 5. Influenza negative. Received cefepime and vanco for pneumonia. Currently not requiring any supplemental O2. S/p steroids. - oxygen and nebs as needed. - incentive spirometry, Acapella. - sputum and blood cultures. NGTD. - pulmonology following. Chronic renal disease/ metabolic acidosis/ hyponatremia Creatinine is around baseline. Started on bicarbonate on last admission by nephrology. Bicarb level is low and pt appears to be having respiratory compensation. ABG noted. - avoid nephrotoxins. - continue PO sodium bicarbonate. - resume diuresis. - Monitor I's and O's. - follow up with nephrology. - fluid restriction. Systolic CHF. Echo in May with EF 45-50% and mod-severe MR and severe TR. BNP elevated over 500. CXR 09/16 shows vascular congestion. - Lasix as needed. - monitor fluid status. - fluid restriction. Hoarse voice Possibly s/t GERD vs. laryngitis. - continue PPI. PPX: SCDs. Discharge Planning Awaiting clinical improvement. Zack Romero DO Sep 17, 2016 15:37
[2016-09-17] MEDS: PRAVASTATIN SOD 80 MG TAB PO SCH (21:00)
[2016-09-17] MEDS: ACETAMINOPHEN 325 MG TAB PO PRN (21:05)
[2016-09-18] VITALS (9 sets, daily range): BP systolic 91–141; BP diastolic 48–78; PULSE 65–98; RESP 18–22; TEMP 96.3–98.5; O2SAT 92–94
[2016-09-18] MEDS: PANTOPRAZOLE SODIUM 40 MG VIAL IV PUSH SCH ×2 (02:20→14:50)
[2016-09-18] MEDS: PHENOL 1.4% SOLN 180 ML BTL OROPHARYNG PRN (02:24)
[2016-09-18] MEDS: LEVOTHYROXINE SODIUM 50 MCG TAB PO SCH (05:17)
[2016-09-18] MEDS: RESP: IPRATROPIUM 0.5 MG/2.5 ML NEB NEB PRN ×2 (07:34→10:01)
[2016-09-18 07:35] LABS: HEMATOCRIT 27.4 % (35.0-46.0); MEAN CELL VOLUME 86.7 FL (80.0-100.0); MEAN CORPUSCULAR HEMOGLOBIN 29.5 PG (27.0-34.0); PLATELET COUNT 207 TH/MM3 (150-450); RED BLOOD COUNT 3.15 MIL/MM3 (4.00-5.30); RED CELL DISTRIBUTION WIDTH 19.5 % (11.6-17.2); REVIEW FLAG FINAL; WHITE BLOOD COUNT 13.3 TH/MM3 (4.0-11.0)
[2016-09-18 08:30] LABS: BICARBONATE 20.3 MEQ/L (21.0-32.0); MAGNESIUM 1.5 MG/DL (1.5-2.5); POTASSIUM 4.2 MEQ/L (3.5-5.1)
[2016-09-18] MEDS: SODIUM BICARBONATE 650 MG TAB PO SCH ×3 (09:00→18:00)
[2016-09-18] MEDS: CHOLECALCIFEROL (VIT D3) 1000 UNIT TAB PO SCH (09:10)
[2016-09-18] MEDS: FERROUS SULFATE 325 MG (65 MG ELEMENTAL IRON) TAB PO SCH (09:10)
[2016-09-18] MEDS: DOCUSATE SODIUM 100 MG CAP PO SCH ×2 (09:10→22:11)
[2016-09-18] MEDS: NEBIVOLOL 5 MG TAB PO SCH (09:11)
[2016-09-18] MEDS: guaiFENesin E.R. 600 MG TAB PO SCH ×2 (09:11→22:11)
[2016-09-18] MEDS: AMIODARONE 200 MG TAB PO SCH (09:14)
--- NOTE | 2016-09-18 12:19 | HHI.NPPN ---
Subjective Complaints: Shortness of Breath General Problems: [place] Acidosis Renal Failure: Chronic, Acute Interval History She is supposed to be NPO for EGD today, however she is drinking in room during the exam. Sodium is worse today, creatinine is higher. (Berna Godinez ) Review of Systems General Constitutional: Fatigue (Berna Godinez) Ears, Nose, & Throat Ears, Nose & Throat: Sore Throat (Berna Godinez) Respiratory Lungs: SOB, Cough, Sputum (Berna Godinez) Gastrointestinal Gastrointestinal: Nausea & Vomiting (Berna Godinez) Objective Data Data 09/17/16 09/18/16 19:00 07:00 Intake Total 240 ml 50 ml Balance 240 ml 50 ml Intake Oral 240 ml 50 ml IV Total 0 ml # Voids 4 2 # Bowel Movements 0 Vital Signs Date Time Temp Pulse Resp B/P Pulse Ox O2 Delivery O2 Flow Rate FiO2 09/18/16 09:21 92 Nasal Cannula 2.00 09/18/16 08:19 98.5 98 20 100/59 94 09/18/16 07:34 94 Nasal Cannula 2.00 09/18/16 04:00 97.6 65 18 97/55 94 09/18/16 00:00 97.2 67 18 127/78 93 09/17/16 21:10 92 Nasal Cannula 2.00 09/17/16 20:00 89 09/17/16 20:00 96.4 79 18 105/58 92 09/17/16 20:00 92 Nasal Cannula 2.00 09/17/16 17:51 93 Nasal Cannula 2.00 09/17/16 15:05 97.2 71 22 91/52 93 (Berna Godniez) -: 09/18/16 0705 09/18/16 0705 Imaging Last 72 hours Impressions Chest X-Ray 09/16/16 0000 Signed Impressions: Service Date/Time: Friday, September 16, 2016 08:39 - CONCLUSION: 1. Cardiomegaly with bibasilar densities and suspected small pleural effusions. 2. Increased pulmonary vascularity and interstitial prominence likely CHF. Margarito Woodard MD (Berna Godinez) Physical Exam General Appearance: Well Developed, Well Nourished, No Acute Distress, Comfortable, Anxious (Berna Godinez) Throat Throat Exam: Oral Mucosa [place] & Moist Throat Remarks voice hoarseness (Berna Godinez) Pulmonary Resp Exam: Breath Sounds Equal, Crackles, Rhonchi Resp Remarks wheezing (Berna Godinez) Cardiology CV Exam: Good Perfusion, Irregular (Berna Godinez) Gastrointestinal/Abdomen GI Exam: Soft, Non-Tender, Bowel Sounds Present (Berna Godinez) Musculoskeletal MS Exam: Joints Intact, Normal Tone (Berna Godinez) Integumentary Skin Exam: Clear, Warm, Dry, Intact (Berna Godinez) Extremeties Extremities Exam: No Edema, Pedal Pulses Palpable (Berna Godinez) Neurologic Neuro Exam: Alert, Awake, Oriented, Speech Clear, Moving All Extremities ( Berna Godinez) Psychiatric Psych Exam: Appropriate Responses (Berna Godinez) Assessment/Plan Discussed Condition With: Patient Assessment Summary: Anemia of CKD, Hypertension, CKD Stage IV Electrolyte Assessment: Hypocalcemia, Hyponatremia, Metabolic Acidosis Problem List: (1) Chronic kidney disease, stage 4 (severe) Plan: baseline creatinine 1.8-2 renal function is worse today good urine output she has a disorder of bicarbonate secondary to pulmonary disease with respiratory alkalosis. May also have underlying metabolic acidosis. On oral bicarb TID recheck electrolytes in am, replace as needed NPO for EGD today, previously able to tolerate oral fluids renal panel in am avoid IVF and nephrotoxins, medications reviewed (2) Hyponatremia Plan: worse today euvolumic hyponatremia: serum osmolality low, urine sodium normal check uric acid, TSH oral fluid restriction when no longer NPO may consider tolvaptan tomorrow (3) CHF (congestive heart failure) Plan: monitor fluid volume status EF 40-50% (4) Atrial fibrillation Plan: rate controlled, asymptomatic on amiodarone and Bystolic cardiology following AC on hold or EGD (5) Pneumonia Plan: she is on cefepime nebulizers prn, given incentive spirometer with instruction cough/deep breathing encouraged monitor clinically (6) Anemia Plan: transfused one unit PRBC on 09/16 also on oral iron, to have EGD today Eliquis for anticoagulation on hold on protonix, GI following (7) Secondary hyperparathyroidism of renal origin Plan: PTH elevated, continue vitamin D daily (Berna Godinez) Plan patient was seen and examined. Renal function is stable. Hyponatremia is worse. Today she is NPO, will defer Tolvaptan until tomorrow. Monitor. (Mario Mercado MD) Problem Qualifiers (1) Atrial fibrillation: Qualified Code: I48.1 - Persistent atrial fibrillation (2) Pneumonia: Qualified Code: J18.1 - Pneumonia of right middle lobe due to infectious organism Berna Godinez Sep 18, 2016 12:18 Mario Mercado MD Sep 18, 2016 16:46
--- NOTE | 2016-09-18 15:16 | HHI.PR ---
Subjective Remarks The patient was awaiting her GI procedure. She was still having a hoarse voice. She complained of thrush. She denied any further bowel movements. Family at the bedside and her questions were answered. Discussed with nursing. Objective Vitals Vital Signs Date Time Temp Pulse Resp B/P Pulse Ox O2 Delivery O2 Flow Rate FiO2 09/18/16 12:26 97.0 96 22 91/52 92 09/18/16 09:21 92 Nasal Cannula 2.00 09/18/16 08:19 98.5 98 20 100/59 94 09/18/16 07:34 94 Nasal Cannula 2.00 09/18/16 04:00 97.6 65 18 97/55 94 09/18/16 00:00 97.2 67 18 127/78 93 09/17/16 21:10 92 Nasal Cannula 2.00 09/17/16 20:00 89 09/17/16 20:00 96.4 79 18 105/58 92 09/17/16 20:00 92 Nasal Cannula 2.00 09/17/16 17:51 93 Nasal Cannula 2.00 I/O 09/17/16 09/17/16 09/17/16 09/18/16 09/18/16 09/18/16 07:00 15:00 23:00 07:00 15:00 23:00 Intake Total 230 ml 240 ml 50 ml Balance 230 ml 240 ml 50 ml Intake Oral 240 ml 50 ml IV Total 0 ml Packed Cells 230 ml # Voids 4 2 1 # Bowel Movements 0 Result Diagram: 09/18/16 0705 09/18/16 0705 Imaging Last Impressions Chest X-Ray 09/16/16 0000 Signed Impressions: Service Date/Time: Friday, September 16, 2016 08:39 - CONCLUSION: 1. Cardiomegaly with bibasilar densities and suspected small pleural effusions. 2. Increased pulmonary vascularity and interstitial prominence likely CHF. Margarito Woodard MD Chest CT 09/05/16 0000 Signed Impressions: Service Date/Time: Monday, September 05, 2016 03:55 - CONCLUSION: 1. Small and very mild infiltrate in the right upper lobe. No pulmonary mass. 2. Mild panchamber enlargement of the heart. 3. Suspected pulmonary hypertension. 4. Severely atherosclerotic aorta. Jones Lucero MD Objective Remarks GENERAL: This is a well-nourished, well-developed patient, in no apparent distress, slightly hard of hearing, hoarse voice. SKIN: No rashes, ecchymoses or lesions. Cool and dry. HEAD: Atraumatic. Normocephalic. No temporal or scalp tenderness. EYES: Pupils equal round and reactive. Extraocular motions intact. No scleral icterus. No injection or drainage. ENT: Nose without bleeding, purulent drainage or septal hematoma. Throat without erythema, tonsillar hypertrophy or exudate. Uvula midline. Airway patent. NECK: Trachea midline. No JVD or lymphadenopathy. Supple, nontender, no meningeal signs. CARDIOVASCULAR: Tachycardic, irregularly irregular. Grade 2 systolic murmur appreciated. RESPIRATORY: Fine crackles at the right base. GASTROINTESTINAL: Abdomen soft, non-tender, nondistended. No hepato-splenomegaly , or palpable masses. No guarding. MUSCULOSKELETAL: Extremities without clubbing, cyanosis, or edema. No joint tenderness, effusion, or edema noted. NEUROLOGICAL: Awake and alert. Cranial nerves II through XII intact. Motor and sensory grossly within normal limits. Five out of 5 muscle strength in all muscle groups. Normal speech. PSYCH: Mood and affect appropriate. Procedures None. Medications and IVs Current Medications Medications (Trade) Dose Ordered Sig/Neva Route Start Time Stop Time Status Last Admin (NS Flush) 2 ml UNSCH PRN IVF 09/05/16 01:30 09/05/16 03:45 (NS Flush) 2 ml UNSCH PRN FLUSH 09/05/16 03:45 09/10/16 20:27 (Narcan Inj) 0.4 mg UNSCH PRN IV 09/05/16 03:45 (Eliquis) 2.5 mg BID PO 09/05/16 09:45 Hold 09/15/16 08:34 (Ferrous Sulfate) 325 mg DAILY PO 09/05/16 09:45 09/18/16 09:10 (Synthroid) 50 mcg DAILY@0600 PO 09/05/16 09:45 09/18/16 05:17 (Pravachol) 80 mg HS PO 09/05/16 21:00 09/15/16 20:12 (Colace) 100 mg BID PO 09/05/16 21:00 09/18/16 09:10 (Tylenol) 650 mg Q4H PRN PO 09/05/16 10:00 09/17/16 21:05 (Catapres) 0.1 mg Q6H PRN PO 09/05/16 10:15 (Pill Splitter) 1 ea UNSCH PRN OTHER 09/05/16 10:15 (Mucinex Er) 1,200 mg BID PO 09/06/16 15:00 09/18/16 09:11 (Zofran Inj) 4 mg Q6HR PRN IV PUSH 09/10/16 05:45 09/11/16 06:50 (Sodium Bicarbonate) 650 mg TID PO 09/10/16 18:00 09/17/16 09:04 (Robitussin Ac 200-20 Mg/10 ml Liq) 10 ml Q6H PRN PO 09/12/16 11:15 09/17/16 17:55 (Bystolic) 5 mg DAILY PO 09/14/16 09:00 09/18/16 09:11 (Cordarone) 400 mg DAILY PO 09/14/16 09:00 09/18/16 09:14 (Protonix Inj) 40 mg Q12H IV PUSH 09/14/16 14:00 09/18/16 02:20 (Vitamin D3) 1,000 units DAILY PO 09/15/16 09:00 09/18/16 09:10 (Chloraseptic [place]) 2 spray Q2H PRN OROPHARYNG 09/15/16 14:00 09/18/16 02:24 (Mycostatin Liq) 5 ml QID SWISH-SWAL 09/18/16 15:00 A/P Assessment and Plan A fib with RVR Recently admitted for Afib with RVR. HR stable 09/18. - On amiodarone. Digoxin discontinued. - Increased Bystolic from 2.5mg Qday to 5mg Qday. - Change breathing treatments from DuoNeb to ipratropium neb only. - follow up with cardiology. - holding anticoagulation in the setting of GIB. GI bleed Hemoccult positive. Had episode of dark stools and coffee ground emesis. On Eliquis which has been discontinued. GI consult appreciated. Transfused 1 unit with appropriate response. - follow CBC and transfuse as needed. Stable 09/18. - GI consulted appreciated. Pt will be scoped 09/18. - continue PPI. - hold anticoagulation. Pneumonia/ COPD exacerbation CXR and CT scan imaging indicative of a right infiltrate. She was recently hospitalized. Had lactic acid level of 5. Influenza negative. Received cefepime and vanco for pneumonia. Currently not requiring any supplemental O2. S/p steroids. - oxygen and nebs as needed. - incentive spirometry, Acapella. - sputum and blood cultures. NGTD. - pulmonology following. Chronic renal disease/ metabolic acidosis/ hyponatremia Creatinine is around baseline. Started on bicarbonate on last admission by nephrology. Bicarb level is low and pt appears to be having respiratory compensation. ABG noted. - avoid nephrotoxins. - continue PO sodium bicarbonate. - resume diuresis. - Monitor I's and O's. - follow up with nephrology. - fluid restriction. Systolic CHF Echo in May with EF 45-50% and mod-severe MR and severe TR. BNP elevated over 500. CXR 09/16 shows vascular congestion. - Lasix as needed. - monitor fluid status. - fluid restriction. Hyponatremia Hypervolemic. - fluid restriction. - follow BMP. - consider Tolvaptan per nephrology. Hoarse voice Possibly s/t GERD vs. laryngitis. - continue PPI. - ENT consult in AM. PPX: SCDs. Discharge Planning Awaiting clinical improvement. Zack Romero DO Sep 18, 2016 15:16
[2016-09-18] MEDS: NYSTATIN SUSP 500,000 U/5 ML CUP SWISH-SWAL SCH ×3 (15:24→22:18)
--- NOTE | 2016-09-18 15:27 | PD.CARD.PN ---
Subjective Subjective Remarks HR improved, pending EGD today. Still horse. Recurrent thrush. (Nargis Cartwright) Objective Medications Current Medications Medications (Trade) Dose Ordered Sig/Neva Route Start Time Stop Time Status Last Admin (NS Flush) 2 ml UNSCH PRN IVF 09/05/16 01:30 09/05/16 03:45 (NS Flush) 2 ml UNSCH PRN FLUSH 09/05/16 03:45 09/10/16 20:27 (Narcan Inj) 0.4 mg UNSCH PRN IV 09/05/16 03:45 (Eliquis) 2.5 mg BID PO 09/05/16 09:45 Hold 09/15/16 08:34 (Ferrous Sulfate) 325 mg DAILY PO 09/05/16 09:45 09/18/16 09:10 (Synthroid) 50 mcg DAILY@0600 PO 09/05/16 09:45 09/18/16 05:17 (Pravachol) 80 mg HS PO 09/05/16 21:00 09/15/16 20:12 (Colace) 100 mg BID PO 09/05/16 21:00 09/18/16 09:10 (Tylenol) 650 mg Q4H PRN PO 09/05/16 10:00 09/17/16 21:05 (Catapres) 0.1 mg Q6H PRN PO 09/05/16 10:15 (Pill Splitter) 1 ea UNSCH PRN OTHER 09/05/16 10:15 (Mucinex Er) 1,200 mg BID PO 09/06/16 15:00 09/18/16 09:11 (Zofran Inj) 4 mg Q6HR PRN IV PUSH 09/10/16 05:45 09/11/16 06:50 (Sodium Bicarbonate) 650 mg TID PO 09/10/16 18:00 09/17/16 09:04 (Robitussin Ac 200-20 Mg/10 ml Liq) 10 ml Q6H PRN PO 09/12/16 11:15 09/17/16 17:55 (Bystolic) 5 mg DAILY PO 09/14/16 09:00 09/18/16 09:11 (Protonix Inj) 40 mg Q12H IV PUSH 09/14/16 14:00 09/18/16 02:20 (Vitamin D3) 1,000 units DAILY PO 09/15/16 09:00 09/18/16 09:10 (Chloraseptic [place]) 2 spray Q2H PRN OROPHARYNG 09/15/16 14:00 09/18/16 02:24 (Mycostatin Liq) 5 ml QID SWISH-SWAL 09/18/16 15:00 (Cordarone) 200 mg DAILY PO 09/19/16 09:00 UNV Vital Signs / I&O Vital Signs Date Time Temp Pulse Resp B/P Pulse Ox O2 Delivery O2 Flow Rate FiO2 09/18/16 12:26 97.0 96 22 91/52 92 09/18/16 09:21 92 Nasal Cannula 2.00 09/18/16 08:19 98.5 98 20 100/59 94 09/18/16 07:34 94 Nasal Cannula 2.00 09/18/16 04:00 97.6 65 18 97/55 94 09/18/16 00:00 97.2 67 18 127/78 93 09/17/16 21:10 92 Nasal Cannula 2.00 09/17/16 20:00 89 09/17/16 20:00 96.4 79 18 105/58 92 09/17/16 20:00 92 Nasal Cannula 2.00 09/17/16 17:51 93 Nasal Cannula 2.00 I/O 09/17/16 09/17/16 09/17/16 09/18/16 09/18/16 09/18/16 07:00 15:00 23:00 07:00 15:00 23:00 Intake Total 230 ml 240 ml 50 ml Balance 230 ml 240 ml 50 ml Intake Oral 240 ml 50 ml IV Total 0 ml Packed Cells 230 ml # Voids 4 2 1 # Bowel Movements 0 Physical Exam GENERAL: up in chair, family at bedside, horse voice SKIN: Warm and dry. HEAD: Normocephalic. ORAL THRUSH EYES: No scleral icterus. No injection or drainage. NECK: Supple, trachea midline. CARDIOVASCULAR: Irregularly irregular, systolic murmur RESPIRATORY: Breath sounds equal bilaterally. no accessory muscle use, lung clear GASTROINTESTINAL: Abdomen soft, non-tender, nondistended. MUSCULOSKELETAL: No cyanosis, or edema. BACK: Nontender without obvious deformity Laboratory Laboratory Tests Test 09/18/16 07:05 White Blood Count 13.3 TH/MM3 Red Blood Count 3.15 MIL/MM3 Hemoglobin 9.3 GM/DL Hematocrit 27.4 % Mean Corpuscular Volume 86.7 FL Mean Corpuscular Hemoglobin 29.5 PG Mean Corpuscular Hemoglobin 34.0 % Concent Red Cell Distribution Width 19.5 % Platelet Count 207 TH/MM3 Mean Platelet Volume 8.2 FL Sodium Level 123 MEQ/L Potassium Level 4.2 MEQ/L Chloride Level 92 MEQ/L Carbon Dioxide Level 20.3 MEQ/L Anion Gap 11 MEQ/L Blood Urea Nitrogen 41 MG/DL Creatinine 2.32 MG/DL Estimat Glomerular Filtration 20 ML/MIN Rate Random Glucose 82 MG/DL Serum Osmolality 268 MOSM/KG Calcium Level 7.7 MG/DL Magnesium Level 1.5 MG/DL Imaging Last 72 hours Impressions Chest X-Ray 09/16/16 0000 Signed Impressions: Service Date/Time: Sunday, September 16, 2016 08:39 - CONCLUSION: 1. Cardiomegaly with bibasilar densities and suspected small pleural effusions. 2. Increased pulmonary vascularity and interstitial prominence likely CHF. Margarito Woodard MD (Nargis Cartwright) Assessment and Plan Assessment and Plan ASSESSMENT RUL Pneumonia Persistent atrial fibrillation with increased ventricular rate. On Amio and Bystolic. Unable to tolerate multiple CCB and BB due to allergies/side effects. Eliquis on hold for GI bleed and EGD Chronic diastolic CHF Acute on chronic anemia. Now with GI bleed. s/p PRBC x 1. H/H stable. Moderate MR, Moderate TR on echo 04/2016 Renal insufficiency Hyponatremia Slight elevation of troponin. Suspect demand ischemia and CKD. Last stress test 2011 negative Thrush Laryngitis PLAN HR improved. Decrease amio to 200 mg daily Holding Eliquis. Resume per GI Resume Swish and swallow Pending EGD ENT consult Patient seen and evaluated by Dr. Mcgarry (Nargis Cartwright) Assessment and Plan The exam, history, and the medical decision-making described in the above note were completed with the assistance of the mid-level provider. I reviewed and agree with the findings presented. I attest that I had a [id number] encounter with the patient on the same day, and personally performed and documented my assessment and findings in the medical record. HR seems better , pt has some type of vocal cord problem, mouth covered with thrush, consider ENT appointment restart nystatin (Hawk Mcgarry MD) Nargis Cartwright Sep 18, 2016 15:27 Hawk Mcgarry MD Sep 18, 2016 18:37
--- NOTE | 2016-09-18 17:57 | HHI.GIFU ---
GI Follow-up Note Consult Follow-up Subjective: Patient came to gi lab for enteroscopy. No IV acces-IV team called , placed an IV.Patient was brought to procedure room in gi lab, oxygen saturation up and down, unable to get proper readings possible due to cold extremities.After discussing with anesthesia a decision to reschedule Patient in am in OR was made.Discussed with patient, patients nurse and daughter.May need extra breathing therapy Objective: PHYSICAL EXAMINATION: Vitals signs stable No fever Vital Signs Date Time Temp Pulse Resp B/P Pulse Ox O2 Delivery O2 Flow Rate FiO2 09/18/16 16:51 97.0 96 22 91/52 92 09/18/16 16:00 96.3 97 22 141/67 92 09/18/16 12:26 97.0 96 22 91/52 92 HEENT: Pupils round and reactive to light; normocephalic; atraumatic; no jaundice. frail NECK: Neck is supple, no JVD, no lymphadenopathy. CHEST: Chest is clear to auscultation and percussion, productive cough CARDIAC: Regular rate and rhythm with no murmur gallop or rubs. ABDOMEN: Soft, nondistended, nontender; no hepatosplenomegaly; bowel sounds are present in all four quadrants. EXTREMITIES: No clubbing, cyanosis, or edema. SKIN: Normal; no rash; no jaundice. SHOP HELPER: No focal deficits; alert and oriented times three. Available Data (labs, X- Rays, Procedues) : Laboratory Tests Test 09/17/16 09/18/16 07:42 07:05 White Blood Count 15.3 TH/MM3 13.3 TH/MM3 Red Blood Count 3.21 MIL/MM3 3.15 MIL/MM3 Hemoglobin 9.3 GM/DL 9.3 GM/DL Hematocrit 27.8 % 27.4 % Mean Corpuscular Volume 86.6 FL 86.7 FL Mean Corpuscular Hemoglobin 29.0 PG 29.5 PG Mean Corpuscular Hemoglobin 33.4 % 34.0 % Concent Red Cell Distribution Width 19.3 % 19.5 % Platelet Count 189 TH/MM3 207 TH/MM3 Mean Platelet Volume 8.3 FL 8.2 FL Neutrophils (%) (Auto) 89.5 % Lymphocytes (%) (Auto) 2.1 % Monocytes (%) (Auto) 7.2 % Eosinophils (%) (Auto) 0.9 % Basophils (%) (Auto) 0.3 % Neutrophils # (Auto) 13.7 TH/MM3 Lymphocytes # (Auto) 0.3 TH/MM3 Monocytes # (Auto) 1.1 TH/MM3 Eosinophils # (Auto) 0.1 TH/MM3 Basophils # (Auto) 0.1 TH/MM3 CBC Comment AUTO DIFF Differential Total Cells 100 Counted Neutrophils % (Manual) 89 % Lymphocytes % 3 % Monocytes % 5 % Eosinophils % 2 % Neutrophils # (Manual) 13.8 TH/MM3 Myelocytes 1 % Nucleated Red Blood Cells 1 /100 WBC Differential Comment FINAL DIFF MANUAL Toxic Granulation 1+ Platelet Estimate NORMAL Platelet Morphology Comment NORMAL Hematology Comments Sodium Level 127 MEQ/L 123 MEQ/L Potassium Level 4.1 MEQ/L 4.2 MEQ/L Chloride Level 96 MEQ/L 92 MEQ/L Carbon Dioxide Level 17.9 MEQ/L 20.3 MEQ/L Anion Gap 13 MEQ/L 11 MEQ/L Blood Urea Nitrogen 37 MG/DL 41 MG/DL Creatinine 2.12 MG/DL 2.32 MG/DL Estimat Glomerular Filtration 22 ML/MIN 20 ML/MIN Rate Random Glucose 79 MG/DL 82 MG/DL Calcium Level 7.5 MG/DL 7.7 MG/DL Magnesium Level 1.6 MG/DL 1.5 MG/DL Serum Osmolality 268 MOSM/KG ASSESSMENT/PLAN: anemia-abnormal capsule endoscopy stable-no active bleeding Recommendations we will postpone enteroscopy until tomorrow-we will schedule in or resume diet we will reassess in am npo after midnight It was a pleasure seeing Pennie Calvert. Thank you for this consult. Entered by: Barbara Lenug MD Sep 18, 2016 17:57
[2016-09-18] MEDS: PRAVASTATIN SOD 80 MG TAB PO SCH (22:11)
[2016-09-19] VITALS (13 sets, daily range): BP systolic 93–135; BP diastolic 54–69; PULSE 55–108; RESP 18–38; TEMP 96.3–98.3; O2SAT 90–100
[2016-09-19] MEDS: PANTOPRAZOLE SODIUM 40 MG VIAL IV PUSH SCH ×2 (02:00→15:37)
[2016-09-19] MEDS: LEVOTHYROXINE SODIUM 50 MCG TAB PO SCH (05:30)
[2016-09-19] MEDS: RESP: IPRATROPIUM 0.5 MG/2.5 ML NEB NEB PRN (06:28)
[2016-09-19 08:45] LABS: MEAN CELL VOLUME 89.8 FL (80.0-100.0); MEAN CORPUSCULAR HEMOGLOBIN 29.4 PG (27.0-34.0); MEAN CORPUSCULAR HGB CONC 32.7 % (32.0-36.0); PLATELET COUNT 210 TH/MM3 (150-450); RED BLOOD COUNT 3.12 MIL/MM3 (4.00-5.30); REVIEW FLAG FINAL; WHITE BLOOD COUNT 14.5 TH/MM3 (4.0-11.0)
[2016-09-19] MEDS: SODIUM BICARBONATE 650 MG TAB PO SCH ×3 (09:00→18:00)
--- NOTE | 2016-09-19 09:10 | RADRPT ---
EXAM DATE/TIME: 09/19/2016 08:38 [facility] COMPARISON: CHEST SINGLE AP, September 16, 2016, 8:39. INDICATIONS : Shortness of breath and cough. MEDICAL HISTORY : Chronic obstructive pulmonary disease. A-fib. SURGICAL HISTORY : None. ENCOUNTER: Subsequent ACUITY: 2 weeks PAIN SCORE: 0/10 LOCATION: Bilateral chest FINDINGS: A single AP erect portable view of the chest was obtained and again demonstrates mild hazy opacity in the lung bases as well as mild patchy opacity in the lateral right upper lobe. The heart size is mil dly prominent. There is mild blunting of the right costophrenic angle. Atherosclerotic calcifications again noted in the aorta. There are multiple overlying electrocardiogram leads. CONCLUSION: 1. Stable bilateral opacities and small apparent right effusion. 2. Mild cardiomegaly. Zack Baca MD on September 19, 2016 at 9:08 Board Certified Radiologist. This report was verified electronically.
[2016-09-19 09:17] LABS: BICARBONATE 16.8 MEQ/L (21.0-32.0); MAGNESIUM 1.6 MG/DL (1.5-2.5); POTASSIUM 4.2 MEQ/L (3.5-5.1); URIC ACID 5.8 MG/DL (2.6-6.0)
--- NOTE | 2016-09-19 10:24 | HHI.PR ---
Subjective Remarks The patient said her breathing was not any better. She still had a hoarse voice. She was anxious to get her procedure done. She did say she had dinner last night. Family at the bedside and her questions were answered. Discussed with nursing and respiratory therapy. Objective Vitals Vital Signs Date Time Temp Pulse Resp B/P Pulse Ox O2 Delivery O2 Flow Rate FiO2 09/19/16 08:27 96.3 100 22 98/55 90 09/19/16 06:30 91 Nasal Cannula 4.00 09/19/16 04:58 102/54 09/19/16 00:33 97.1 55 22 93/61 93 101/60 Automatic Cuff 09/18/16 22:11 107/57 09/18/16 20:44 96.7 97 18 98/48 94 09/18/16 16:51 97.0 96 22 91/52 92 09/18/16 16:00 96.3 97 22 141/67 92 09/18/16 12:26 97.0 96 22 91/52 92 I/O 09/18/16 09/18/16 09/18/16 09/19/16 09/19/16 09/19/16 07:00 15:00 23:00 07:00 15:00 23:00 Intake Total 50 ml 120 ml Balance 50 ml 120 ml Intake Oral 50 ml 120 ml # Voids 2 1 0 Result Diagram: 09/19/16 0646 09/19/16 0646 Imaging Last Impressions Chest X-Ray 09/19/16 0000 Signed Impressions: Service Date/Time: Monday, September 19, 2016 08:38 - CONCLUSION: 1. Stable bilateral opacities and small apparent right effusion. 2. Mild cardiomegaly. Zack Baca MD Chest CT 09/05/16 0000 Signed Impressions: Service Date/Time: Monday, September 05, 2016 03:55 - CONCLUSION: 1. Small and very mild infiltrate in the right upper lobe. No pulmonary mass. 2. Mild panchamber enlargement of the heart. 3. Suspected pulmonary hypertension. 4. Severely atherosclerotic aorta. Jones Lucero MD Objective Remarks GENERAL: This is a well-nourished, well-developed patient, uncomfortable, slightly hard of hearing, hoarse voice. SKIN: No rashes, ecchymoses or lesions. Cool and dry. HEAD: Atraumatic. Normocephalic. No temporal or scalp tenderness. EYES: Pupils equal round and reactive. Extraocular motions intact. No scleral icterus. No injection or drainage. ENT: Nose without bleeding, purulent drainage or septal hematoma. Throat without erythema, tonsillar hypertrophy or exudate. Uvula midline. Airway patent. NECK: Trachea midline. No JVD or lymphadenopathy. Supple, nontender, no meningeal signs. CARDIOVASCULAR: Tachycardic, irregularly irregular. Grade 2 systolic murmur appreciated. RESPIRATORY: Clear to auscultation bilaterally. GASTROINTESTINAL: Abdomen soft, non-tender, nondistended. No hepato-splenomegaly , or palpable masses. No guarding. MUSCULOSKELETAL: Extremities without clubbing, cyanosis. 1+ LE edema. NEUROLOGICAL: Awake and alert. Cranial nerves II through XII intact. Motor and sensory grossly within normal limits. Five out of 5 muscle strength in all muscle groups. Normal speech. PSYCH: Slightly flattened affect. Procedures None. Medications and IVs Current Medications Medications (Trade) Dose Ordered Sig/Neva Route Start Time Stop Time Status Last Admin (NS Flush) 2 ml UNSCH PRN IVF 09/05/16 01:30 09/05/16 03:45 (NS Flush) 2 ml UNSCH PRN FLUSH 09/05/16 03:45 09/10/16 20:27 (Narcan Inj) 0.4 mg UNSCH PRN IV 09/05/16 03:45 (Eliquis) 2.5 mg BID PO 09/05/16 09:45 Hold 09/15/16 08:34 (Ferrous Sulfate) 325 mg DAILY PO 09/05/16 09:45 09/18/16 09:10 (Synthroid) 50 mcg DAILY@0600 PO 09/05/16 09:45 09/19/16 05:30 (Pravachol) 80 mg HS PO 09/05/16 21:00 09/18/16 22:11 (Colace) 100 mg BID PO 09/05/16 21:00 09/18/16 22:11 (Tylenol) 650 mg Q4H PRN PO 09/05/16 10:00 09/17/16 21:05 (Catapres) 0.1 mg Q6H PRN PO 09/05/16 10:15 (Pill Splitter) 1 ea UNSCH PRN OTHER 09/05/16 10:15 (Mucinex Er) 1,200 mg BID PO 09/06/16 15:00 09/18/16 22:11 (Zofran Inj) 4 mg Q6HR PRN IV PUSH 09/10/16 05:45 09/11/16 06:50 (Sodium Bicarbonate) 650 mg TID PO 09/10/16 18:00 09/17/16 09:04 (Robitussin Ac 200-20 Mg/10 ml Liq) 10 ml Q6H PRN PO 09/12/16 11:15 09/17/16 17:55 (Bystolic) 5 mg DAILY PO 09/14/16 09:00 09/18/16 09:11 (Protonix Inj) 40 mg Q12H IV PUSH 09/14/16 14:00 09/19/16 02:00 (Vitamin D3) 1,000 units DAILY PO 09/15/16 09:00 09/18/16 09:10 (Chloraseptic [place]) 2 spray Q2H PRN OROPHARYNG 09/15/16 14:00 09/18/16 02:24 (Mycostatin Liq) 5 ml QID SWISH-SWAL 09/18/16 15:00 09/18/16 22:18 (Cordarone) 200 mg DAILY PO 09/19/16 09:00 (Lasix Inj) 40 mg ONCE ONCE IV PUSH 09/19/16 11:00 09/19/16 11:01 A/P Assessment and Plan A fib with RVR Recently admitted for Afib with RVR. HR stable 09/19. - On amiodarone 200 mg daily. Digoxin discontinued. - Increased Bystolic from 2.5mg Qday to 5mg Qday. - follow up with cardiology. - holding anticoagulation in the setting of GIB. GI bleed Hemoccult positive. Had episode of dark stools and coffee ground emesis. On Eliquis which has been discontinued. GI consult appreciated. Transfused 1 unit with appropriate response. - follow CBC and transfuse as needed. Stable 09/19. - GI consulted appreciated. Pt supposed to be scoped 09/18 but her oxygen level was not able to be read on the monitors. Tentatively rescheduled for 09/19 pending respiratory status. - continue PPI. - hold anticoagulation. Pneumonia/ COPD exacerbation/ Acute hypoxemic respiratory failure CXR and CT scan imaging indicative of a right infiltrate. She was recently hospitalized. Had lactic acid level of 5. Influenza negative. Received cefepime and vanco for pneumonia. Currently not requiring any supplemental O2. S/p steroids. The pt is still in respiratory distress 09/19. CXR 09/19 stable. - oxygen and nebs as needed. Add back albuterol nebs. - incentive spirometry, Acapella. - sputum and blood cultures. NGTD. - pulmonology following. - recheck ABG. - check a V/Q scan. - Lasix 40 mg IV x 1. Chronic renal disease/ metabolic acidosis/ hyponatremia Creatinine is around baseline. Started on bicarbonate on last admission by nephrology. Bicarb level is low and pt appears to be having respiratory compensation. Hypervolemic hyponatremia worse 09/19. - avoid nephrotoxins. - continue PO sodium bicarbonate. - resume diuresis. - Monitor I's and O's. - follow up with nephrology. - fluid restriction. - consider Tolvaptan per nephrology. Systolic CHF Echo in May with EF 45-50% and mod-severe MR and severe TR. BNP elevated. CXR stable 09/19. - Lasix as needed. Give a dose 09/19. - monitor fluid status. - fluid restriction. Hoarse voice Possibly s/t GERD vs. laryngitis. - continue PPI. - ENT consult in AM. Thrush Resolved with nystatin. - continue nystatin. PPX: SCDs. Discharge Planning Awaiting clinical improvement. Zack Romero DO Sep 19, 2016 10:24
[2016-09-19 10:27] LABS: BLOOD GAS BASE EXCESS -8.1 mmol/L (-2-2); BLOOD GAS CARBOXYHEMOGLOBIN 1.4 % (0-4); BLOOD GAS HCO3 15 mmol/L (22-26); BLOOD GAS METHEMOGLOBIN 0.7 % (0-2); BLOOD GAS O2 HGB SATURATION 91 % (90-100); BLOOD GAS OXYGEN CONTENT 14.9 Vol % (12.0-20.0); BLOOD GAS PCO2 24 mmHg (38-42); BLOOD GAS PO2 68 mmHg (61-120); BLOOD GAS TOTAL HGB 11.7 G/DL (12.0-16.0); TEMP CORR TO 98.6
[2016-09-19 10:29] LABS: CRITICAL VALUE YES; DRAW SITE RT RADIAL; LITER FLOW 3 L/M; NUMBER OF ARTERIAL PUNCTURES 1; OXYGEN DEVICE NASAL CANNULA; STAT NO; ULNAR PULSE PRESENT
[2016-09-19] MEDS: DOCUSATE SODIUM 100 MG CAP PO SCH (10:29)
[2016-09-19] MEDS: FERROUS SULFATE 325 MG (65 MG ELEMENTAL IRON) TAB PO SCH (10:30)
[2016-09-19] MEDS: NEBIVOLOL 5 MG TAB PO SCH (10:30)
[2016-09-19] MEDS: CHOLECALCIFEROL (VIT D3) 1000 UNIT TAB PO SCH (10:31)
[2016-09-19] MEDS: guaiFENesin E.R. 600 MG TAB PO SCH (10:31)
[2016-09-19] MEDS: AMIODARONE 200 MG TAB PO SCH (10:31)
[2016-09-19] MEDS: NYSTATIN SUSP 500,000 U/5 ML CUP SWISH-SWAL SCH ×3 (10:34→18:00)
[2016-09-19] MEDS ORDERED: RESP: ALBUTEROL 1.25 MG/3 ML NEB (PRN) NEB (11:00)
[2016-09-19] MEDS ORDERED: FUROSEMIDE 40 MG/4 ML VIAL IV PUSH ONE (11:00)
--- NOTE | 2016-09-19 11:54 | HHI.GIFU ---
GI Follow-up Note Consult Follow-up Subjective: Patient was brought to or for endoscopy. Due to her respiratory status and medical work-up in progress for this , after discussing with anesthesia we decided to cancel procedure for today and send her back to floor.We will reschedule once medically cleared .Discussed with family Objective: PHYSICAL EXAMINATION: Vitals signs stable No fever Vital Signs Date Time Temp Pulse Resp B/P Pulse Ox O2 Delivery O2 Flow Rate FiO2 09/19/16 08:27 96.3 100 22 98/55 90 09/19/16 06:30 91 Nasal Cannula 4.00 09/19/16 04:58 102/54 HEENT: Pupils round and reactive to light; normocephalic; atraumatic; no jaundice. hoarseness, cough . NECK: Neck is supple, no JVD, no lymphadenopathy. CHEST: Chest is clear to auscultation and percussion, wheezing CARDIAC: Regular rate and rhythm with no murmur gallop or rubs. ABDOMEN: Soft, nondistended, nontender; no hepatosplenomegaly; bowel sounds are present in all four quadrants. EXTREMITIES: No clubbing, cyanosis, or edema. SKIN: Normal; no rash; no jaundice. 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 Available Data (labs, X- Rays, Procedues) : Laboratory Tests Test 09/18/16 09/19/16 09/19/16 07:05 06:46 10:15 White Blood Count 13.3 TH/MM3 14.5 TH/MM3 Red Blood Count 3.15 MIL/MM3 3.12 MIL/MM3 Hemoglobin 9.3 GM/DL 9.2 GM/DL Hematocrit 27.4 % 28.0 % Mean Corpuscular Volume 86.7 FL 89.8 FL Mean Corpuscular Hemoglobin 29.5 PG 29.4 PG Mean Corpuscular Hemoglobin 34.0 % 32.7 % Concent Red Cell Distribution Width 19.5 % 19.0 % Platelet Count 207 TH/MM3 210 TH/MM3 Mean Platelet Volume 8.2 FL 8.0 FL Sodium Level 123 MEQ/L 122 MEQ/L Potassium Level 4.2 MEQ/L 4.2 MEQ/L Chloride Level 92 MEQ/L 90 MEQ/L Carbon Dioxide Level 20.3 MEQ/L 16.8 MEQ/L Anion Gap 11 MEQ/L 15 MEQ/L Blood Urea Nitrogen 41 MG/DL 44 MG/DL Creatinine 2.32 MG/DL 2.49 MG/DL Estimat Glomerular Filtration 20 ML/MIN 18 ML/MIN Rate Random Glucose 82 MG/DL 98 MG/DL Serum Osmolality 268 MOSM/KG Calcium Level 7.7 MG/DL 7.5 MG/DL Magnesium Level 1.5 MG/DL 1.6 MG/DL Uric Acid 5.8 MG/DL Thyroid Stimulating Hormone 2.800 uIU/ML 3rd Gen Blood Gas Puncture Site RT RADIAL Blood Gas Patient Temperature 98.6 Blood Gas HCO3 15 mmol/L Blood Gas Base Excess -8.1 mmol/L Blood Gas Oxygen Saturation 91 % Arterial Blood pH 7.43 Arterial Blood Partial 24 mmHg Pressure CO2 Arterial Blood Partial 68 mmHg Pressure O2 Arterial Blood Oxygen Content 14.9 Vol % Arterial Blood 1.4 % Carboxyhemoglobin Arterial Blood Methemoglobin 0.7 % Blood Gas Hemoglobin 11.7 G/DL Oxygen Delivery Device NASAL CANNULA Blood Gas Liter Flow 3 L/M ASSESSMENT/PLAN: anaemia, abnormal capsule-needs enteroscopy Recommendations resume diet enteroscopy when medically cleared monitor hb/ht transfuse prn It was a pleasure seeing Pennie Calvert. Thank you for this consult. Entered by: Barbara Leung MD Sep 19, 2016 11:54
[2016-09-19] MEDS ORDERED: LORazepam 2 MG/ML VIAL IV PUSH ONE (12:45)
[2016-09-19] MEDS: RESP: ALBUTEROL 1.25 MG/3 ML NEB (SCH) NEB ×3 (13:00→20:47)
[2016-09-19] MEDS ORDERED: TOLVAPTAN 15 MG TAB PO ONE (13:00)
--- NOTE | 2016-09-19 14:36 | PD.CARD.PN ---
Subjective Subjective Remarks The patient desaturated to SpO2 74% on room air when she went down for EGD. Procedure was canceled. She is pending VQ. Lasix given. Objective Vital Signs / I&O Vital Signs Date Time Temp Pulse Resp B/P Pulse Ox O2 Delivery O2 Flow Rate FiO2 09/19/16 13:57 95 Non-Rebreather 100 09/19/16 12:54 97.1 108 22 103/62 97 09/19/16 12:05 95 Venturi Mask 50 09/19/16 08:27 96.3 100 22 98/55 90 09/19/16 06:30 91 Nasal Cannula 4.00 09/19/16 04:58 102/54 09/19/16 00:33 97.1 55 22 93/61 93 101/60 Automatic Cuff 09/18/16 22:11 107/57 09/18/16 20:44 96.7 97 18 98/48 94 09/18/16 16:51 97.0 96 22 91/52 92 09/18/16 16:00 96.3 97 22 141/67 92 I/O 09/18/16 09/18/16 09/18/16 09/19/16 09/19/16 09/19/16 07:00 15:00 23:00 07:00 15:00 23:00 Intake Total 50 ml 120 ml Balance 50 ml 120 ml Intake Oral 50 ml 120 ml # Voids 2 1 0 Physical Exam GENERAL: in bed, non rebreather mask, mild distress, laryngitis SKIN: Warm and dry. HEAD: Normocephalic. ORAL THRUSH EYES: No scleral icterus. No injection or drainage. NECK: Supple, trachea midline. CARDIOVASCULAR: Irregularly irregular, tachycardia, systolic murmur RESPIRATORY: Breath sounds equal bilaterally. no accessory muscle use, lung clear GASTROINTESTINAL: Abdomen soft, non-tender, nondistended. MUSCULOSKELETAL: No cyanosis, 1+ BLE edema BACK: Nontender without obvious deformity Laboratory Laboratory Tests Test 09/19/16 09/19/16 06:46 10:15 White Blood Count 14.5 TH/MM3 Red Blood Count 3.12 MIL/MM3 Hemoglobin 9.2 GM/DL Hematocrit 28.0 % Mean Corpuscular Volume 89.8 FL Mean Corpuscular Hemoglobin 29.4 PG Mean Corpuscular Hemoglobin 32.7 % Concent Red Cell Distribution Width 19.0 % Platelet Count 210 TH/MM3 Mean Platelet Volume 8.0 FL Sodium Level 122 MEQ/L Potassium Level 4.2 MEQ/L Chloride Level 90 MEQ/L Carbon Dioxide Level 16.8 MEQ/L Anion Gap 15 MEQ/L Blood Urea Nitrogen 44 MG/DL Creatinine 2.49 MG/DL Estimat Glomerular Filtration 18 ML/MIN Rate Random Glucose 98 MG/DL Uric Acid 5.8 MG/DL Calcium Level 7.5 MG/DL Magnesium Level 1.6 MG/DL Thyroid Stimulating Hormone 2.800 uIU/ML 3rd Gen Blood Gas Puncture Site RT RADIAL Blood Gas Patient Temperature 98.6 Blood Gas HCO3 15 mmol/L Blood Gas Base Excess -8.1 mmol/L Blood Gas Oxygen Saturation 91 % Arterial Blood pH 7.43 Arterial Blood Partial 24 mmHg Pressure CO2 Arterial Blood Partial 68 mmHg Pressure O2 Arterial Blood Oxygen Content 14.9 Vol % Arterial Blood 1.4 % Carboxyhemoglobin Arterial Blood Methemoglobin 0.7 % Blood Gas Hemoglobin 11.7 G/DL Oxygen Delivery Device NASAL CANNULA Blood Gas Liter Flow 3 L/M Imaging Last 72 hours Impressions Chest X-Ray 09/19/16 0000 Signed Impressions: Service Date/Time: Monday, September 19, 2016 08:38 - CONCLUSION: 1. Stable bilateral opacities and small apparent right effusion. 2. Mild cardiomegaly. Zack Baca MD Assessment and Plan Assessment and Plan ASSESSMENT RUL Pneumonia Respiratory insufficiency Persistent atrial fibrillation with increased ventricular rate. On Amio and Bystolic. Unable to tolerate multiple CCB and BB due to allergies/side effects. Eliquis on hold for GI bleed and EGD Chronic diastolic CHF Acute on chronic anemia. Now with GI bleed. s/p PRBC x 1. H/H stable. Moderate MR, Moderate TR on echo 04/2016 Renal insufficiency Hyponatremia Slight elevation of troponin. Suspect demand ischemia and CKD. Last stress test 2011 negative Thrush Laryngitis PLAN HR improved. Decrease amio to 200 mg daily Holding Eliquis. Resume per GI. 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
[2016-09-19 14:44] LABS: APTT (PATIENT) 30.1 SEC (24.3-30.1); INTERNATIONAL NORMALIZED RATIO 1.1 RATIO; PROTHROMBIN TIME - PATIENT 12.4 SEC (9.8-11.6)
--- NOTE | 2016-09-19 15:32 | HHI.NPPN ---
Subjective Complaints: Shortness of Breath General Problems: Mebatolic Acidosis Renal Failure: Chronic, Acute Interval History She went to have EGD today but apparently became hypoxic therefore the procedure was postponed. Similar situation yesterday. She is on venti mask now, still with voice hoarseness. Renal function is worse. Hyponatremia is also worse today. She is being [place] [facility], monitoring, and treatment. (Berna Godinez) Review of Systems General Constitutional: Fatigue (Berna Godinez) Ears, Nose, & Throat Ears, Nose & Throat: Sore Throat (Berna Godinez) Respiratory Lungs: SOB, Cough, Sputum (Berna Godinez) Gastrointestinal Gastrointestinal: Nausea & Vomiting (Berna Godinez) Objective Data Data 09/18/16 09/19/16 19:00 07:00 Intake Total 120 ml Balance 120 ml Intake Oral 120 ml # Voids 1 0 Vital Signs Date Time Temp Pulse Resp B/P Pulse Ox O2 Delivery O2 Flow Rate FiO2 09/19/16 13:57 95 Non-Rebreather 100 09/19/16 12:54 97.1 108 22 103/62 97 09/19/16 12:05 95 Venturi Mask 50 09/19/16 08:27 96.3 100 22 98/55 90 09/19/16 06:30 91 Nasal Cannula 4.00 09/19/16 04:58 102/54 09/19/16 00:33 97.1 55 22 93/61 93 101/60 Automatic Cuff 09/18/16 22:11 107/57 09/18/16 20:44 96.7 97 18 98/48 94 09/18/16 16:51 97.0 96 22 91/52 92 09/18/16 16:00 96.3 97 22 141/67 92 (Berna Godinez) -: 09/19/16 0646 09/19/16 0646 Imaging Last 72 hours Impressions Chest X-Ray 09/19/16 0000 Signed Impressions: Service Date/Time: Monday, September 19, 2016 08:38 - CONCLUSION: 1. Stable bilateral opacities and small apparent right effusion. 2. Mild cardiomegaly. Zack Baca MD (Berna Godinez) Physical Exam General Appearance: Well Developed, Well Nourished, No Acute Distress, Comfortable, Anxious (Berna Godinez) Throat Throat Exam: Oral Mucosa [place] & Moist Throat Remarks voice hoarseness (Berna Godinez) Pulmonary Resp Exam: Breath Sounds Equal, Crackles, Rhonchi Resp Remarks wheezing (Benra Godinez) Cardiology CV Exam: Good Perfusion, Irregular (Berna Godinez) Gastrointestinal/Abdomen GI Exam: Soft, Non-Tender, Bowel Sounds Present (Berna Godinez) Musculoskeletal MS Exam: Joints Intact, Normal Tone (Berna Godinez) Integumentary Skin Exam: Clear, Warm, Dry, Intact (Berna Godinez) Extremeties Extremities Exam: No Edema, Pedal Pulses Palpable (Berna Godinez) Neurologic Neuro Exam: Alert, Awake, Oriented, Speech Clear, Moving All Extremities ( Berna Godinez) Psychiatric Psych Exam: Appropriate Responses (Berna Godinez) Assessment/Plan Discussed Condition With: Patient Assessment Summary: Anemia of CKD, Hypertension, CKD Stage IV Electrolyte Assessment: Hypocalcemia, Hyponatremia, Metabolic Acidosis Problem List: (1) Chronic kidney disease, stage 4 (severe) Plan: baseline creatinine 1.8-2 renal function is worse today, may be due to 2 days of NPO status good urine output she has a disorder of bicarbonate secondary to pulmonary disease with respiratory alkalosis. May also have underlying metabolic acidosis. On oral bicarb TID recheck electrolytes in am, replace as needed no longer NPO, oral fluids encouraged renal panel in am avoid IVF and nephrotoxins, medications reviewed (2) Hyponatremia Plan: worse today euvolemic hyponatremia tolvaptan given today, follow up sodium level fluid restriction is not required while on tolvaptan, IVF not required either (3) CHF (congestive heart failure) Plan: monitor fluid volume status EF 40-50% (4) Atrial fibrillation Plan: tachycardic today, she is asymptomatic on amiodarone and Bystolic cardiology following AC on hold, heparin gtt ordered (5) Pneumonia Plan: off antibiotics and solumedrol oxygen as needed, RT to assist nebulizers prn, incentive spirometer recommended cough/deep breathing encouraged monitor clinically she is also on Robitussin she has been complaining of hoarseness, ENT has been consulted she has been hypoxic, VQ scan ordered and pending (6) Anemia Plan: Hb stable, she was transfused one unit PRBC on 09/16 also on oral iron, awaiting EGD Eliquis for anticoagulation on hold on Protonix, GI following (7) Secondary hyperparathyroidism of renal origin Plan: PTH elevated, continue vitamin D daily (Berna Godinez) Plan patient was seen and examined. Her condition has declined. Hyponatremia is worse , will treat with Tolvaptan. Renal function is worse as well. Hypoxic. Given Lasix. Overall poor prognosis. (Mario Mercado MD) Problem Qualifiers (1) Atrial fibrillation: Qualified Code: I48.1 - Persistent atrial fibrillation (2) Pneumonia: Qualified Code: J18.1 - Pneumonia of right middle lobe due to infectious organism Berna Godinez Sep 19, 2016 15:32 Mario Mercado MD Sep 19, 2016 17:35
[2016-09-19] MEDS: HEPARIN-D5W INJ 250 ML IV SCH (18:51)
--- NOTE | 2016-09-19 19:03 | HHI.PR ---
Subjective Remarks 89 YOWF with Pneumonia,CHF,AF Has mild wheezing Not able to expactorate No Fever Has hoarseness of voice, Went for EGD, has worsening hypoxia Tr to [facility] On NRB mask started on heparin Objective Vital Signs Vital Signs Date Time Temp Pulse Resp B/P Pulse Ox O2 Delivery O2 Flow Rate FiO2 09/19/16 17:06 97.7 99 38 106/59 100 Manual Cuff/Palpation 09/19/16 13:57 95 Non-Rebreather 100 09/19/16 12:54 97.1 108 22 103/62 97 09/19/16 12:05 95 Venturi Mask 50 09/19/16 08:27 96.3 100 22 98/55 90 09/19/16 06:30 91 Nasal Cannula 4.00 09/19/16 04:58 102/54 09/19/16 00:33 97.1 55 22 93/61 93 101/60 Automatic Cuff 09/18/16 22:11 107/57 09/18/16 20:44 96.7 97 18 98/48 94 I/O 09/18/16 09/18/16 09/18/16 09/19/16 09/19/16 09/19/16 07:00 15:00 23:00 07:00 15:00 23:00 Intake Total 50 ml 120 ml Balance 50 ml 120 ml Intake Oral 50 ml 120 ml # Voids 2 1 0 Result Diagram: 09/19/1646 09/19/16 0646 Objective Remarks GENERAL: Thin built WF, NAD SKIN: Warm and dry. HEAD: Normocephalic. EYES: No scleral icterus. No injection or drainage. NECK: Supple, trachea midline. No JVD or lymphadenopathy. CARDIOVASCULAR: Regular rate and rhythm without murmurs, gallops, or rubs. RESPIRATORY: Breath sounds equal bilaterally. No accessory muscle use. GASTROINTESTINAL: Abdomen soft, non-tender, nondistended. MUSCULOSKELETAL: No cyanosis, or edema. BACK: Nontender without obvious deformity. No CVA tenderness. A/P Assessment and Plan Pneumonia CHF AF CKD Hypoxic resp failure PLAN: Cont Abx Aerosol nebs Monitor Lytes Monitor H/H PRB to keep sat >90% Nash Dutta MD Sep 19, 2016 19:03
--- NOTE | 2016-09-19 19:34 | PD.CONS ---
[facility] Service Critical Care Medicine Consult Requested By Dr. Romero Reason for Consult hypoxia Primary Care Physician Juan R Evans MD History of Present Illness This is an 89-year-old female with past medical history of atrial fibrillation, congestive heart failure, severe tricuspid regurgitation, moderate to severe mitral regurgitation who initially presented to the emergency department on 09/05 with shortness of breath and was found to likely have a healthcare associated pneumonia. Her hospital course is uncomplicated by acute and worsening anemia which was thought to be caused by an upper GI bleed. However, on 2 separate occasions they attempted to perform endoscopy which was required to be canceled for worsening hypoxia. She was transferred to a higher level care in the ICU for worsening hypoxia today which required nonrebreather mask. A review of her medical record demonstrates that she has had worsening acute on chronic renal failure along with worsening hyponatremia. This in the face of known chronic congestive heart failure, and her severe valvular lesions. Heparin drip was started by the hospitalist service prior to consult in the assignment officer service for concerns over pulmonary embolism. She is too unstable this point to go down for VQ scan. I evaluated the patient. On my evaluation, the patient is to altered and somnolent as well as dyspneic to answer any questions or provide any additional history. I did however, talk to her family, 2 of her daughters, eluding her medical decision maker, who state that she has had a very downhill course chronically over the last few months, and then during his hospital stay, has had a very steep decline. We had a long conversation about what the patient would want if she were to continue to get worse. Given her multiple medical comorbidities, including worsening renal failure, her severe valvular lesions, and her new possible GI bleed, I do not think intubation with mechanical ventilation would succeed in getting the patient better to the point of hospital discharge. The family agrees with this assessment, and his elective admit the patient DNR/DNI with the understanding that we would continue aggressive medical management for now. The family also stated that if I thought we were getting to a point where she was suffering, then at my discretion we would transition to a more palliation and comfort measures and give her pain medicine and allow her to be comfortable. Review of Systems ROS Limitations: Clinical Condition Past Family Social History Allergies: Coded Allergies: Atenolol (Verified Allergy, Severe, 09/05/16) LIGHT HEADED/FAINT Cardizem (Verified Allergy, Severe, AIRWAY SWELLING, 09/05/16) AIRWAY OBSTRUCTION Levofloxacin (Verified Allergy, Severe, 09/05/16) Lisinopril (Verified Allergy, Severe, CP, 09/05/16) Phenergan (Verified Allergy, Severe, RASH, 09/05/16) Sulfa (Verified Allergy, Severe, 09/05/16) Toprol Xl (Verified Allergy, Severe, BRADYCARDIA, 09/05/16) Verapamil (Verified Allergy, Severe, Anaphylaxis, 09/05/16) Amoxicillin (Verified Allergy, Mild, 09/05/16) Levaquin (Verified Allergy, Mild, Irritability/Anxiety, 09/05/16) EDOXABAN (Verified Adverse Reaction, Severe, LIGHT HEADED, 09/05/16) Potassium (Verified Adverse Reaction, Severe, CAN'T BREATHE, 09/05/16) Uncoded Allergies: GINGERALE (Adverse Reaction, Severe, VOMITING, 08/24/16) Past Medical History Atrial fibrillation Anemia Arthritis History of colon cancer with chemotherapy in 2000 Congestive heart failure Hypertension Hyperlipidemia Hypothyroidism GERD CKD, unknown stage GI bleeding CVA Kidney stones Past Surgical History History of hip replacement Knee replacement Hysterectomy Reported Medications Please see prior documented history and physical for a complete list of the patient's outpatient home medications Active Ordered Medications See MAR Family History Reviewed in the chart and found to be noncontributory to her acute illness Social History Denies tobacco or alcohol Physical Exam Vital Signs Vital Signs Date Time Temp Pulse Resp B/P Pulse Ox O2 Delivery O2 Flow Rate FiO2 09/19/16 17:06 97.7 99 38 106/59 100 Manual Cuff/Palpation 09/19/16 13:57 95 Non-Rebreather 100 09/19/16 12:54 97.1 108 22 103/62 97 09/19/16 12:05 95 Venturi Mask 50 09/19/16 08:27 96.3 100 22 98/55 90 09/19/16 06:30 91 Nasal Cannula 4.00 09/19/16 04:58 102/54 09/19/16 00:33 97.1 55 22 93/61 93 101/60 Automatic Cuff 09/18/16 22:11 107/57 09/18/16 20:44 96.7 97 18 98/48 94 Physical Exam I evaluated the patient. On my evaluation, the patient is very dyspneic, in distress, on a nonrebreather mask. SPO2 of 94%. Bilateral coarse crackles throughout all lung larios. She has 3+ pitting edema of the lower extremities. I performed a bedside critical care ultrasound which again demonstrated moderate mitral regurgitation, moderate to severe tricuspid regurgitation, severely dilated IVC without evidence of respiratory variation. No pericardial effusion. Laboratory Laboratory Tests Test 09/19/16 09/19/16 09/19/16 06:46 10:15 14:25 White Blood Count 14.5 Red Blood Count 3.12 Hemoglobin 9.2 Hematocrit 28.0 Mean Corpuscular Volume 89.8 Mean Corpuscular Hemoglobin 29.4 Mean Corpuscular Hemoglobin 32.7 Concent Red Cell Distribution Width 19.0 Platelet Count 210 Mean Platelet Volume 8.0 Sodium Level 122 Potassium Level 4.2 Chloride Level 90 Carbon Dioxide Level 16.8 Anion Gap 15 Blood Urea Nitrogen 44 Creatinine 2.49 Estimat Glomerular Filtration 18 Rate Random Glucose 98 Uric Acid 5.8 Calcium Level 7.5 Magnesium Level 1.6 Thyroid Stimulating Hormone 2.800 3rd Gen Blood Gas Puncture Site RT RADIAL Blood Gas Patient Temperature 98.6 Blood Gas HCO3 15 Blood Gas Base Excess -8.1 Blood Gas Oxygen Saturation 91 Arterial Blood pH 7.43 Arterial Blood Partial 24 Pressure CO2 Arterial Blood Partial 68 Pressure O2 Arterial Blood Oxygen Content 14.9 Arterial Blood 1.4 Carboxyhemoglobin Arterial Blood Methemoglobin 0.7 Blood Gas Hemoglobin 11.7 Oxygen Delivery Device NASAL CANNULA Blood Gas Liter Flow 3 Prothrombin Time 12.4 Prothromb Time International 1.1 Ratio Activated Partial 30.1 Thromboplast Time Date/Time Procedure Status Source Growth 09/14/16 20:10 Gram Stain - Final Complete Sputum Expectorated Sputum 09/14/16 20:10 Sputum Culture - Final Complete Sputum Expectorated Sputum HEAVY GROWTH NORMAL RESPIRATORY ERIC Result Diagram: 09/19/16 0646 09/19/1646 Assessment and Plan Assessment and Plan Assessment: This is an 89 year female with multiple chronic medical problems with acute decompensation, including acute on chronic renal failure, acute on chronic heart failure which is likely a combination of diastolic dysfunction with severe valvular lesions, possible GI bleeding, and now acute hypoxic respiratory failure. I do not have much to offer this patient from an overall medical standpoint except that her overall clinical picture including her severely elevated BNP and worsening hyponatremia in the setting of echocardiographic findings of a dilated IVC with [id number] tricuspid regurgitation would suggest that the patient is intravascularly and total body volume overloaded. With her worsening renal function, I'm concerned about forced diuresis, but I think this is the only option left for us. We will pursue forced diuresis with a Bumex infusion and a concentrated albumen infusion. I will additionally give 1 dose of IV Diuril. If this does not improve her clinical situation, I am afraid we may not be able to salvage her multiple acute on chronic medical comorbidities. Active problems: Acute hypoxic respiratory failure Acute intravascular volume overload Plan: --bumex iv bolus 1mg, drip at 0.5mg/hr --q6h bmp,mg --aggressive electrolyte replacement --wean o2 for goal spo2 > 90% --DNR/DNI --500mg iv diuril x 1. --if she continues to clinically decline and has evidence of distress and suffering, we will transition to palliation. This patient remains critically ill with one or more organ systems which are or may become a threat to life. I have spent in excess of 48 minutes discontinuously in the care and management of this patient. This time is exclusive of procedures, and includes, but is not limited to, evaluation of the patient, review of the medical record, discussions with family, consultants, nursing staff, or respiratory therapy, and documentation in the medical record. Code Status DNR/DNI Rex Johnson MD Sep 19, 2016 19:34
[2016-09-19 21:25] LABS: APTT (PATIENT) 29.5 SEC (24.3-30.1)
[2016-09-19 22:40] LABS: BLOOD, URINE NEG (NEG); GLUCOSE,URINE NEG (NEG); KETONE, URINE NEG (NEG); NITRITE,URINE NEG (NEG); SQUAMOUS EPITHELIAL CELL URINE <1 /hpf (0-5); URINE COLOR YELLOW (YELLW/STRAW)
[2016-09-19 22:42] LABS: COMMENT (UR) CATH-CULT NOT IND; CULTURE IF INDICATED CATH CULTURE NOT IND
[2016-09-19] MEDS ORDERED: CHLOROTHIAZIDE SOD 500 MG VIAL IV ONE (23:30)
[2016-09-19] MEDS ORDERED: BUMETANIDE INJ 1 MG/4 ML VIAL IV PUSH ONE (23:30)
[2016-09-19] MEDS ORDERED: BUMETANIDE INJ 100 ML IV SCH (23:45)
[2016-09-20] VITALS (15 sets, daily range): BP systolic 104–120; BP diastolic 55–68; PULSE 91–108; RESP 22–24; TEMP 97.1–98.8; O2SAT 92–100
[2016-09-20] MEDS: ALBUMIN HUMAN 25% 12.5 GM/50 ML BAGP IV SCH ×3 (00:29→15:30)
[2016-09-20 02:08] LABS: BICARBONATE 19.3 MEQ/L (21.0-32.0); MAGNESIUM 1.6 MG/DL (1.5-2.5); POTASSIUM 4.1 MEQ/L (3.5-5.1)
[2016-09-20] MEDS: RESP: ALBUTEROL 1.25 MG/3 ML NEB (SCH) NEB ×4 (03:30→20:52)
[2016-09-20 06:15] LABS: HEMATOCRIT 27.5 % (35.0-46.0); MEAN CELL VOLUME 87.5 FL (80.0-100.0); MEAN CORPUSCULAR HEMOGLOBIN 29.5 PG (27.0-34.0); MEAN CORPUSCULAR HGB CONC 33.7 % (32.0-36.0); PLATELET COUNT 206 TH/MM3 (150-450); RED BLOOD COUNT 3.14 MIL/MM3 (4.00-5.30); RED CELL DISTRIBUTION WIDTH 19.3 % (11.6-17.2); REVIEW FLAG FINAL; WHITE BLOOD COUNT 13.8 TH/MM3 (4.0-11.0)
[2016-09-20 06:35] LABS: BICARBONATE 19.1 MEQ/L (21.0-32.0); MAGNESIUM 1.5 MG/DL (1.5-2.5); POTASSIUM 3.6 MEQ/L (3.5-5.1)
[2016-09-20] MEDS: NYSTATIN SUSP 500,000 U/5 ML CUP SWISH-SWAL SCH ×4 (08:26→21:10)
[2016-09-20] MEDS: SODIUM BICARBONATE 650 MG TAB PO SCH ×3 (08:27→19:14)
[2016-09-20] MEDS: CHOLECALCIFEROL (VIT D3) 1000 UNIT TAB PO SCH (08:27)
[2016-09-20] MEDS: guaiFENesin E.R. 600 MG TAB PO SCH ×3 (08:27→21:10)
[2016-09-20] MEDS: DOCUSATE SODIUM 100 MG CAP PO SCH ×3 (08:27→21:10)
[2016-09-20] MEDS: AMIODARONE 200 MG TAB PO SCH (08:28)
[2016-09-20] MEDS: FERROUS SULFATE 325 MG (65 MG ELEMENTAL IRON) TAB PO SCH (08:28)
[2016-09-20] MEDS: NEBIVOLOL 5 MG TAB PO SCH (09:26)
--- NOTE | 2016-09-20 10:37 | HHI.CCPN ---
Subjective Remarks/Hospital Course This is an 89-year-old female with past medical history of atrial fibrillation, congestive heart failure, severe tricuspid regurgitation, moderate to severe mitral regurgitation who initially presented to the emergency department on 09/05 with shortness of breath and was found to likely have a healthcare associated pneumonia. Her hospital course is uncomplicated by acute and worsening anemia which was thought to be caused by an upper GI bleed. However, on 2 separate occasions they attempted to perform endoscopy which was required to be canceled for worsening hypoxia. She was transferred to a higher level care in the ICU for worsening hypoxia today which required nonrebreather mask. A review of her medical record demonstrates that she has had worsening acute on chronic renal failure along with worsening hyponatremia. This in the face of known chronic congestive heart failure, and her severe valvular lesions. Heparin drip was started by the hospitalist service prior to consult in the family and consumer sciences professor service for concerns over pulmonary embolism. She is too unstable this point to go down for VQ scan. I evaluated the patient. On my evaluation, the patient is to altered and somnolent as well as dyspneic to answer any questions or provide any additional history. I did however, talk to her family, 2 of her daughters, eluding her medical decision maker, who state that she has had a very downhill course chronically over the last few months, and then during his hospital stay, has had a very steep decline. We had a long conversation about what the patient would want if she were to continue to get worse. Given her multiple medical comorbidities, including worsening renal failure, her severe valvular lesions, and her new possible GI bleed, I do not think intubation with mechanical ventilation would succeed in getting the patient better to the point of hospital discharge. The family agrees with this assessment, and his elective admit the patient DNR/DNI with the understanding that we would continue aggressive medical management for now. The family also stated that if I thought we were getting to a point where she was suffering, then at my discretion we would transition to a more palliation and comfort measures and give her pain medicine and allow her to be comfortable. Subjective 09/20: Afebrile. BNP obtained last evening 1110. The patient was placed on Bumex and albumin infusion. The patient was diuresed 1600 cc over 12 hours. The patient was weaned from nonrebreather to O2 at 5 L nasal cannula, currently on 3 L nasal cannula O2 sat 96%. Hyponatremia improving, the patient's following commands, answering questions. Her story status much improved this a.m.. VQ scan and panendoscopy were canceled yesterday secondary to hypoxia. Objective Vital Signs Date Time Temp Pulse Resp B/P Pulse Ox O2 Delivery O2 Flow Rate FiO2 09/20/16 07:27 96 Nasal Cannula 5.00 09/20/16 06:00 108 09/20/16 04:00 98.0 24 104/55 09/19/16 23:00 50 Intake and Output 09/19/16 09/19/16 09/20/16 08:00 16:00 00:00 Intake Total 22 ml Output Total 500 ml Balance -478 ml Result Diagram: 09/20/16 0541 09/20/16 0541 Other Results Laboratory Tests Test 09/19/16 10:15 Blood Gas Puncture Site RT RADIAL Blood Gas Patient Temperature 98.6 Blood Gas HCO3 15 mmol/L (22-26) Blood Gas Base Excess -8.1 mmol/L (-2-2) Blood Gas Oxygen Saturation 91 % (90-100) Arterial Blood pH 7.43 (7.380-7.420) Arterial Blood Partial 24 mmHg (38-42) Pressure CO2 Arterial Blood Partial 68 mmHg Pressure O2 (61-120) Arterial Blood Oxygen Content 14.9 Vol % (12.0-20.0) Arterial Blood 1.4 % (0-4) Carboxyhemoglobin Arterial Blood Methemoglobin 0.7 % (0-2) Blood Gas Hemoglobin 11.7 G/DL (12.0-16.0) Oxygen Delivery Device NASAL CANNULA Blood Gas Liter Flow 3 L/M Objective Remarks GENERAL: Elderly critically ill-appearing female, sitting up in bed, hard of hearing but responsive to questions. SKIN: Warm and dry. Edematous HEAD: Atraumatic. Normocephalic. EYES: Pupils equal and round. No scleral icterus. No injection or drainage. ENT: No nasal bleeding or discharge. Mucous membranes pink and moist. Hard of hearing NECK: Trachea midline. No JVD. CARDIOVASCULAR: Normal rate, regularly irregular. RESPIRATORY: No accessory muscle use. Coarse crackles throughout lung larios. Breath sounds equal bilaterally. GASTROINTESTINAL: Abdomen soft, non-tender, nondistended. No guarding. Normoactive bowel sounds MUSCULOSKELETAL: Extremities without clubbing, cyanosis, or edema. No obvious deformities. NEUROLOGICAL: Awake and alert. RASS 0. Hearing deficit. Follows commands in all 4 extremities. Procedures Urinary Catheter: Yes Becker insert reason: ICU Pt Getting Diuretics Vascular Central Line Catheter: No A/P Assessment and Plan Assessment: This is an 89 year female with multiple chronic medical problems with acute decompensation, including acute on chronic renal failure, acute on chronic heart failure which is likely a combination of diastolic dysfunction with severe valvular lesions, possible GI bleeding, and now acute hypoxic respiratory failure. I do not have much to offer this patient from an overall medical standpoint except that her overall clinical picture including her severely elevated BNP and worsening hyponatremia in the setting of echocardiographic findings of a dilated IVC with [id number] tricuspid regurgitation would suggest that the patient is intravascularly and total body volume overloaded. With her worsening renal function, I'm concerned about forced diuresis, but I think this is the only option left for us. We will pursue forced diuresis with a Bumex infusion and a concentrated albumen infusion. I will additionally give 1 dose of IV Diuril. If this does not improve her clinical situation, I am afraid we may not be able to salvage her multiple acute on chronic medical comorbidities. Active problems: Acute hypoxic respiratory failure Acute intravascular volume overload Congestive heart failure Atrial fibrillation Severe tricuspid regurgitation Moderate to severe mitral regurgitation Chronic anemia CKD stage IV Hypertension Hyponatremia Metabolic encephalopathy Secondary hyperparathyroidism Hypothyroidism HCAP Upper GI bleed Hearing deficit Severe protein calorie malnutrition Possible PE? Possible pulmonary fibrosis Leukocytosis Thrush Plan by systems: Neurologic: -Metabolic encephalopathy secondary to hyponatremia, noted improvement in mental status, following commands -Neurochecks per ICU protocol -Sleep hygiene-maintain stimulation during the day, minimal disruptions at night to minimize ICU delirium occurrence Respiratory: -Hypoxia secondary to fluid overload, secondary to CHF possible pulmonary fibrosis secondary to amiodarone, will continue Bumex infusion 0.5mg/hr, for diuresis -Continue to wean O2 maintain O2 sat greater than 92%, patient currently on 4 L nasal cannula O2 sat -VQ scan cancelled yesterday, O2 saturation much improved today, the patient is required to lay supine for approximately 45 minutes, will attempt at bedside prior to scheduling VQ scan today, to ensure maintenance of O2 saturation. -Pulmonary following- Dr Dutta -Heparin infusing for PE protocol-serial hemoglobins being followed in view of possible upper GI bleed, stable x 3 days Hgb 9.0 -Bronchodilator scheduled every 6hrs, and every 2 hours when necessary Cardiovascular: - Cardiology following-Dr Mcgarry -BNP 1120, follow-up trend BNP -Continued diuresis in the setting of severe tricuspid regurgitation, moderate to severe mitral regurgitation for adequate cardiac optimization -Amiodarone continued, Clonidine PRN forSBP > 160 -Continue pravastatin Renal: -Nephrology following, Dr. Mercado -Tolvaptan per nephrology, albumin discontinued -Continue Bumex 0.5 mg/hour -Monitor hourly output, 1600cc last 12 hours -- Strict I/Os FEN/GI: -Monitor BMP -Improvement and hyponatremia Na 126 -Heart healthy diet, poor consumption, add boost supplements -Follow-up formal speech swallow study, regarding consistency -Protonix, GI prophylaxis -GI following -Avitia endoscopy canceled yesterday, will reconsult after VQ scan today. No hematemesis, melena noted hemoglobin stable at this time -Bowel regimen-Colace, add senna -Zofran for nausea Heme/ID: -Obtain Serial hemoglobin in the setting of possible GI bleed, heparin infusion secondary to PE -Hemoglobin stable, no signs of active bleeding -Continue ferrous sulfate 325/d -Monitor CBC, WBC count 13.5->14.5->13.8 today -Consult ID- appreciate recommendations -Continue nystatin swish and swallow Endocrine: -Continue Synthroid 50 mcgs/daily -Continue vitamin D3 Blood glucose monitoring per ICU protocol -- SSI Prophylaxis: GI Prophylaxis Protonix BID DVT Prophylaxis -- SCDs Heparin infusion Lines: Peripheral IV's Dispo: Level 3 Discussed with BLASTING MACHINE OPERATOR at bedside, and Dr Mercado Physician Laurita Dillon,Laurita Luu MD Sep 20, 2016 10:37
--- NOTE | 2016-09-20 10:38 | MB ---
cc: GERBER ALVAREZ MD DATE OF CONSULTATION 09/20/2016 REASON FOR CONSULTATION This is a 61-year-old female who I have been consulted for hoarseness which has been progressive, as well as her shortness of breath as well as dysphagia with concern for possible vocal cord dysfunction nor paralysis. HISTORY The patient was admitted with a history of atrial fibrillation for which she is on blood thinner, Eliquis and she was to have some GI bleed as well. She is being worked up for this, as well as new-onset pneumonia, shortness of breath and fever. The patient was scheduled to undergo the procedure yesterday, but it was cancelled due to significant shortness of breath with desaturations, as well as hypotensive episodes. [place] [facility] [place] consult was placed to ENT for further evaluation of possible vocal cord issues. The patient is resting in bed with an oxygen mask on. She is somewhat confused and is not responding appropriately. The nurse said that this is pretty typical of her normal mentation since she has had her. PAST MEDICAL HISTORY Significant for: 1. A. Fib 2. Colon cancer for which she has received chemotherapy in 2000 3. Congestive heart failure 4. Hypertension 5. Hyperlipidemia 6. Hypothyroidism 7. Gastroesophageal reflux disease 8. Kidney disease 9. CVA PAST SURGICAL HISTORY Significant for: 1. Hip replacement as well as a knee replacement 2. Hysterectomy ALLERGIES She has multiple drug allergies. Please see the medical record for this. CURRENT MEDICATIONS Please see the MAR. SOCIAL HISTORY The patient does not smoke or drink. REVIEW OF SYSTEMS As per the HPI. PHYSICAL EXAMINATION The patient is resting in bed with a face mask on. She is not oriented, but she is alert. HEENT: Exam reveals an oral cavity and oropharynx reveals significantly dry mucosa with very thick secretions. Flexible laryngoscopy at bedside reveals a very diminished gag reflex with significant thick secretions throughout the pharynx, very dry mucosa. The vocal cords are mobile. They are moving appropriately. There are no lesions or masses noted to the vocal cords. There is no airway obstruction supraglottically or just in the subglottis. No obvious restrictions noted in the airway. No mass lesions. NECK: Exam reveals it is soft to palpation with no lymphadenopathy. ASSESSMENT/PLAN Patient with hoarseness likely related to the significantly dry mucosa, as well as thick secretions. RECOMMENDATIONS Increase hydration with her oxygen, as well as evaluation with speech pathology for her swallowing safety. She has a diminished gag reflex and may be required to be n.p.o. and so she has had her swallowing fully assessed. No further intervention needs to be completed for the vocal cords. Her hoarseness is mostly related to the dry mucosa and as her hydration and pulmonary status improves, her voice should improve as well. Also, she needs to have much more improved oral hygiene. This will also increase with increased humidification to the oxygen, but also the nursing staff will perform some oral hygiene care with her. Thank you for the consultation. Please reconsult if any new questions should arise. Gerber Alvarez AT/AFTABL /7:52 AM /10:29 AM
[2016-09-20 12:22] LABS: APTT (PATIENT) 64.8 SEC (24.3-30.1)
[2016-09-20 12:29] LABS: BICARBONATE 19.8 MEQ/L (21.0-32.0); MAGNESIUM 1.6 MG/DL (1.5-2.5); POTASSIUM 3.4 MEQ/L (3.5-5.1)
--- NOTE | 2016-09-20 13:06 | HHI.NPPN ---
Subjective Complaints: Shortness of Breath General Problems: Mebat[place] Acidosis Renal Failure: Chronic, Acute Interval History She was transferred to [facility] [place]. Bumex gtt was started. VQ scan was not completed due to hypoxia. She has been evaluated by ENT. (Berna Godinez) Review of Systems General Constitutional: Fatigue (Berna Godinez) Ears, Nose, & Throat Ears, Nose & Throat: Sore Throat, Hoarse, Congestion (Berna Godinez) Respiratory Lungs: SOB, Cough, Sputum (Berna Godinez) Gastrointestinal Gastrointestinal: Nausea & Vomiting (Berna Godinez) Objective Data Data 09/19/16 09/20/16 19:00 07:00 Intake Total 200 ml Output Total 2100 ml Balance -1900 ml IV Total 200 ml Output Urine Total 2100 ml Vital Signs Date Time Temp Pulse Resp B/P Pulse Ox O2 Delivery O2 Flow Rate FiO2 09/20/16 08:00 103 09/20/16 07:27 96 Nasal Cannula 5.00 09/20/16 07:00 98 Nasal Cannula 5.00 09/20/16 06:00 108 09/20/16 04:00 91 09/20/16 04:00 98.0 108 24 104/55 92 09/20/16 02:00 108 09/20/16 00:00 55 Non-Rebreather 5.00 09/20/16 00:00 97.1 103 22 115/62 97 09/20/16 00:00 98 09/19/16 23:00 96 Venturi Mask 50 09/19/16 22:00 55 Non-Rebreather 5.00 09/19/16 22:00 99 09/19/16 21:10 Venturi Mask 50 09/19/16 20:50 100 Non-Rebreather 12.00 09/19/16 20:00 55 Non-Rebreather 5.00 09/19/16 20:00 98.3 96 18 135/69 94 09/19/16 20:00 95 09/19/16 20:00 89 Non-Rebreather 5.00 09/19/16 20:00 89 Non-Rebreather 15.00 09/19/16 17:06 97.7 99 38 106/59 100 Manual Cuff/Palpation 09/19/16 13:57 95 Non-Rebreather 100 (Berna Godinez) -: 09/20/16 0541 09/20/16 1130 Imaging Last 72 hours Impressions Chest X-Ray 09/19/16 0000 Signed Impressions: Service Date/Time: Monday, September 19, 2016 08:38 - CONCLUSION: 1. Stable bilateral opacities and small apparent right effusion. 2. Mild cardiomegaly. Zack Baca MD Tubes & Lines: Becker Drip Comment Bumex (Berna GodinezP) Physical Exam General Appearance: Well Developed, Well Nourished, No Acute Distress, Comfortable, Anxious (Berna Godinez) Throat Throat Exam: Oral Mucosa [place] & Moist Throat Remarks voice hoarseness (Berna GodinezP) Pulmonary Resp Exam: Breath Sounds Equal, Crackles, Rhonchi Resp Remarks wheezing (Berna Godinez) Cardiology CV Exam: Good Perfusion, Irregular (Berna GodinezP) Gastrointestinal/Abdomen GI Exam: Soft, Non-Tender, Bowel Sounds Present (Berna Godinez) Musculoskeletal MS Exam: Joints Intact, Normal Tone (Berna Godinez) Integumentary Skin Exam: Clear, Warm, Dry, Intact (Berna GodinezP) Extremeties Extremities Exam: No Edema, Pedal Pulses Palpable (Berna Godinez BAmira NANCEP) Neurologic Neuro Exam: Alert, Awake, Oriented, Speech Clear, Moving All Extremities ( Berna GodinezP) Psychiatric Psych Exam: Appropriate Responses (Berna Godinez) Assessment/Plan Discussed Condition With: Patient Assessment Summary: Anemia of CKD, Hypertension, CKD Stage IV Electrolyte Assessment: Hypocalcemia, Hyponatremia, Metabolic Acidosis Problem List: (1) Chronic kidney disease, stage 4 (severe) Plan: baseline creatinine 1.8-2 renal function is worse today, she is having good urine output with diuretics, but demonstrating fluid overload on Bumex gtt at 0.5 mg/hr, continue she has a disorder of bicarbonate secondary to pulmonary disease with respiratory alkalosis. May also have underlying metabolic acidosis. continue On oral bicarb TID monitor electrolytes and replace as needed oral fluids encouraged by ENT avoid IVF and nephrotoxins, medications reviewed renal panel in am she has been made a DNR, would not do well on dialysis; the family has decided that if conservative treatment fails, palliative care/hospice may be appropriate D/W Dr. Dillon (2) Hyponatremia Plan: improved, euvolemic hyponatremia tolvaptan given yesterday, repeat dosage today fluid restriction is not required while on tolvaptan, IVF not required either (3) CHF (congestive heart failure) Plan: monitor fluid volume status EF 40-50% (4) Atrial fibrillation Plan: persistent tachycardia, she is asymptomatic but anxious on amiodarone and Bystolic cardiology following AC on hold, on heparin gtt (5) Pneumonia Plan: off antibiotics and solumedrol oxygen as needed, RT to assist nebulizers prn, incentive spirometer recommended cough/deep breathing encouraged monitor clinically she is also on Robitussin she has been complaining of hoarseness, ENT recommends humidified oxygen, oral care, increased oral fluids she has been hypoxic, VQ scan pending (6) Anemia Plan: Hb stable, she was transfused one unit PRBC on 09/16 also on oral iron, awaiting EGD Eliquis for anticoagulation on hold on Protonix, GI following (7) Secondary hyperparathyroidism of renal origin Plan: PTH elevated, continue vitamin D daily (Berna Godinez) Plan patient was seen and examined. Agree with above assessment and plan. Discussed with Dr. Dillon. On Bumex drip. Another dose of Tolvaptan today. (Mario Mercado MD) Problem Qualifiers (1) Atrial fibrillation: Qualified Code: I48.1 - Persistent atrial fibrillation (2) Pneumonia: Qualified Code: J18.1 - Pneumonia of right middle lobe due to infectious organism Berna Godinez Sep 20, 2016 13:06 Mario Mercado MD Sep 20, 2016 22:01
--- NOTE | 2016-09-20 13:21 | RADRPT ---
EXAM DATE/TIME: 09/20/2016 12:51 [place] COMPARISON: CHEST SINGLE AP, September 19, 2016, 8:38. INDICATIONS : Shortness of breath for 1 day. Abnormal chest x-ray with bibasilar opacities.. DOSE: 8.7 mCi Tc99m MAA IV 0.72 mCi Tc99m DTPA aerosol MEDICAL HISTORY : Chronic obstructive pulmonary disease. Congestive heart failure. Carcinoma, rectal. Atrial fibrillati on. SURGICAL HISTORY : Cholecystectomy. Hysterectomy. Right leg. ENCOUNTER: Initial ACUITY: 1 day PAIN SCALE: 5/10 LOCATION: Bilateral chest TECHNIQUE: Following five minutes of tidal breathing of DTPA aerosol, planar images of the lungs were performed in eight projections. The patient was then injected with MAA, and eight-view perfusion scan was perf ormed. FINDINGS: The heat treater head chest x-ray exam demonstrates patchy bibasilar opacities and possible small right effus ion. There is a diffusely inhomogeneous pattern of aerosol delivery to the periphery of both lungs. There are multiple focal areas of increased activity with multiple bilateral ventilatory defects. The perfusion lung scan demonstrates a mildly inhomogeneous pattern of uptake in both lungs. No segm ental or subsegmental defects are seen. CONCLUSION: Low probability for pulmonary embolism. Zack Baca MD on September 20, 2016 at 13:15 Board Certified Radiologist. This report was verified electronically.
[2016-09-20] MEDS ORDERED: TOLVAPTAN 15 MG TAB PO ONE (14:00)
--- NOTE | 2016-09-20 14:17 | HHI.GIFU ---
Subjective Remarks Tx to unit yesterday for respiratory issues. States she is breathing a little better today, off nonrebreather/on nasal cannula Still quite hoarse. Going for VQ scan today. (Nubia Baird) Objective Vitals I&O Vital Signs Date Time Temp Pulse Resp B/P Pulse Ox O2 Delivery O2 Flow Rate FiO2 09/20/16 13:39 98.0 108 24 116/56 100 09/20/16 08:00 103 09/20/16 07:27 96 Nasal Cannula 5.00 09/20/16 07:00 98 Nasal Cannula 5.00 09/20/16 06:00 108 09/20/16 04:00 91 09/20/16 04:00 98.0 108 24 104/55 92 09/20/16 02:00 108 09/20/16 00:00 55 Non-Rebreather 5.00 09/20/16 00:00 97.1 103 22 115/62 97 09/20/16 00:00 98 09/19/16 23:00 96 Venturi Mask 50 09/19/16 22:00 55 Non-Rebreather 5.00 09/19/16 22:00 99 09/19/16 21:10 Venturi Mask 50 09/19/16 20:50 100 Non-Rebreather 12.00 09/19/16 20:00 55 Non-Rebreather 5.00 09/19/16 20:00 98.3 96 18 135/69 94 09/19/16 20:00 95 09/19/16 20:00 89 Non-Rebreather 5.00 09/19/16 20:00 89 Non-Rebreather 15.00 09/19/16 17:06 97.7 99 38 106/59 100 Manual Cuff/Palpation I/O 09/19/16 09/19/16 09/19/16 09/20/16 09/20/16 09/20/16 07:00 15:00 23:00 07:00 15:00 23:00 Intake Total 22 ml 178 ml Output Total 500 ml 1600 ml Balance -478 ml -1422 ml IV Total 22 ml 178 ml Output Urine Total 500 ml 1600 ml Laboratory Laboratory Tests Test 09/19/16 09/19/16 09/19/16 09/19/16 14:25 17:40 20:59 22:20 Prothrombin Time 12.4 Prothromb Time International 1.1 Ratio Activated Partial 30.1 29.5 Thromboplast Time Nasal Screen MRSA (PCR) NEGATIVE B-Type Natriuretic Peptide 1110 Urine Color YELLOW Urine Turbidity HAZY Urine pH 5.0 Urine Specific [place] 1.013 Urine Protein TRACE Urine Glucose (UA) NEG Urine Ketones NEG Urine Occult Blood NEG Urine Nitrite NEG Urine Bilirubin NEG Urine Urobilinogen LESS THAN 2.0 Urine Leukocyte Esterase NEG Urine Squamous Epithelial <1 Cells Microscopic Urinalysis Comment CATH-CULT NOT IND Urine Osmolality 319 Test 09/20/16 09/20/16 09/20/16 09/20/16 01:39 01:42 05:41 11:30 Sodium Level 125 126 126 Potassium Level 4.1 3.6 3.4 Chloride Level 93 92 92 Carbon Dioxide Level 19.3 19.1 19.8 Anion Gap 13 15 14 Blood Urea Nitrogen 48 48 48 Creatinine 2.52 2.60 2.72 Estimat Glomerular Filtration 18 17 16 Rate Random Glucose 82 89 123 Calcium Level 7.7 7.7 7.7 Magnesium Level 1.6 1.5 1.6 Activated Partial 64.8 Thromboplast Time White Blood Count 13.8 Red Blood Count 3.14 Hemoglobin 9.3 Hematocrit 27.5 Mean Corpuscular Volume 87.5 Mean Corpuscular Hemoglobin 29.5 Mean Corpuscular Hemoglobin 33.7 Concent Red Cell Distribution Width 19.3 Platelet Count 206 Mean Platelet Volume 8.0 Phosphorus Level 3.6 B-Type Natriuretic Peptide 971 Imaging Last Impressions Lung Scan-V Nuclear Medicine 09/20/16 0000 Signed Impressions: Service Date/Time: Tuesday, September 20, 2016 12:51 - CONCLUSION: Low probability for pulmonary embolism. Zack Baca MD Chest X-Ray 09/19/16 0000 Signed Impressions: Service Date/Time: Monday, September 19, 2016 08:38 - CONCLUSION: 1. Stable bilateral opacities and small apparent right effusion. 2. Mild cardiomegaly. Zack Baca MD Chest CT 09/05/16 0000 Signed Impressions: Service Date/Time: Monday, September 05, 2016 03:55 - CONCLUSION: 1. Small and very mild infiltrate in the right upper lobe. No pulmonary mass. 2. Mild panchamber enlargement of the heart. 3. Suspected pulmonary hypertension. 4. Severely atherosclerotic aorta. Jones Lucero MD Physical Exam HEENT: Normocephalic; atraumatic; no jaundice. Hoarse CHEST: CTA CARDIAC: RRR ABDOMEN: Soft, nondistended, nontender; no hepatosplenomegaly; bowel sounds are present in all four quadrants. EXTREMITIES: No clubbing, cyanosis, or edema. SKIN: Normal; no rash; no jaundice. FOLEY ARTIST: No focal deficits; alert and oriented times three. (Nubia Baird) Assessment and Plan Plan ASSESSMENT: - GIB with melena and coffee ground emesis. Colonoscopy (05/12/16)------> Normal colonoscopy with normal terminal ileum. SBFT (05/12/16)---> Unremarkable small bowel examination, bleeding scan was negative at that time as well. 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 Enteroscopy was recommended but patient had discussed this with PCP and came to Decision not to proceed. Last EGD was in 2009 and that showed esophageal stricture and hiatal hernia. Pt continues to have melena and she and her daughter would now like to proceed with the enteroscopy. This was held yesterday secondary to respiratory issues. Pt doing better today, off NRB and on N/C. VQ Scan low probability for PE. - Anemia, acute blood loss. 9.3/27.5. PPI. - GERD/hoarseness-. PPI, Chloraseptic spray - pneumonia, leukocytosis , WBC 13.8 - A-fib on Eliquis , cardiology on the case- Eliquis is on hold. - CKD nephrology on the case - CHF, COPD per attending Plan: - Possible enteroscopy in am, depending on respiratory status - Will make NPO after MN just in case - Obtain consents - PPI - Monitor HH - Transfuse as needed - Notify GI for active bleeding - Eliquis on hold - Further recommendations to follow based on results of above - Patient seen and examined by Dr. Guy and myself and this note is written on her behalf. (Nubia Baird) Physician Comments seen, examined agree with above (Barbara Guy MD) Nubia Baird Sep 20, 2016 14:16 Barbara Guy MD Sep 20, 2016 15:46
--- NOTE | 2016-09-20 14:49 | PD.CONS ---
Consult Service Palliative Care Consult Requested By Dr. Dillon. Primary Care Physician Juan R Evans MD Reason for Consultation a. To assist with evaluation and management of symptoms including: Debility , pain and shortness of breath. b. To assist medical decision maker(s) with: better understanding of current medical conditions; weighing benefits/burdens of medical treatment options; making medical treatment decisions. (Keya Meléndez) HPI History of Present Illness Mrs. Calvert is an 89-year-old female with a medical history of COPD, atrial fibrillation and heart failure who presented to the ED on 09/05/16 secondary to increasing shortness of breath, productive cough and associated chest pain. He did workup included chest x-ray and CT scan indicating right infiltrate. Lactic acid 3.1. Patient was admitted for further management of hospital- acquired pneumonia, A. fib with RVR, and chronic renal disease. Patient was started on antibiotic treatment. Review of prior medical history. Patient recently discharged on 08/29/16 from a hospitalizations secondary to shortness of breath, atrial fib with RVR and CHF. 3 acute hospitalizations in 2016 to include end of May for A. fib and TIA , beginning of May for GI bleed in September for CHF. Cardiology -Dr. Arechiga consulted on 09-22 secondary to A. fib with RVR, she continue medical management with Eliquis, amiodarone and digitoxin. Nephrology Dr. Tavares consulted on 09/10/16 secondary to decreased bicarbonate level, metabolic acidosis secondary to her chronic kidney disease. Pulmonology Dr. Dutta following for pneumonia. GI -Dr. Rivera consulted on 09/14/16 secondary to coffee-ground emesis, patient was previously seen by GI in May 2016 secondary to GI bleed. Normal colonoscopy in May 2016. Enteroscopy was recommended but patient had discussed this with PCP and came to Decision not to proceed. Last EGD was in 2009 showed esophageal stricture and hiatal hernia. On 09/19/16, patient was brought to the OR for endoscopy but he was canceled secondary to respiratory condition, worsening hypoxia. She was placed on a rebreather mask. She was transfer to ICU for further management of worsening hypoxia, worsening acute on chronic renal failure and hyponatremia. Heparin drip was started secondary to concerns over PE. Patient was deemed too unstable for VQ scan. ENT -Dr. Chaz consulted secondary to progressive hoarseness, dysphagia and shortness of breath. Increase hydration with her oxygen was recommended as well as evaluation by speech therapy. Renal replacement therapy not recommended by nephrology secondary to patient's worsening clinical condition. Patient remains in ICU in guarded condition. After discussion with child development assistant, family has agreed to conservative treatment. Palliative care has been consulted to assist with further clarifications of goals of care given patient's progressive decline. VQ scan 09/20/16 with low probability for PE. Chest x-ray 09/19/16 showing stable bilateral opacities and small right effusion, as well as cardiomegaly. Lab today to include WBC 13.8, Hgb 9.3, and platelet count 206. Sodium 126, potassium 3.4, BUN/creatinine 48/272. BNP 971. Negative blood, nasal lash, sputum, and stool cultures thus far. Patient seen in ICU, he was laying in bed in no acute distress. Very soft voice , denies pain, nausea vomiting or abdominal discomfort. Endorsing shortness of breath but unable to elaborate on details. Patient verbal but not always able to communicate needs secondary to weakness and shortness of breath. Limited speech, only able to verbalize 2-3 words at a time secondary to shortness of breath. On O2 via nasal cannula. Coughing, nonproductive. No family at bedside. Telephone call to patient's daughter Rosalind Villegas. Left message on voicemail to schedule a meeting. Palliative care to follow-up. Patient's daughter returned my phone call. She reports that although 3 sisters are also flying in, like to participate in goals of care conversation. Daughter to call me tomorrow afternoon to set up time for palliative care meeting. . Function/Cognitive Trajectory Residing independently prior to his hospitalization, however daughter assisting at home. Independent with all ADLs. Using front wheel walker. Was receiving home health care after recent hospitalization and discharge on August 29, 2016. . (Keya Meléndez) Review of Systems ROS Limitations: Hearing Impaired Constitutional: COMPLAINS OF: Change in appetite Endocrine: DENIES: Heat/cold intolerance Eyes: COMPLAINS OF: Vision loss Ears, nose, mouth, throat: COMPLAINS OF: Hearing loss, Hoarseness Respiratory: COMPLAINS OF: Cough, Sputum production, Shortness of breath Cardiovascular: COMPLAINS OF: Dyspnea on Exertion Gastrointestinal: DENIES: Abdominal pain, Constipation, Diarrhea, Nausea, Vomiting Musculoskeletal: DENIES: Back pain Integumentary: DENIES: Abnormal pigmentation Hematologic/Lymphatics: COMPLAINS OF: Bruising Immunologic/Allergic: DENIES: Eczema Neurologic: COMPLAINS OF: Poor Balance Psychiatric: DENIES: Anxiety, Depression (Keya Meléndez) Past Family Social History Coded Allergies: Atenolol (Verified Allergy, Severe, 09/05/16) LIGHT HEADED/FAINT Cardizem (Verified Allergy, Severe, AIRWAY SWELLING, 09/05/16) AIRWAY OBSTRUCTION Levofloxacin (Verified Allergy, Severe, 09/05/16) Lisinopril (Verified Allergy, Severe, CP, 09/05/16) Phenergan (Verified Allergy, Severe, RASH, 09/05/16) Sulfa (Verified Allergy, Severe, 09/05/16) Toprol Xl (Verified Allergy, Severe, BRADYCARDIA, 09/05/16) Verapamil (Verified Allergy, Severe, Anaphylaxis, 09/05/16) Amoxicillin (Verified Allergy, Mild, 09/05/16) Levaquin (Verified Allergy, Mild, Irritability/Anxiety, 09/05/16) EDOXABAN (Verified Adverse Reaction, Severe, LIGHT HEADED, 09/05/16) Potassium (Verified Adverse Reaction, Severe, CAN'T BREATHE, 09/05/16) Uncoded Allergies: GINGERALE (Adverse Reaction, Severe, VOMITING, 08/24/16) Past Medical History A fib Anemia Arthritis History of colon cancer with chemotherapy in 2000 Congestive heart failure Hypertension Hyperlipidemia Hypothyroidism Gastroesophageal reflux disease Chronic kidney disease GI bleed CVA Kidney stones AVMs . Past Surgical History History of hip replacement Knee replacement Hysterectomy EGD/colonoscopy . Reported Medications Amiodarone 200 mg by mouth daily Digoxin 0.125 mg by mouth daily Sodium bicarbonate 650 MG by mouth every 12 hours Eliquis 2.5 mg by mouth twice a day Ferrous sulfate 325 mg by mouth daily Lasix 20 mg by mouth daily Omeprazole 20 mg by mouth daily Simvastatin 40 mg by mouth at at bedtime . Current Medications Medications (Trade) Dose Ordered Sig/Neva Route Start Time Stop Time Status Last Admin (NS Flush) 2 ml UNSCH PRN IVF 09/05/16 01:30 09/05/16 03:45 (NS Flush) 2 ml UNSCH PRN FLUSH 09/05/16 03:45 2/5/17 20:27 (Narcan Inj) 0.4 mg UNSCH PRN IV 09/05/16 03:45 (Eliquis) 2.5 mg BID PO 09/05/16 09:45 Hold 09/15/16 08:34 (Ferrous Sulfate) 325 mg DAILY PO 09/05/16 09:45 09/20/16 08:28 (Synthroid) 50 mcg DAILY@0600 PO 09/05/16 09:45 09/19/16 05:30 (Pravachol) 80 mg HS PO 09/05/16 21:00 09/18/16 22:11 (Colace) 100 mg BID PO 09/05/16 21:00 09/19/16 10:29 (Tylenol) 650 mg Q4H PRN PO 09/05/16 10:00 09/17/16 21:05 (Catapres) 0.1 mg Q6H PRN PO 09/05/16 10:15 (Pill Splitter) 1 ea UNSCH PRN OTHER 09/05/16 10:15 (Mucinex Er) 1,200 mg BID PO 09/06/16 15:00 09/19/16 10:31 (Zofran Inj) 4 mg Q6HR PRN IV PUSH 09/10/16 05:45 09/11/16 06:50 (Sodium Bicarbonate) 650 mg TID PO 09/10/16 18:00 09/20/16 08:27 (Robitussin Ac 200-20 Mg/10 ml Liq) 10 ml Q6H PRN PO 09/12/16 11:15 09/17/16 17:55 (Bystolic) 5 mg DAILY PO 09/14/16 09:00 09/20/16 09:26 (Protonix Inj) 40 mg Q12H IV PUSH 09/14/16 14:00 09/19/16 15:37 (Vitamin D3) 1,000 units DAILY PO 09/15/16 09:00 09/20/16 08:27 (Chloraseptic Hubbard) 2 spray Q2H PRN OROPHARYNG 09/15/16 14:00 09/18/16 02:24 (Mycostatin Liq) 5 ml QID SWISH-SWAL 09/18/16 15:00 09/20/16 08:26 Amiodarone HCl 200 mg 200 mg DAILY PO 09/19/16 09:00 09/20/16 08:28 Heparin Sodium/ Dextrose 250 ml @ 0 mls/hr TITRATE IV 09/19/16 15:00 09/19/16 18:51 (Bumex Inj) 100 ml @ 2 mls/hr CONTINUOUS IV 09/19/16 23:45 09/20/16 00:29 (Albumin 25% Inj) 12.5 gm Q8H IV 09/19/16 23:30 09/20/16 15:31 09/20/16 08:28 (Senna Liq) 8.8 mg DAILY PO 09/21/16 09:00 Family History CAD Brain aneurysm . Substance Use Tobacco: None. Alcohol: None. Prescription med abuse: None. Illicits: None. . Psychosocial History . Independently living prior to his hospitalization, however residing with daughter temporarily. Spiritual/Cultural Factors Mormonism. . (Keya Meléndez) Health Care Surrogate(s): Unknown if advanced directives have been completed. Patient tells me that she has 4 children. As per [place] statute, healthcare proxy decision making falls to patient's children. . Family/friends goals: No code. As per prior conversations with patient and family, plan is to continue with aggressive medical management and allow time for clinical improvement. However, if clinical condition continues to worsen, patient and family to consider comfort directed care/allow natural . . Ethical and Legal Issues No ethical legal issues have been identified. . (Keya Meléndez) Physical Exam Vital Signs Date Time Temp Pulse Resp B/P Pulse Ox O2 Delivery O2 Flow Rate FiO2 09/20/16 14:00 101 09/20/16 13:39 98.0 108 24 116/56 100 09/20/16 12:00 102 09/20/16 10:00 105 09/20/16 08:00 103 09/20/16 07:27 96 Nasal Cannula 5.00 09/20/16 07:00 98 Nasal Cannula 5.00 09/20/16 06:00 108 09/20/16 04:00 91 09/20/16 04:00 98.0 108 24 104/55 92 09/20/16 02:00 108 09/20/16 00:00 55 Non-Rebreather 5.00 09/20/16 00:00 97.1 103 22 115/62 97 09/20/16 00:00 98 09/19/16 23:00 96 Venturi Mask 50 09/19/16 22:00 55 Non-Rebreather 5.00 09/19/16 22:00 99 09/19/16 21:10 Venturi Mask 50 09/19/16 20:50 100 Non-Rebreather 12.00 09/19/16 20:00 55 Non-Rebreather 5.00 09/19/16 20:00 98.3 96 18 135/69 94 09/19/16 20:00 95 09/19/16 20:00 89 Non-Rebreather 5.00 09/19/16 20:00 89 Non-Rebreather 15.00 09/19/16 17:06 97.7 99 38 106/59 100 Manual Cuff/Palpation 09/19/16 09/20/16 19:00 07:00 Intake Total 200 ml Output Total 2100 ml Balance -1900 ml IV Total 200 ml Output Urine Total 2100 ml Exam CONSTITUTIONAL/GENERAL: This is an elderly, frail patient in no acute distress. Very soft voice. Limited speech secondary to profound shortness of breath, cough, and hoarseness. TUBES/LINES/DRAINS: PIV's, SCDs, Becker catheter. SKIN: Very pale. No jaundice, rashes, or lesions. Scattered ecchymoses on upper extremities. No wounds seen anteriorly. Skin temperature appropriate. Not diaphoretic. HEAD: Atraumatic. Normocephalic. EYES: Pupils equal and round and reactive. No scleral icterus. No injection or drainage. ENT: Very hard of hearing.. Nose without bleeding or purulent drainage. Dry lips. NECK: Trachea midline. Supple, nontender. CARDIOVASCULAR: irregular rate and rhythm. Peripheral pulses symmetric. Trace edema to bilateral lower extremities. RESPIRATORY/CHEST: Symmetric, unlabored respirations. Coarse breath sounds bilateral. Coughing, nonproductive. GASTROINTESTINAL: Abdomen soft, non-tender, nondistended. No guarding. Bowel sounds present. GENITOURINARY: Without palpable bladder distension. Becker catheter in place. MUSCULOSKELETAL: Extremities without clubbing, cyanosis. No mottling or clubbing. NEUROLOGICAL: Awake and alert. Follows commands. Moves all extremities. Difficult to assess cognitive status secondary to acute symptoms/profound shortness of breath with speech. PSYCHIATRIC: No obvious anxiety/depression. Appears calm. . (Keya Meléndez) Diagnostic Tests Laboratory Laboratory Tests Test 09/18/16 09/19/16 09/19/16 09/19/16 07:05 06:46 10:15 14:25 White Blood Count 13.3 TH/MM3 14.5 TH/MM3 (4.0-11.0) (4.0-11.0) Red Blood Count 3.15 MIL/MM3 3.12 MIL/MM3 (4.00-5.30) (4.00-5.30) Hemoglobin 9.3 GM/DL 9.2 GM/DL (11.6-15.3) (11.6-15.3) Hematocrit 27.4 % 28.0 % (35.0-46.0) (35.0-46.0) Mean Corpuscular Volume 86.7 FL 89.8 FL (80.0-100.0) (80.0-100.0) Mean Corpuscular Hemoglobin 29.5 PG 29.4 PG (27.0-34.0) (27.0-34.0) Mean Corpuscular Hemoglobin 34.0 % 32.7 % Concent (32.0-36.0) (32.0-36.0) Red Cell Distribution Width 19.5 % 19.0 % (11.6-17.2) (11.6-17.2) Platelet Count 207 TH/MM3 210 TH/MM3 (150-450) (150-450) Mean Platelet Volume 8.2 FL 8.0 FL (7.0-11.0) (7.0-11.0) Sodium Level 123 MEQ/L 122 MEQ/L (136-145) (136-145) Potassium Level 4.2 MEQ/L 4.2 MEQ/L (3.5-5.1) (3.5-5.1) Chloride Level 92 MEQ/L 90 MEQ/L (98-107) (98-107) Carbon Dioxide Level 20.3 MEQ/L 16.8 MEQ/L (21.0-32.0) (21.0-32.0) Anion Gap 11 MEQ/L (5-15) 15 MEQ/L (5-15) Blood Urea Nitrogen 41 MG/DL (7-18) 44 MG/DL (7-18) Creatinine 2.32 MG/DL 2.49 MG/DL (0.50-1.00) (0.50-1.00) Estimat Glomerular Filtration 20 ML/MIN (>89) 18 ML/MIN (>89) Rate Random Glucose 82 MG/DL 98 MG/DL (74-106) (74-106) Serum Osmolality 268 MOSM/KG (275-295) Calcium Level 7.7 MG/DL 7.5 MG/DL (8.5-10.1) (8.5-10.1) Magnesium Level 1.5 MG/DL 1.6 MG/DL (1.5-2.5) (1.5-2.5) Uric Acid 5.8 MG/DL (2.6-6.0) Thyroid Stimulating Hormone 2.800 uIU/ML 3rd Gen (0.358-3.740) Blood Gas Puncture Site RT RADIAL Blood Gas Patient Temperature 98.6 Blood Gas HCO3 15 mmol/L (22-26) Blood Gas Base Excess -8.1 mmol/L (-2-2) Blood Gas Oxygen Saturation 91 % (90-100) Arterial Blood pH 7.43 (7.380-7.420) Arterial Blood Partial 24 mmHg (38-42) Pressure CO2 Arterial Blood Partial 68 mmHg Pressure O2 (61-120) Arterial Blood Oxygen Content 14.9 Vol % (12.0-20.0) Arterial Blood 1.4 % (0-4) Carboxyhemoglobin Arterial Blood Methemoglobin 0.7 % (0-2) Blood Gas Hemoglobin 11.7 G/DL (12.0-16.0) Oxygen Delivery Device NASAL CANNULA Blood Gas Liter Flow 3 L/M Prothrombin Time 12.4 SEC (9.8-11.6) Prothromb Time International 1.1 RATIO Ratio Activated Partial 30.1 SEC Thromboplast Time (24.3-30.1) Test 09/19/16 09/19/16 09/19/16 09/20/16 17:40 20:59 22:20 01:39 Nasal Screen MRSA (PCR) NEGATIVE (NEGATIVE) Activated Partial 29.5 SEC Thromboplast Time (24.3-30.1) B-Type Natriuretic Peptide 1110 PG/ML (0-100) Urine Color YELLOW (YELLW/STRAW) Urine Turbidity HAZY (CLEAR) Urine pH 5.0 (5.0-8.5) Urine Specific Marquez 1.013 (1.002-1.035) Urine Protein TRACE mg/dL (NEG-TRACE) Urine Glucose (UA) NEG mg/dL (NEG) Urine Ketones NEG mg/dL (NEG) Urine Occult Blood NEG (NEG) Urine Nitrite NEG (NEG) Urine Bilirubin NEG (NEG) Urine Urobilinogen LESS THAN 2.0 MG/DL (LESS THAN 2.0) Urine Leukocyte Esterase NEG (NEG) Urine Squamous Epithelial <1 /hpf (0-5) Cells Microscopic Urinalysis Comment CATH-CULT NOT IND Urine Osmolality 319 MOSM/KG (300-1300) Sodium Level 125 MEQ/L (136-145) Potassium Level 4.1 MEQ/L (3.5-5.1) Chloride Level 93 MEQ/L (98-107) Carbon Dioxide Level 19.3 MEQ/L (21.0-32.0) Anion Gap 13 MEQ/L (5-15) Blood Urea Nitrogen 48 MG/DL (7-18) Creatinine 2.52 MG/DL (0.50-1.00) Estimat Glomerular Filtration 18 ML/MIN (>89) Rate Random Glucose 82 MG/DL (74-106) Calcium Level 7.7 MG/DL (8.5-10.1) Magnesium Level 1.6 MG/DL (1.5-2.5) Test 09/20/16 09/20/16 09/20/16 01:42 05:41 11:30 Activated Partial 64.8 SEC Thromboplast Time (24.3-30.1) White Blood Count 13.8 TH/MM3 (4.0-11.0) Red Blood Count 3.14 MIL/MM3 (4.00-5.30) Hemoglobin 9.3 GM/DL (11.6-15.3) Hematocrit 27.5 % (35.0-46.0) Mean Corpuscular Volume 87.5 FL (80.0-100.0) Mean Corpuscular Hemoglobin 29.5 PG (27.0-34.0) Mean Corpuscular Hemoglobin 33.7 % Concent (32.0-36.0) Red Cell Distribution Width 19.3 % (11.6-17.2) Platelet Count 206 TH/MM3 (150-450) Mean Platelet Volume 8.0 FL (7.0-11.0) Sodium Level 126 MEQ/L 126 MEQ/L (136-145) (136-145) Potassium Level 3.6 MEQ/L 3.4 MEQ/L (3.5-5.1) (3.5-5.1) Chloride Level 92 MEQ/L 92 MEQ/L (98-107) (98-107) Carbon Dioxide Level 19.1 MEQ/L 19.8 MEQ/L (21.0-32.0) (21.0-32.0) Anion Gap 15 MEQ/L (5-15) 14 MEQ/L (5-15) Blood Urea Nitrogen 48 MG/DL (7-18) 48 MG/DL (7-18) Creatinine 2.60 MG/DL 2.72 MG/DL (0.50-1.00) (0.50-1.00) Estimat Glomerular Filtration 17 ML/MIN (>89) 16 ML/MIN (>89) Rate Random Glucose 89 MG/DL 123 MG/DL (74-106) (74-106) Calcium Level 7.7 MG/DL 7.7 MG/DL (8.5-10.1) (8.5-10.1) Phosphorus Level 3.6 MG/DL (2.5-4.9) Magnesium Level 1.5 MG/DL 1.6 MG/DL (1.5-2.5) (1.5-2.5) B-Type Natriuretic Peptide 971 PG/ML (0-100) (Keya MeléndezP) Result Diagram: 09/20/16 0541 09/20/16 1130 Imaging Last Impressions Lung Scan-V Nuclear Medicine 09/20/16 0000 Signed Impressions: Service Date/Time: Tuesday, September 20, 2016 12:51 - CONCLUSION: Low probability for pulmonary embolism. Zack Baca MD Chest X-Ray 09/19/16 0000 Signed Impressions: Service Date/Time: Monday, September 19, 2016 08:38 - CONCLUSION: 1. Stable bilateral opacities and small apparent right effusion. 2. Mild cardiomegaly. Zack Baca MD Chest CT 09/05/16 0000 Signed Impressions: Service Date/Time: Monday, September 05, 2016 03:55 - CONCLUSION: 1. Small and very mild infiltrate in the right upper lobe. No pulmonary mass. 2. Mild panchamber enlargement of the heart. 3. Suspected pulmonary hypertension. 4. Severely atherosclerotic aorta. Jones Lucero MD (Keya Meléndez) Patient/Family Conference Present at Family Conference: Telephone call to patient's daughter and Pam Villegas. Left message. No family available at bedside. Family Conference Location: Bedside Issues Discussed: * Palliative care role, purpose, approach * Additional medical, psychosocial, and spiritual history * Patients general health, functional status, and cognitive changes in the months leading up to the current hospitalization * Patient understanding of the current medical problems * Questions answered to the best of my ability * Palliative care contact information provided (Keya Meléndez) Assessment and Plan Disease Oriented Problem List: (1) COPD (chronic obstructive pulmonary disease) (2) Atrial fibrillation (3) CHF (congestive heart failure) Symptom Scale: (1) Dyspnea 0-10 Scale: Unable to quantify Comment: Multifactorial. Secondary to COPD, pneumonia, physical deconditioning. Remains on O2. (2) Debility 0-10 Scale: Unable to quantify Comment: Progressive. Pertinent Non-Medical Issues Psychosocial: . Spiritual: Mormonism. Legal: Ethical issues impacting care: No ethical issues have been identified. . Important Contacts Daughter Rosalind Villegas [phone]. Prognosis Mrs. Calvert is an 89-year-old female with a medical history of COPD, atrial fibrillation on anticoagulation and heart failure. Patient admitted secondary to pneumonia. Clinical course complicated by acute hypoxemic respiratory failure, intravascular volume overload, and CKD. Patient with history of 4 acute hospitalizations within the last 12 months. Progressive functional decline reported with profound physical deconditioning. Patient's overall prognosis is poor for an improved quality of life or long-term survival given her age, recent multiple hospitalizations, acute events, and multiple comorbidities. . Code Status: No Code Plan * CODE STATUS: No code. DNR/DNI. * Decision-making capacity: Patient appears capacitated for healthcare medical decisions, however, clinical condition does not permit full goals of care conversation secondary to profound shortness of breath, hoarseness and cough. Unknown if advanced directives have been completed. Patient tells me that she has 4 children. As per [place] statute, healthcare proxy decision making falls to patient's children. * GOALS OF CARE: No code. As per prior conversations with patient and family, plan is to continue with aggressive medical management and allow time for clinical improvement. However, if clinical condition continues to worsen, patient and family to consider comfort directed-care/allow natural . * SYMPTOMS: == Shortness of breath, secondary to COPD, pneumonia. Negative VQ scan for PE. Remains on O2 4 L via nasal cannula. Pulmonary following. == Debility, multifactorial. Progressive over the past year and worsen in the past 3 months. For acute hospitalizations within the last 12 months. Patient was previously discharge with home health. * Case has been discussed with bedside RN. * Palliative care contact information has been provided to patient's family. * Palliative care to meet with patient and family for further clarifications of goals of care. . (Keya Meléndez) Time Spent Total Floor Time (mins): 80 (Total time to include review and summarization of available medical records -palliative care consulted on day 15. Reviewed prior hospitalizations, physical exam, case discussion with bedside RN.) >50% Counseling/Coord of Care: Yes (Keya Meléndez) Thank you for the opportunity to participate in the care of Ms. Calvert. (Keya Meléndez) Attestation To help prompt me to consider important information that might be impacting today's encounter and assessment, information from prior notes written by myself or my colleagues may have been "brought forward" into today's note. My signature on this note, however, is an attestation that I personally performed the exam, history, and/or decision-making noted today, and, unless otherwise indicated, the interactions with patient, family, and staff as well as the review of records all occurred today. I also attest that the listed assessment and stated plan reflect my best clinical judgment today based on the combination of historical information, prior notes, and today's exam/ interactions. When time spent is documented, it refers only to time spent today by the signer, or if indicated, combined time spent today by collaborating physician/nurse practitioner. (Keya Meléndez) Collaborating MD Comments Chart reviewed. Case discussed with palliative care COCOA ROOM OPERATOR. Above COCOA ROOM OPERATOR note reviewed and I concur. . (Jaun Fox MD) Keya Meléndez Sep 20, 2016 14:49 Jaun Fox MD Sep 24, 2016 12:23
--- NOTE | 2016-09-20 15:14 | PD.CARD.PN ---
Subjective Subjective Remarks Patient transferred to ICU for increasing respiratory decompensation. Bumex drip started for evidence of CHF. VQ negative for PE. Today, the patient states it has been a "rough day". She complains of right chest wall pain that is worse with direct palpation. Objective Vital Signs / I&O Vital Signs Date Time Temp Pulse Resp B/P Pulse Ox O2 Delivery O2 Flow Rate FiO2 09/20/16 14:00 101 09/20/16 13:39 98.0 108 24 116/56 100 09/20/16 12:00 102 09/20/16 10:00 105 09/20/16 08:00 103 09/20/16 07:27 96 Nasal Cannula 5.00 09/20/16 07:00 98 Nasal Cannula 5.00 09/20/16 06:00 108 09/20/16 04:00 91 09/20/16 04:00 98.0 108 24 104/55 92 09/20/16 02:00 108 09/20/16 00:00 55 Non-Rebreather 5.00 09/20/16 00:00 97.1 103 22 115/62 97 09/20/16 00:00 98 09/19/16 23:00 96 Venturi Mask 50 09/19/16 22:00 55 Non-Rebreather 5.00 09/19/16 22:00 99 09/19/16 21:10 Venturi Mask 50 09/19/16 20:50 100 Non-Rebreather 12.00 09/19/16 20:00 55 Non-Rebreather 5.00 09/19/16 20:00 98.3 96 18 135/69 94 09/19/16 20:00 95 09/19/16 20:00 89 Non-Rebreather 5.00 09/19/16 20:00 89 Non-Rebreather 15.00 09/19/16 17:06 97.7 99 38 106/59 100 Manual Cuff/Palpation I/O 09/19/16 09/19/16 09/19/16 09/20/16 09/20/16 09/20/16 07:00 15:00 23:00 07:00 15:00 23:00 Intake Total 22 ml 178 ml Output Total 500 ml 1600 ml Balance -478 ml -1422 ml IV Total 22 ml 178 ml Output Urine Total 500 ml 1600 ml Physical Exam GENERAL: in bed, appears weak, family at bedside SKIN: Warm and dry. HEAD: Normocephalic. ORAL THRUSH EYES: No scleral icterus. No injection or drainage. NECK: Supple, trachea midline. 2 cm JVD CARDIOVASCULAR: Irregularly irregular, tachycardia, systolic murmur. RIght chest axillary line tenderness to direct palpation RESPIRATORY: Nasal cannula, left base rales GASTROINTESTINAL: Abdomen soft, non-tender, nondistended. MUSCULOSKELETAL: No cyanosis, 1+ BLE edema proximal BACK: Nontender without obvious deformity Laboratory Laboratory Tests Test 09/19/16 09/19/16 09/19/16 09/20/16 17:40 20:59 22:20 01:39 Nasal Screen MRSA (PCR) NEGATIVE Activated Partial 29.5 SEC Thromboplast Time B-Type Natriuretic Peptide 1110 PG/ML Urine Color YELLOW Urine Turbidity HAZY Urine pH 5.0 Urine Specific [place] 1.013 Urine Protein TRACE mg/dL Urine Glucose (UA) NEG mg/dL Urine Ketones NEG mg/dL Urine Occult Blood NEG Urine Nitrite NEG Urine Bilirubin NEG Urine Urobilinogen LESS THAN 2.0 MG/DL Urine Leukocyte Esterase NEG Urine Squamous Epithelial <1 /hpf Cells Microscopic Urinalysis Comment CATH-CULT NOT IND Urine Osmolality 319 MOSM/KG Sodium Level 125 MEQ/L Potassium Level 4.1 MEQ/L Chloride Level 93 MEQ/L Carbon Dioxide Level 19.3 MEQ/L Anion Gap 13 MEQ/L Blood Urea Nitrogen 48 MG/DL Creatinine 2.52 MG/DL Estimat Glomerular Filtration 18 ML/MIN Rate Random Glucose 82 MG/DL Calcium Level 7.7 MG/DL Magnesium Level 1.6 MG/DL Test 09/20/16 09/20/16 09/20/16 01:42 05:41 11:30 Activated Partial 64.8 SEC Thromboplast Time White Blood Count 13.8 TH/MM3 Red Blood Count 3.14 MIL/MM3 Hemoglobin 9.3 GM/DL Hematocrit 27.5 % Mean Corpuscular Volume 87.5 FL Mean Corpuscular Hemoglobin 29.5 PG Mean Corpuscular Hemoglobin 33.7 % Concent Red Cell Distribution Width 19.3 % Platelet Count 206 TH/MM3 Mean Platelet Volume 8.0 FL Sodium Level 126 MEQ/L 126 MEQ/L Potassium Level 3.6 MEQ/L 3.4 MEQ/L Chloride Level 92 MEQ/L 92 MEQ/L Carbon Dioxide Level 19.1 MEQ/L 19.8 MEQ/L Anion Gap 15 MEQ/L 14 MEQ/L Blood Urea Nitrogen 48 MG/DL 48 MG/DL Creatinine 2.60 MG/DL 2.72 MG/DL Estimat Glomerular Filtration 17 ML/MIN 16 ML/MIN Rate Random Glucose 89 MG/DL 123 MG/DL Calcium Level 7.7 MG/DL 7.7 MG/DL Phosphorus Level 3.6 MG/DL Magnesium Level 1.5 MG/DL 1.6 MG/DL B-Type Natriuretic Peptide 971 PG/ML Assessment and Plan Assessment and Plan ASSESSMENT Respiratory insufficiency- multifactorial. Negative for PE, CHF exacerbation, RUL pneumonia, aspiration Persistent atrial fibrillation with increased ventricular rate. On Amio and Bystolic. Unable to tolerate multiple CCB and BB due to allergies/side effects. Eliquis on hold for GI bleed and EGD Acute on chronic diastolic CHF exacerbation Acute on chronic anemia. GI bleed this admission. Unable to complete EGD due to respiratory status. No evidence of nico bleeding now Moderate MR, Moderate TR on echo 04/2016 Renal insufficiency Slight elevation of troponin. Suspect demand ischemia and CKD. Last stress test 2011 negative Thrush Laryngitis- evaluated by ENT. 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 She was on Eliquis 2.5 mg BID prior to admission. Would recommend heparin 5000 SQ at this time due to recent GI bleed. Prognosis guarded Patient seen and evaluated by Nargis Jimenez Sep 20, 2016 15:14
--- NOTE | 2016-09-20 15:20 | MB ---
cc: OTILIA GOTTI MD DATE OF CONSULTATION 09/20/[address] Dillon REASON FOR CONSULTATION Leukocytosis, pneumonia HISTORY OF PRESENT ILLNESS This is a 89-year-old white female who was brought to the emergency department because of respiratory distress. The patient developed cough and congestion and she also was noted to have low O2 saturation. She had a heart rate of 130 on admission. The patient has the history of COPD. Chest x-ray evaluation was suspicious for mass versus focal infiltrate laterally of the right mid lung. Cest CT showed a very mild infiltrate at the right upper lobe. The patient has been managed with oxygen therapy and has also had diuretics with good diuresis. She was transferred to the intensive care unit on 09/19 because of worsening hypoxia. The patient has a cough and sounds congested. She is very hard of hearing. Her two daughters are at bedside and information was obtained with their help. The patient has been afebrile. Her white blood cell count is elevated currently at 13.8 which is decreased compared to 19.5 on 09/16. She is receiving steroids. She also has renal insufficiency. She has chronic renal failure. VQ scan was performed earlier today and showed low probability of pulmonary embolism. Chest x-ray on 09/19 showed stable bilateral opacities and a small apparent right effusion. The patient is awake. She feels extremely weak. She does not appear to be in any acute distress. She is on oxygen via nasal cannula and her saturation is currently 91%. PAST MEDICAL HISTORY 1. Atrial fibrillation 2. Arthritis 3. Anemia 4. Hypertension 5. Hyperlipidemia 6. Hypothyroidism 7. Congestive heart failure 8. Colon cancer treated with chemotherapy in 2000. 9. GI bleed 10. CVA 11. History of the hip replacement. 12. History of knee replacement. ALLERGIES LEVAQUIN, AMOXICILLIN, SULFA, ATENOLOL, CARDIZEM, LISINOPRIL, PHENERGAN, TOPROL XL, VERAPAMIL, EDOXABAN, POTASSIUM. MEDICATIONS 1. Bumetanide 2. Senna 3. Albuterol nebulizers 4. Nystatin liquid 5. Cordarone 6. Protonix 7. Bystolic 8. Vitamin D3 9. Mucinex 10. Pravachol 11. Colace 12. Synthroid 13. Ferrous sulfate SOCIAL HISTORY No tobacco or alcohol or illicit drugs. FAMILY HISTORY Noncontributory REVIEW OF SYSTEMS Pertinent as mentioned above in history of present illness including shortness of breath and severe fatigue and cough. PHYSICAL EXAMINATION This is a frail elderly female who is in no acute distress. She is awake and appears alert. She talks in a whisper. VITAL SIGNS: Include temperature of 98 degrees, BP 116/56, heart rate 108, respirations 24. HEENT: Head is atraumatic. Extraocular movements grossly intact, pupils reactive to light without icterus. Oropharynx slightly dry mucosa. No thrush. NECK: Supple. No adenopathy. LUNGS: Coarse rhonchi bilateral. HEART: Irregular rate and rhythm without murmurs, rubs or gallops. ABDOMEN: Bowel sounds present, soft, mildly distended. No tenderness appreciated. RECTAL: Not performed. EXTREMITIES: No clubbing or cyanosis or edema. SKIN: No rash. NEUROLOGIC: No gross focal findings. PSYCHIATRIC: The patient calm and cooperative. LABORATORY DATA WBC 13.8, platelet count 206,000, hemoglobin 9.3, creatinine 2.72, BUN 48, sodium 126. IMPRESSION 1. Leukocytosis 2. Severe COPD 3. Probable healthcare associated pneumonia. 4. Chronic renal failure with acute component. RECOMMENDATIONS 1. Obtain a sputum sample if the patient expectorates any sputum. She is currently coughing but is not producing sputum, although she sounds very congested. 2. Monitor white blood cell count 3. Monitor white blood cell count for now since the patient has no elevated temperature and her white blood cell count appears to creeping downward. A sputum sample from 09/14 revealed heavy growth of normal respiratory alia. I am not completely convinced that she has active pneumonia at this time, but if she were to develop fever or clinically develop any changes, antibiotic should be started. We will have to also consider the fact that she has antibiotic allergies as well as far as determining antibiotic choice. Thank you for this consultation. The patient's progress will be monitored. Otilia Gotti MD FD/ANNABEL /2:34 PM /2:57 PM
[2016-09-20] MEDS: PANTOPRAZOLE SODIUM 40 MG VIAL IV PUSH SCH (15:32)
[2016-09-20] MEDS: HEPARIN-D5W INJ 250 ML IV SCH (15:34)
[2016-09-20 17:33] LABS: BICARBONATE 21.5 MEQ/L (21.0-32.0); MAGNESIUM 1.6 MG/DL (1.5-2.5); POTASSIUM 4.1 MEQ/L (3.5-5.1)
[2016-09-20 17:34] LABS: CALCIUM-PROTEIN CORRECTED 8.6 MG/DL (8.5-10.1)
--- NOTE | 2016-09-20 19:39 | HHI.PR ---
Subjective Remarks 89 YOWF with Pneumonia,CHF,AF Has mild wheezing Not able to expactorate No Fever Has hoarseness of voice, Went for EGD, has worsening hypoxia Weaned to NC Started pureed diet VQ Scan low prob Objective Vital Signs Vital Signs Date Time Temp Pulse Resp B/P Pulse Ox O2 Delivery O2 Flow Rate FiO2 09/20/16 18:00 108 09/20/16 16:00 98.8 100 22 117/68 100 09/20/16 16:00 103 09/20/16 14:00 101 09/20/16 13:39 98.0 108 24 116/56 100 09/20/16 12:00 102 09/20/16 10:00 105 09/20/16 08:00 103 09/20/16 07:27 96 Nasal Cannula 5.00 09/20/16 07:00 98 Nasal Cannula 5.00 09/20/16 06:00 108 09/20/16 04:00 91 09/20/16 04:00 98.0 108 24 104/55 92 09/20/16 02:00 108 09/20/16 00:00 55 Non-Rebreather 5.00 09/20/16 00:00 97.1 103 22 115/62 97 09/20/16 00:00 98 09/19/16 23:00 96 Venturi Mask 50 09/19/16 22:00 55 Non-Rebreather 5.00 09/19/16 22:00 99 09/19/16 21:10 Venturi Mask 50 09/19/16 20:50 100 Non-Rebreather 12.00 09/19/16 20:00 55 Non-Rebreather 5.00 09/19/16 20:00 98.3 96 18 135/69 94 09/19/16 20:00 95 09/19/16 20:00 89 Non-Rebreather 5.00 09/19/16 20:00 89 Non-Rebreather 15.00 I/O 09/19/16 09/19/16 09/19/16 09/20/16 09/20/16 09/20/16 07:00 15:00 23:00 07:00 15:00 23:00 Intake Total 22 ml 178 ml 490 ml Output Total 500 ml 1600 ml 460 ml Balance -478 ml -1422 ml 30 ml Intake Oral 420 ml IV Total 22 ml 178 ml 70 ml Output Urine Total 500 ml 1600 ml 460 ml Result Diagram: 09/20/16 0541 09/20/16 1651 Objective Remarks GENERAL: Thin built WF, NAD SKIN: Warm and dry. HEAD: Normocephalic. EYES: No scleral icterus. No injection or drainage. NECK: Supple, trachea midline. No JVD or lymphadenopathy. CARDIOVASCULAR: Regular rate and rhythm without murmurs, gallops, or rubs. RESPIRATORY: Breath sounds equal bilaterally. No accessory muscle use. GASTROINTESTINAL: Abdomen soft, non-tender, nondistended. MUSCULOSKELETAL: No cyanosis, or edema. BACK: Nontender without obvious deformity. No CVA tenderness. A/P Assessment and Plan Pneumonia CHF AF CKD Hypoxic resp failure PLAN: Cont Abx per ID Aerosol nebs Monitor Lytes Monitor H/H 02 4LNC keep sat >90% Pureed diet. Nash Dutta MD Sep 20, 2016 19:39
[2016-09-20] MEDS: PRAVASTATIN SOD 80 MG TAB PO SCH (21:10)
[2016-09-21] VITALS (14 sets, daily range): BP systolic 86–109; BP diastolic 50–72; PULSE 76–110; RESP 20–24; TEMP 97.6–99.1; O2SAT 95–99
[2016-09-21 00:33] LABS: BICARBONATE 23.2 MEQ/L (21.0-32.0); MAGNESIUM 1.4 MG/DL (1.5-2.5)
[2016-09-21] MEDS: RESP: ALBUTEROL 1.25 MG/3 ML NEB (SCH) NEB ×4 (04:17→22:02)
[2016-09-21 05:02] LABS: AUTOMATED NEUTROPHIL # 10.7 TH/MM3 (1.8-7.7); BASOPHIL % 0.3 % (0.0-2.0); EOSINOPHIL # 0.1 TH/MM3 (0-0.4); EOSINOPHIL % 0.5 % (0.0-4.0); HEMATOCRIT 25.4 % (35.0-46.0); HEMO FLAGS DIFF FINAL; LYMPH % 1.7 % (9.0-44.0); LYMPHOCYTE # 0.2 TH/MM3 (1.0-4.8); MEAN CELL VOLUME 86.5 FL (80.0-100.0); MEAN CORPUSCULAR HEMOGLOBIN 29.1 PG (27.0-34.0); MEAN CORPUSCULAR HGB CONC 33.6 % (32.0-36.0); MONO % 5.1 % (0.0-8.0); NEUT % 92.4 % (16.0-70.0); PLATELET COUNT 187 TH/MM3 (150-450); RED BLOOD COUNT 2.94 MIL/MM3 (4.00-5.30); RED CELL DISTRIBUTION WIDTH 19.2 % (11.6-17.2); WHITE BLOOD COUNT 11.6 TH/MM3 (4.0-11.0)
[2016-09-21 05:40] LABS: BICARBONATE 23.9 MEQ/L (21.0-32.0); MAGNESIUM 1.4 MG/DL (1.5-2.5)
[2016-09-21] MEDS: PANTOPRAZOLE SODIUM 40 MG VIAL IV PUSH SCH ×2 (05:45→12:33)
[2016-09-21] MEDS: LEVOTHYROXINE SODIUM 50 MCG TAB PO SCH (05:46)
[2016-09-21 05:55] LABS: POTASSIUM 2.7 MEQ/L (3.5-5.1)
[2016-09-21 06:08] LABS: CALCIUM-PROTEIN CORRECTED 8.5 MG/DL (8.5-10.1)
[2016-09-21] MEDS: SODIUM BICARBONATE 650 MG TAB PO SCH ×3 (07:56→18:52)
[2016-09-21] MEDS: NEBIVOLOL 5 MG TAB PO SCH (07:56)
[2016-09-21] MEDS: CHOLECALCIFEROL (VIT D3) 1000 UNIT TAB PO SCH (07:57)
[2016-09-21] MEDS: SENNOSIDES SYRUP 8.8 MG/5 ML CUP PO SCH (07:57)
[2016-09-21] MEDS: AMIODARONE 200 MG TAB PO SCH (07:57)
[2016-09-21] MEDS: guaiFENesin E.R. 600 MG TAB PO SCH ×2 (07:57→21:21)
[2016-09-21] MEDS: FERROUS SULFATE 325 MG (65 MG ELEMENTAL IRON) TAB PO SCH (07:57)
[2016-09-21] MEDS: NYSTATIN SUSP 500,000 U/5 ML CUP SWISH-SWAL SCH ×4 (07:57→21:19)
[2016-09-21] MEDS: DOCUSATE SODIUM 100 MG CAP PO SCH ×2 (07:57→21:19)
--- NOTE | 2016-09-21 08:22 | HHI.NPPN ---
Subjective Complaints: Shortness of Breath General Problems: Mebat[place] Acidosis Renal Failure: Chronic, Acute Interval History patient is doing well, complains of eye pain. Good urine output. On 3L of oxygen by NC. No respiratory distress. Review of Systems General Constitutional: Fatigue Ears, Nose, & Throat Ears, Nose & Throat: Sore Throat, Hoarse, Congestion Respiratory Lungs: SOB, Cough, Sputum Gastrointestinal Gastrointestinal: Nausea & Vomiting Objective Data Data 09/20/16 09/21/16 19:00 07:00 Intake Total 490 ml 227 ml Output Total 460 ml 2000 ml Balance 30 ml -1773 ml Intake Oral 420 ml 200 ml IV Total 70 ml 27 ml Output Urine Total 460 ml 2000 ml Vital Signs Date Time Temp Pulse Resp B/P Pulse Ox O2 Delivery O2 Flow Rate FiO2 09/21/16 06:00 100 09/21/16 04:00 99.1 76 22 109/71 98 09/21/16 02:00 100 09/21/16 00:00 97.6 96 22 108/72 95 09/21/16 00:00 100 09/20/16 22:00 100 09/20/16 20:53 97 Nasal Cannula 3.00 09/20/16 20:00 95 Nasal Cannula 2.00 09/20/16 20:00 100 09/20/16 20:00 98.1 101 22 120/58 94 09/20/16 18:00 108 09/20/16 16:00 98.8 100 22 117/68 100 09/20/16 16:00 103 09/20/16 14:00 101 09/20/16 13:39 98.0 108 24 116/56 100 09/20/16 12:00 102 09/20/16 10:00 105 -: 09/21/16 0403 09/21/16 0403 Tubes & Lines: Becker Drip Comment Bumex Physical Exam General Appearance: Well Developed, Well Nourished, No Acute Distress, Comfortable, Anxious Throat Throat Exam: Oral Mucosa [place] & Moist Pulmonary Resp Exam: Breath Sounds Equal, Crackles, Rhonchi Cardiology CV Exam: Good Perfusion, Irregular Gastrointestinal/Abdomen GI Exam: Soft, Non-Tender, Bowel Sounds Present Musculoskeletal MS Exam: Joints Intact, Normal Tone Integumentary Skin Exam: Clear, Warm, Dry, Intact Extremeties Extremities Exam: No Edema, Pedal Pulses Palpable Neurologic Neuro Exam: Alert, Awake, Oriented, Speech Clear, Moving All Extremities Psychiatric Psych Exam: Appropriate Responses Assessment/Plan Discussed Condition With: Patient Assessment Summary: Anemia of CKD, Hypertension, CKD Stage IV Electrolyte Assessment: Hypocalcemia, Hyponatremia, Metabolic Acidosis Problem List: (1) Chronic kidney disease, stage 4 (severe) Plan: Stable renal function. Good diuresis. Change to intermittent Bumex. Avoid nephrotoxic agents. Replace potassium. (2) Hyponatremia Plan: Improved. Given 2 doses of Tolvaptan. Will need fluid restriction. Continue loop diuretic. (3) CHF (congestive heart failure) Plan: monitor fluid volume status EF 40-50% (4) Atrial fibrillation Plan: persistent tachycardia, she is asymptomatic but anxious on amiodarone and Bystolic cardiology following AC on hold, on heparin gtt (5) Pneumonia Plan: off antibiotics and solumedrol oxygen as needed, RT to assist nebulizers prn, incentive spirometer recommended cough/deep breathing encouraged monitor clinically she is also on Robitussin Hoarseness has improved. (6) Anemia Plan: Hb stable, she was transfused one unit PRBC on 09/16 also on oral iron, awaiting EGD Eliquis for anticoagulation on hold on Protonix, GI following (7) Secondary hyperparathyroidism of renal origin Plan: PTH elevated, continue vitamin D daily Problem Qualifiers (1) Atrial fibrillation: Qualified Code: I48.1 - Persistent atrial fibrillation (2) Pneumonia: Qualified Code: J18.1 - Pneumonia of right middle lobe due to infectious organism Mario Mercado MD Sep 21, 2016 08:22
[2016-09-21] MEDS ORDERED: POTASSIUM CHLORIDE 20 MEQ CONTROLLED RELEASE TAB PO SCH (09:00)
[2016-09-21] MEDS: BUMETANIDE INJ 1 MG/4 ML VIAL IV PUSH SCH ×2 (10:06→18:51)
[2016-09-21] MEDS: MAGNESIUM SULFATE 1 GM PREMIX 100 ML IV SCH ×2 (11:05→12:33)
[2016-09-21] MEDS ORDERED: LACTULOSE SYRUP 20 GM/30 ML CUP PO ONE (11:45)
--- NOTE | 2016-09-21 12:03 | HHI.PR ---
Subjective Remarks The patient said that starting yesterday she lost vision in her right eye. She says she has a history of glaucoma. Family was at the bedside. The patient said she overall felt little better than yesterday. She has not had a bowel movement in some time. She wants to know if she can move around. Discussed with nursing. Objective Vitals Vital Signs Date Time Temp Pulse Resp B/P Pulse Ox O2 Delivery O2 Flow Rate FiO2 09/21/16 10:00 99 09/21/16 08:52 96 Nasal Cannula 3.00 09/21/16 08:00 100 09/21/16 08:00 98.8 100 20 98/50 96 09/21/16 07:00 98 Nasal Cannula 3.50 09/21/16 06:00 100 09/21/16 04:00 99.1 76 22 109/71 98 09/21/16 02:00 100 09/21/16 00:00 97.6 96 22 108/72 95 09/21/16 00:00 100 09/20/16 22:00 100 09/20/16 20:53 97 Nasal Cannula 3.00 09/20/16 20:00 95 Nasal Cannula 2.00 09/20/16 20:00 100 09/20/16 20:00 98.1 101 22 120/58 94 09/20/16 18:00 108 09/20/16 16:00 98.8 100 22 117/68 100 09/20/16 16:00 103 09/20/16 14:00 101 09/20/16 13:39 98.0 108 24 116/56 100 09/20/16 12:00 102 I/O 09/20/16 09/20/16 09/20/16 09/21/16 09/21/16 09/21/16 07:00 15:00 23:00 07:00 15:00 23:00 Intake Total 178 ml 490 ml 115 ml 112 ml Output Total 1600 ml 460 ml 1300 ml 700 ml Balance -1422 ml 30 ml -1185 ml -588 ml Intake Oral 420 ml 100 ml 100 ml IV Total 178 ml 70 ml 15 ml 12 ml Output Urine Total 1600 ml 460 ml 1300 ml 700 ml Result Diagram: 09/21/16 0403 09/21/16 0403 Imaging Last Impressions Lung Scan-VQ Nuclear Medicine 09/20/16 0000 Signed Impressions: Service Date/Time: Tuesday, September 20, 2016 12:51 - CONCLUSION: Low probability for pulmonary embolism. Zack Baca MD Chest X-Ray 09/19/16 0000 Signed Impressions: Service Date/Time: Monday, September 19, 2016 08:38 - CONCLUSION: 1. Stable bilateral opacities and small apparent right effusion. 2. Mild cardiomegaly. Zack Baca MD Chest CT 09/05/16 0000 Signed Impressions: Service Date/Time: Monday, September 05, 2016 03:55 - CONCLUSION: 1. Small and very mild infiltrate in the right upper lobe. No pulmonary mass. 2. Mild panchamber enlargement of the heart. 3. Suspected pulmonary hypertension. 4. Severely atherosclerotic aorta. Jones Lucero MD Objective Remarks GENERAL: This is a well-nourished, well-developed patient, uncomfortable, slightly hard of hearing, hoarse voice. SKIN: No rashes, ecchymoses or lesions. Cool and dry. HEAD: Atraumatic. Normocephalic. No temporal or scalp tenderness. EYES: Pupils equal round and reactive. Extraocular motions intact. No scleral icterus. No injection or drainage. Blurry vision out of right eye. ENT: Nose without bleeding, purulent drainage or septal hematoma. Throat without erythema, tonsillar hypertrophy or exudate. Uvula midline. Airway patent. NECK: Trachea midline. No JVD or lymphadenopathy. Supple, nontender, no meningeal signs. CARDIOVASCULAR: Tachycardic, irregularly irregular. Grade 2 systolic murmur appreciated. RESPIRATORY: Poor respiratory effort. GASTROINTESTINAL: Abdomen soft, non-tender, nondistended. No hepato-splenomegaly , or palpable masses. No guarding. MUSCULOSKELETAL: Extremities without clubbing, cyanosis. 1+ LE edema. NEUROLOGICAL: Awake and alert. Cranial nerves II through XII intact. Motor and sensory grossly within normal limits. Five out of 5 muscle strength in all muscle groups. Normal speech. PSYCH: Slightly flattened affect. Procedures Medications and IVs Current Medications Medications (Trade) Dose Ordered Sig/Neva Route Start Time Stop Time Status Last Admin (NS Flush) 2 ml UNSCH PRN IVF 09/05/16 01:30 09/05/16 03:45 (NS Flush) 2 ml UNSCH PRN FLUSH 09/05/16 03:45 09/10/16 20:27 (Narcan Inj) 0.4 mg UNSCH PRN IV 09/05/16 03:45 (Eliquis) 2.5 mg BID PO 09/05/16 09:45 Hold 09/15/16 08:34 (Ferrous Sulfate) 325 mg DAILY PO 09/05/16 09:45 09/21/16 07:57 (Synthroid) 50 mcg DAILY@0600 PO 09/05/16 09:45 09/21/16 05:46 (Pravachol) 80 mg HS PO 09/05/16 21:00 09/20/16 21:10 (Colace) 100 mg BID PO 09/05/16 21:00 09/21/16 07:57 (Tylenol) 650 mg Q4H PRN PO 09/05/16 10:00 09/17/16 21:05 (Catapres) 0.1 mg Q6H PRN PO 09/05/16 10:15 (Pill Splitter) 1 ea UNSCH PRN OTHER 09/05/16 10:15 (Mucinex Er) 1,200 mg BID PO 09/06/16 15:00 09/21/16 07:57 (Zofran Inj) 4 mg Q6HR PRN IV PUSH 09/10/16 05:45 09/11/16 06:50 (Sodium Bicarbonate) 650 mg TID PO 09/10/16 18:00 09/21/16 07:56 (Robitussin Ac 200-20 Mg/10 ml Liq) 10 ml Q6H PRN PO 09/12/16 11:15 09/17/16 17:55 (Bystolic) 5 mg DAILY PO 09/14/16 09:00 09/21/16 07:56 (Protonix Inj) 40 mg Q12H IV PUSH 09/14/16 14:00 09/21/16 05:45 (Vitamin D3) 1,000 units DAILY PO 09/15/16 09:00 09/21/16 07:57 (Chloraseptic [place]) 2 spray Q2H PRN OROPHARYNG 09/15/16 14:00 09/18/16 02:24 (Mycostatin Liq) 5 ml QID SWISH-SWAL 09/18/16 15:00 09/21/16 07:57 (Cordarone) 200 mg DAILY PO 09/19/16 09:00 09/21/16 07:57 (Senna Liq) 8.8 mg DAILY PO 09/21/16 09:00 09/21/16 07:57 (Bumex Inj) 2 mg BID@09,18 IV PUSH 09/21/16 09:00 09/21/16 10:06 Potassium Chloride 40 meq 40 meq Q12HR PO 09/21/16 09:00 09/21/16 21:00 09/21/16 10:05 (Magnesium Sulfate 1 Gm Premix) 100 ml @ 100 mls/hr Q1H IV 09/21/16 11:00 09/21/16 12:59 09/21/16 11:05 A/P Assessment and Plan A fib with RVR Recently admitted for Afib with RVR. HR elevated but stable 09/21. - On amiodarone 200 mg daily. Digoxin discontinued. Continue nebivolol. - follow up with cardiology. - holding anticoagulation in the setting of GIB. GI bleed Hemoccult positive. Had episode of dark stools and coffee ground emesis. On Eliquis which has been discontinued. GI consult appreciated. Transfused 1 unit with appropriate response. Unable to go for endoscopy s/t respiratory distress. - follow CBC and transfuse as needed. Stable 09/21. - GI consulted appreciated. Endoscopy when respiratory status is stable. - continue PPI. - hold anticoagulation. Pneumonia/ COPD exacerbation/ Acute hypoxemic respiratory failure/ Acute systolic CHF CXR and CT scan imaging indicative of a right infiltrate. She was recently hospitalized. Had lactic acid level of 5. Influenza negative. Received cefepime and vanco for pneumonia. Currently not requiring any supplemental O2. S/p steroids. The pt is still in respiratory distress 09/21. CXR 09/19 stable. She was transferred to the ICU and started on a Bumex gtt. V/Q scan low probability for PE so heparin gtt was discontinued. Echo in May with EF 45-50% and mod- severe MR and severe TR. BNP elevated. - oxygen and nebs as needed. - incentive spirometry, Acapella. - sputum and blood cultures. NGTD. - pulmonology following. - continue Bumex. Chronic renal disease/ metabolic acidosis/ hyponatremia/ hypokalemia Creatinine is around baseline. Started on bicarbonate on last admission by nephrology. Bicarb level is low and pt appears to be having respiratory compensation. - avoid nephrotoxins. - continue PO sodium bicarbonate. - resume diuresis. - Monitor I's and O's. - follow up with nephrology. Tolvaptan started. - fluid restriction. - potassium supplementation. Hoarse voice ENT consult appreciated. - continue PPI. - outpt follow-up with ENT. Thrush Resolved with nystatin. - continue nystatin. PPX: SCDs. Discharge Planning Keep in ICU. Zack Romero DO Sep 21, 2016 12:03
[2016-09-21 12:14] LABS: BICARBONATE 25.5 MEQ/L (21.0-32.0); MAGNESIUM 1.6 MG/DL (1.5-2.5)
[2016-09-21 12:21] LABS: POTASSIUM 2.9 MEQ/L (3.5-5.1)
--- NOTE | 2016-09-21 12:40 | HHI.IDPN ---
Note Infectious Disease Note Patient on 3L 02. Less respiratory distress. Afebrile. Cough without sputum production. Notes r. eye pain. Admitted with respiratory distress. PAST MEDICAL HISTORY 1. Atrial fibrillation 2. Arthritis 3. Anemia 4. Hypertension 5. Hyperlipidemia 6. Hypothyroidism 7. Congestive heart failure 8. Colon cancer treated with chemotherapy in 2000. 9. GI bleed 10. CVA 11. History of the hip replacement. 12. History of knee replacement. ALLERGIES LEVAQUIN, AMOXICILLIN, SULFA, ATENOLOL, CARDIZEM, LISINOPRIL, PHENERGAN, TOPROL XL, VERAPAMIL, EDOXABAN, POTASSIUM. MEDICATIONS Current Medications Medications (Trade) Dose Ordered Sig/Neva Route PRN Reason Start Time Stop Time Status Last Admin Dose Admin IV Flush (NS Flush) 2 ml UNSCH PRN IVF FLUSH AFTER USING IV ACCESS 09/05/16 01:30 09/05/16 03:45 IV Flush (NS Flush) 2 ml UNSCH PRN FLUSH FLUSH AFTER USING IV ACCESS 09/05/16 03:45 09/10/16 20:27 Naloxone HCl (Narcan Inj) 0.4 mg UNSCH PRN IV SEE LABEL COMMENTS 09/05/16 03:45 Apixaban (Eliquis) 2.5 mg BID PO 09/05/16 09:45 Hold 09/15/16 08:34 Ferrous Sulfate (Ferrous Sulfate) 325 mg DAILY PO 09/05/16 09:45 09/21/16 07:57 Levothyroxine Sodium (Synthroid) 50 mcg DAILY@0600 PO 09/05/16 09:45 09/21/16 05:46 Pravastatin Sodium (Pravachol) 80 mg HS PO 09/05/16 21:00 09/20/16 21:10 Docusate Sodium (Colace) 100 mg BID PO 09/05/16 21:00 09/21/16 07:57 Acetaminophen (Tylenol) 650 mg Q4H PRN PO pain/fever 09/05/16 10:00 09/17/16 21:05 Clonidine (Catapres) 0.1 mg Q6H PRN PO SBP> OR = 180, DBP> OR = 100 09/05/16 10:15 Miscellaneous (Pill Splitter) 1 ea UNSCH PRN OTHER SEE LABEL COMMENTS 09/05/16 10:15 Guaifenesin (Mucinex Er) 1,200 mg BID PO 09/06/16 15:00 09/21/16 07:57 Ondansetron HCl (Zofran Inj) 4 mg Q6HR PRN IV PUSH nausea 09/10/16 05:45 09/11/16 06:50 Sodium Bicarbonate (Sodium Bicarbonate) 650 mg TID PO 09/10/16 18:00 09/21/16 07:56 Guaifenesin/ Codeine Phosphate (Robitussin Ac 200-20 Mg/10 ml Liq) 10 ml Q6H PRN PO COUGH 09/12/16 11:15 09/17/16 17:55 Nebivolol (Bystolic) 5 mg DAILY PO 09/14/16 09:00 09/21/16 07:56 Pantoprazole Sodium (Protonix Inj) 40 mg Q12H IV PUSH 09/14/16 14:00 09/21/16 05:45 Cholecalciferol (Vitamin D3) 1,000 units DAILY PO 09/15/16 09:00 09/21/16 07:57 Phenol (Chloraseptic Avalon) 2 spray Q2H PRN OROPHARYNG Throat discomfort 09/15/16 14:00 09/18/16 02:24 Nystatin (Mycostatin Liq) 5 ml QID SWISH-SWAL 09/18/16 15:00 09/21/16 07:57 Amiodarone HCl (Cordarone) 200 mg DAILY PO 09/19/16 09:00 09/21/16 07:57 Sennosides (Senna Liq) 8.8 mg DAILY PO 09/21/16 09:00 09/21/16 07:57 Bumetanide (Bumex Inj) 2 mg BID@,18 IV PUSH 09/21/16 09:00 09/21/16 10:06 Potassium Chloride 40 meq 40 meq Q12HR PO 09/21/16 09:00 09/21/16 21:00 09/21/16 10:05 Magnesium Sulfate/ Dextrose (Magnesium Sulfate 1 Gm Premix) 100 ml @ 100 mls/hr Q1H IV 09/21/16 11:00 09/21/16 12:59 09/21/16 11:05 Latanoprost (Xalatan 0.005% Opth Soln) 1 drop HS RIGHT EYE 09/21/16 21:00 OBJECTIVE: Vital Signs Date Time Temp Pulse Resp B/P Pulse Ox O2 Delivery O2 Flow Rate FiO2 09/21/16 10:00 99 09/21/16 08:52 96 Nasal Cannula 3.00 09/21/16 08:00 100 09/21/16 08:00 98.8 100 20 98/50 96 09/21/16 07:00 98 Nasal Cannula 3.50 09/21/16 06:00 100 09/21/16 04:00 99.1 76 22 109/71 98 09/21/16 02:00 100 09/21/16 00:00 97.6 96 22 108/72 95 09/21/16 00:00 100 09/20/16 22:00 100 09/20/16 20:53 97 Nasal Cannula 3.00 09/20/16 20:00 95 Nasal Cannula 2.00 09/20/16 20:00 100 09/20/16 20:00 98.1 101 22 120/58 94 09/20/16 18:00 108 09/20/16 16:00 98.8 100 22 117/68 100 09/20/16 16:00 103 09/20/16 14:00 101 09/20/16 13:39 98.0 108 24 116/56 100 09/20/16 09/20/16 09/21/16 15:00 23:00 07:00 Intake Total 490 ml 115 ml 112 ml Output Total 460 ml 1300 ml 700 ml Balance 30 ml -1185 ml -588 ml Intake Oral 420 ml 100 ml 100 ml IV Total 70 ml 15 ml 12 ml Output Urine Total 460 ml 1300 ml 700 ml Laboratory Tests Test 09/20/16 09/21/16 05:41 04:03 White Blood Count 13.8 TH/MM3 11.6 TH/MM3 Red Blood Count 3.14 MIL/MM3 2.94 MIL/MM3 Hemoglobin 9.3 GM/DL 8.5 GM/DL Hematocrit 27.5 % 25.4 % Mean Corpuscular Volume 87.5 FL 86.5 FL Mean Corpuscular Hemoglobin 29.5 PG 29.1 PG Mean Corpuscular Hemoglobin 33.7 % 33.6 % Concent Red Cell Distribution Width 19.3 % 19.2 % Platelet Count 206 TH/MM3 187 TH/MM3 Mean Platelet Volume 8.0 FL 7.9 FL Neutrophils (%) (Auto) 92.4 % Lymphocytes (%) (Auto) 1.7 % Monocytes (%) (Auto) 5.1 % Eosinophils (%) (Auto) 0.5 % Basophils (%) (Auto) 0.3 % Neutrophils # (Auto) 10.7 TH/MM3 Lymphocytes # (Auto) 0.2 TH/MM3 Monocytes # (Auto) 0.6 TH/MM3 Eosinophils # (Auto) 0.1 TH/MM3 Basophils # (Auto) 0.0 TH/MM3 CBC Comment DIFF FINAL Differential Comment Laboratory Tests Test 09/19/16 09/20/16 09/20/16 09/20/16 20:59 01:39 05:41 11:30 B-Type Natriuretic Peptide 1110 PG/ML 971 PG/ML Sodium Level 125 MEQ/L 126 MEQ/L 126 MEQ/L Potassium Level 4.1 MEQ/L 3.6 MEQ/L 3.4 MEQ/L Chloride Level 93 MEQ/L 92 MEQ/L 92 MEQ/L Carbon Dioxide Level 19.3 MEQ/L 19.1 MEQ/L 19.8 MEQ/L Anion Gap 13 MEQ/L 15 MEQ/L 14 MEQ/L Blood Urea Nitrogen 48 MG/DL 48 MG/DL 48 MG/DL Creatinine 2.52 MG/DL 2.60 MG/DL 2.72 MG/DL Estimat Glomerular Filtration 18 ML/MIN 17 ML/MIN 16 ML/MIN Rate Random Glucose 82 MG/DL 89 MG/DL 123 MG/DL Calcium Level 7.7 MG/DL 7.7 MG/DL 7.7 MG/DL Magnesium Level 1.6 MG/DL 1.5 MG/DL 1.6 MG/DL Phosphorus Level 3.6 MG/DL Test 09/20/16 09/20/16 09/21/16 09/21/16 16:51 23:02 04:03 11:41 Sodium Level 128 MEQ/L 129 MEQ/L 129 MEQ/L 126 MEQ/L Potassium Level 4.1 MEQ/L 3.0 MEQ/L 2.7 MEQ/L 2.9 MEQ/L Chloride Level 93 MEQ/L 93 MEQ/L 93 MEQ/L 90 MEQ/L Carbon Dioxide Level 21.5 MEQ/L 23.2 MEQ/L 23.9 MEQ/L 25.5 MEQ/L Anion Gap 14 MEQ/L 13 MEQ/L 12 MEQ/L 11 MEQ/L Blood Urea Nitrogen 49 MG/DL 49 MG/DL 50 MG/DL 50 MG/DL Creatinine 2.69 MG/DL 2.83 MG/DL 2.77 MG/DL 2.86 MG/DL Estimat Glomerular Filtration 17 ML/MIN 16 ML/MIN 16 ML/MIN 16 ML/MIN Rate Random Glucose 104 MG/DL 114 MG/DL 86 MG/DL 148 MG/DL Calcium Level 7.7 MG/DL 7.6 MG/DL 7.4 MG/DL 7.2 MG/DL Protein Corrected Calcium 8.6 MG/DL 8.5 MG/DL Magnesium Level 1.6 MG/DL 1.4 MG/DL 1.4 MG/DL 1.6 MG/DL Total Protein 5.5 GM/DL 5.1 GM/DL B-Type Natriuretic Peptide 1855 PG/ML IMAGING: Lung Scan-V Nuclear Medicine 09/20/16 0000 Signed Impressions: Service Date/Time: Tuesday, September 20, 2016 12:51 - CONCLUSION: Low probability for pulmonary embolism. Zack Baca MD Chest X-Ray 09/19/16 0000 Signed Impressions: Service Date/Time: Monday, September 19, 2016 08:38 - CONCLUSION: 1. Stable bilateral opacities and small apparent right effusion. 2. Mild cardiomegaly. Zack Baca MD Chest CT 09/05/16 0000 Signed Impressions: Service Date/Time: Monday, September 05, 2016 03:55 - CONCLUSION: 1. Small and very mild infiltrate in the right upper lobe. No pulmonary mass. 2. Mild panchamber enlargement of the heart. 3. Suspected pulmonary hypertension. 4. Severely atherosclerotic aorta. Jones Lucero MD PHYSICAL EXAMINATION GEN: No acute distress. HEENT: Head is atraumatic. Extraocular movements grossly intact, pupils reactive to light without icterus. Oropharynx slightly dry mucosa. NECK: Supple. No adenopathy. LUNGS: Rhonchi at the bases. HEART: Irregular rate and rhythm without murmurs, rubs or gallops. ABDOMEN: Bowel sounds present, soft, non tenderness. EXTREMITIES: No clubbing or cyanosis or edema. SKIN: No rash. NEUROLOGIC: No gross focal findings. PSYCHIATRIC: The patient calm and cooperative. IMPRESSION 1. Leukocytosis improving. 2. Severe COPD 3. Probable healthcare associated pneumonia. 4. Chronic renal failure with acute component. RECOMMENDATIONS 1. Obtain a sputum sample if the patient expectorates any sputum. She is currently coughing but is not producing sputum. 2. Monitor the white blood cell count Ángel Cutler MD Sep 21, 2016 12:40
[2016-09-21 12:50] LABS: CALCIUM-PROTEIN CORRECTED 8.2 MG/DL (8.5-10.1)
[2016-09-21] MEDS: LATANOPROST 0.005% OPHT SOLN 2.5 ML BTL RIGHT EYE SCH (13:18)
[2016-09-21] MEDS ORDERED: OPTH RIGHT EYE ONE (14:00)
[2016-09-21] MEDS ORDERED: PILOCARPINE HCL 2% OPHT SOLN 15 ML BTL RIGHT EYE ONE (14:00)
[2016-09-21] MEDS ORDERED: [UNRECOGNIZED DRUG - OTHER] RIGHT EYE ONE (14:00)
[2016-09-21 14:44] LABS: BICARBONATE 24.4 MEQ/L (21.0-32.0)
--- NOTE | 2016-09-21 15:55 | HHI.HCPN ---
Reason for visit a. To assist with evaluation and management of symptoms including: Debility , pain and shortness of breath. b. To assist medical decision maker(s) with: better understanding of current medical conditions; weighing benefits/burdens of medical treatment options; making medical treatment decisions. (Keya Meléndez) Subjective/Interval History Patient seen in ICU. She was laying in bed in no acute distress. Remains on O2 via nasal cannula, nonproductive cough noted. Reporting chest pain when she coughs, hoarseness improving. Denies nausea, vomiting, diarrhea or abdominal discomfort. However, reports being constipated with last bowel movement 2-3 days ago. Patient reporting some vision loss to right eye, she has a history of glaucoma. Dietetics Teacher has been consulted. Patient afebrile, hypertensive with SBP in the 90s. Labs today including WBC 11.6, Hgb 8.5, and platelet count 187. NA 129, potassium 3, BUN/creatinine 52/2.91. ID, pulmonology, nephrology and GI following. Discuss case with GI, pending enteroscopy for assessment of GI bleed. However, unable to proceed secondary to patient's pulmonary condition. . Family/friend interactions Family meeting from 14:05 to 15:10, met with patient's daughters Rosalind Orozco, Ashley and Candelaria. Medical update provided. Family tells me that prior to his hospitalization patient was residing independently and even driving. However after last hospitalization in August, patient required increasing assistance with ADLs. She was receiving assistance by home health as all of her 4 children reside out of the state of [place]. Reviewed family understanding of patient's current medical condition and risk for further decline, additional complications and . Family verbalized their understanding of patient's poor prognosis for an improved quality of life given her multi-system organ failure and profound physical deconditioning. Daughter Rosalind Orozco verbalized being aware that is unlikely for patient to return to independent living. Discussed continuation of aggressive care versus transition to comfort directed care. Family leaning to comfort directed care, however, they will like to lead goals of care conversation with patient this afternoon. Family requesting for palliative care to follow-up with patient tomorrow 09/22/16 in the morning. Ongoing emotional support and active listening provided. Family verbalized appreciation for my visit. . (Keya Meléndez) Advance Directives Living Will: Completed, but not made available Health Care Surrogate: Completed, but not made available Durable Power of Linter Operator: Completed, but not made available (Keya Meléndez) Advance Directive Specifics Health Care Surrogate(s): LW completed but pending from family. As per family, patient designated her daughter Rosalind Villegas as HCS. . . Documented care wishes: Pending living will. . Significant change in goals: No code. Continue aggressive care while allowing time for clinical improvement. . (Keya Meléndez) Objective Vital Signs Date Time Temp Pulse Resp B/P Pulse Ox O2 Delivery O2 Flow Rate FiO2 09/21/16 14:00 87 09/21/16 12:00 99.0 110 24 91/57 96 09/21/16 12:00 110 09/21/16 10:00 99 09/21/16 08:52 96 Nasal Cannula 3.00 09/21/16 08:00 100 09/21/16 08:00 98.8 100 20 98/50 96 09/21/16 07:00 98 Nasal Cannula 3.50 09/21/16 06:00 100 09/21/16 04:00 99.1 76 22 109/71 98 09/21/16 02:00 100 09/21/16 00:00 97.6 96 22 108/72 95 09/21/16 00:00 100 09/20/16 22:00 100 09/20/16 20:53 97 Nasal Cannula 3.00 09/20/16 20:00 95 Nasal Cannula 2.00 09/20/16 20:00 100 09/20/16 20:00 98.1 101 22 120/58 94 09/20/16 18:00 108 09/20/16 16:00 98.8 100 22 117/68 100 09/20/16 16:00 103 Intake & Output 09/21/16 09/21/16 07:00 19:00 Intake Total 227 ml Output Total 2000 ml Balance -1773 ml Intake Oral 200 ml IV Total 27 ml Output Urine Total 2000 ml Physical Exam CONSTITUTIONAL/GENERAL: This is an elderly, frail patient in no acute distress. Very soft voice. Limited speech secondary to shortness of breath, cough, and hoarseness. TUBES/LINES/DRAINS: PIV's, SCDs, Becker catheter. SKIN: Very pale. No jaundice, rashes, or lesions. Scattered ecchymoses on upper extremities. No wounds seen anteriorly. Skin temperature appropriate. Not diaphoretic. HEAD: Atraumatic. Normocephalic. EYES: Pupils equal and round and reactive. No scleral icterus. No injection or drainage. ENT: Very hard of hearing.. Nose without bleeding or purulent drainage. Dry lips. NECK: Trachea midline. Supple, nontender. CARDIOVASCULAR: irregular rate and rhythm. Peripheral pulses symmetric. Trace edema to bilateral lower extremities. RESPIRATORY/CHEST: Symmetric, unlabored respirations. Coarse breath sounds bilateral. Coughing, nonproductive. O2 via nasal cannula. GASTROINTESTINAL: Abdomen soft, non-tender, nondistended. No guarding. Bowel sounds present. GENITOURINARY: Without palpable bladder distension. Becker catheter in place. MUSCULOSKELETAL: Extremities without clubbing, cyanosis. No mottling or clubbing. NEUROLOGICAL: Awake and alert. Follows commands. Moves all extremities. PSYCHIATRIC: No obvious anxiety/depression. Appears calm. . (Keya Meléndez) Diagnostic Tests Laboratory Laboratory Tests Test 09/19/16 09/19/16 09/19/16 09/19/16 06:46 10:15 14:25 17:40 White Blood Count 14.5 TH/MM3 (4.0-11.0) Red Blood Count 3.12 MIL/MM3 (4.00-5.30) Hemoglobin 9.2 GM/DL (11.6-15.3) Hematocrit 28.0 % (35.0-46.0) Mean Corpuscular Volume 89.8 FL (80.0-100.0) Mean Corpuscular Hemoglobin 29.4 PG (27.0-34.0) Mean Corpuscular Hemoglobin 32.7 % Concent (32.0-36.0) Red Cell Distribution Width 19.0 % (11.6-17.2) Platelet Count 210 TH/MM3 (150-450) Mean Platelet Volume 8.0 FL (7.0-11.0) Sodium Level 122 MEQ/L (136-145) Potassium Level 4.2 MEQ/L (3.5-5.1) Chloride Level 90 MEQ/L (98-107) Carbon Dioxide Level 16.8 MEQ/L (21.0-32.0) Anion Gap 15 MEQ/L (5-15) Blood Urea Nitrogen 44 MG/DL (7-18) Creatinine 2.49 MG/DL (0.50-1.00) Estimat Glomerular Filtration 18 ML/MIN (>89) Rate Random Glucose 98 MG/DL (74-106) Uric Acid 5.8 MG/DL (2.6-6.0) Calcium Level 7.5 MG/DL (8.5-10.1) Magnesium Level 1.6 MG/DL (1.5-2.5) Thyroid Stimulating Hormone 2.800 uIU/ML 3rd Gen (0.358-3.740) Blood Gas Puncture Site RT RADIAL Blood Gas Patient Temperature 98.6 Blood Gas HCO3 15 mmol/L (22-26) Blood Gas Base Excess -8.1 mmol/L (-2-2) Blood Gas Oxygen Saturation 91 % (90-100) Arterial Blood pH 7.43 (7.380-7.420) Arterial Blood Partial 24 mmHg (38-42) Pressure CO2 Arterial Blood Partial 68 mmHg Pressure O2 (61-120) Arterial Blood Oxygen Content 14.9 Vol % (12.0-20.0) Arterial Blood 1.4 % (0-4) Carboxyhemoglobin Arterial Blood Methemoglobin 0.7 % (0-2) Blood Gas Hemoglobin 11.7 G/DL (12.0-16.0) Oxygen Delivery Device NASAL CANNULA Blood Gas Liter Flow 3 L/M Prothrombin Time 12.4 SEC (9.8-11.6) Prothromb Time International 1.1 RATIO Ratio Activated Partial 30.1 SEC Thromboplast Time (24.3-30.1) Nasal Screen MRSA (PCR) NEGATIVE (NEGATIVE) Test 09/19/16 09/19/16 09/20/16 09/20/16 20:59 22:20 01:39 01:42 Activated Partial 29.5 SEC 64.8 SEC Thromboplast Time (24.3-30.1) (24.3-30.1) B-Type Natriuretic Peptide 1110 PG/ML (0-100) Urine Color YELLOW (YELLW/STRAW) Urine Turbidity HAZY (CLEAR) Urine pH 5.0 (5.0-8.5) Urine Specific [place] 1.013 (1.002-1.035) Urine Protein TRACE mg/dL (NEG-TRACE) Urine Glucose (UA) NEG mg/dL (NEG) Urine Ketones NEG mg/dL (NEG) Urine Occult Blood NEG (NEG) Urine Nitrite NEG (NEG) Urine Bilirubin NEG (NEG) Urine Urobilinogen LESS THAN 2.0 MG/DL (LESS THAN 2.0) Urine Leukocyte Esterase NEG (NEG) Urine Squamous Epithelial <1 /hpf (0-5) Cells Microscopic Urinalysis Comment CATH-CULT NOT IND Urine Osmolality 319 MOSM/KG (300-1300) Sodium Level 125 MEQ/L (136-145) Potassium Level 4.1 MEQ/L (3.5-5.1) Chloride Level 93 MEQ/L (98-107) Carbon Dioxide Level 19.3 MEQ/L (21.0-32.0) Anion Gap 13 MEQ/L (5-15) Blood Urea Nitrogen 48 MG/DL (7-18) Creatinine 2.52 MG/DL (0.50-1.00) Estimat Glomerular Filtration 18 ML/MIN (>89) Rate Random Glucose 82 MG/DL (74-106) Calcium Level 7.7 MG/DL (8.5-10.1) Magnesium Level 1.6 MG/DL (1.5-2.5) Test 09/20/16 09/20/16 09/20/16 09/20/16 05:41 11:30 16:51 23:02 White Blood Count 13.8 TH/MM3 (4.0-11.0) Red Blood Count 3.14 MIL/MM3 (4.00-5.30) Hemoglobin 9.3 GM/DL (11.6-15.3) Hematocrit 27.5 % (35.0-46.0) Mean Corpuscular Volume 87.5 FL (80.0-100.0) Mean Corpuscular Hemoglobin 29.5 PG (27.0-34.0) Mean Corpuscular Hemoglobin 33.7 % Concent (32.0-36.0) Red Cell Distribution Width 19.3 % (11.6-17.2) Platelet Count 206 TH/MM3 (150-450) Mean Platelet Volume 8.0 FL (7.0-11.0) Sodium Level 126 MEQ/L 126 MEQ/L 128 MEQ/L 129 MEQ/L (136-145) (136-145) (136-145) (136-145) Potassium Level 3.6 MEQ/L 3.4 MEQ/L 4.1 MEQ/L 3.0 MEQ/L (3.5-5.1) (3.5-5.1) (3.5-5.1) (3.5-5.1) Chloride Level 92 MEQ/L 92 MEQ/L 93 MEQ/L 93 MEQ/L (98-107) (98-107) (98-107) (98-107) Carbon Dioxide Level 19.1 MEQ/L 19.8 MEQ/L 21.5 MEQ/L 23.2 MEQ/L (21.0-32.0) (21.0-32.0) (21.0-32.0) (21.0-32.0) Anion Gap 15 MEQ/L (5-15) 14 MEQ/L (5-15) 14 MEQ/L (5-15) 13 MEQ/L (5-15) Blood Urea Nitrogen 48 MG/DL (7-18) 48 MG/DL (7-18) 49 MG/DL (7-18) 49 MG/DL (7- 18) Creatinine 2.60 MG/DL 2.72 MG/DL 2.69 MG/DL 2.83 MG/DL (0.50-1.00) (0.50-1.00) (0.50-1.00) (0.50-1.00) Estimat Glomerular Filtration 17 ML/MIN (>89) 16 ML/MIN (>89) 17 ML/MIN (>89) 16 ML/MIN (>89) Rate Random Glucose 89 MG/DL 123 MG/DL 104 MG/DL 114 MG/DL (74-106) (74-106) (74-106) (74-106) Calcium Level 7.7 MG/DL 7.7 MG/DL 7.7 MG/DL 7.6 MG/DL (8.5-10.1) (8.5-10.1) (8.5-10.1) (8.5-10.1) Phosphorus Level 3.6 MG/DL (2.5-4.9) Magnesium Level 1.5 MG/DL 1.6 MG/DL 1.6 MG/DL 1.4 MG/DL (1.5-2.5) (1.5-2.5) (1.5-2.5) (1.5-2.5) B-Type Natriuretic Peptide 971 PG/ML (0-100) Protein Corrected Calcium 8.6 MG/DL (8.5-10.1) Total Protein 5.5 GM/DL (6.4-8.2) Test 09/21/16 09/21/16 09/21/16 04:03 11:41 14:03 White Blood Count 11.6 TH/MM3 (4.0-11.0) Red Blood Count 2.94 MIL/MM3 (4.00-5.30) Hemoglobin 8.5 GM/DL (11.6-15.3) Hematocrit 25.4 % (35.0-46.0) Mean Corpuscular Volume 86.5 FL (80.0-100.0) Mean Corpuscular Hemoglobin 29.1 PG (27.0-34.0) Mean Corpuscular Hemoglobin 33.6 % Concent (32.0-36.0) Red Cell Distribution Width 19.2 % (11.6-17.2) Platelet Count 187 TH/MM3 (150-450) Mean Platelet Volume 7.9 FL (7.0-11.0) Neutrophils (%) (Auto) 92.4 % (16.0-70.0) Lymphocytes (%) (Auto) 1.7 % (9.0-44.0) Monocytes (%) (Auto) 5.1 % (0.0-8.0) Eosinophils (%) (Auto) 0.5 % (0.0-4.0) Basophils (%) (Auto) 0.3 % (0.0-2.0) Neutrophils # (Auto) 10.7 TH/MM3 (1.8-7.7) Lymphocytes # (Auto) 0.2 TH/MM3 (1.0-4.8) Monocytes # (Auto) 0.6 TH/MM3 (0-0.9) Eosinophils # (Auto) 0.1 TH/MM3 (0-0.4) Basophils # (Auto) 0.0 TH/MM3 (0-0.2) CBC Comment DIFF FINAL Differential Comment Sodium Level 129 MEQ/L 126 MEQ/L 129 MEQ/L (136-145) (136-145) (136-145) Potassium Level 2.7 MEQ/L 2.9 MEQ/L 3.0 MEQ/L (3.5-5.1) (3.5-5.1) (3.5-5.1) Chloride Level 93 MEQ/L 90 MEQ/L 89 MEQ/L (98-107) (98-107) (98-107) Carbon Dioxide Level 23.9 MEQ/L 25.5 MEQ/L 24.4 MEQ/L (21.0-32.0) (21.0-32.0) (21.0-32.0) Anion Gap 12 MEQ/L (5-15) 11 MEQ/L (5-15) 16 MEQ/L (5-15) Blood Urea Nitrogen 50 MG/DL (7-18) 50 MG/DL (7-18) 52 MG/DL (7-18) Creatinine 2.77 MG/DL 2.86 MG/DL 2.91 MG/DL (0.50-1.00) (0.50-1.00) (0.50-1.00) Estimat Glomerular Filtration 16 ML/MIN (>89) 16 ML/MIN (>89) 15 ML/MIN (>89) Rate Random Glucose 86 MG/DL 148 MG/DL 158 MG/DL (74-106) (74-106) (74-106) Calcium Level 7.4 MG/DL 7.2 MG/DL 7.5 MG/DL (8.5-10.1) (8.5-10.1) (8.5-10.1) Protein Corrected Calcium 8.5 MG/DL 8.2 MG/DL (8.5-10.1) (8.5-10.1) Magnesium Level 1.4 MG/DL 1.6 MG/DL (1.5-2.5) (1.5-2.5) B-Type Natriuretic Peptide 1855 PG/ML (0-100) Total Protein 5.1 GM/DL 5.2 GM/DL (6.4-8.2) (6.4-8.2) (Keya Meléndez) Result Diagram: 09/21/16 0403 09/21/16 1403 Imaging Last Impressions Lung Scan-VQ Nuclear Medicine 09/20/16 0000 Signed Impressions: Service Date/Time: Tuesday, September 20, 2016 12:51 - CONCLUSION: Low probability for pulmonary embolism. Zack Baca MD Chest X-Ray 09/19/16 0000 Signed Impressions: Service Date/Time: Monday, September 19, 2016 08:38 - CONCLUSION: 1. Stable bilateral opacities and small apparent right effusion. 2. Mild cardiomegaly. Zack Baca MD Chest CT 09/05/16 0000 Signed Impressions: Service Date/Time: Monday, September 05, 2016 03:55 - CONCLUSION: 1. Small and very mild infiltrate in the right upper lobe. No pulmonary mass. 2. Mild panchamber enlargement of the heart. 3. Suspected pulmonary hypertension. 4. Severely atherosclerotic aorta. Jones Lucero MD (Keya Meléndez [facility]) Assessment and Plan Disease Oriented Problem List: (1) COPD (chronic obstructive pulmonary disease) (2) Atrial fibrillation (3) CHF (congestive heart failure) (4) Chronic kidney disease (5) GI bleed Symptom Scale: (1) Dyspnea 0-10 Scale: Unable to quantify Comment: Multifactorial. Secondary to COPD, pneumonia, physical deconditioning. Remains on O2. (2) Debility 0-10 Scale: Unable to quantify Comment: Progressive. Pertinent Non-Medical Issues Psychosocial: . Spiritual: Restorationist. Legal: Ethical issues impacting care: No ethical issues have been identified. . Important Contacts Daughter Rosalind Villegas [phone]. Prognosis Mrs. Calvert is an 89-year-old female with a medical history of COPD, atrial fibrillation on anticoagulation and heart failure. Patient admitted secondary to pneumonia. Clinical course complicated by acute hypoxemic respiratory failure, intravascular volume overload, and CKD. Patient with history of 4 acute hospitalizations within the last 12 months. Progressive functional decline reported with profound physical deconditioning. Patient's overall prognosis is poor for an improved quality of life or long-term survival given her age, recent multiple hospitalizations, acute events, and multiple comorbidities. . Code Status: No Code Plan * CODE STATUS: No code. DNR/DNI. * Decision-making capacity: Patient appears capacitated for healthcare medical decisions, however, clinical condition does not permit full goals of care conversation secondary to profound shortness of breath, hoarseness and cough. LW completed but pending from family. As per family, patient designated her daughter Rosalind Villegas as healthcare surrogate decision-maker. * GOALS OF CARE: No code. Plan is to continue with aggressive medical management and allow time for clinical improvement. Family meeting held on with patient's 3 daughters. Medical update provided. Daughters with a good understanding of patient's clinical condition and risks of further decline, addition complications and . Discussed pt's low likelihood to return to independent living given her clinical condition and profound physical deconditioning. Family to lead goals of care conversation this afternoon -will discuss aggressive care versus comfort-directed care with hospice. Family requesting palliative care to f/u with patient tomorrow 09/22/16 in the AM for further clarification of goals of care. * SYMPTOMS: == Shortness of breath, secondary to COPD, pneumonia. Negative VQ scan for PE. Remains on O2 3 L via nasal cannula. Pulmonary following. == Debility, multifactorial. Progressive over the past year and worsen in the past 3 months. For acute hospitalizations within the last 12 months. Patient was previously discharge with home health. not likely to return to independent living, discussed with family. * Case has been discussed with bedside RN. * Palliative care contact information has been provided to patient's family. * Palliative care to meet with patient and family for further clarifications of goals of care. . (Keya Meléndez) Time Spent Time Periods: Family meeting from 14:05 to 15:10 Total Floor Time (mins): 74 (Total time to include review of medical records, physical exam, family meeting from 14:05 to 15:10, and case discussion with bedside RN and GI.) >50% Counseling/Coord of Care: Yes (Keya Meléndez) Attestation To help prompt me to consider important information that might be impacting today's encounter and assessment, information from prior notes written by myself or my colleagues may have been "brought forward" into today's note. My signature on this note, however, is an attestation that I personally performed the exam, history, and/or decision-making noted today, and, unless otherwise indicated, the interactions with patient, family, and staff as well as the review of records all occurred today. I also attest that the listed assessment and stated plan reflect my best clinical judgment today based on the combination of historical information, prior notes, and today's exam/ interactions. When time spent is documented, it refers only to time spent today by the signer, or if indicated, combined time spent today by collaborating physician/nurse practitioner. (Keya Meléndez) Collaborating MD Comments Chart reviewed. Case discussed with palliative care DIABETES EDUCATION COORDINATOR. Above DIABETES EDUCATION COORDINATOR note reviewed and I concur. . (Jaun Fox MD) Keya Meléndez Sep 21, 2016 15:55 Jaun Fox MD Sep 24, 2016 12:29
--- NOTE | 2016-09-21 16:21 | HHI.GIFU ---
Subjective Remarks Resting in bed. No n/v. States she has not had a bowel movement in a few days. Spoke to Keya with palliative care. She spoke with family re: goals and they would like to think this over and meet again in the am. Will follow. ( Nubia Baird) Objective Vitals I&O Vital Signs Date Time Temp Pulse Resp B/P Pulse Ox O2 Delivery O2 Flow Rate FiO2 09/21/16 14:00 87 09/21/16 12:00 99.0 110 24 91/57 96 09/21/16 12:00 110 09/21/16 10:00 99 09/21/16 08:52 96 Nasal Cannula 3.00 09/21/16 08:00 100 09/21/16 08:00 98.8 100 20 98/50 96 09/21/16 07:00 98 Nasal Cannula 3.50 09/21/16 06:00 100 09/21/16 04:00 99.1 76 22 109/71 98 09/21/16 02:00 100 09/21/16 00:00 97.6 96 22 108/72 95 09/21/16 00:00 100 09/20/16 22:00 100 09/20/16 20:53 97 Nasal Cannula 3.00 09/20/16 20:00 95 Nasal Cannula 2.00 09/20/16 20:00 100 09/20/16 20:00 98.1 101 22 120/58 94 09/20/16 18:00 108 I/O 09/20/16 09/20/16 09/20/16 09/21/16 09/21/16 09/21/16 07:00 15:00 23:00 07:00 15:00 23:00 Intake Total 178 ml 490 ml 115 ml 112 ml 586 ml Output Total 1600 ml 460 ml 1300 ml 700 ml 120 ml Balance -1422 ml 30 ml -1185 ml -588 ml 466 ml Intake Oral 420 ml 100 ml 100 ml 400 ml IV Total 178 ml 70 ml 15 ml 12 ml 186 ml Output Urine Total 1600 ml 460 ml 1300 ml 700 ml 120 ml Laboratory Laboratory Tests Test 09/20/16 09/20/16 09/21/16 09/21/16 16:51 23:02 04:03 11:41 Sodium Level 128 129 129 126 Potassium Level 4.1 3.0 2.7 2.9 Chloride Level 93 93 93 90 Carbon Dioxide Level 21.5 23.2 23.9 25.5 Anion Gap 14 13 12 11 Blood Urea Nitrogen 49 49 50 50 Creatinine 2.69 2.83 2.77 2.86 Estimat Glomerular Filtration 17 16 16 16 Rate Random Glucose 104 114 86 148 Calcium Level 7.7 7.6 7.4 7.2 Protein Corrected Calcium 8.6 8.5 8.2 Magnesium Level 1.6 1.4 1.4 1.6 Total Protein 5.5 5.1 5.2 White Blood Count 11.6 Red Blood Count 2.94 Hemoglobin 8.5 Hematocrit 25.4 Mean Corpuscular Volume 86.5 Mean Corpuscular Hemoglobin 29.1 Mean Corpuscular Hemoglobin 33.6 Concent Red Cell Distribution Width 19.2 Platelet Count 187 Mean Platelet Volume 7.9 Neutrophils (%) (Auto) 92.4 Lymphocytes (%) (Auto) 1.7 Monocytes (%) (Auto) 5.1 Eosinophils (%) (Auto) 0.5 Basophils (%) (Auto) 0.3 Neutrophils # (Auto) 10.7 Lymphocytes # (Auto) 0.2 Monocytes # (Auto) 0.6 Eosinophils # (Auto) 0.1 Basophils # (Auto) 0.0 CBC Comment DIFF FINAL Differential Comment B-Type Natriuretic Peptide 1855 Test 09/21/16 14:03 Sodium Level 129 Potassium Level 3.0 Chloride Level 89 Carbon Dioxide Level 24.4 Anion Gap 16 Blood Urea Nitrogen 52 Creatinine 2.91 Estimat Glomerular Filtration 15 Rate Random Glucose 158 Calcium Level 7.5 Imaging Last Impressions Lung Scan- Nuclear Medicine 09/20/16 0000 Signed Impressions: Service Date/Time: Tuesday, September 20, 2016 12:51 - CONCLUSION: Low probability for pulmonary embolism. Zack Baca MD Chest X-Ray 09/19/16 0000 Signed Impressions: Service Date/Time: Monday, September 19, 2016 08:38 - CONCLUSION: 1. Stable bilateral opacities and small apparent right effusion. 2. Mild cardiomegaly. Zack Baca MD Chest CT 09/05/16 0000 Signed Impressions: Service Date/Time: Monday, September 05, 2016 03:55 - CONCLUSION: 1. Small and very mild infiltrate in the right upper lobe. No pulmonary mass. 2. Mild panchamber enlargement of the heart. 3. Suspected pulmonary hypertension. 4. Severely atherosclerotic aorta. Jones Lucero MD Physical Exam HEENT: Normocephalic; atraumatic; no jaundice. Hoarse CHEST: CTA, diminished. O2 4L, 92% o2 sat CARDIAC: RRR ABDOMEN: Soft, nondistended, nontender; no hepatosplenomegaly; bowel sounds are present in all four quadrants. EXTREMITIES: No clubbing, cyanosis, or edema. SKIN: Normal; no rash; no jaundice. BILINGUAL MANAGER: No focal deficits; lethargic and oriented times three. (BairdNubia Stringer FACILITY ENGINEER) Assessment and Plan Plan ASSESSMENT: - GIB with melena and coffee ground emesis. Colonoscopy (05/12/16)------> Normal colonoscopy with normal terminal ileum. SBFT (05/12/16)---> Unremarkable small bowel examination, bleeding scan was negative at that time as well. 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 Enteroscopy was recommended but patient had discussed this with PCP and came to Decision not to proceed. Last EGD was in 2009 and that showed esophageal stricture and hiatal hernia. Pt continues to have melena and she and her daughter would now like to proceed with the enteroscopy. This has been held secondary to respiratory issues. She has improved some, off NRB and VQ Scan low probability for PE. However, still on 4L and O2 sat 92%. Palliative care has met with patient/family and they are considering comfort measures, but would like to think this over and make a decision re: goals of care in am. Will cont. to hold on endoscopy at this time. - Anemia, acute blood loss. 8.5/25.4. PPI. - GERD/hoarseness-. PPI, Chloraseptic spray - pneumonia, leukocytosis , WBC 11.6 - A-fib on Eliquis , cardiology on the case- Eliquis is on hold. - CKD nephrology on the case - CHF, COPD per attending Plan: - ANTHONY - PPI - Monitor HH - Transfuse as needed - Notify GI for active bleeding - Eliquis on hold - Palliative care has met with patient/family and they are considering comfort measures, but would like to think this over and make a decision re: goals of care in am. - Further recommendations to follow based on results of above - Patient seen and examined by Dr. Guy and myself and this note is written on her behalf. (Nubia Baird) Physician Comments seen, examined agree with above (Barbara Guy MD) Nubia Baird Sep 21, 2016 16:21 Barbara Guy MD Sep 21, 2016 17:37
[2016-09-21] MEDS ORDERED: POTASSIUM CHLORIDE 25 MEQ EFFERVESCENT TAB PO ONE (17:30)
--- NOTE | 2016-09-21 18:13 | HHI.PR ---
Subjective Remarks 89 YOWF with Pneumonia,CHF,AF Has mild wheezing Not able to expactorate No Fever Has hoarseness of voice, improving Tolerates PO Objective Vital Signs Vital Signs Date Time Temp Pulse Resp B/P Pulse Ox O2 Delivery O2 Flow Rate FiO2 09/21/16 16:00 98.7 94 22 86/55 97 09/21/16 16:00 94 09/21/16 14:00 87 09/21/16 12:00 99.0 110 24 91/57 96 09/21/16 12:00 110 09/21/16 10:00 99 09/21/16 08:52 96 Nasal Cannula 3.00 09/21/16 08:00 100 09/21/16 08:00 98.8 100 20 98/50 96 09/21/16 07:00 98 Nasal Cannula 3.50 09/21/16 06:00 100 09/21/16 04:00 99.1 76 22 109/71 98 09/21/16 02:00 100 09/21/16 00:00 97.6 96 22 108/72 95 09/21/16 00:00 100 09/20/16 22:00 100 09/20/16 20:53 97 Nasal Cannula 3.00 09/20/16 20:00 95 Nasal Cannula 2.00 09/20/16 20:00 100 09/20/16 20:00 98.1 101 22 120/58 94 I/O 09/20/16 09/20/16 09/20/16 09/21/16 09/21/16 09/21/16 07:00 15:00 23:00 07:00 15:00 23:00 Intake Total 178 ml 490 ml 115 ml 112 ml 586 ml Output Total 1600 ml 460 ml 1300 ml 700 ml 120 ml Balance -1422 ml 30 ml -1185 ml -588 ml 466 ml Intake Oral 420 ml 100 ml 100 ml 400 ml IV Total 178 ml 70 ml 15 ml 12 ml 186 ml Output Urine Total 1600 ml 460 ml 1300 ml 700 ml 120 ml Result Diagram: 09/21/16 0403 09/21/16 1043 Objective Remarks GENERAL: Thin built WF, NAD SKIN: Warm and dry. HEAD: Normocephalic. EYES: No scleral icterus. No injection or drainage. NECK: Supple, trachea midline. No JVD or lymphadenopathy. CARDIOVASCULAR: Regular rate and rhythm without murmurs, gallops, or rubs. RESPIRATORY: Breath sounds equal bilaterally. No accessory muscle use. GASTROINTESTINAL: Abdomen soft, non-tender, nondistended. MUSCULOSKELETAL: No cyanosis, or edema. BACK: Nontender without obvious deformity. No CVA tenderness. A/P Assessment and Plan Pneumonia CHF AF CKD Hypoxic resp failure PLAN: Cont Abx per ID Aerosol nebs Monitor Lytes Monitor H/H 02 4LNC keep sat >90% Pureed diet. Nash Dutta MD Sep 21, 2016 18:13
[2016-09-21 19:38] LABS: MAGNESIUM 2.1 MG/DL (1.5-2.5)
[2016-09-21] MEDS: ACETAMINOPHEN 325 MG TAB PO PRN (21:20)
[2016-09-21] MEDS: PRAVASTATIN SOD 80 MG TAB PO SCH (21:40)
[2016-09-21 23:39] LABS: POTASSIUM 3.4 MEQ/L (3.5-5.1)
[2016-09-21 23:55] LABS: CALCIUM-PROTEIN CORRECTED 8.5 MG/DL (8.5-10.1)
[2016-09-22] VITALS (14 sets, daily range): BP systolic 87–120; BP diastolic 53–58; PULSE 86–103; RESP 17–44; TEMP 97.9–98.7; O2SAT 85–99
[2016-09-22] MEDS: PANTOPRAZOLE SODIUM 40 MG VIAL IV PUSH SCH ×2 (02:00→13:49)
[2016-09-22] MEDS: RESP: ALBUTEROL 1.25 MG/3 ML NEB (SCH) NEB ×4 (04:14→21:27)
[2016-09-22] MEDS: LEVOTHYROXINE SODIUM 50 MCG TAB PO SCH (06:00)
[2016-09-22 07:45] LABS: BICARBONATE 25.3 MEQ/L (21.0-32.0); MAGNESIUM 1.9 MG/DL (1.5-2.5); POTASSIUM 3.2 MEQ/L (3.5-5.1)
--- NOTE | 2016-09-22 08:52 | PD.CONS ---
History of Present Illness Service Ophthalmology Consult Requested By Dr. Romero Reason for Consult right eye vision loss Primary Care Physician Juan R Evans MD Diagnoses: History of Present Illness 89 yo WF with history of CHF, AF, CKD. 1-2 days ago noticed the right eye vision went out suddenly. Having mild pain around the right eye as well. Poor historian - outpatient ribber is Dr. Anthony (unable to obtain old medical records bc he is out of town). She states she had a laser for narrow angles. She has no other eye problems, no other eye surgeries, and is not on any eyedrops. Past Family Social History Allergies: Coded Allergies: Atenolol (Verified Allergy, Severe, 09/05/16) LIGHT HEADED/FAINT Cardizem (Verified Allergy, Severe, AIRWAY SWELLING, 09/05/16) AIRWAY OBSTRUCTION Levofloxacin (Verified Allergy, Severe, 09/05/16) Lisinopril (Verified Allergy, Severe, CP, 09/05/16) Phenergan (Verified Allergy, Severe, RASH, 09/05/16) Sulfa (Verified Allergy, Severe, 09/05/16) Toprol Xl (Verified Allergy, Severe, BRADYCARDIA, 09/05/16) Verapamil (Verified Allergy, Severe, Anaphylaxis, 09/05/16) Amoxicillin (Verified Allergy, Mild, 09/05/16) Levaquin (Verified Allergy, Mild, Irritability/Anxiety, 09/05/16) EDOXABAN (Verified Adverse Reaction, Severe, LIGHT HEADED, 09/05/16) Potassium (Verified Adverse Reaction, Severe, CAN'T BREATHE, 09/05/16) Uncoded Allergies: GINGERALE (Adverse Reaction, Severe, VOMITING, 08/24/16) Physical Exam Vital Signs Vital Signs Date Time Temp Pulse Resp B/P Pulse Ox O2 Delivery O2 Flow Rate FiO2 09/22/16 02:00 91 09/22/16 00:00 86 09/21/16 22:20 22 09/21/16 22:04 99 Nasal Cannula 3.00 09/21/16 22:00 89 09/21/16 20:00 97.9 92 20 95/54 97 09/21/16 20:00 92 09/21/16 19:00 97 Nasal Cannula 3.50 09/21/16 18:00 99 09/21/16 16:00 98.7 94 22 86/55 97 09/21/16 16:00 94 09/21/16 14:00 87 09/21/16 12:00 99.0 110 24 91/57 96 09/21/16 12:00 110 09/21/16 10:00 99 09/21/16 08:52 96 Nasal Cannula 3.00 Physical Exam Va cc at near OD LP, OS 20/200 EOM full OU, no diplopia CVF unable Pupils OD 1mm, OS 3 mm, minimally reactive IOP 10, 14 mm Hg Anterior exam OD - normal eyelid, C/S W&Q, K clear, AC deep, pupil round, PCIOL OS - normal eyelid, C/S W&Q, K clear, AC deep, pupil round, PCIOL Dilated exam OD - hazy view OS - ON s/p/f, ves normal, vit clear, retina flat Laboratory Laboratory Tests Test 09/21/16 09/21/16 09/21/16 09/21/16 11:41 14:03 18:32 23:08 Sodium Level 126 129 128 Potassium Level 2.9 3.0 3.4 Chloride Level 90 89 90 Carbon Dioxide Level 25.5 24.4 24.0 Anion Gap 11 16 14 Blood Urea Nitrogen 50 52 49 Creatinine 2.86 2.91 2.79 Estimat Glomerular Filtration 16 15 16 Rate Random Glucose 148 158 131 Calcium Level 7.2 7.5 7.4 Protein Corrected Calcium 8.2 8.5 Magnesium Level 1.6 2.1 2.0 Total Protein 5.2 5.2 Phosphorus Level 3.3 Test 09/22/16 06:05 Sodium Level 128 Potassium Level 3.2 Chloride Level 90 Carbon Dioxide Level 25.3 Anion Gap 13 Blood Urea Nitrogen 51 Creatinine 2.76 Estimat Glomerular Filtration 16 Rate Random Glucose 91 Calcium Level 7.5 Magnesium Level 1.9 Result Diagram: 09/21/16 0403 09/22/16 0605 Assessment and Plan Problem List: (1) Vitreous hemorrhage of right eye Status: Acute Plan: Most likely cause of decreased vision OD - hazy view on dilated exam. Due to her health status, would wait until she is an outpatient to do further testing. Geraldine Tavares MD Sep 22, 2016 08:52
[2016-09-22] MEDS: SODIUM BICARBONATE 650 MG TAB PO SCH ×3 (09:00→18:00)
[2016-09-22] MEDS: SENNOSIDES SYRUP 8.8 MG/5 ML CUP PO SCH (09:00)
[2016-09-22] MEDS: NYSTATIN SUSP 500,000 U/5 ML CUP SWISH-SWAL SCH ×4 (09:10→22:06)
[2016-09-22] MEDS: DOCUSATE SODIUM 100 MG CAP PO SCH ×2 (09:11→21:00)
[2016-09-22] MEDS: guaiFENesin E.R. 600 MG TAB PO SCH ×2 (09:12→22:05)
[2016-09-22] MEDS: NEBIVOLOL 5 MG TAB PO SCH (09:12)
[2016-09-22] MEDS: AMIODARONE 200 MG TAB PO SCH (09:12)
[2016-09-22] MEDS: BUMETANIDE INJ 1 MG/4 ML VIAL IV PUSH SCH ×2 (09:13→18:06)
[2016-09-22] MEDS: CHOLECALCIFEROL (VIT D3) 1000 UNIT TAB PO SCH (09:13)
[2016-09-22] MEDS: FERROUS SULFATE 325 MG (65 MG ELEMENTAL IRON) TAB PO SCH (09:13)
--- NOTE | 2016-09-22 09:50 | HHI.NPPN ---
Subjective Complaints: Shortness of Breath General Problems: Mebat[place] Acidosis Renal Failure: Chronic, Acute Interval History Sitting up in bed working with speech therapy. No dysphagia reported. Renal function is better today. (Berna Godinez) Review of Systems General Constitutional: Fatigue (Berna Godinez) Ears, Nose, & Throat Ears, Nose & Throat: Sore Throat, Hoarse, Congestion (Berna Godinez) Respiratory Lungs: SOB, Cough, Sputum (Berna Godinez) Gastrointestinal Gastrointestinal: Nausea & Vomiting (Berna Godinez) Objective Data Data 09/21/16 09/22/16 19:00 07:00 Intake Total 586 ml 130 ml Output Total 120 ml 1750 ml Balance 466 ml -1620 ml Intake Oral 400 ml 125 ml IV Total 186 ml 5 ml Output Urine Total 120 ml 1750 ml Vital Signs Date Time Temp Pulse Resp B/P Pulse Ox O2 Delivery O2 Flow Rate FiO2 09/22/16 06:00 86 09/22/16 04:00 98.4 90 17 99/56 98 09/22/16 04:00 90 09/22/16 02:00 91 09/22/16 00:00 98.7 86 22 87/53 99 09/22/16 00:00 86 09/21/16 22:20 22 09/21/16 22:04 99 Nasal Cannula 3.00 09/21/16 22:00 89 09/21/16 20:00 97.9 92 20 95/54 97 09/21/16 20:00 92 09/21/16 19:00 97 Nasal Cannula 3.50 09/21/16 18:00 99 09/21/16 16:00 98.7 94 22 86/55 97 09/21/16 16:00 94 09/21/16 14:00 87 09/21/16 12:00 99.0 110 24 91/57 96 09/21/16 12:00 110 09/21/16 10:00 99 (Berna Godinez) -: 09/21/16 0403 09/22/16 0605 Tubes & Lines: Becker (Berna Godinez) Physical Exam General Appearance: Well Developed, Well Nourished, No Acute Distress, Comfortable, Anxious (Berna Godinez) Throat Throat Exam: Oral Mucosa [place] & Moist Throat Remarks voice hoarseness (Berna Godinez) Pulmonary Resp Exam: Breath Sounds Equal, Crackles, Rhonchi Resp Remarks wheezing (Berna GodinezP) Cardiology CV Exam: Good Perfusion, Irregular (Berna GodinezP) Gastrointestinal/Abdomen GI Exam: Soft, Non-Tender, Bowel Sounds Present (Berna Godinez) Musculoskeletal MS Exam: Joints Intact, Normal Tone (Berna GodinezP) Integumentary Skin Exam: Clear, Warm, Dry, Intact (Berna Godinez) Extremeties Extremities Exam: No Edema, Pedal Pulses Palpable (Berna Godinez) Neurologic Neuro Exam: Alert, Awake, Oriented, Speech Clear, Moving All Extremities ( Berna Godinez) Psychiatric Psych Exam: Appropriate Responses (Berna Godinez) Assessment/Plan Discussed Condition With: Patient Assessment Summary: Anemia of CKD, Hypertension, CKD Stage IV Electrolyte Assessment: Hypocalcemia, Hyponatremia, Metabolic Acidosis Problem List: (1) Chronic kidney disease, stage 4 (severe) Plan: renal function has improved diuresing well, on BID IV Bumex Avoid nephrotoxic agents. Replace potassium orally renal panel in am she likely would not do well on dialysis; she is a DNR; family to meet with palliative care today to further discuss goals (2) Hyponatremia Plan: stable Given 2 doses of Tolvaptan. continue fluid restriction and loop diuretic. (3) CHF (congestive heart failure) Plan: monitor fluid volume status EF 40-50% diuresis as above (4) Atrial fibrillation Plan: rate controlled, she is asymptomatic on amiodarone and Bystolic cardiology following AC on hold (5) Pneumonia Plan: oxygen as needed, RT to assist nebulizers prn, incentive spirometer recommended cough/deep breathing encouraged monitor clinically she is also on Robitussin Hoarseness has improved. (6) Anemia Plan: Hb stable, she was transfused one unit PRBC on 09/16 also on oral iron, EGD has been postponed Eliquis for anticoagulation on hold on Protonix, GI following (7) Secondary hyperparathyroidism of renal origin Plan: PTH elevated, continue vitamin D daily (Berna Godinez) Plan patient was seen and examined. Agree with above. No need for Tolvaptan. Renal function is poor but stable. Hyponatremia has improved. Needs fluid restriction. (Mario Mercado MD) Problem Qualifiers (1) Atrial fibrillation: Qualified Code: I48.1 - Persistent atrial fibrillation (2) Pneumonia: Qualified Code: J18.1 - Pneumonia of right middle lobe due to infectious organism Berna Godinez Sep 22, 2016 09:49 Mario Mercado MD Sep 22, 2016 14:48
[2016-09-22] MEDS ORDERED: POTASSIUM CHLORIDE 25 MEQ EFFERVESCENT TAB PO ONE (10:00)
--- NOTE | 2016-09-22 10:22 | HHI.PR ---
Subjective Remarks The patient complained that the SCDs were bothering her legs. She said the vision in her right eye was pretty much just white. She said she saw the eye doctor earlier and that she would return. She had no other acute complaints. Discussed with nursing. Objective Vitals Vital Signs Date Time Temp Pulse Resp B/P Pulse Ox O2 Delivery O2 Flow Rate FiO2 09/22/16 06:00 86 09/22/16 04:00 98.4 90 17 99/56 98 09/22/16 04:00 90 09/22/16 02:00 91 09/22/16 00:00 98.7 86 22 87/53 99 09/22/16 00:00 86 09/21/16 22:20 22 09/21/16 22:04 99 Nasal Cannula 3.00 09/21/16 22:00 89 09/21/16 20:00 97.9 92 20 95/54 97 09/21/16 20:00 92 09/21/16 19:00 97 Nasal Cannula 3.50 09/21/16 18:00 99 09/21/16 16:00 98.7 94 22 86/55 97 09/21/16 16:00 94 09/21/16 14:00 87 09/21/16 12:00 99.0 110 24 91/57 96 09/21/16 12:00 110 I/O 09/21/16 09/21/16 09/21/16 09/22/16 09/22/16 09/22/16 07:00 15:00 23:00 07:00 15:00 23:00 Intake Total 112 ml 586 ml 75 ml 55 ml Output Total 700 ml 120 ml 650 ml 1100 ml Balance -588 ml 466 ml -575 ml -1045 ml Intake Oral 100 ml 400 ml 75 ml 50 ml IV Total 12 ml 186 ml 5 ml Output Urine Total 700 ml 120 ml 650 ml 1100 ml Result Diagram: 09/21/16 0403 09/22/16 0605 Imaging Last Impressions Lung Scan-VQ Nuclear Medicine 09/20/16 0000 Signed Impressions: Service Date/Time: Tuesday, September 20, 2016 12:51 - CONCLUSION: Low probability for pulmonary embolism. Zack Baca MD Chest X-Ray 09/19/16 0000 Signed Impressions: Service Date/Time: Monday, September 19, 2016 08:38 - CONCLUSION: 1. Stable bilateral opacities and small apparent right effusion. 2. Mild cardiomegaly. Zack Baca MD Chest CT 09/05/16 0000 Signed Impressions: Service Date/Time: Monday, September 05, 2016 03:55 - CONCLUSION: 1. Small and very mild infiltrate in the right upper lobe. No pulmonary mass. 2. Mild panchamber enlargement of the heart. 3. Suspected pulmonary hypertension. 4. Severely atherosclerotic aorta. Jones Lucero MD Objective Remarks GENERAL: This is a well-nourished, well-developed patient, uncomfortable, slightly hard of hearing, hoarse voice. SKIN: No rashes, ecchymoses or lesions. Cool and dry. HEAD: Atraumatic. Normocephalic. No temporal or scalp tenderness. EYES: Pupils equal round and reactive. Extraocular motions intact. No scleral icterus. No injection or drainage. Vision impaired in right eye. ENT: Nose without bleeding, purulent drainage or septal hematoma. Throat without erythema, tonsillar hypertrophy or exudate. Uvula midline. Airway patent. NECK: Trachea midline. No JVD or lymphadenopathy. Supple, nontender, no meningeal signs. CARDIOVASCULAR: Tachycardic, irregularly irregular. Grade 2 systolic murmur appreciated. RESPIRATORY: Poor respiratory effort. GASTROINTESTINAL: Abdomen soft, non-tender, nondistended. No hepato-splenomegaly , or palpable masses. No guarding. MUSCULOSKELETAL: Extremities without clubbing, cyanosis. No edema. NEUROLOGICAL: Awake and alert. Cranial nerves II through XII intact. Motor and sensory grossly within normal limits. Five out of 5 muscle strength in all muscle groups. Normal speech. PSYCH: Slightly flattened affect. Procedures Medications and IVs Current Medications Medications (Trade) Dose Ordered Sig/Neva Route Start Time Stop Time Status Last Admin (NS Flush) 2 ml UNSCH PRN IVF 09/05/16 01:30 09/05/16 03:45 (NS Flush) 2 ml UNSCH PRN FLUSH 09/05/16 03:45 09/10/16 20:27 (Narcan Inj) 0.4 mg UNSCH PRN IV 09/05/16 03:45 (Eliquis) 2.5 mg BID PO 09/05/16 09:45 Hold 09/15/16 08:34 (Ferrous Sulfate) 325 mg DAILY PO 09/05/16 09:45 09/22/16 09:13 (Synthroid) 50 mcg DAILY@0600 PO 09/05/16 09:45 09/22/16 06:00 (Pravachol) 80 mg HS PO 09/05/16 21:00 09/21/16 21:40 (Colace) 100 mg BID PO 09/05/16 21:00 09/22/16 09:11 (Tylenol) 650 mg Q4H PRN PO 09/05/16 10:00 09/21/16 21:20 (Catapres) 0.1 mg Q6H PRN PO 09/05/16 10:15 (Pill Splitter) 1 ea UNSCH PRN OTHER 09/05/16 10:15 (Mucinex Er) 1,200 mg BID PO 09/06/16 15:00 09/22/16 09:12 (Zofran Inj) 4 mg Q6HR PRN IV PUSH 09/10/16 05:45 09/11/16 06:50 (Sodium Bicarbonate) 650 mg TID PO 09/10/16 18:00 09/21/16 18:52 (Robitussin Ac 200-20 Mg/10 ml Liq) 10 ml Q6H PRN PO 09/12/16 11:15 09/17/16 17:55 (Bystolic) 5 mg DAILY PO 09/14/16 09:00 09/22/16 09:12 (Protonix Inj) 40 mg Q12H IV PUSH 09/14/16 14:00 09/22/16 02:00 (Vitamin D3) 1,000 units DAILY PO 09/15/16 09:00 09/22/16 09:13 (Chloraseptic [place]) 2 spray Q2H PRN OROPHARYNG 09/15/16 14:00 09/18/16 02:24 (Mycostatin Liq) 5 ml QID SWISH-SWAL 09/18/16 15:00 09/22/16 09:10 (Cordarone) 200 mg DAILY PO 09/19/16 09:00 09/22/16 09:12 (Senna Liq) 8.8 mg DAILY PO 09/21/16 09:00 09/21/16 07:57 (Bumex Inj) 2 mg BID@09,18 IV PUSH 09/21/16 09:00 09/22/16 09:13 (Xalatan 0.005% Opth Soln) 1 drop HS RIGHT EYE 09/21/16 21:00 09/21/16 13:18 A/P Assessment and Plan A fib with RVR Recently admitted for Afib with RVR. HR well controlled 09/22. - On amiodarone 200 mg daily. Digoxin discontinued. Continue nebivolol. - follow up with cardiology. - holding anticoagulation in the setting of GIB. GI bleed Hemoccult positive. Had episode of dark stools and coffee ground emesis. On Eliquis which has been discontinued. GI consult appreciated. Transfused 1 unit with appropriate response. Unable to go for endoscopy s/t respiratory distress. - follow CBC and transfuse as needed. Stable 09/21. - GI consulted appreciated. Endoscopy when respiratory status is stable. - continue PPI. - hold anticoagulation. Pneumonia/ COPD exacerbation/ Acute hypoxemic respiratory failure/ Acute systolic CHF CXR and CT scan imaging indicative of a right infiltrate. She was recently hospitalized. Had lactic acid level of 5. Influenza negative. Received cefepime and vanco for pneumonia. Currently not requiring any supplemental O2. S/p steroids. The pt is still in respiratory distress 09/21. CXR 09/19 stable. She was transferred to the ICU and started on a Bumex gtt. V/Q scan low probability for PE so heparin gtt was discontinued. Echo in May with EF 45-50% and mod- severe MR and severe TR. BNP elevated. - oxygen and nebs as needed. - incentive spirometry, Acapella. - sputum and blood cultures. NGTD. - pulmonology following. - continue Bumex. - appreciate palliative care input. Will follow. Chronic renal disease/ metabolic acidosis/ hyponatremia/ hypokalemia Creatinine is around baseline. Started on bicarbonate on last admission by nephrology. Bicarb level is low and pt appears to be having respiratory compensation. Hyponatremia improved. - avoid nephrotoxins. - continue PO sodium bicarbonate. - resume diuresis. - Monitor I's and O's. - follow up with nephrology. Tolvaptan started. - fluid restriction. - potassium supplementation as needed. - per nephrology, would likely not do well on dialysis. Glaucoma The pt described new onset right eye pain and says she can only see white out of her right eye. She does have a history of glaucoma. Ophthalmology was consulted. - Continue latanoprost. - Follow up with ophthalmology. Hoarse voice ENT consult appreciated. Slowly improving. - continue PPI. - outpt follow-up with ENT. Thrush Resolved with nystatin. - continue nystatin. PPX: SCDs. Discharge Planning Keep in ICU. Zack Romero DO Sep 22, 2016 10:22
--- NOTE | 2016-09-22 10:59 | HHI.HCPN ---
Reason for visit a. To assist with evaluation and management of symptoms including: Debility , pain and shortness of breath. b. To assist medical decision maker(s) with: better understanding of current medical conditions; weighing benefits/burdens of medical treatment options; making medical treatment decisions. (Keya Meléndez) Subjective/Interval History Patient seen in ICU. She was laying in bed in no acute distress. Remains on O2 via nasal cannula, nonproductive cough noted. Tired and ill looking. Denies pain, nausea/vomiting or abdominal discomfort. Endorsing dyspnea on exertion but reports cough has improved. Patient reports feeling overall better than yesterday. Reports that she is still unable to see well with her right eye, ophthalmology -Dr. Tavares consulted yesterday. Glaucoma eye drops started. Patient afebrile, hypotensive with SBP in the 90s. Labs today including NA 128 , potassium 3.2, BUN/creatinine 51/2.76. ID, pulmonology, nephrology and GI following. Discuss case with GI yesterday, pending enteroscopy for assessment of GI bleed. However, unable to proceed secondary to patient's pulmonary condition. No new imaging. . Family/friend interactions Family meeting yesterday. After meeting, patient's daughter Rosalind Orozco called me to notify that family have spoke with patient regarding clarification of goals of care. As per daughter, patient wishing to "get better"/continue with aggressive care short of no code. Family asked palliative care to refrain from discussing goals of care today and to wait until Sunday after allowing a few more days for clinical improvement. . (Keya Meléndez) Advance Directives Living Will: Completed, but not made available Health Care Surrogate: Completed, but not made available Durable Power of Manufacturing Lead: Completed, but not made available (Keya Meléndez) Advance Directive Specifics Health Care Surrogate(s): LW completed but pending from family. As per family, patient designated her daughter Rosalind Villegas as HCS. . . Documented care wishes: Pending living will. . Significant change in goals: Goals remain unchanged. Continue with aggressive care short of no code and allow a few more days for clinical improvement. . (Keya Meléndez) Objective Vital Signs Date Time Temp Pulse Resp B/P Pulse Ox O2 Delivery O2 Flow Rate FiO2 09/22/16 10:21 94 Nasal Cannula 3.00 09/22/16 06:00 86 09/22/16 04:00 98.4 90 17 99/56 98 09/22/16 04:00 90 09/22/16 02:00 91 09/22/16 00:00 98.7 86 22 87/53 99 09/22/16 00:00 86 09/21/16 22:20 22 09/21/16 22:04 99 Nasal Cannula 3.00 09/21/16 22:00 89 09/21/16 20:00 97.9 92 20 95/54 97 09/21/16 20:00 92 09/21/16 19:00 97 Nasal Cannula 3.50 09/21/16 18:00 99 09/21/16 16:00 98.7 94 22 86/55 97 09/21/16 16:00 94 09/21/16 14:00 87 09/21/16 12:00 99.0 110 24 91/57 96 09/21/16 12:00 110 Intake & Output 09/22/16 09/22/16 07:00 19:00 Intake Total 130 ml Output Total 1750 ml Balance -1620 ml Intake Oral 125 ml IV Total 5 ml Output Urine Total 1750 ml Physical Exam CONSTITUTIONAL/GENERAL: This is an elderly, frail patient in no acute distress. Very soft voice. Limited speech secondary to shortness of breath, cough, and hoarseness. Tired looking. TUBES/LINES/DRAINS: PIV's, SCDs, Becker catheter. SKIN: Very pale. No jaundice, rashes, or lesions. Scattered ecchymoses on upper extremities. No wounds seen anteriorly. Skin temperature appropriate. Not diaphoretic. HEAD: Atraumatic. Normocephalic. bilateral temporal wasting noted. EYES: Pupils equal and round and reactive. No scleral icterus. No injection or drainage. Reporting vision loss to right eye. ENT: Very hard of hearing.. Nose without bleeding or purulent drainage. Dry lips. NECK: Trachea midline. Supple, nontender. CARDIOVASCULAR: irregular rate and rhythm. Peripheral pulses symmetric. Trace edema to bilateral lower extremities. RESPIRATORY/CHEST: Symmetric, shallow, unlabored respirations. clear breath sounds bilateral. O2 via nasal cannula. GASTROINTESTINAL: Abdomen soft, non-tender, nondistended. No guarding. Bowel sounds present. GENITOURINARY: Without palpable bladder distension. Becker catheter in place. MUSCULOSKELETAL: Extremities without clubbing, cyanosis. No mottling or clubbing. NEUROLOGICAL: Awake and alert. Follows commands. Moves all extremities. PSYCHIATRIC: No obvious anxiety/depression. Appears calm. . (Keya Meléndez) Diagnostic Tests Laboratory Laboratory Tests Test 09/19/16 09/19/16 09/19/16 09/19/16 14:25 17:40 20:59 22:20 Prothrombin Time 12.4 SEC (9.8-11.6) Prothromb Time International 1.1 RATIO Ratio Activated Partial 30.1 SEC 29.5 SEC Thromboplast Time (24.3-30.1) (24.3-30.1) Nasal Screen MRSA (PCR) NEGATIVE (NEGATIVE) B-Type Natriuretic Peptide 1110 PG/ML (0-100) Urine Color YELLOW (YELLW/STRAW) Urine Turbidity HAZY (CLEAR) Urine pH 5.0 (5.0-8.5) Urine Specific [place] 1.013 (1.002-1.035) Urine Protein TRACE mg/dL (NEG-TRACE) Urine Glucose (UA) NEG mg/dL (NEG) Urine Ketones NEG mg/dL (NEG) Urine Occult Blood NEG (NEG) Urine Nitrite NEG (NEG) Urine Bilirubin NEG (NEG) Urine Urobilinogen LESS THAN 2.0 MG/DL (LESS THAN 2.0) Urine Leukocyte Esterase NEG (NEG) Urine Squamous Epithelial <1 /hpf (0-5) Cells Microscopic Urinalysis Comment CATH-CULT NOT IND Urine Osmolality 319 MOSM/KG (300-1300) Test 09/20/16 09/20/16 09/20/16 09/20/16 01:39 01:42 05:41 11:30 Sodium Level 125 MEQ/L 126 MEQ/L 126 MEQ/L (136-145) (136-145) (136-145) Potassium Level 4.1 MEQ/L 3.6 MEQ/L 3.4 MEQ/L (3.5-5.1) (3.5-5.1) (3.5-5.1) Chloride Level 93 MEQ/L 92 MEQ/L 92 MEQ/L (98-107) (98-107) (98-107) Carbon Dioxide Level 19.3 MEQ/L 19.1 MEQ/L 19.8 MEQ/L (21.0-32.0) (21.0-32.0) (21.0-32.0) Anion Gap 13 MEQ/L (5-15) 15 MEQ/L (5-15) 14 MEQ/L (5-15) Blood Urea Nitrogen 48 MG/DL (7-18) 48 MG/DL (7-18) 48 MG/DL (7-18) Creatinine 2.52 MG/DL 2.60 MG/DL 2.72 MG/DL (0.50-1.00) (0.50-1.00) (0.50-1.00) Estimat Glomerular Filtration 18 ML/MIN (>89) 17 ML/MIN (>89) 16 ML/MIN (>89) Rate Random Glucose 82 MG/DL 89 MG/DL 123 MG/DL (74-106) (74-106) (74-106) Calcium Level 7.7 MG/DL 7.7 MG/DL 7.7 MG/DL (8.5-10.1) (8.5-10.1) (8.5-10.1) Magnesium Level 1.6 MG/DL 1.5 MG/DL 1.6 MG/DL (1.5-2.5) (1.5-2.5) (1.5-2.5) Activated Partial 64.8 SEC Thromboplast Time (24.3-30.1) White Blood Count 13.8 TH/MM3 (4.0-11.0) Red Blood Count 3.14 MIL/MM3 (4.00-5.30) Hemoglobin 9.3 GM/DL (11.6-15.3) Hematocrit 27.5 % (35.0-46.0) Mean Corpuscular Volume 87.5 FL (80.0-100.0) Mean Corpuscular Hemoglobin 29.5 PG (27.0-34.0) Mean Corpuscular Hemoglobin 33.7 % Concent (32.0-36.0) Red Cell Distribution Width 19.3 % (11.6-17.2) Platelet Count 206 TH/MM3 (150-450) Mean Platelet Volume 8.0 FL (7.0-11.0) Phosphorus Level 3.6 MG/DL (2.5-4.9) B-Type Natriuretic Peptide 971 PG/ML (0-100) Test 09/20/16 09/20/16 09/21/16 09/21/16 16:51 23:02 04:03 11:41 Sodium Level 128 MEQ/L 129 MEQ/L 129 MEQ/L 126 MEQ/L (136-145) (136-145) (136-145) (136-145) Potassium Level 4.1 MEQ/L 3.0 MEQ/L 2.7 MEQ/L 2.9 MEQ/L (3.5-5.1) (3.5-5.1) (3.5-5.1) (3.5-5.1) Chloride Level 93 MEQ/L 93 MEQ/L 93 MEQ/L 90 MEQ/L (98-107) (98-107) (98-107) (98-107) Carbon Dioxide Level 21.5 MEQ/L 23.2 MEQ/L 23.9 MEQ/L 25.5 MEQ/L (21.0-32.0) (21.0-32.0) (21.0-32.0) (21.0-32.0) Anion Gap 14 MEQ/L (5-15) 13 MEQ/L (5-15) 12 MEQ/L (5-15) 11 MEQ/L (5-15) Blood Urea Nitrogen 49 MG/DL (7-18) 49 MG/DL (7-18) 50 MG/DL (7-18) 50 MG/DL (7- 18) Creatinine 2.69 MG/DL 2.83 MG/DL 2.77 MG/DL 2.86 MG/DL (0.50-1.00) (0.50-1.00) (0.50-1.00) (0.50-1.00) Estimat Glomerular Filtration 17 ML/MIN (>89) 16 ML/MIN (>89) 16 ML/MIN (>89) 16 ML/MIN (>89) Rate Random Glucose 104 MG/DL 114 MG/DL 86 MG/DL 148 MG/DL (74-106) (74-106) (74-106) (74-106) Calcium Level 7.7 MG/DL 7.6 MG/DL 7.4 MG/DL 7.2 MG/DL (8.5-10.1) (8.5-10.1) (8.5-10.1) (8.5-10.1) Protein Corrected Calcium 8.6 MG/DL 8.5 MG/DL 8.2 MG/DL (8.5-10.1) (8.5-10.1) (8.5-10.1) Magnesium Level 1.6 MG/DL 1.4 MG/DL 1.4 MG/DL 1.6 MG/DL (1.5-2.5) (1.5-2.5) (1.5-2.5) (1.5-2.5) Total Protein 5.5 GM/DL 5.1 GM/DL 5.2 GM/DL (6.4-8.2) (6.4-8.2) (6.4-8.2) White Blood Count 11.6 TH/MM3 (4.0-11.0) Red Blood Count 2.94 MIL/MM3 (4.00-5.30) Hemoglobin 8.5 GM/DL (11.6-15.3) Hematocrit 25.4 % (35.0-46.0) Mean Corpuscular Volume 86.5 FL (80.0-100.0) Mean Corpuscular Hemoglobin 29.1 PG (27.0-34.0) Mean Corpuscular Hemoglobin 33.6 % Concent (32.0-36.0) Red Cell Distribution Width 19.2 % (11.6-17.2) Platelet Count 187 TH/MM3 (150-450) Mean Platelet Volume 7.9 FL (7.0-11.0) Neutrophils (%) (Auto) 92.4 % (16.0-70.0) Lymphocytes (%) (Auto) 1.7 % (9.0-44.0) Monocytes (%) (Auto) 5.1 % (0.0-8.0) Eosinophils (%) (Auto) 0.5 % (0.0-4.0) Basophils (%) (Auto) 0.3 % (0.0-2.0) Neutrophils # (Auto) 10.7 TH/MM3 (1.8-7.7) Lymphocytes # (Auto) 0.2 TH/MM3 (1.0-4.8) Monocytes # (Auto) 0.6 TH/MM3 (0-0.9) Eosinophils # (Auto) 0.1 TH/MM3 (0-0.4) Basophils # (Auto) 0.0 TH/MM3 (0-0.2) CBC Comment DIFF FINAL Differential Comment B-Type Natriuretic Peptide 1855 PG/ML (0-100) Test 09/21/16 09/21/16 09/21/16 09/22/16 14:03 18:32 23:08 06:05 Sodium Level 129 MEQ/L 128 MEQ/L 128 MEQ/L (136-145) (136-145) (136-145) Potassium Level 3.0 MEQ/L 3.4 MEQ/L 3.2 MEQ/L (3.5-5.1) (3.5-5.1) (3.5-5.1) Chloride Level 89 MEQ/L 90 MEQ/L 90 MEQ/L (98-107) (98-107) (98-107) Carbon Dioxide Level 24.4 MEQ/L 24.0 MEQ/L 25.3 MEQ/L (21.0-32.0) (21.0-32.0) (21.0-32.0) Anion Gap 16 MEQ/L (5-15) 14 MEQ/L (5-15) 13 MEQ/L (5-15) Blood Urea Nitrogen 52 MG/DL (7-18) 49 MG/DL (7-18) 51 MG/DL (7-18) Creatinine 2.91 MG/DL 2.79 MG/DL 2.76 MG/DL (0.50-1.00) (0.50-1.00) (0.50-1.00) Estimat Glomerular Filtration 15 ML/MIN (>89) 16 ML/MIN (>89) 16 ML/MIN (>89) Rate Random Glucose 158 MG/DL 131 MG/DL 91 MG/DL (74-106) (74-106) (74-106) Calcium Level 7.5 MG/DL 7.4 MG/DL 7.5 MG/DL (8.5-10.1) (8.5-10.1) (8.5-10.1) Phosphorus Level 3.3 MG/DL (2.5-4.9) Magnesium Level 2.1 MG/DL 2.0 MG/DL 1.9 MG/DL (1.5-2.5) (1.5-2.5) (1.5-2.5) Protein Corrected Calcium 8.5 MG/DL (8.5-10.1) Total Protein 5.2 GM/DL (6.4-8.2) (Keya Meléndez) Result Diagram: 09/21/16 0403 09/22/16 0605 Imaging Last Impressions Lung Scan-VQ Nuclear Medicine 09/20/16 0000 Signed Impressions: Service Date/Time: Tuesday, September 20, 2016 12:51 - CONCLUSION: Low probability for pulmonary embolism. Zack Baca MD Chest X-Ray 09/19/16 0000 Signed Impressions: Service Date/Time: Monday, September 19, 2016 08:38 - CONCLUSION: 1. Stable bilateral opacities and small apparent right effusion. 2. Mild cardiomegaly. Zack Baca MD Chest CT 09/05/16 0000 Signed Impressions: Service Date/Time: Monday, September 05, 2016 03:55 - CONCLUSION: 1. Small and very mild infiltrate in the right upper lobe. No pulmonary mass. 2. Mild panchamber enlargement of the heart. 3. Suspected pulmonary hypertension. 4. Severely atherosclerotic aorta. Jones Lucero MD (Keya Meléndez) Assessment and Plan Disease Oriented Problem List: (1) COPD (chronic obstructive pulmonary disease) (2) Atrial fibrillation (3) CHF (congestive heart failure) (4) Chronic kidney disease (5) GI bleed Symptom Scale: (1) Dyspnea 0-10 Scale: Unable to quantify Comment: Multifactorial. Secondary to COPD, pneumonia, physical deconditioning. Remains on O2. (2) Debility 0-10 Scale: Unable to quantify Comment: Progressive. Pertinent Non-Medical Issues Psychosocial: . Spiritual: Amish. Legal: Ethical issues impacting care: No ethical issues have been identified. . Important Contacts Daughter Rosalind Villegas [phone]. Prognosis Mrs. Calvert is an 89-year-old female with a medical history of COPD, atrial fibrillation on anticoagulation and heart failure. Patient admitted secondary to pneumonia. Clinical course complicated by acute hypoxemic respiratory failure, intravascular volume overload, and CKD. Patient with history of 4 acute hospitalizations within the last 12 months. Progressive functional decline reported with profound physical deconditioning. Patient's overall prognosis is poor for an improved quality of life or long-term survival given her age, recent multiple hospitalizations, acute events, and multiple comorbidities. . Code Status: No Code Plan * CODE STATUS: No code. DNR/DNI. * Decision-making capacity: Patient appears capacitated for healthcare medical decisions, however, clinical condition does not permit full goals of care conversation secondary to profound shortness of breath, hoarseness and cough. LW completed but pending from family. As per family, patient designated her daughter Rosalind Villegas as healthcare surrogate decision-maker. * GOALS OF CARE: Plan is to continue with aggressive medical management short of no code and allow time for clinical improvement. Family meeting held on with patient's 3 daughters. Medical update provided. Daughters with a good understanding of patient's clinical condition and risks of further decline, addition complications and . Discussed pt's low likelihood to return to independent living given her clinical condition and profound physical deconditioning. Family to lead goals of care conversation this afternoon -will discuss aggressive care versus comfort-directed care with hospice. 09/22/16, spoke with pt's daughter Rosalind Orozco, she reports that family have spoke with patient regarding clarification of goals of care. As per daughter, patient wishing to "get better"/continue with aggressive care short of no code. Family asked palliative care to refrain from discussing goals of care with patient today and to wait until Sunday after allowing a few more days for clinical improvement. * SYMPTOMS: == Shortness of breath, secondary to COPD, pneumonia. Negative VQ scan for PE. Remains on O2 3 L via nasal cannula. Pulmonary following. == Debility, multifactorial. Progressive over the past year and worsen in the past 3 months. 4 acute hospitalizations within the last 12 months. Patient was previously discharge with home health. not likely to return to independent living, discussed with family. * Case has been discussed with bedside RN. * Palliative care contact information has been provided to patient's family. * Palliative care to meet with patient and family for further clarifications of goals of care. . (Keya Meléndez) Time Spent Total Floor Time (mins): 36 (Total time to include review of medical records, physical exam, conversation with patient's daughter, case discussion with GI and bedside RN.) >50% Counseling/Coord of Care: Yes (Keya Meléndez) Attestation To help prompt me to consider important information that might be impacting today's encounter and assessment, information from prior notes written by myself or my colleagues may have been "brought forward" into today's note. My signature on this note, however, is an attestation that I personally performed the exam, history, and/or decision-making noted today, and, unless otherwise indicated, the interactions with patient, family, and staff as well as the review of records all occurred today. I also attest that the listed assessment and stated plan reflect my best clinical judgment today based on the combination of historical information, prior notes, and today's exam/ interactions. When time spent is documented, it refers only to time spent today by the signer, or if indicated, combined time spent today by collaborating physician/nurse practitioner. (Keya Meléndez) Collaborating MD Comments Chart reviewed. Case discussed with palliative care LABEL PINKER. Above LABEL PINKER note reviewed and I concur. . (Jaun Fox MD) Keya Meléndez Sep 22, 2016 10:59 Jaun Fox MD Sep 24, 2016 12:30
[2016-09-22 11:18] LABS: HEMATOCRIT 27.4 % (35.0-46.0); MEAN CELL VOLUME 87.8 FL (80.0-100.0); MEAN CORPUSCULAR HEMOGLOBIN 29.5 PG (27.0-34.0); MEAN CORPUSCULAR HGB CONC 33.6 % (32.0-36.0); PLATELET COUNT 227 TH/MM3 (150-450); RED BLOOD COUNT 3.12 MIL/MM3 (4.00-5.30); RED CELL DISTRIBUTION WIDTH 18.8 % (11.6-17.2); REVIEW FLAG FINAL; WHITE BLOOD COUNT 12.1 TH/MM3 (4.0-11.0)
[2016-09-22 12:04] LABS: MAGNESIUM 1.9 MG/DL (1.5-2.5); POTASSIUM 3.9 MEQ/L (3.5-5.1)
--- NOTE | 2016-09-22 16:04 | HHI.IDPN ---
Note Infectious Disease Note Patient feels well. No respiratory distress. Afebrile. Cough without sputum production. Notes r. eye pain is better. Seen by ophthalmology. Admitted with respiratory distress. PAST MEDICAL HISTORY 1. Atrial fibrillation 2. Arthritis 3. Anemia 4. Hypertension 5. Hyperlipidemia 6. Hypothyroidism 7. Congestive heart failure 8. Colon cancer treated with chemotherapy in 2000. 9. GI bleed 10. CVA 11. History of the hip replacement. 12. History of knee replacement. ALLERGIES LEVAQUIN, AMOXICILLIN, SULFA, ATENOLOL, CARDIZEM, LISINOPRIL, PHENERGAN, TOPROL XL, VERAPAMIL, EDOXABAN, POTASSIUM. MEDICATIONS Current Medications Medications (Trade) Dose Ordered Sig/Neva Route PRN Reason Start Time Stop Time Status Last Admin Dose Admin IV Flush (NS Flush) 2 ml UNSCH PRN IVF FLUSH AFTER USING IV ACCESS 09/05/16 01:30 09/05/16 03:45 IV Flush (NS Flush) 2 ml UNSCH PRN FLUSH FLUSH AFTER USING IV ACCESS 09/05/16 03:45 09/10/16 20:27 Naloxone HCl (Narcan Inj) 0.4 mg UNSCH PRN IV SEE LABEL COMMENTS 09/05/16 03:45 Apixaban (Eliquis) 2.5 mg BID PO 09/05/16 09:45 Hold 09/15/16 08:34 Ferrous Sulfate (Ferrous Sulfate) 325 mg DAILY PO 09/05/16 09:45 09/22/16 09:13 Levothyroxine Sodium (Synthroid) 50 mcg DAILY@0600 PO 09/05/16 09:45 09/22/16 06:00 Pravastatin Sodium (Pravachol) 80 mg HS PO 09/05/16 21:00 09/21/16 21:40 Docusate Sodium (Colace) 100 mg BID PO 09/05/16 21:00 09/22/16 09:11 Acetaminophen (Tylenol) 650 mg Q4H PRN PO pain/fever 09/05/16 10:00 09/21/16 21:20 Clonidine (Catapres) 0.1 mg Q6H PRN PO SBP> OR = 180, DBP> OR = 100 09/05/16 10:15 Miscellaneous (Pill Splitter) 1 ea UNSCH PRN OTHER SEE LABEL COMMENTS 09/05/16 10:15 Guaifenesin (Mucinex Er) 1,200 mg BID PO 09/06/16 15:00 09/22/16 09:12 Ondansetron HCl (Zofran Inj) 4 mg Q6HR PRN IV PUSH nausea 09/10/16 05:45 09/11/16 06:50 Sodium Bicarbonate (Sodium Bicarbonate) 650 mg TID PO 09/10/16 18:00 09/21/16 18:52 Guaifenesin/ Codeine Phosphate (Robitussin Ac 200-20 Mg/10 ml Liq) 10 ml Q6H PRN PO COUGH 09/12/16 11:15 09/17/16 17:55 Nebivolol (Bystolic) 5 mg DAILY PO 09/14/16 09:00 09/22/16 09:12 Pantoprazole Sodium (Protonix Inj) 40 mg Q12H IV PUSH 09/14/16 14:00 09/22/16 13:49 Cholecalciferol (Vitamin D3) 1,000 units DAILY PO 09/15/16 09:00 09/22/16 09:13 Phenol (Chloraseptic [place]) 2 spray Q2H PRN OROPHARYNG Throat discomfort 09/15/16 14:00 09/18/16 02:24 Nystatin (Mycostatin Liq) 5 ml QID SWISH-SWAL 09/18/16 15:00 09/22/16 13:49 Amiodarone HCl (Cordarone) 200 mg DAILY PO 09/19/16 09:00 09/22/16 09:12 Sennosides (Senna Liq) 8.8 mg DAILY PO 09/21/16 09:00 09/21/16 07:57 Bumetanide (Bumex Inj) 2 mg BID@ IV PUSH 09/21/16 09:00 09/22/16 09:13 Latanoprost (Xalatan 0.005% Opth Soln) 1 drop HS RIGHT EYE 09/21/16 21:00 09/21/16 13:18 OBJECTIVE: Vital Signs Date Time Temp Pulse Resp B/P Pulse Ox O2 Delivery O2 Flow Rate FiO2 09/22/16 12:00 97.9 92 20 89/53 99 09/22/16 12:00 92 09/22/16 10:21 94 Nasal Cannula 3.00 09/22/16 10:00 95 09/22/16 08:00 92 09/22/16 08:00 98.6 92 19 120/55 97 09/22/16 07:00 98 Nasal Cannula 3.50 09/22/16 06:00 86 09/22/16 04:00 98.4 90 17 99/56 98 09/22/16 04:00 90 09/22/16 02:00 91 09/22/16 00:00 98.7 86 22 87/53 99 09/22/16 00:00 86 09/21/16 22:20 22 09/21/16 22:04 99 Nasal Cannula 3.00 09/21/16 22:00 89 09/21/16 20:00 97.9 92 20 95/54 97 09/21/16 20:00 92 09/21/16 19:00 97 Nasal Cannula 3.50 09/21/16 18:00 99 09/21/16 16:00 98.7 94 22 86/55 97 09/21/16 16:00 94 09/21/16 09/21/16 09/22/16 15:00 23:00 07:00 Intake Total 586 ml 75 ml 55 ml Output Total 120 ml 650 ml 1100 ml Balance 466 ml -575 ml -1045 ml Intake Oral 400 ml 75 ml 50 ml IV Total 186 ml 5 ml Output Urine Total 120 ml 650 ml 1100 ml Laboratory Tests Test 09/21/16 09/22/16 04:03 10:42 White Blood Count 11.6 TH/MM3 12.1 TH/MM3 Red Blood Count 2.94 MIL/MM3 3.12 MIL/MM3 Hemoglobin 8.5 GM/DL 9.2 GM/DL Hematocrit 25.4 % 27.4 % Mean Corpuscular Volume 86.5 FL 87.8 FL Mean Corpuscular Hemoglobin 29.1 PG 29.5 PG Mean Corpuscular Hemoglobin 33.6 % 33.6 % Concent Red Cell Distribution Width 19.2 % 18.8 % Platelet Count 187 TH/MM3 227 TH/MM3 Mean Platelet Volume 7.9 FL 8.1 FL Neutrophils (%) (Auto) 92.4 % Lymphocytes (%) (Auto) 1.7 % Monocytes (%) (Auto) 5.1 % Eosinophils (%) (Auto) 0.5 % Basophils (%) (Auto) 0.3 % Neutrophils # (Auto) 10.7 TH/MM3 Lymphocytes # (Auto) 0.2 TH/MM3 Monocytes # (Auto) 0.6 TH/MM3 Eosinophils # (Auto) 0.1 TH/MM3 Basophils # (Auto) 0.0 TH/MM3 CBC Comment DIFF FINAL Differential Comment Laboratory Tests Test 09/20/16 09/20/16 09/21/16 09/21/16 16:51 23:02 04:03 11:41 Sodium Level 128 MEQ/L 129 MEQ/L 129 MEQ/L 126 MEQ/L Potassium Level 4.1 MEQ/L 3.0 MEQ/L 2.7 MEQ/L 2.9 MEQ/L Chloride Level 93 MEQ/L 93 MEQ/L 93 MEQ/L 90 MEQ/L Carbon Dioxide Level 21.5 MEQ/L 23.2 MEQ/L 23.9 MEQ/L 25.5 MEQ/L Anion Gap 14 MEQ/L 13 MEQ/L 12 MEQ/L 11 MEQ/L Blood Urea Nitrogen 49 MG/DL 49 MG/DL 50 MG/DL 50 MG/DL Creatinine 2.69 MG/DL 2.83 MG/DL 2.77 MG/DL 2.86 MG/DL Estimat Glomerular Filtration 17 ML/MIN 16 ML/MIN 16 ML/MIN 16 ML/MIN Rate Random Glucose 104 MG/DL 114 MG/DL 86 MG/DL 148 MG/DL Calcium Level 7.7 MG/DL 7.6 MG/DL 7.4 MG/DL 7.2 MG/DL Protein Corrected Calcium 8.6 MG/DL 8.5 MG/DL 8.2 MG/DL Magnesium Level 1.6 MG/DL 1.4 MG/DL 1.4 MG/DL 1.6 MG/DL Total Protein 5.5 GM/DL 5.1 GM/DL 5.2 GM/DL B-Type Natriuretic Peptide 1855 PG/ML Test 09/21/16 09/21/16 09/21/16 09/22/16 14:03 18:32 23:08 06:05 Sodium Level 129 MEQ/L 128 MEQ/L 128 MEQ/L Potassium Level 3.0 MEQ/L 3.4 MEQ/L 3.2 MEQ/L Chloride Level 89 MEQ/L 90 MEQ/L 90 MEQ/L Carbon Dioxide Level 24.4 MEQ/L 24.0 MEQ/L 25.3 MEQ/L Anion Gap 16 MEQ/L 14 MEQ/L 13 MEQ/L Blood Urea Nitrogen 52 MG/DL 49 MG/DL 51 MG/DL Creatinine 2.91 MG/DL 2.79 MG/DL 2.76 MG/DL Estimat Glomerular Filtration 15 ML/MIN 16 ML/MIN 16 ML/MIN Rate Random Glucose 158 MG/DL 131 MG/DL 91 MG/DL Calcium Level 7.5 MG/DL 7.4 MG/DL 7.5 MG/DL Phosphorus Level 3.3 MG/DL Magnesium Level 2.1 MG/DL 2.0 MG/DL 1.9 MG/DL Protein Corrected Calcium 8.5 MG/DL Total Protein 5.2 GM/DL Test 09/22/16 11:16 Sodium Level 130 MEQ/L Potassium Level 3.9 MEQ/L Chloride Level 94 MEQ/L Carbon Dioxide Level 26.0 MEQ/L Anion Gap 10 MEQ/L Blood Urea Nitrogen 51 MG/DL Creatinine 2.67 MG/DL Estimat Glomerular Filtration 17 ML/MIN Rate Random Glucose 137 MG/DL Calcium Level 7.7 MG/DL Magnesium Level 1.9 MG/DL IMAGING: Lung Scan-V Nuclear Medicine 09/20/16 0000 Signed Impressions: Service Date/Time: Tuesday, September 20, 2016 12:51 - CONCLUSION: Low probability for pulmonary embolism. Zack Baca MD Chest X-Ray 09/19/16 0000 Signed Impressions: Service Date/Time: Monday, September 19, 2016 08:38 - CONCLUSION: 1. Stable bilateral opacities and small apparent right effusion. 2. Mild cardiomegaly. Zack Baca MD Chest CT 09/05/16 0000 Signed Impressions: Service Date/Time: Monday, September 05, 2016 03:55 - CONCLUSION: 1. Small and very mild infiltrate in the right upper lobe. No pulmonary mass. 2. Mild panchamber enlargement of the heart. 3. Suspected pulmonary hypertension. 4. Severely atherosclerotic aorta. Jones Lucero MD PHYSICAL EXAMINATION GENERAL: No acute distress. HEENT: Head is atraumatic. Extraocular movements grossly intact, pupils reactive to light without icterus. Oropharynx slightly dry mucosa. NECK: Supple. No adenopathy. LUNGS: Bibasilar rhonchi. HEART: Irregular rate and rhythm without murmurs, rubs or gallops. ABDOMEN: Bowel sounds present, soft, non tenderness. EXTREMITIES: No clubbing or cyanosis or edema. SKIN: No rash. NEUROLOGIC: No gross focal findings. PSYCHIATRIC: Calm and cooperative. IMPRESSION 1. Leukocytosis improving. 2. Severe COPD 3. Does not appear to have pneumonia. 4. Chronic renal failure with acute component. RECOMMENDATIONS Up to stretcher chair. Monitor the white blood cell count. I will see PRN. Ángel Cutler MD Sep 22, 2016 16:04
[2016-09-22 18:15] LABS: BICARBONATE 26.4 MEQ/L (21.0-32.0); MAGNESIUM 1.7 MG/DL (1.5-2.5); POTASSIUM 3.7 MEQ/L (3.5-5.1)
--- NOTE | 2016-09-22 18:46 | HHI.PR ---
Subjective Remarks 89 YOWF with Pneumonia,CHF,AF Has mild wheezing Not able to expactorate No Fever Has hoarseness of voice, improving Tolerates PO Up in chair Objective Vital Signs Vital Signs Date Time Temp Pulse Resp B/P Pulse Ox O2 Delivery O2 Flow Rate FiO2 09/22/16 16:00 98.0 88 21 96/54 94 09/22/16 16:00 88 09/22/16 14:00 91 09/22/16 12:00 97.9 92 20 89/53 99 09/22/16 12:00 92 09/22/16 10:21 94 Nasal Cannula 3.00 09/22/16 10:00 95 09/22/16 08:00 92 09/22/16 08:00 98.6 92 19 120/55 97 09/22/16 07:00 98 Nasal Cannula 3.50 09/22/16 06:00 86 09/22/16 04:00 98.4 90 17 99/56 98 09/22/16 04:00 90 09/22/16 02:00 91 09/22/16 00:00 98.7 86 22 87/53 99 09/22/16 00:00 86 09/21/16 22:20 22 09/21/16 22:04 99 Nasal Cannula 3.00 09/21/16 22:00 89 09/21/16 20:00 97.9 92 20 95/54 97 09/21/16 20:00 92 09/21/16 19:00 97 Nasal Cannula 3.50 I/O 09/21/16 09/21/16 09/21/16 09/22/16 09/22/16 09/22/16 07:00 15:00 23:00 07:00 15:00 23:00 Intake Total 112 ml 586 ml 75 ml 55 ml 0 ml Output Total 700 ml 120 ml 650 ml 1100 ml 950 ml Balance -588 ml 466 ml -575 ml -1045 ml -950 ml Intake Oral 100 ml 400 ml 75 ml 50 ml IV Total 12 ml 186 ml 5 ml 0 ml Output Urine Total 700 ml 120 ml 650 ml 1100 ml 950 ml # Bowel Movements 1 Result Diagram: 09/22/16 1042 09/22/16 7750 Objective Remarks GENERAL: Thin built WF, NAD SKIN: Warm and dry. HEAD: Normocephalic. EYES: No scleral icterus. No injection or drainage. NECK: Supple, trachea midline. No JVD or lymphadenopathy. CARDIOVASCULAR: Regular rate and rhythm without murmurs, gallops, or rubs. RESPIRATORY: Breath sounds equal bilaterally. No accessory muscle use. GASTROINTESTINAL: Abdomen soft, non-tender, nondistended. MUSCULOSKELETAL: No cyanosis, or edema. BACK: Nontender without obvious deformity. No CVA tenderness. A/P Assessment and Plan Pneumonia CHF AF CKD Hypoxic resp failure PLAN: Cont Abx per ID Aerosol nebs Monitor Lytes Monitor H/H 02 4LNC keep sat >90% Stable from pulm standpoint to tr to floor Physical therapy Nash Dutta MD Sep 22, 2016 18:46
[2016-09-22] MEDS: LATANOPROST 0.005% OPHT SOLN 2.5 ML BTL RIGHT EYE SCH (21:00)
[2016-09-22] MEDS: PRAVASTATIN SOD 80 MG TAB PO SCH (22:11)
[2016-09-23] VITALS (14 sets, daily range): BP systolic 74–110; BP diastolic 50–58; PULSE 80–104; RESP 21–26; TEMP 97.8–98.6; O2SAT 88–100
[2016-09-23] MEDS: PANTOPRAZOLE SODIUM 40 MG VIAL IV PUSH SCH ×2 (03:05→12:50)
[2016-09-23] MEDS: LEVOTHYROXINE SODIUM 50 MCG TAB PO SCH (03:13)
[2016-09-23] MEDS: RESP: ALBUTEROL 1.25 MG/3 ML NEB (SCH) NEB ×2 (04:15→08:07)
[2016-09-23 07:53] LABS: BICARBONATE 26.8 MEQ/L (21.0-32.0); HEMATOCRIT 26.1 % (35.0-46.0); MAGNESIUM 1.6 MG/DL (1.5-2.5); MEAN CELL VOLUME 87.8 FL (80.0-100.0); MEAN CORPUSCULAR HEMOGLOBIN 30.1 PG (27.0-34.0); MEAN CORPUSCULAR HGB CONC 34.3 % (32.0-36.0); PLATELET COUNT 203 TH/MM3 (150-450); POTASSIUM 3.4 MEQ/L (3.5-5.1); RED BLOOD COUNT 2.97 MIL/MM3 (4.00-5.30); RED CELL DISTRIBUTION WIDTH 19.1 % (11.6-17.2); REVIEW FLAG FINAL; WHITE BLOOD COUNT 10.8 TH/MM3 (4.0-11.0)
[2016-09-23] MEDS: BUMETANIDE INJ 1 MG/4 ML VIAL IV PUSH SCH (09:00)
[2016-09-23] MEDS: NEBIVOLOL 5 MG TAB PO SCH (09:00)
[2016-09-23] MEDS: guaiFENesin E.R. 600 MG TAB PO SCH ×2 (09:15→21:01)
[2016-09-23] MEDS: CHOLECALCIFEROL (VIT D3) 1000 UNIT TAB PO SCH (09:15)
[2016-09-23] MEDS: SENNOSIDES SYRUP 8.8 MG/5 ML CUP PO SCH (09:15)
[2016-09-23] MEDS: FERROUS SULFATE 325 MG (65 MG ELEMENTAL IRON) TAB PO SCH (09:16)
[2016-09-23] MEDS: SODIUM BICARBONATE 650 MG TAB PO SCH ×3 (09:16→18:42)
[2016-09-23] MEDS: NYSTATIN SUSP 500,000 U/5 ML CUP SWISH-SWAL SCH ×4 (09:16→22:09)
[2016-09-23] MEDS: AMIODARONE 200 MG TAB PO SCH (09:16)
[2016-09-23] MEDS: DOCUSATE SODIUM 100 MG CAP PO SCH ×2 (09:16→21:01)
--- NOTE | 2016-09-23 10:14 | HHI.PR ---
Subjective Remarks Mrs. Calvert laying in bed, reported continuing coughing with yellowish phlegm production, Reported feeling discomfort all over but did not specify in the chest No fever or chills she is on 3 L nasal cannula of O2 Objective Vitals Vital Signs Date Time Temp Pulse Resp B/P Pulse Ox O2 Delivery O2 Flow Rate FiO2 09/23/16 08:08 99 High Flow Nasal Cannula 09/23/16 06:00 100 09/23/16 04:00 88 09/23/16 04:00 97.8 88 21 102/55 100 09/23/16 02:00 90 09/23/16 00:00 98.1 104 25 74/50 99 09/23/16 00:00 104 09/22/16 22:00 102 09/22/16 21:27 98 Nasal Cannula 3.00 09/22/16 20:00 103 09/22/16 20:00 97.9 103 44 105/58 85 09/22/16 19:00 85 Nasal Cannula 3.50 09/22/16 18:00 87 09/22/16 16:00 98.0 88 21 96/54 94 09/22/16 16:00 88 09/22/16 14:00 91 09/22/16 12:00 97.9 92 20 89/53 99 09/22/16 12:00 92 09/22/16 10:21 94 Nasal Cannula 3.00 I/O 09/22/16 09/22/16 09/22/16 09/23/16 09/23/16 09/23/16 06:59 14:59 22:59 06:59 14:59 22:59 Intake Total 130 ml 0 ml 105 ml 355 ml Output Total 1750 ml 950 ml 750 ml 1150 ml Balance -1620 ml -950 ml -645 ml -795 ml Intake Oral 125 ml 100 ml 300 ml Oral Supplement 50 ml IV Total 5 ml 0 ml 5 ml 5 ml Output Urine Total 1750 ml 950 ml 750 ml 1150 ml # Bowel Movements 1 Result Diagram: 09/23/16 0600 09/23/16 0600 Objective Remarks GENERAL: This is a frail elderly female, in no apparent distress. On 3 L nasal cannula SKIN: No rashes, warm and dry HEAD: Atraumatic. Normocephalic. EYES: Pupils equal round and reactive. Extraocular motions intact. No scleral icterus. ENT: Nose without bleeding, or drainage, Airway patent. NECK: Trachea midline. Supple CARDIOVASCULAR: Regular rate and rhythm without murmurs, gallops, or rubs. RESPIRATORY: Bilateral crackles mostly on the basis GASTROINTESTINAL: Abdomen soft, non-tender, nondistended. Positive bowel sounds MUSCULOSKELETAL: Extremities without clubbing, cyanosis, or edema. Pedal pulses appreciated NEUROLOGICAL: Awake and alert. Moves all extremity. Normal speech.no focal neurological deficit, hard hearing Procedures A/P Assessment and Plan 09/23: Still on 3 L nasal cannula with cough and phlegm, Bumex has been held due to hypotension systolic 79, discussed with the nurse A/P: A fib with RVR, improved Recently admitted for Afib with RVR. - On amiodarone 200 mg daily. Digoxin stopped. Continue nebivolol. - follow up with cardiology. - holding anticoagulation in the setting of GIB. Hypotension: Hold Bumex, apply holding parameter for antihypertensive medication GI bleed Hemoccult positive. Had episode of dark stools and coffee ground emesis. On Eliquis which has been discontinued. GI consult appreciated. Transfused 1 unit with appropriate response. Unable to go for endoscopy s/t respiratory distress. - follow CBC and transfuse as needed. Stable 09/21. - GI consulted appreciated. Endoscopy when respiratory status is stable. - continue PPI. - hold anticoagulation. Pneumonia/ COPD exacerbation/ Acute hypoxemic respiratory failure/ Acute systolic CHF CXR and CT scan imaging indicative of a right infiltrate. She was recently hospitalized. Had lactic acid level of 5. Influenza negative. Received cefepime and vanco for pneumonia. Currently not requiring any supplemental O2. S/p steroids. The pt is still in respiratory distress 09/21. CXR 09/19 stable. She was transferred to the ICU and started on a Bumex gtt. V/Q scan low probability for PE so heparin gtt was discontinued. Echo in May with EF 45-50% and mod- severe MR and severe TR. BNP elevated. - oxygen and nebs as needed. - incentive spirometry, Acapella. - sputum and blood cultures. NGTD. - pulmonology following. - continue Bumex. - appreciate palliative care input. Will follow. Chronic renal disease/ metabolic acidosis/ hyponatremia/ hypokalemia Creatinine is around baseline. Started on bicarbonate on last admission by nephrology. Bicarb level is low and pt appears to be having respiratory compensation. Hyponatremia improved. - avoid nephrotoxins. - continue PO sodium bicarbonate. - resume diuresis. - Monitor I's and O's. - follow up with nephrology. Tolvaptan started. - fluid restriction. - potassium supplementation as needed. - per nephrology, would likely not do well on dialysis. Glaucoma The pt described new onset right eye pain and says she can only see white out of her right eye. She does have a history of glaucoma. Ophthalmology was consulted. - Continue latanoprost. - Follow up with ophthalmology. Hoarse voice ENT consult appreciated. Slowly improving. - continue PPI. - outpt follow-up with ENT. Thrush Resolved with nystatin. - continue nystatin. PPX: SILASs. Roxana Chaney MD Sep 23, 2016 10:14
--- NOTE | 2016-09-23 11:59 | HHI.NPPN ---
Subjective Complaints: Shortness of Breath General Problems: Mebatolic Acidosis Renal Failure: Chronic, Acute Review of Systems General Constitutional: Fatigue Ears, Nose, & Throat Ears, Nose & Throat: Sore Throat, Hoarse, Congestion Respiratory Lungs: SOB, Cough, Sputum Gastrointestinal Gastrointestinal: Nausea & Vomiting Objective Data Data 09/22/16 09/23/16 19:00 07:00 Intake Total 0 ml 460 ml Output Total 950 ml 1900 ml Balance -950 ml -1440 ml Intake Oral 400 ml Oral Supplement 50 ml IV Total 0 ml 10 ml Output Urine Total 950 ml 1900 ml # Bowel Movements 1 Vital Signs Date Time Temp Pulse Resp B/P Pulse Ox O2 Delivery O2 Flow Rate FiO2 09/23/16 10:00 100 09/23/16 08:08 99 High Flow Nasal Cannula 09/23/16 08:00 88 09/23/16 07:00 96 Nasal Cannula 3.00 09/23/16 06:00 100 09/23/16 04:00 88 09/23/16 04:00 97.8 88 21 102/55 100 09/23/16 02:00 90 09/23/16 00:00 98.1 104 25 74/50 99 09/23/16 00:00 104 09/22/16 22:00 102 09/22/16 21:27 98 Nasal Cannula 3.00 09/22/16 20:00 103 09/22/16 20:00 97.9 103 44 105/58 85 09/22/16 19:00 85 Nasal Cannula 3.50 09/22/16 18:00 87 09/22/16 16:00 98.0 88 21 96/54 94 09/22/16 16:00 88 09/22/16 14:00 91 09/22/16 12:00 97.9 92 20 89/53 99 09/22/16 12:00 92 -: 09/23/16 0600 09/23/16 0600 Tubes & Lines: Becker Physical Exam General Appearance: Well Developed, Well Nourished, No Acute Distress, Comfortable, Anxious Throat Throat Exam: Oral Mucosa [place] & Moist Pulmonary Resp Exam: Breath Sounds Equal, Crackles, Rhonchi Cardiology CV Exam: Good Perfusion, Irregular Gastrointestinal/Abdomen GI Exam: Soft, Non-Tender, Bowel Sounds Present Musculoskeletal MS Exam: Joints Intact, Normal Tone Integumentary Skin Exam: Clear, Warm, Dry, Intact Extremeties Extremities Exam: No Edema, Pedal Pulses Palpable Neurologic Neuro Exam: Alert, Awake, Oriented, Speech Clear, Moving All Extremities Psychiatric Psych Exam: Appropriate Responses Assessment/Plan Discussed Condition With: Patient Assessment Summary: Anemia of CKD, Hypertension, CKD Stage IV Electrolyte Assessment: Hypocalcemia, Hyponatremia, Metabolic Acidosis Problem List: (1) Chronic kidney disease, stage 4 (severe) Plan: renal function has improved diuresing well, on BID IV Bumex UOP 2.8 L bp low Bumex held today Avoid nephrotoxic agents. Replace potassium orally renal panel in am (2) Hyponatremia Plan: stable Given 2 doses of Tolvaptan. continue fluid restriction and loop diuretic. (3) CHF (congestive heart failure) Plan: monitor fluid volume status EF 40-50% diuresis as above (4) Atrial fibrillation Plan: rate controlled, she is asymptomatic on amiodarone and Bystolic cardiology following AC on hold (5) Pneumonia Plan: oxygen as needed, RT to assist nebulizers prn, incentive spirometer recommended cough/deep breathing encouraged monitor clinically she is also on Robitussin Hoarseness has improved. (6) Anemia Plan: Hb stable, she was transfused one unit PRBC on 09/16 also on oral iron, EGD has been postponed Eliquis for anticoagulation on hold on Protonix, GI following (7) Secondary hyperparathyroidism of renal origin Plan: PTH elevated, continue vitamin D daily Problem Qualifiers (1) Atrial fibrillation: Qualified Code: I48.1 - Persistent atrial fibrillation (2) Pneumonia: Qualified Code: J18.1 - Pneumonia of right middle lobe due to infectious organism Latasha Skaggs MD Sep 23, 2016 11:59
[2016-09-23] MEDS ORDERED: POTASSIUM CHLORIDE 25 MEQ EFFERVESCENT TAB PO ONE (12:00)
[2016-09-23] MEDS: ACETAMINOPHEN 325 MG TAB PO PRN (21:01)
[2016-09-23] MEDS: PRAVASTATIN SOD 80 MG TAB PO SCH (21:24)
[2016-09-23] MEDS: LATANOPROST 0.005% OPHT SOLN 2.5 ML BTL RIGHT EYE SCH (22:09)
[2016-09-23] MEDS: guaiFENesin/CODEINE SYRUP 200 MG/20 MG/10 ML CUP PO PRN (23:17)
[2016-09-24] VITALS (14 sets, daily range): BP systolic 96–116; BP diastolic 52–87; PULSE 81–95; RESP 21–28; TEMP 97.8–98.1; O2SAT 96–100
[2016-09-24] MEDS: PANTOPRAZOLE SODIUM 40 MG VIAL IV PUSH SCH ×2 (02:07→15:21)
[2016-09-24] MEDS: LEVOTHYROXINE SODIUM 50 MCG TAB PO SCH (05:12)
[2016-09-24 08:18] LABS: BICARBONATE 28.3 MEQ/L (21.0-32.0)
[2016-09-24] MEDS: SENNOSIDES SYRUP 8.8 MG/5 ML CUP PO SCH (08:43)
[2016-09-24] MEDS: NEBIVOLOL 5 MG TAB PO SCH (08:43)
[2016-09-24] MEDS: AMIODARONE 200 MG TAB PO SCH (08:43)
[2016-09-24] MEDS: SODIUM BICARBONATE 650 MG TAB PO SCH ×3 (08:43→18:42)
[2016-09-24] MEDS: DOCUSATE SODIUM 100 MG CAP PO SCH ×2 (08:43→20:02)
[2016-09-24] MEDS: NYSTATIN SUSP 500,000 U/5 ML CUP SWISH-SWAL SCH ×4 (08:44→20:02)
[2016-09-24] MEDS: guaiFENesin E.R. 600 MG TAB PO SCH ×2 (08:44→20:02)
[2016-09-24] MEDS: FERROUS SULFATE 325 MG (65 MG ELEMENTAL IRON) TAB PO SCH (08:44)
[2016-09-24] MEDS: CHOLECALCIFEROL (VIT D3) 1000 UNIT TAB PO SCH (08:44)
[2016-09-24] MEDS: POTASSIUM PHOSPHATE INJ 30 MMOL in SODIUM CHLOR 0.9% 250 ML INJ 250 ML IV ONE ×2 (10:30→11:31)
[2016-09-24] MEDS ORDERED: POTASSIUM CHLORIDE 10 MEQ CONTROLLED RELEASE TAB PO ONE (10:30)
[2016-09-24] MEDS: MAGNESIUM SULFATE 1 GM PREMIX 100 ML IV SCH ×2 (10:45→11:30)
--- NOTE | 2016-09-24 10:58 | HHI.GIFU ---
Subjective Remarks Resting in bed. Denies having any black tarry stools. Denies any nausea, vomiting, abdominal pain. She has decided not to proceed with endoscopic evaluation. (Nubia Baird) Objective Vitals I&O Vital Signs Date Time Temp Pulse Resp B/P Pulse Ox O2 Delivery O2 Flow Rate FiO2 09/24/16 08:27 100 Nasal Cannula 3.00 09/24/16 08:00 98.0 94 25 116/64 96 09/24/16 08:00 94 09/24/16 07:00 95 Nasal Cannula 3.00 09/24/16 06:00 81 09/24/16 04:00 92 09/24/16 04:00 98.1 92 22 96/54 100 09/24/16 02:00 92 09/24/16 00:00 97.9 94 21 98/57 100 09/24/16 00:00 94 09/23/16 22:09 18 09/23/16 22:00 92 09/23/16 21:27 95 Nasal Cannula 3.00 09/23/16 20:00 98.2 102 24 110/58 95 09/23/16 20:00 80 09/23/16 19:00 95 Nasal Cannula 3.00 09/23/16 18:00 93 09/23/16 16:00 98 09/23/16 16:00 98.3 96 25 96/54 94 09/23/16 14:00 104 09/23/16 12:00 96 09/23/16 12:00 98.6 92 26 95/51 88 I/O 09/23/16 09/23/16 09/23/16 09/24/16 09/24/16 09/24/16 07:00 15:00 23:00 07:00 15:00 23:00 Intake Total 355 ml 305 ml 485 ml 100 ml Output Total 1150 ml 800 ml 400 ml 400 ml Balance -795 ml -495 ml 85 ml -300 ml Intake Oral 300 ml 300 ml 480 ml 100 ml Oral Supplement 50 ml IV Total 5 ml 5 ml 5 ml 0 ml Output Urine Total 1150 ml 800 ml 400 ml 400 ml # Voids 1 # Bowel Movements 1 Laboratory Laboratory Tests Test 09/24/16 07:05 Sodium Level 131 Potassium Level 3.0 Chloride Level 92 Carbon Dioxide Level 28.3 Anion Gap 11 Blood Urea Nitrogen 47 Creatinine 2.39 Estimat Glomerular Filtration 19 Rate Random Glucose 91 Calcium Level 7.7 Phosphorus Level 2.4 Albumin 2.1 Imaging Last Impressions Lung Scan-VQ Nuclear Medicine 09/20/16 0000 Signed Impressions: Service Date/Time: Tuesday, September 20, 2016 12:51 - CONCLUSION: Low probability for pulmonary embolism. Zack Baca MD Chest X-Ray 09/19/16 0000 Signed Impressions: Service Date/Time: Monday, September 19, 2016 08:38 - CONCLUSION: 1. Stable bilateral opacities and small apparent right effusion. 2. Mild cardiomegaly. Zack Baca MD Chest CT 09/05/16 0000 Signed Impressions: Service Date/Time: Monday, September 05, 2016 03:55 - CONCLUSION: 1. Small and very mild infiltrate in the right upper lobe. No pulmonary mass. 2. Mild panchamber enlargement of the heart. 3. Suspected pulmonary hypertension. 4. Severely atherosclerotic aorta. Jones Lucero MD Physical Exam HEENT: Normocephalic; atraumatic; no jaundice. Hoarse CHEST: CTA, diminished. O2 3L, 100% o2 sat CARDIAC: RRR ABDOMEN: Soft, nondistended, nontender; no hepatosplenomegaly; bowel sounds are present in all four quadrants. EXTREMITIES: No clubbing, cyanosis, or edema. SKIN: Normal; no rash; no jaundice. SURVEILLANCE MONITOR: No focal deficits; lethargic and oriented times three. (Nubia Baird) Assessment and Plan Plan ASSESSMENT: - GIB with melena and coffee ground emesis. Colonoscopy (05/12/16)------> Normal colonoscopy with normal terminal ileum. SBFT (05/12/16)---> Unremarkable small bowel examination, bleeding scan was negative at that time as well. 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 Enteroscopy was recommended but patient had discussed this with PCP and came to Decision not to proceed. Last EGD was in 2009 and that showed esophageal stricture and hiatal hernia. Pt continues to have melena and she and her daughter would now like to proceed with the enteroscopy. This has been held secondary to respiratory issues. She has improved some, off NRB and VQ Scan low probability for PE. Pt has decided not to pursue endoscopic evaluation. Palliative care following. - Anemia, acute blood loss. 9.0/26.1. PPI. - GERD/hoarseness-. PPI, Chloraseptic spray0.81.6 - A-fib on Eliquis , cardiology on the case- Eliquis is on hold. - CKD nephrology on the case - CHF, COPD per attending Plan: - ANTHONY - PPI - Monitor HH - Transfuse as needed - Notify GI for active bleeding - Eliquis on hold - Palliative care following - Pt has decided not to pursue endoscopic evaluation. GI will sign off, please reconsult as needed - Patient seen and examined by Dr. Guy and myself and this note is written on her behalf. (Nubia Baird) Physician Comments seen, examined agree with above (Barbara Guy MD) Nubia Baird Sep 24, 2016 10:58 Barbara Guy MD Sep 24, 2016 13:15
[2016-09-24] MEDS: POTASSIUM PHOSPHATE MONOBASIC 500 MG TAB PO SCH ×2 (11:31→20:03)
--- NOTE | 2016-09-24 12:13 | HHI.PR ---
Subjective Remarks Patient resting comfortably in bed, her nurse daughter is at the bedside Patient denied any lightheaded or dizziness, her blood pressure is 103/56, I discussed with the nurse patient has been stable, [facility] Objective Vitals Vital Signs Date Time Temp Pulse Resp B/P Pulse Ox O2 Delivery O2 Flow Rate FiO2 09/24/16 10:00 83 09/24/16 08:27 100 Nasal Cannula 3.00 09/24/16 08:00 98.0 94 25 116/64 96 09/24/16 08:00 94 09/24/16 07:00 95 Nasal Cannula 3.00 09/24/16 06:00 81 09/24/16 04:00 92 09/24/16 04:00 98.1 92 22 96/54 100 09/24/16 02:00 92 09/24/16 00:00 97.9 94 21 98/57 100 09/24/16 00:00 94 09/23/16 22:09 18 09/23/16 22:00 92 09/23/16 21:27 95 Nasal Cannula 3.00 09/23/16 20:00 98.2 102 24 110/58 95 09/23/16 20:00 80 09/23/16 19:00 95 Nasal Cannula 3.00 09/23/16 18:00 93 09/23/16 16:00 98 09/23/16 16:00 98.3 96 25 96/54 94 09/23/16 14:00 104 I/O 09/23/16 09/23/16 09/23/16 09/24/16 09/24/16 09/24/16 07:00 15:00 23:00 07:00 15:00 23:00 Intake Total 355 ml 305 ml 485 ml 100 ml Output Total 1150 ml 800 ml 400 ml 400 ml Balance -795 ml -495 ml 85 ml -300 ml Intake Oral 300 ml 300 ml 480 ml 100 ml Oral Supplement 50 ml IV Total 5 ml 5 ml 5 ml 0 ml Output Urine Total 1150 ml 800 ml 400 ml 400 ml # Voids 1 # Bowel Movements 1 Result Diagram: 09/23/16 0600 09/24/16 0705 Objective Remarks GENERAL: This is a frail elderly female, in no apparent distress. On 3 L nasal cannula SKIN: No rashes, warm and dry HEAD: Atraumatic. Normocephalic. EYES: Pupils equal round and reactive. Extraocular motions intact. No scleral icterus. ENT: Nose without bleeding, or drainage, Airway patent. NECK: Trachea midline. Supple CARDIOVASCULAR: Regular rate and rhythm without murmurs, gallops, or rubs. RESPIRATORY: Bilateral crackles mostly on the basis GASTROINTESTINAL: Abdomen soft, non-tender, nondistended. Positive bowel sounds MUSCULOSKELETAL: Extremities without clubbing, cyanosis, or edema. Pedal pulses appreciated NEUROLOGICAL: Awake and alert. Moves all extremity. Normal speech.no focal neurological deficit, hard hearing Procedures A/P Assessment and Plan 09/23: Still on 3 L nasal cannula with cough and phlegm, Bumex has been held due to hypotension systolic 79, discussed with the nurse 09/24: Blood pressure improved 103/56 now, discussed with the nurse and maybe has been stable, will transfer to [facility] floor with telemetry A/P: A fib with RVR, improved Recently admitted for Afib with RVR. - On amiodarone 200 mg daily. Digoxin stopped. Continue nebivolol. - follow up with cardiology. - holding anticoagulation in the setting of GIB. Hypotension: Hold Bumex, apply holding parameter for antihypertensive medication GI bleed Hemoccult positive. Had episode of dark stools and coffee ground emesis. On Eliquis which has been discontinued. GI consult appreciated. Transfused 1 unit with appropriate response. Unable to go for endoscopy s/t respiratory distress. - follow CBC and transfuse as needed. Stable - GI consulted appreciated. Endoscopy when respiratory status is stable. - continue PPI. - hold anticoagulation. Pneumonia/ COPD exacerbation/ Acute hypoxemic respiratory failure/ Acute systolic CHF CXR and CT scan imaging indicative of a right infiltrate. She was recently hospitalized. Had lactic acid level of 5. Influenza negative. Received cefepime and vanco for pneumonia. Currently not requiring any supplemental O2. S/p steroids. The pt is still in respiratory distress 09/21. CXR 09/19 stable. She was transferred to the ICU and started on a Bumex gtt. V/Q scan low probability for PE so heparin gtt was discontinued. Echo in May with EF 45-50% and mod- severe MR and severe TR. BNP elevated. - oxygen and nebs as needed. - incentive spirometry, Acapella. - sputum and blood cultures. NGTD. - pulmonology following. - appreciate palliative care ff Chronic renal disease/ metabolic acidosis/ hyponatremia/ hypokalemia Creatinine is around baseline. Started on bicarbonate on last admission by nephrology. Bicarb level is low and pt appears to be having respiratory compensation. Hyponatremia improved. - avoid nephrotoxins. - continue PO sodium bicarbonate. - Monitor I's and O's. - follow up with nephrology. Tolvaptan started. - fluid restriction. - potassium supplementation as needed. - per nephrology, would likely not do well on dialysis. Glaucoma The pt described new onset right eye pain and says she can only see white out of her right eye. She does have a history of glaucoma. Ophthalmology was consulted. - Continue latanoprost. - Follow up with ophthalmology. Hoarse voice ENT consult appreciated. Slowly improving. - continue PPI. - outpt follow-up with ENT. Thrush Resolved with nystatin. - continue nystatin. PPX: SCDs. Roxana Chaney MD Sep 24, 2016 12:13 Roxana Chaney MD Sep 24, 2016 12:13
--- NOTE | 2016-09-24 14:11 | HHI.NPPN ---
Subjective Complaints: Shortness of Breath General Problems: Mebatolic Acidosis Renal Failure: Chronic, Acute Review of Systems General Constitutional: Fatigue Ears, Nose, & Throat Ears, Nose & Throat: Sore Throat, Hoarse, Congestion Respiratory Lungs: SOB, Cough, Sputum Gastrointestinal Gastrointestinal: Nausea & Vomiting Objective Data Data 09/23/16 09/24/16 19:00 07:00 Intake Total 305 ml 585 ml Output Total 800 ml 800 ml Balance -495 ml -215 ml Intake Oral 300 ml 580 ml IV Total 5 ml 5 ml Output Urine Total 800 ml 800 ml # Voids 1 # Bowel Movements 1 Vital Signs Date Time Temp Pulse Resp B/P Pulse Ox O2 Delivery O2 Flow Rate FiO2 09/24/16 10:00 83 09/24/16 08:27 100 Nasal Cannula 3.00 09/24/16 08:00 98.0 94 25 116/64 96 09/24/16 08:00 94 09/24/16 07:00 95 Nasal Cannula 3.00 09/24/16 06:00 81 09/24/16 04:00 92 09/24/16 04:00 98.1 92 22 96/54 100 09/24/16 02:00 92 09/24/16 00:00 97.9 94 21 98/57 100 09/24/16 00:00 94 09/23/16 22:09 18 09/23/16 22:00 92 09/23/16 21:27 95 Nasal Cannula 3.00 09/23/16 20:00 98.2 102 24 110/58 95 09/23/16 20:00 80 09/23/16 19:00 95 Nasal Cannula 3.00 09/23/16 18:00 93 09/23/16 16:00 98 09/23/16 16:00 98.3 96 25 96/54 94 -: 09/23/16 0600 09/24/16 0705 Tubes & Lines: Becker Physical Exam General Appearance: Well Developed, Well Nourished, No Acute Distress, Comfortable, Anxious Throat Throat Exam: Oral Mucosa [place] & Moist Pulmonary Resp Exam: Breath Sounds Equal, Crackles, Rhonchi Cardiology CV Exam: Good Perfusion, Irregular Gastrointestinal/Abdomen GI Exam: Soft, Non-Tender, Bowel Sounds Present Musculoskeletal MS Exam: Joints Intact, Normal Tone Integumentary Skin Exam: Clear, Warm, Dry, Intact Extremeties Extremities Exam: No Edema, Pedal Pulses Palpable Neurologic Neuro Exam: Alert, Awake, Oriented, Speech Clear, Moving All Extremities Psychiatric Psych Exam: Appropriate Responses Assessment/Plan Discussed Condition With: Patient Assessment Summary: Anemia of CKD, Hypertension, CKD Stage IV Electrolyte Assessment: Hypocalcemia, Hyponatremia, Metabolic Acidosis Problem List: (1) Chronic kidney disease, stage 4 (severe) Plan: renal function has improved diuresing well, UOP 1.6 L bp low Bumex held since yesterday KPhos given Avoid nephrotoxic agents. Replace potassium (2) Hyponatremia Plan: stable Given 2 doses of Tolvaptan. continue fluid restriction and loop diuretic. (3) CHF (congestive heart failure) Plan: monitor fluid volume status EF 40-50% diuresis as above (4) Atrial fibrillation Plan: rate controlled, she is asymptomatic on amiodarone and Bystolic cardiology following AC on hold (5) Pneumonia Plan: oxygen as needed, RT to assist nebulizers prn, incentive spirometer recommended cough/deep breathing encouraged monitor clinically she is also on Robitussin Hoarseness has improved. (6) Anemia Plan: Hb stable, she was transfused one unit PRBC on 09/16 also on oral iron, EGD has been postponed Eliquis for anticoagulation on hold on Protonix, GI following (7) Secondary hyperparathyroidism of renal origin Plan: PTH elevated, continue vitamin D daily Problem Qualifiers (1) Atrial fibrillation: Qualified Code: I48.1 - Persistent atrial fibrillation (2) Pneumonia: Qualified Code: J18.1 - Pneumonia of right middle lobe due to infectious organism Latasha Skaggs MD Sep 24, 2016 14:11
[2016-09-24] MEDS ORDERED: POTASSIUM CHLORIDE 20 MEQ CONTROLLED RELEASE TAB PO ONE (20:00)
[2016-09-24] MEDS: PRAVASTATIN SOD 80 MG TAB PO SCH (20:02)
[2016-09-24] MEDS: LATANOPROST 0.005% OPHT SOLN 2.5 ML BTL RIGHT EYE SCH (20:03)
[2016-09-24] MEDS: ACETAMINOPHEN 325 MG TAB PO PRN (21:24)
[2016-09-25] VITALS (15 sets, daily range): BP systolic 90–151; BP diastolic 52–66; PULSE 81–151; RESP 18–25; TEMP 97.9–98.7; O2SAT 97–100
[2016-09-25] MEDS: PANTOPRAZOLE SODIUM 40 MG VIAL IV PUSH SCH ×2 (01:10→14:00)
[2016-09-25] MEDS: LEVOTHYROXINE SODIUM 50 MCG TAB PO SCH (05:31)
[2016-09-25] MEDS: CHOLECALCIFEROL (VIT D3) 1000 UNIT TAB PO SCH (09:00)
[2016-09-25] MEDS: POTASSIUM PHOSPHATE MONOBASIC 500 MG TAB PO SCH ×2 (09:00→21:00)
[2016-09-25] MEDS: FERROUS SULFATE 325 MG (65 MG ELEMENTAL IRON) TAB PO SCH (09:00)
[2016-09-25] MEDS: DOCUSATE SODIUM 100 MG CAP PO SCH ×2 (09:00→21:00)
[2016-09-25] MEDS: AMIODARONE 200 MG TAB PO SCH (09:00)
[2016-09-25] MEDS: SENNOSIDES SYRUP 8.8 MG/5 ML CUP PO SCH (09:00)
[2016-09-25] MEDS: guaiFENesin E.R. 600 MG TAB PO SCH ×2 (09:00→21:00)
[2016-09-25] MEDS: SODIUM BICARBONATE 650 MG TAB PO SCH ×3 (09:00→18:00)
[2016-09-25] MEDS: NYSTATIN SUSP 500,000 U/5 ML CUP SWISH-SWAL SCH ×4 (09:00→21:00)
[2016-09-25] MEDS: NEBIVOLOL 5 MG TAB PO SCH (09:00)
[2016-09-25 09:51] LABS: BICARBONATE 27.9 MEQ/L (21.0-32.0); POTASSIUM 4.2 MEQ/L (3.5-5.1)
--- NOTE | 2016-09-25 10:18 | HHI.HCPN ---
Palliative care short note. * Goals of care are clear. Patient wishing to continue aggressive care short of no code with the goal of returning home for independent living vs rehab for physical straightening. * Family requesting palliative care not to f/u unless requested by patient/ family. * Palliative care to f/u as needed. ARLE[facility] Gore Palliative care consultation service . . Keya Meléndez Sep 25, 2016 10:18
--- NOTE | 2016-09-25 12:02 | HHI.PR ---
Subjective Remarks Patient stable doing okay on plain laying in bed comfortably I discussed with her she still definitely refusing GI scope, she doesn't see why it's necessary She agreed on resuming her elliquis and monitoring or any bleeding Objective Vitals Vital Signs Date Time Temp Pulse Resp B/P Pulse Ox O2 Delivery O2 Flow Rate FiO2 09/25/16 10:00 88 09/25/16 08:00 98.7 111 22 119/61 97 09/25/16 08:00 87 09/25/16 07:00 93 Nasal Cannula 3.00 09/25/16 06:00 85 09/25/16 04:00 88 09/25/16 04:00 97.9 88 18 106/53 98 09/25/16 02:00 87 09/25/16 00:00 84 09/25/16 00:00 98.1 84 21 90/52 99 09/24/16 22:41 18 09/24/16 22:00 81 09/24/16 20:36 100 Nasal Cannula 3.00 09/24/16 20:00 87 09/24/16 20:00 98.0 87 24 105/52 100 09/24/16 19:00 92 Nasal Cannula 3.00 09/24/16 18:00 93 09/24/16 16:00 95 09/24/16 16:00 98.1 95 28 108/58 100 09/24/16 14:00 87 I/O 09/24/16 09/24/16 09/24/16 09/25/16 09/25/16 09/25/16 07:00 15:00 23:00 07:00 15:00 23:00 Intake Total 100 ml 300 ml 250 ml 60 ml Output Total 400 ml 550 ml 300 ml 250 ml Balance -300 ml -250 ml -50 ml -190 ml Intake Oral 100 ml 200 ml 240 ml 50 ml IV Total 0 ml 100 ml 10 ml 10 ml Output Urine Total 400 ml 550 ml 300 ml 250 ml # Voids 1 # Bowel Movements 0 0 0 Result Diagram: 09/23/16 0600 09/25/16 0914 Objective Remarks GENERAL: This is a frail elderly female, in no apparent distress. On 3 L nasal cannula SKIN: No rashes, warm and dry HEAD: Atraumatic. Normocephalic. EYES: Pupils equal round and reactive. Extraocular motions intact. No scleral icterus. ENT: Nose without bleeding, or drainage, Airway patent. NECK: Trachea midline. Supple CARDIOVASCULAR: Regular rate and rhythm without murmurs, gallops, or rubs. RESPIRATORY: Bilateral crackles mostly on the basis GASTROINTESTINAL: Abdomen soft, non-tender, nondistended. Positive bowel sounds MUSCULOSKELETAL: Extremities without clubbing, cyanosis, or edema. Pedal pulses appreciated NEUROLOGICAL: Awake and alert. Moves all extremity. Normal speech.no focal neurological deficit, hard hearing Procedures A/P Assessment and Plan 09/23: Still on 3 L nasal cannula with cough and phlegm, Bumex has been held due to hypotension systolic 79, discussed with the nurse 09/24: Blood pressure improved 103/56 now, discussed with the nurse and maybe has been stable, will transfer to [facility] floor with telemetry 09/25: Blood pressure stable, patient refused GI scope, will resume elliquis and monitor for any bleed A/P: A fib with RVR, improved Recently admitted for Afib with RVR. - On amiodarone 200 mg daily. Digoxin stopped. Continue nebivolol. - follow up with cardiology. -Status post holding anticoagulation in the setting of GIB. We'll resume elliquis and was monitoring for any bleed Hypotension: Hold Bumex, apply holding parameter for antihypertensive medication GI bleed Hemoccult positive. Had episode of dark stools and coffee ground emesis. On Eliquis which has been discontinued. GI consult appreciated. Transfused 1 unit with appropriate response. Unable to go for endoscopy s/t respiratory distress. - follow CBC and transfuse as needed. Stable - GI consulted appreciated. Endoscopy when respiratory status is stable. - continue PPI. -Resume anticoagulation. With close monitoring Pneumonia/ COPD exacerbation/ Acute hypoxemic respiratory failure/ Acute systolic CHF CXR and CT scan imaging indicative of a right infiltrate. She was recently hospitalized. Had lactic acid level of 5. Influenza negative. Received cefepime and vanco for pneumonia. Currently not requiring any supplemental O2. S/p steroids. The pt is still in respiratory distress 09/21. CXR 09/19 stable. She was transferred to the ICU and started on a Bumex gtt. V/Q scan low probability for PE so heparin gtt was discontinued. Echo in May with EF 45-50% and mod- severe MR and severe TR. BNP elevated. - oxygen and nebs as needed. - incentive spirometry, Acapella. - sputum and blood cultures. NGTD. - pulmonology following. - appreciate palliative care ff Chronic renal disease/ metabolic acidosis/ hyponatremia/ hypokalemia Creatinine is around baseline. Started on bicarbonate on last admission by nephrology. Bicarb level is low and pt appears to be having respiratory compensation. Hyponatremia improved. - avoid nephrotoxins. - continue PO sodium bicarbonate. - Monitor I's and O's. - follow up with nephrology. s/p Tolvaptan - fluid restriction. - potassium supplementation as needed. - per nephrology, would likely not do well on dialysis. Glaucoma The pt described new onset right eye pain and says she can only see white out of her right eye. She does have a history of glaucoma. Ophthalmology was consulted. - Continue latanoprost. - Follow up with ophthalmology. Hoarse voice ENT consult appreciated. Slowly improving. - continue PPI. - outpt follow-up with ENT. Thrush Resolved with nystatin. - continue nystatin. PPX: Sp. Roxana Chaney MD Sep 25, 2016 12:02
--- NOTE | 2016-09-25 17:10 | HHI.NPPN ---
Subjective Complaints: Shortness of Breath General Problems: Mebatolic Acidosis Renal Failure: Chronic, Acute Additional Remarks Patient is alert, breathing is better. Review of Systems General Constitutional: Fatigue Ears, Nose, & Throat Ears, Nose & Throat: Sore Throat, Hoarse, Congestion Respiratory Lungs: SOB, Cough, Sputum Gastrointestinal Gastrointestinal: Nausea & Vomiting Objective Data Data 09/24/16 09/25/16 19:00 07:00 Intake Total 300 ml 310 ml Output Total 550 ml 550 ml Balance -250 ml -240 ml Intake Oral 200 ml 290 ml IV Total 100 ml 20 ml Output Urine Total 550 ml 550 ml # Voids 1 # Bowel Movements 0 0 Vital Signs Date Time Temp Pulse Resp B/P Pulse Ox O2 Delivery O2 Flow Rate FiO2 09/25/16 16:27 86 09/25/16 14:00 83 09/25/16 12:00 84 09/25/16 10:00 88 09/25/16 08:00 98.7 111 22 119/61 97 09/25/16 08:00 87 09/25/16 07:00 93 Nasal Cannula 3.00 09/25/16 06:00 85 09/25/16 04:00 88 09/25/16 04:00 97.9 88 18 106/53 98 09/25/16 02:00 87 09/25/16 00:00 84 09/25/16 00:00 98.1 84 21 90/52 99 09/24/16 22:41 18 09/24/16 22:00 81 09/24/16 20:36 100 Nasal Cannula 3.00 09/24/16 20:00 87 09/24/16 20:00 98.0 87 24 105/52 100 09/24/16 19:00 92 Nasal Cannula 3.00 09/24/16 18:00 93 -: 09/23/16 0600 09/25/16 0914 Tubes & Lines: [place] Physical Exam General Appearance: No Acute Distress, Comfortable, Anxious Throat Throat Exam: Oral Mucosa [place] & Moist Pulmonary Resp Exam: Breath Sounds Equal, Crackles, Rhonchi Cardiology CV Exam: Good Perfusion, Irregular Gastrointestinal/Abdomen GI Exam: Soft, Non-Tender, Bowel Sounds Present Musculoskeletal MS Exam: Joints Intact, Normal Tone Integumentary Skin Exam: Clear, Warm, Dry, Intact Extremeties Extremities Exam: No Edema Neurologic Neuro Exam: Alert, Awake, Oriented, Speech Clear, Moving All Extremities Psychiatric Psych Exam: Appropriate Responses Assessment/Plan Discussed Condition With: Patient Assessment Summary: Anemia of CKD, Hypertension, CKD Stage IV Electrolyte Assessment: Hypocalcemia, Hyponatremia, Metabolic Acidosis Problem List: (1) Chronic kidney disease, stage 4 (severe) Plan: renal function has improved diuresing well, urine out put is adequate. BP is stable. Now off Bumex. PO4 is low, on supplement. Follow urine out out and BMP. (2) Hyponatremia Plan: stable Given 2 doses of Tolvaptan. continue fluid restriction and loop diuretic. (3) CHF (congestive heart failure) Plan: monitor fluid volume status EF 40-50% diuresis as above (4) Atrial fibrillation Plan: rate controlled, she is asymptomatic on amiodarone and Bystolic cardiology following AC on hold (5) Pneumonia Plan: oxygen as needed, RT to assist nebulizers prn, incentive spirometer recommended cough/deep breathing encouraged monitor clinically she is also on Robitussin Hoarseness has improved. (6) Anemia Plan: Hb stable, she was transfused one unit PRBC on 09/16 also on oral iron, EGD has been postponed Eliquis for anticoagulation on hold on Protonix, GI following (7) Secondary hyperparathyroidism of renal origin Plan: PTH elevated, continue vitamin D daily Problem Qualifiers (1) Atrial fibrillation: Qualified Code: I48.1 - Persistent atrial fibrillation (2) Pneumonia: Qualified Code: J18.1 - Pneumonia of right middle lobe due to infectious organism Nevin Mccabe MD Sep 25, 2016 17:10
--- NOTE | 2016-09-25 19:13 | HHI.PR ---
Subjective Remarks 89 YOWF with Pneumonia,CHF,AF No Fever Has hoarseness of voice, improving Tolerates PO Up in chair Objective Vital Signs Vital Signs Date Time Temp Pulse Resp B/P Pulse Ox O2 Delivery O2 Flow Rate FiO2 09/25/16 18:40 89 09/25/16 17:25 100 Nasal Cannula 3.00 09/25/16 16:27 86 09/25/16 16:00 98.5 151 22 151/66 97 09/25/16 14:00 83 09/25/16 12:00 84 09/25/16 10:00 88 09/25/16 08:00 98.7 111 22 119/61 97 09/25/16 08:00 87 09/25/16 07:00 93 Nasal Cannula 3.00 09/25/16 06:00 85 09/25/16 04:00 88 09/25/16 04:00 97.9 88 18 106/53 98 09/25/16 02:00 87 09/25/16 00:00 84 09/25/16 00:00 98.1 84 21 90/52 99 09/24/16 22:41 18 09/24/16 22:00 81 09/24/16 20:36 100 Nasal Cannula 3.00 09/24/16 20:00 87 09/24/16 20:00 98.0 87 24 105/52 100 I/O 09/24/16 09/24/16 09/24/16 09/25/16 09/25/16 09/25/16 07:00 15:00 23:00 07:00 15:00 23:00 Intake Total 100 ml 300 ml 250 ml 60 ml 345 ml Output Total 400 ml 550 ml 300 ml 250 ml 375 ml Balance -300 ml -250 ml -50 ml -190 ml -30 ml Intake Oral 100 ml 200 ml 240 ml 50 ml 325 ml IV Total 0 ml 100 ml 10 ml 10 ml 20 ml Output Urine Total 400 ml 550 ml 300 ml 250 ml 375 ml # Voids 1 # Bowel Movements 0 0 0 0 Result Diagram: 09/23/16 0609/25/16913 Objective Remarks GENERAL: Thin built WF, NAD SKIN: Warm and dry. HEAD: Normocephalic. EYES: No scleral icterus. No injection or drainage. NECK: Supple, trachea midline. No JVD or lymphadenopathy. CARDIOVASCULAR: Regular rate and rhythm without murmurs, gallops, or rubs. RESPIRATORY: Breath sounds equal bilaterally. No accessory muscle use. GASTROINTESTINAL: Abdomen soft, non-tender, nondistended. MUSCULOSKELETAL: No cyanosis, or edema. BACK: Nontender without obvious deformity. No CVA tenderness. A/P Assessment and Plan Pneumonia CHF AF CKD Hypoxic resp failure PLAN: Cont Abx per ID Aerosol nebs Monitor Lytes Monitor H/H 02 3LNC keep sat >90% Stable from pulm standpoint to tr to floor Nash Dutat MD Sep 25, 2016 19:13
[2016-09-25] MEDS: PRAVASTATIN SOD 80 MG TAB PO SCH (21:00)
[2016-09-25] MEDS: LATANOPROST 0.005% OPHT SOLN 2.5 ML BTL RIGHT EYE SCH (21:00)
[2016-09-25] MEDS: APIXABAN 2.5 MG TABLET PO SCH (21:00)
[2016-09-25] MEDS: ACETAMINOPHEN 325 MG TAB PO PRN (21:30)
[2016-09-26] VITALS (8 sets, daily range): BP systolic 100–130; BP diastolic 50–68; PULSE 75–91; RESP 17–20; TEMP 97.7–98.9; O2SAT 94–100
[2016-09-26] MEDS: PANTOPRAZOLE SODIUM 40 MG VIAL IV PUSH SCH ×2 (02:07→15:15)
[2016-09-26 04:59] LABS: HEMATOCRIT 24.4 % (35.0-46.0); REVIEW FLAG FINAL
[2016-09-26] MEDS: LEVOTHYROXINE SODIUM 50 MCG TAB PO SCH (04:59)
[2016-09-26] MEDS: SENNOSIDES SYRUP 8.8 MG/5 ML CUP PO SCH (09:51)
--- NOTE | 2016-09-26 09:51 | HHI.NPPN ---
Subjective Complaints: Shortness of Breath General Problems: Mebatolic Acidosis Renal Failure: Chronic, Acute Additional Remarks Patient is alert, mild SOB, not in distress. Review of Systems General Constitutional: Fatigue Ears, Nose, & Throat Ears, Nose & Throat: Sore Throat, Hoarse, Congestion Respiratory Lungs: SOB, Cough, Sputum Gastrointestinal Gastrointestinal: Nausea & Vomiting Objective Data Data 09/25/16 09/26/16 19:00 07:00 Intake Total 1045 ml 520 ml Output Total 475 ml 950 ml Balance 570 ml -430 ml Intake Oral 1025 ml 520 ml IV Total 20 ml Output Urine Total 475 ml 950 ml # Bowel Movements 2 2 Vital Signs Date Time Temp Pulse Resp B/P Pulse Ox O2 Delivery O2 Flow Rate FiO2 09/26/16 08:00 98.9 84 17 116/56 96 09/26/16 04:00 98.2 75 20 101/50 94 09/26/16 02:02 76 09/26/16 00:00 98.6 86 20 100/53 100 09/26/16 00:00 Nasal Cannula 3.00 09/25/16 22:00 81 09/25/16 20:54 100 Nasal Cannula 3.00 09/25/16 20:00 98.5 87 25 114/56 100 09/25/16 20:00 87 09/25/16 19:00 100 Nasal Cannula 3.00 09/25/16 18:40 89 09/25/16 17:25 100 Nasal Cannula 3.00 09/25/16 16:27 86 09/25/16 16:00 98.5 151 22 151/66 97 09/25/16 14:00 83 09/25/16 12:00 84 09/25/16 10:00 88 -: 09/26/16 0401 09/26/16 0401 Tubes & Lines: [place] Physical Exam General Appearance: No Acute Distress, Comfortable, Anxious Throat Throat Exam: Oral Mucosa [place] & Moist Pulmonary Resp Exam: Breath Sounds Equal, Crackles, Rhonchi Cardiology CV Exam: Good Perfusion, Irregular Gastrointestinal/Abdomen GI Exam: Soft, Non-Tender, Bowel Sounds Present Musculoskeletal MS Exam: Joints Intact, Normal Tone Integumentary Skin Exam: Clear, Warm, Dry, Intact Extremeties Extremities Exam: No Edema Neurologic Neuro Exam: Alert, Awake, Oriented, Speech Clear, Moving All Extremities Psychiatric Psych Exam: Appropriate Responses Assessment/Plan Discussed Condition With: Patient Assessment Summary: Anemia of CKD, Hypertension, CKD Stage IV Electrolyte Assessment: Hypocalcemia, Hyponatremia, Metabolic Acidosis Problem List: (1) Chronic kidney disease, stage 4 (severe) Plan: Urine out put is adequate. BP is stable. Now off Bumex. PO4 is low, on supplement. Follow urine out out and BMP. Creatinine continue to improve. (2) Hyponatremia Plan: stable Given 2 doses of Tolvaptan. continue fluid restriction and loop diuretic. (3) CHF (congestive heart failure) Plan: monitor fluid volume status EF 40-50% diuresis as above (4) Atrial fibrillation Plan: rate controlled, she is asymptomatic on amiodarone and Bystolic cardiology following AC on hold (5) Pneumonia Plan: oxygen as needed, RT to assist nebulizers prn, incentive spirometer recommended cough/deep breathing encouraged monitor clinically she is also on Robitussin Hoarseness has improved. (6) Anemia Plan: Hb stable, she was transfused one unit PRBC on 09/16 also on oral iron, EGD has been postponed Eliquis for anticoagulation on hold on Protonix, GI following (7) Secondary hyperparathyroidism of renal origin Plan: PTH elevated, continue vitamin D daily Problem Qualifiers (1) Atrial fibrillation: Qualified Code: I48.1 - Persistent atrial fibrillation (2) Pneumonia: Qualified Code: J18.1 - Pneumonia of right middle lobe due to infectious organism Nevin Mccabe MD Sep 26, 2016 09:51
[2016-09-26] MEDS: DOCUSATE SODIUM 100 MG CAP PO SCH ×2 (09:52→21:00)
[2016-09-26] MEDS: guaiFENesin E.R. 600 MG TAB PO SCH ×2 (09:53→21:06)
[2016-09-26] MEDS: NYSTATIN SUSP 500,000 U/5 ML CUP SWISH-SWAL SCH ×4 (09:53→21:06)
[2016-09-26] MEDS: APIXABAN 2.5 MG TABLET PO SCH ×2 (09:54→21:06)
[2016-09-26] MEDS: CHOLECALCIFEROL (VIT D3) 1000 UNIT TAB PO SCH (09:54)
[2016-09-26] MEDS: FERROUS SULFATE 325 MG (65 MG ELEMENTAL IRON) TAB PO SCH (09:54)
[2016-09-26] MEDS: AMIODARONE 200 MG TAB PO SCH (09:54)
[2016-09-26] MEDS: NEBIVOLOL 5 MG TAB PO SCH (09:54)
[2016-09-26] MEDS: POTASSIUM PHOSPHATE MONOBASIC 500 MG TAB PO SCH ×2 (09:55→21:05)
[2016-09-26] MEDS: SODIUM BICARBONATE 650 MG TAB PO SCH ×3 (09:55→17:14)
[2016-09-26] MEDS: ACETAMINOPHEN 325 MG TAB PO PRN (10:15)
--- NOTE | 2016-09-26 13:00 | HHI.IDPN ---
Note Infectious Disease Note Patient is afebrile and WBC is normal. Nothing further to add. I will sign off now. Ángel Cutler MD Sep 26, 2016 13:00
--- NOTE | 2016-09-26 13:36 | HHI.PR ---
Subjective Remarks laying in bed , c/o back pain , but no n/v d/w her nurses , multiple watery foul smelling BM , they rec checking c diff still on 3 l nc , i checked her o2sat 98 , asked the nurse to start weaning down pt agreed on few days at rehab [facility] Objective Vitals Vital Signs Date Time Temp Pulse Resp B/P Pulse Ox O2 Delivery O2 Flow Rate FiO2 09/26/16 12:00 97.7 91 17 121/68 98 09/26/16 09:45 Nasal Cannula 3.00 50 09/26/16 08:00 98.9 84 17 116/56 96 09/26/16 04:00 98.2 75 20 101/50 94 09/26/16 02:02 76 09/26/16 00:00 98.6 86 20 100/53 100 09/26/16 00:00 Nasal Cannula 3.00 09/25/16 22:00 81 09/25/16 20:54 100 Nasal Cannula 3.00 09/25/16 20:00 98.5 87 25 114/56 100 09/25/16 20:00 87 09/25/16 19:00 100 Nasal Cannula 3.00 09/25/16 18:40 89 09/25/16 17:25 100 Nasal Cannula 3.00 09/25/16 16:27 86 09/25/16 16:00 98.5 151 22 151/66 97 09/25/16 14:00 83 I/O 09/25/16 09/25/16 09/25/16 09/26/16 09/26/16 09/26/16 07:00 15:00 23:00 07:00 15:00 23:00 Intake Total 60 ml 345 ml 1100 ml 120 ml Output Total 250 ml 375 ml 750 ml 300 ml Balance -190 ml -30 ml 350 ml -180 ml Intake Oral 50 ml 325 ml 1100 ml 120 ml IV Total 10 ml 20 ml Output Urine Total 250 ml 375 ml 750 ml 300 ml # Bowel Movements 0 2 2 Result Diagram: 09/26/1640009/26/16400 Objective Remarks GENERAL: This is a frail elderly female, in no apparent distress. On 3 L nasal cannula SKIN: No rashes, warm and dry HEAD: Atraumatic. Normocephalic. EYES: Pupils equal round and reactive. Extraocular motions intact. No scleral icterus. ENT: Nose without bleeding, or drainage, Airway patent. NECK: Trachea midline. Supple CARDIOVASCULAR: Regular rate and rhythm without murmurs, gallops, or rubs. RESPIRATORY: Bilateral crackles mostly on the basis GASTROINTESTINAL: Abdomen soft, non-tender, nondistended. Positive bowel sounds MUSCULOSKELETAL: Extremities without clubbing, cyanosis, or edema. Pedal pulses appreciated NEUROLOGICAL: Awake and alert. Moves all extremity. Normal speech.no focal neurological deficit, hard hearing Procedures A/P Assessment and Plan 09/23: Still on 3 L nasal cannula with cough and phlegm, Bumex has been held due to hypotension systolic 79, discussed with the nurse 09/24: Blood pressure improved 103/56 now, discussed with the nurse and maybe has been stable, will transfer to [facility] floor with telemetry 09/25: Blood pressure stable, patient refused GI scope, will resume elliquis and monitor for any bleed 09/26: hb 9-8.3 on eliquis started yesterday , watery stool .r/o c diff , wean o2 , if c diff neg , pt hb stable tomorrow , will dc to rehab A/P: A fib with RVR, improved Recently admitted for Afib with RVR. - On amiodarone 200 mg daily. Digoxin stopped. Continue nebivolol. - follow up with cardiology. -Status post holding anticoagulation in the setting of GIB. We'll resume elliquis and was monitoring for any bleed watery diarreha 09/26: check stool for c diff Hypotension: Hold Bumex, apply holding parameter for antihypertensive medication GI bleed Hemoccult positive. Had episode of dark stools and coffee ground emesis. On Eliquis which has been discontinued. GI consult appreciated. Transfused 1 unit with appropriate response. Unable to go for endoscopy s/t respiratory distress. - follow CBC and transfuse as needed. Stable - GI consulted appreciated. Endoscopy when respiratory status is stable. - continue PPI. -Resume anticoagulation. With close monitor Pneumonia/ COPD exacerbation/ Acute hypoxemic respiratory failure/ Acute systolic CHF CXR and CT scan imaging indicative of a right infiltrate. She was recently hospitalized. Had lactic acid level of 5. Influenza negative. Received cefepime and vanco for pneumonia. Currently not requiring any supplemental O2. S/p steroids. The pt is still in respiratory distress 2/16. CXR 09/19 stable. She was transferred to the ICU and started on a Bumex gtt. V/Q scan low probability for PE so heparin gtt was discontinued. Echo in May with EF 45-50% and mod- severe MR and severe TR. BNP elevated. - oxygen and nebs as needed. wean down o2 - incentive spirometry, Acapella. - sputum and blood cultures. NGTD. - pulmonology following. - appreciate palliative care ff Chronic renal disease/ metabolic acidosis/ hyponatremia/ hypokalemia Creatinine is around baseline. Started on bicarbonate on last admission by nephrology. Bicarb level is low and pt appears to be having respiratory compensation. Hyponatremia improved. - avoid nephrotoxins. - continue PO sodium bicarbonate. - Monitor I's and O's. - follow up with nephrology. s/p Tolvaptan - fluid restriction. - potassium supplementation as needed. - per nephrology, would likely not do well on dialysis. Glaucoma The pt described new onset right eye pain and says she can only see white out of her right eye. She does have a history of glaucoma. Ophthalmology was consulted. - Continue latanoprost. - Follow up with ophthalmology. Hoarse voice ENT consult appreciated. Slowly improving. - continue PPI. - outpt follow-up with ENT. Thrush Resolved with nystatin. - continue nystatin. PPX: Sp. Roxana Chaney MD Sep 26, 2016 13:36
[2016-09-26 14:55] LABS: C. DIFF EPI 027 PRESUMPTIVE NEGATIVE (NEGATIVE); C. DIFF TOXIN PCR NEGATIVE (NEGATIVE)
--- NOTE | 2016-09-26 19:35 | HHI.PR ---
Subjective Remarks 89 YOWF with Pneumonia,CHF,AF No Fever Has hoarseness of voice, improving Tolerates PO Up in chair Slept better Objective Vital Signs Vital Signs Date Time Temp Pulse Resp B/P Pulse Ox O2 Delivery O2 Flow Rate FiO2 09/26/16 18:19 97 Nasal Cannula 3.00 09/26/16 16:00 98.3 80 17 130/60 97 09/26/16 12:00 97.7 91 17 121/68 98 09/26/16 09:45 Nasal Cannula 3.00 50 09/26/16 08:00 98.9 84 17 116/56 96 09/26/16 04:00 98.2 75 20 101/50 94 09/26/16 02:02 76 09/26/16 00:00 98.6 86 20 100/53 100 09/26/16 00:00 Nasal Cannula 3.00 09/25/16 22:00 81 09/25/16 20:54 100 Nasal Cannula 3.00 09/25/16 20:00 98.5 87 25 114/56 100 09/25/16 20:00 87 I/O 09/25/16 09/25/16 09/25/16 09/26/16 09/26/16 09/26/16 07:00 15:00 23:00 07:00 15:00 23:00 Intake Total 60 ml 345 ml 1100 ml 120 ml 240 ml Output Total 250 ml 375 ml 750 ml 300 ml 500 ml Balance -190 ml -30 ml 350 ml -180 ml -260 ml Intake Oral 50 ml 325 ml 1100 ml 120 ml 240 ml IV Total 10 ml 20 ml Output Urine Total 250 ml 375 ml 750 ml 300 ml 500 ml # Bowel Movements 0 2 2 3 Result Diagram: 09/26/161 09/26/161 Objective Remarks GENERAL: Thin built WF, NAD SKIN: Warm and dry. HEAD: Normocephalic. EYES: No scleral icterus. No injection or drainage. NECK: Supple, trachea midline. No JVD or lymphadenopathy. CARDIOVASCULAR: Regular rate and rhythm without murmurs, gallops, or rubs. RESPIRATORY: Breath sounds equal bilaterally. No accessory muscle use. GASTROINTESTINAL: Abdomen soft, non-tender, nondistended. MUSCULOSKELETAL: No cyanosis, or edema. BACK: Nontender without obvious deformity. No CVA tenderness. A/P Assessment and Plan Pneumonia CHF AF CKD Hypoxic resp failure PLAN: Cont Abx per ID Aerosol nebs Monitor Lytes Monitor H/H 02 3LNC keep sat >90% Nash Dutta MD Sep 26, 2016 19:35
[2016-09-26] MEDS: PRAVASTATIN SOD 80 MG TAB PO SCH (21:06)
[2016-09-26] MEDS: LATANOPROST 0.005% OPHT SOLN 2.5 ML BTL RIGHT EYE SCH (21:15)
[2016-09-27] VITALS: BP 120/64; PULSE 90; RESP 18; TEMP 98.7; O2SAT 95
[2016-09-27] MEDS: PANTOPRAZOLE SODIUM 40 MG VIAL IV PUSH SCH ×2 (01:50→12:19)
[2016-09-27 04:00] VITALS: BP 100/60; PULSE 95; RESP 20; TEMP 96.9; O2SAT 97
[2016-09-27] MEDS: LEVOTHYROXINE SODIUM 50 MCG TAB PO SCH (04:04)
[2016-09-27] MEDS: ACETAMINOPHEN 325 MG TAB PO PRN (04:04)
[2016-09-27 06:08] LABS: AUTOMATED NEUTROPHIL # 7.3 TH/MM3 (1.8-7.7); BASOPHIL # 0.1 TH/MM3 (0-0.2); BASOPHIL % 0.7 % (0.0-2.0); EOSINOPHIL # 0.1 TH/MM3 (0-0.4); EOSINOPHIL % 1.3 % (0.0-4.0); HEMATOCRIT 25.9 % (35.0-46.0); LYMPH % 3.1 % (9.0-44.0); LYMPHOCYTE # 0.3 TH/MM3 (1.0-4.8); MEAN CELL VOLUME 86.9 FL (80.0-100.0); MEAN CORPUSCULAR HEMOGLOBIN 29.6 PG (27.0-34.0); MONO % 9.3 % (0.0-8.0); NEUT % 85.6 % (16.0-70.0); PLATELET COUNT 230 TH/MM3 (150-450); RED BLOOD COUNT 2.98 MIL/MM3 (4.00-5.30); RED CELL DISTRIBUTION WIDTH 18.5 % (11.6-17.2); WHITE BLOOD COUNT 8.6 TH/MM3 (4.0-11.0)
[2016-09-27 06:24] LABS: HEMO FLAGS AUTO DIFF
[2016-09-27 06:33] LABS: BICARBONATE 26.1 MEQ/L (21.0-32.0); MAGNESIUM 1.2 MG/DL (1.5-2.5); POTASSIUM 3.9 MEQ/L (3.5-5.1)
[2016-09-27 07:51] LABS: PLATELET ESTIMATE SMEAR NORMAL (NORMAL); PLATELET MORPHOLOGY NORMAL (NORMAL); SCAN/DIFF AUTO DIFF CONFIRMED
[2016-09-27 08:00] VITALS: BP 108/61; PULSE 73; RESP 17; TEMP 98.7; O2SAT 97
[2016-09-27] MEDS: DOCUSATE SODIUM 100 MG CAP PO SCH (09:00)
[2016-09-27] MEDS: POTASSIUM PHOSPHATE MONOBASIC 500 MG TAB PO SCH (09:00)
[2016-09-27 10:00] VITALS: O2SAT 98
[2016-09-27] MEDS: SODIUM BICARBONATE 650 MG TAB PO SCH ×2 (10:32→12:18)
[2016-09-27] MEDS: FERROUS SULFATE 325 MG (65 MG ELEMENTAL IRON) TAB PO SCH (10:32)
[2016-09-27] MEDS: SENNOSIDES SYRUP 8.8 MG/5 ML CUP PO SCH (10:32)
[2016-09-27] MEDS: guaiFENesin E.R. 600 MG TAB PO SCH (10:32)
[2016-09-27] MEDS: NYSTATIN SUSP 500,000 U/5 ML CUP SWISH-SWAL SCH ×2 (10:32→12:18)
[2016-09-27] MEDS: CHOLECALCIFEROL (VIT D3) 1000 UNIT TAB PO SCH (10:33)
[2016-09-27] MEDS: AMIODARONE 200 MG TAB PO SCH (10:33)
[2016-09-27] MEDS: APIXABAN 2.5 MG TABLET PO SCH (10:34)
[2016-09-27] MEDS: NEBIVOLOL 5 MG TAB PO SCH (10:34)
[2016-09-27] MEDS ORDERED: LOPE2TAB PO (10:54)
[2016-09-27] MEDS ORDERED: SODIUM CHLOR 0.9% 1000 ML INJ 1,000 ML IV SCH (11:00)
[2016-09-27] MEDS ORDERED: LOPERAMIDE HCL 2 MG CAP PO PRN (11:00)
[2016-09-27] MEDS ORDERED: SODIUM CHLOR 0.9% 250 ML INJ 250 ML IV ONE (11:00)
--- NOTE | 2016-09-27 11:00 | HHI.PR ---
Subjective Remarks Patient feels extremely weak, her stool is soft as per the nurse multiple times however C. difficile came back negative, her blood pressure is on the lower side with a systolic 108, earlier has been below 100, magnesium is 1.2, I will give her a dose of loperamide and continue as needed, normal saline bolus to 50 cc 1 and will give 500 cc at a rate of 125, 2 g of magnesium sulfate 1, I discussed with the nurse and with the charge nurse and informed them that after this measures if patient continued to be stable with a blood pressure systolic of 100 she can be discharged to rehabilitation Objective Vitals Vital Signs Date Time Temp Pulse Resp B/P Pulse Ox O2 Delivery O2 Flow Rate FiO2 09/27/16 10:00 98 Nasal Cannula 2.00 09/27/16 04:00 96.9 95 20 100/60 97 09/27/16 00:00 98.7 90 18 120/64 95 09/26/16 21:20 99 Nasal Cannula 3.00 09/26/16 20:00 98.0 81 17 112/56 99 09/26/16 18:19 97 Nasal Cannula 3.00 09/26/16 16:00 98.3 80 17 130/60 97 09/26/16 12:00 97.7 91 17 121/68 98 I/O 09/26/16 09/26/16 09/26/16 09/27/16 09/27/16 09/27/16 07:00 15:00 23:00 07:00 15:00 23:00 Intake Total 120 ml 240 ml 240 ml 240 ml Output Total 300 ml 500 ml 250 ml 1200 ml Balance -180 ml -260 ml -10 ml -960 ml Intake Oral 120 ml 240 ml 240 ml 240 ml IV Total 0 ml Output Urine Total 300 ml 500 ml 250 ml 1200 ml # Bowel Movements 3 Result Diagram: 09/27/16 0455 09/27/16 0455 Objective Remarks GENERAL: This is a frail elderly female, in no apparent distress. On 3 L nasal cannula SKIN: No rashes, warm and dry HEAD: Atraumatic. Normocephalic. EYES: Pupils equal round and reactive. Extraocular motions intact. No scleral icterus. ENT: Nose without bleeding, or drainage, Airway patent. NECK: Trachea midline. Supple CARDIOVASCULAR: Regular rate and rhythm without murmurs, gallops, or rubs. RESPIRATORY: Bilateral crackles mostly on the basis GASTROINTESTINAL: Abdomen soft, non-tender, nondistended. Positive bowel sounds MUSCULOSKELETAL: Extremities without clubbing, cyanosis, or edema. Pedal pulses appreciated NEUROLOGICAL: Awake and alert. Moves all extremity. Normal speech.no focal neurological deficit, hard hearing Procedures A/P Assessment and Plan 09/23: Still on 3 L nasal cannula with cough and phlegm, Bumex has been held due to hypotension systolic 79, discussed with the nurse 09/24: Blood pressure improved 103/56 now, discussed with the nurse and maybe has been stable, will transfer to [facility] floor with telemetry 09/25: Blood pressure stable, patient refused GI scope, will resume elliquis and monitor for any bleed 09/26: hb 9-8.3 on eliquis started yesterday , watery stool .r/o c diff , wean o2 , if c diff neg , pt hb stable tomorrow , will dc to rehab 09/27: Patient feels extremely weak, her stool is soft as per the nurse multiple times however C. difficile came back negative, her blood pressure is on the lower side with a systolic 108, earlier has been below 100, magnesium is 1.2, I will give her a dose of loperamide and continue as needed, normal saline bolus to 50 cc 1 and will give 500 cc at a rate of 125, 2 g of magnesium sulfate 1, I discussed with the nurse and with the charge nurse and informed them that after this measures if patient continued to be stable with a blood pressure systolic of 100 she can be discharged to rehabilitation A/P: A fib with RVR, improved Recently admitted for Afib with RVR. - On amiodarone 200 mg daily. Digoxin stopped. Continue nebivolol. - follow up with cardiology. -Status post holding anticoagulation in the setting of GIB. We'll resume elliquis and was monitoring for any bleed watery diarreha 09/26: check stool for c diff Hypotension: Hold Bumex, apply holding parameter for antihypertensive medication GI bleed Hemoccult positive. Had episode of dark stools and coffee ground emesis. On Eliquis which has been discontinued. GI consult appreciated. Transfused 1 unit with appropriate response. Unable to go for endoscopy s/t respiratory distress. - follow CBC and transfuse as needed. Stable - GI consulted appreciated. Endoscopy when respiratory status is stable. - continue PPI. -Resume anticoagulation. With close monitor Pneumonia/ COPD exacerbation/ Acute hypoxemic respiratory failure/ Acute systolic CHF CXR and CT scan imaging indicative of a right infiltrate. She was recently hospitalized. Had lactic acid level of 5. Influenza negative. Received cefepime and vanco for pneumonia. Currently not requiring any supplemental O2. S/p steroids. The pt is still in respiratory distress 09/21. CXR 09/19 stable. She was transferred to the ICU and started on a Bumex gtt. V/Q scan low probability for PE so heparin gtt was discontinued. Echo in May with EF 45-50% and mod- severe MR and severe TR. BNP elevated. - oxygen and nebs as needed. wean down o2 - incentive spirometry, Acapella. - sputum and blood cultures. NGTD. - pulmonology following. - appreciate palliative care ff Chronic renal disease/ metabolic acidosis/ hyponatremia/ hypokalemia Creatinine is around baseline. Started on bicarbonate on last admission by nephrology. Bicarb level is low and pt appears to be having respiratory compensation. Hyponatremia improved. - avoid nephrotoxins. - continue PO sodium bicarbonate. - Monitor I's and O's. - follow up with nephrology. s/p Tolvaptan - fluid restriction. - potassium supplementation as needed. - per nephrology, would likely not do well on dialysis. Glaucoma The pt described new onset right eye pain and says she can only see white out of her right eye. She does have a history of glaucoma. Ophthalmology was consulted. - Continue latanoprost. - Follow up with ophthalmology. Hoarse voice ENT consult appreciated. Slowly improving. - continue PPI. - outpt follow-up with ENT. Thrush Resolved with nystatin. - continue nystatin. PPX: Sp. Roxana Chaney MD Sep 27, 2016 11:00
--- NOTE | 2016-09-27 11:12 | HHI.DS ---
Discharge Summary Admission Date Sep 05, 2016 at 03:50 Discharge Date: Sep 27, 2016 Admitting Diagnosis dyspnea, early pneumonia, exac copd, afrvr (1) GI bleed ICD Code: K92.2 (2) Dyspnea ICD Code: R06.00 (3) COPD (chronic obstructive pulmonary disease) ICD Code: J44.9 (4) Pneumonia ICD Code: J18.9 (5) CHF (congestive heart failure) ICD Code: I50.9 (6) Atrial fibrillation ICD Code: I48.91 (7) Hypothyroidism ICD Code: E03.9 Procedures Brief History - From Admission The patient is an 89-year-old female with past medical history of atrial fibrillation and congestive heart failure who was recently admitted to the hospital for atrial fibrillation who is presenting with increasing shortness of breath. The patient had been at home for 1 week since being discharged from the hospital and as of yesterday started to develop symptoms of shortness of breath. She says she has a productive cough of yellow sputum. She says she has had a measured temperature at home but she is unsure what the value was. She says she has had some chest pain associated with the coughing fits. She says the shortness of breath got so bad that she had to call 911. She says she has a neighbor who visits her often and he came down with the symptoms of cough and shortness of breath before she did and she believes she got the symptoms from him. She said the breathing treatment in the emergency department helped. She says she has been tolerating a diet well. She denies any diarrhea or constipation. She says she has been ambulating without a walker. CBC/BMP: 09/27/16 0455 09/27/16 0455 Significant Findings Laboratory Tests Test 09/25/16 09/26/16 09/27/16 09:14 04:01 04:55 Sodium Level 130 MEQ/L 131 MEQ/L 130 MEQ/L (136-145) (136-145) (136-145) Chloride Level 93 MEQ/L 93 MEQ/L 93 MEQ/L (98-107) (98-107) (98-107) Blood Urea Nitrogen 43 MG/DL (7-18) 40 MG/DL (7-18) 31 MG/DL (7-18) Creatinine 2.14 MG/DL 1.90 MG/DL 1.78 MG/DL (0.50-1.00) (0.50-1.00) (0.50-1.00) Estimat Glomerular Filtration 22 ML/MIN (>89) 25 ML/MIN (>89) 27 ML/MIN (>89) Rate Calcium Level 7.9 MG/DL 7.8 MG/DL 7.8 MG/DL (8.5-10.1) (8.5-10.1) (8.5-10.1) Phosphorus Level 1.9 MG/DL (2.5-4.9) Hemoglobin 8.3 GM/DL 8.8 GM/DL (11.6-15.3) (11.6-15.3) Hematocrit 24.4 % 25.9 % (35.0-46.0) (35.0-46.0) Red Blood Count 2.98 MIL/MM3 (4.00-5.30) Red Cell Distribution Width 18.5 % (11.6-17.2) Neutrophils (%) (Auto) 85.6 % (16.0-70.0) Lymphocytes (%) (Auto) 3.1 % (9.0-44.0) Monocytes (%) (Auto) 9.3 % (0.0-8.0) Lymphocytes # (Auto) 0.3 TH/MM3 (1.0-4.8) Magnesium Level 1.2 MG/DL (1.5-2.5) PE at Discharge GENERAL: This is a frail elderly female, in no apparent distress. On 3 L nasal cannula SKIN: No rashes, warm and dry HEAD: Atraumatic. Normocephalic. EYES: Pupils equal round and reactive. Extraocular motions intact. No scleral icterus. ENT: Nose without bleeding, or drainage, Airway patent. NECK: Trachea midline. Supple CARDIOVASCULAR: Regular rate and rhythm without murmurs, gallops, or rubs. RESPIRATORY: Bilateral crackles mostly on the basis GASTROINTESTINAL: Abdomen soft, non-tender, nondistended. Positive bowel sounds MUSCULOSKELETAL: Extremities without clubbing, cyanosis, or edema. Pedal pulses appreciated NEUROLOGICAL: Awake and alert. Moves all extremity. Normal speech.no focal neurological deficit, hard hearing Hospital Course 89 years old female admitted for A fib with RVR, and GI bleeding patient started on amiodarone stopped digoxin continue nebivolol, cardiology consulted, anticoagulation was held due to GI bleed, also GI consulted however patient refused GI scope. Also patient was found to have acute hypoxemic respiratory failure patient was transferred to ICU started on Bumex drip for CHF exacerbation, heparin drip was started for suspected PE however VQ scan came with low probability so that heparin drip was stopped, she was found to have right infiltrate pneumonia on CT scan and chest x-ray with underlying COPD exacerbation, iv antibiotic, O2, DuoNeb, steroid has been given under pulmonology follow up. During this. Also patient had chronic kidney disease metabolic acidosis hyponatremia and hypokalemia, auto garage mechanic consulted she started on dose of Samsca, sodium bicarbonate load restriction, auto garage mechanic did not recommend dialysis. Patient also had hoarseness of her voice ENT was consulted he recommended PPI and to follow up as an out pt , she was given nystatin for thrush. Also ophthalmology consulted for glaucoma, complained in the right eye he recommended continuing lantaprost and following up as an outpatient. Later on patient sustained hypotension, and diarrhea, C. difficile has been sent and came back negative, patient was given loperamide, replace magnesium, held on fluid restriction and given iv fluid, she becomes stable blood pressure above 100 On 09/25 we resumed her elliquis since patient denied GI scope and her hemoglobin has been stable, discussion with her in length has been done and she agreed, her hemoglobin continued to be stable after resuming elliquis no sign of leading. [id number] encounter performed with the patient on discharge day, as well as physical exam, summary of hospitalization course and postdischarge plan has been D/W the patient. D/W nurse D/W telehealth case manager. Discharge medications reviewed and printed and signed, post discharge follow up visit with PCP and other specialist as well as Brief hospital course and discharge summary has been placed. Pt Condition on Discharge: Fair Discharge Disposition: Discharge to SNF Discharge Time: > 30 minutes Discharge Instructions DIET: Follow Instructions for: Heart Healthy Diet Speech Therapy-Diet Recommends: Pureed Activities you can perform: See Additionl Instruction Other Activity Instructions: per PT at rehab Follow up Referrals: Cardiology - 1 Week with Hawk Mcgarry MD New Medications: Loperamide (Loperamide) 2 Mg Tab 2 MG PO Q6H PRN DIARRHEA #20 TAB Nebivolol (Bystolic) 2.5 Mg Tab 2.5 MG PO DAILY Heart rate #30 TAB Nystatin Liq (Nystatin Liq) 100,000 unit/ml Susp 5 ML SWISH-SWAL QID oral thrush #30 BOTTLE Continued Medications: Acetaminophen (Tylenol Extra Strength) 500 Mg Tab 500 MG PO Q4-6H PRN PAIN Ref 0 TAB Amiodarone (Amiodarone) 200 Mg Tab 200 MG PO DAILY Afib #30 TAB Apixaban (Eliquis) 2.5 Mg Tab 2.5 MG PO BID Blood Clot Prevention Ref 0 TAB Digoxin (Digoxin) 0.125 Mg Tab 0.125 MG PO EVERY OTHER DAY START on 08/31/2016. Afib #30 TAB Ferrous Sulfate (Ferrous Sulfate) 325 Mg Tab 325 MG PO DAILY Nutritional Supplement Ref 0 TAB Furosemide (Furosemide) 20 Mg Tab 20 MG PO DAILY Ref 0 TAB Levothyroxine (Synthroid) 50 Mcg Tab 50 MCG PO DAILY Thyroid Ref 0 TAB Megestrol (Megestrol) 20 Mg Tab 20 MG PO DAILY Ref 0 TAB Multiple Vitamins W/ Minerals (Centrum Silver) 1 Tab 1 TAB PO DAILY Nutritional Supplement Ref 0 TAB Omeprazole (Omeprazole) 20 Mg Tab MG PO DAILY Ref 0 TAB Polyvinyl Alcohol-Povidone Opth Drops (Refresh Opth Drops) 1.4-0.6% Drops 1-2 DROP EACH EYE PRN PRN DRY EYE Ref 0 BOTTLE Simvastatin (Simvastatin) 40 Mg Tab 40 MG PO HS Cholesterol Management Ref 0 TAB Sodium Bicarbonate (Sodium Bicarbonate) 650 Mg Tab 650 MG PO Q12HR kidney #60 TAB Roxana Chaney MD Sep 27, 2016 11:12
[2016-09-27 12:00] VITALS: BP 106/57; PULSE 93; RESP 17; TEMP 97.4; O2SAT 94
[2016-09-27] MEDS ORDERED: LOPERAMIDE HCL 2 MG CAP PO ONE (12:00)
[2016-09-27] MEDS: MAGNESIUM SULFATE 1 GM PREMIX 100 ML IV SCH ×2 (12:18→12:21)
[2016-09-27 16:00] VITALS: BP 120/56; PULSE 79; RESP 16; TEMP 97.9; O2SAT 96
--- NOTE | 2016-09-27 16:44 | HHI.PR ---
Subjective Remarks 89 YOWF with Pneumonia,CHF,AF No Fever Has hoarseness of voice, improving Tolerates PO Up in chair Slept better Feels stronger Objective Vital Signs Vital Signs Date Time Temp Pulse Resp B/P Pulse Ox O2 Delivery O2 Flow Rate FiO2 09/27/16 16:00 97.9 79 16 120/56 96 09/27/16 12:00 97.4 93 17 106/57 94 09/27/16 10:00 98 Nasal Cannula 2.00 09/27/16 08:05 2.00 09/27/16 08:00 98.7 73 17 108/61 97 09/27/16 04:00 96.9 95 20 100/60 97 09/27/16 00:00 98.7 90 18 120/64 95 09/26/16 21:20 99 Nasal Cannula 3.00 09/26/16 20:00 98.0 81 17 112/56 99 09/26/16 18:19 97 Nasal Cannula 3.00 I/O 09/26/16 09/26/16 09/26/16 09/27/16 09/27/16 09/27/16 07:00 15:00 23:00 07:00 15:00 23:00 Intake Total 120 ml 240 ml 240 ml 240 ml 1140 ml Output Total 300 ml 500 ml 250 ml 1200 ml 200 ml Balance -180 ml -260 ml -10 ml -960 ml 940 ml Intake Oral 120 ml 240 ml 240 ml 240 ml 1140 ml IV Total 0 ml Output Urine Total 300 ml 500 ml 250 ml 1200 ml 200 ml # Bowel Movements 3 4 Result Diagram: 09/27/16 0455 09/27/16 0455 Objective Remarks GENERAL: Thin built WF, NAD SKIN: Warm and dry. HEAD: Normocephalic. EYES: No scleral icterus. No injection or drainage. NECK: Supple, trachea midline. No JVD or lymphadenopathy. CARDIOVASCULAR: Regular rate and rhythm without murmurs, gallops, or rubs. RESPIRATORY: Breath sounds equal bilaterally. No accessory muscle use. GASTROINTESTINAL: Abdomen soft, non-tender, nondistended. MUSCULOSKELETAL: No cyanosis, or edema. BACK: Nontender without obvious deformity. No CVA tenderness. A/P Assessment and Plan Pneumonia CHF AF CKD Hypoxic resp failure PLAN: Cont Abx per ID Aerosol nebs Monitor Lytes Monitor H/H 02 3LNC keep sat >90% DC Plans underway for [facility] Nash Dutta MD Sep 27, 2016 16:44
--- NOTE | 2016-09-27 18:59 | HHI.NPPN ---
Subjective Complaints: Shortness of Breath General Problems: Mebatolic Acidosis Renal Failure: Chronic, Acute Additional Remarks Patient seen at 4.30 pm , feeling better. Review of Systems General Constitutional: Fatigue Ears, Nose, & Throat Ears, Nose & Throat: Sore Throat, Hoarse, Congestion Respiratory Lungs: SOB, Cough, Sputum Gastrointestinal Gastrointestinal: Nausea & Vomiting Objective Data Data 09/26/16 09/27/16 19:00 07:00 Intake Total 240 ml 480 ml Output Total 500 ml 1450 ml Balance -260 ml -970 ml Intake Oral 240 ml 480 ml IV Total 0 ml Output Urine Total 500 ml 1450 ml # Bowel Movements 3 Vital Signs Date Time Temp Pulse Resp B/P Pulse Ox O2 Delivery O2 Flow Rate FiO2 09/27/16 16:00 97.9 79 16 120/56 96 09/27/16 12:00 97.4 93 17 106/57 94 09/27/16 10:00 98 Nasal Cannula 2.00 09/27/16 08:05 2.00 09/27/16 08:00 98.7 73 17 108/61 97 09/27/16 04:00 96.9 95 20 100/60 97 09/27/16 00:00 98.7 90 18 120/64 95 09/26/16 21:20 99 Nasal Cannula 3.00 09/26/16 20:00 98.0 81 17 112/56 99 -: 09/27/16 0455 09/27/16 0455 Tubes & Lines: Becker Physical Exam General Appearance: No Acute Distress, Comfortable, Anxious Throat Throat Exam: Oral Mucosa Bowring & Moist Pulmonary Resp Exam: Breath Sounds Equal, Crackles, Rhonchi Cardiology CV Exam: Good Perfusion, Irregular Gastrointestinal/Abdomen GI Exam: Soft, Non-Tender, Bowel Sounds Present Musculoskeletal MS Exam: Joints Intact, Normal Tone Integumentary Skin Exam: Clear, Warm, Dry, Intact Extremeties Extremities Exam: No Edema Neurologic Neuro Exam: Alert, Awake, Oriented, Speech Clear, Moving All Extremities Psychiatric Psych Exam: Appropriate Responses Assessment/Plan Discussed Condition With: Patient Assessment Summary: Anemia of CKD, Hypertension, CKD Stage IV Electrolyte Assessment: Hypocalcemia, Hyponatremia, Metabolic Acidosis Problem List: (1) Chronic kidney disease, stage 4 (severe) Plan: Urine out put is adequate. BP is stable. Creatinine continue to improve. For D/C to SNF. To follow with her PCP. (2) Hyponatremia Plan: stable Given 2 doses of Tolvaptan. continue fluid restriction and loop diuretic. (3) CHF (congestive heart failure) Plan: monitor fluid volume status EF 40-50% diuresis as above (4) Atrial fibrillation Plan: rate controlled, she is asymptomatic on amiodarone and Bystolic cardiology following AC on hold (5) Pneumonia Plan: oxygen as needed, RT to assist nebulizers prn, incentive spirometer recommended cough/deep breathing encouraged monitor clinically she is also on Robitussin Hoarseness has improved. (6) Anemia Plan: Hb stable, she was transfused one unit PRBC on 09/16 also on oral iron, EGD has been postponed Eliquis for anticoagulation on hold on Protonix, GI following (7) Secondary hyperparathyroidism of renal origin Plan: PTH elevated, continue vitamin D daily Problem Qualifiers (1) Atrial fibrillation: Qualified Code: I48.1 - Persistent atrial fibrillation (2) Pneumonia: Qualified Code: J18.1 - Pneumonia of right middle lobe due to infectious organism Nevin Mccabe MD Sep 27, 2016 18:59
== END 2016-09-27 18:13 | DRG 193 ==
LOC: NEPC 01:17 → NEDA 03:50 → N05A 07:33 → HIMN 09-19 16:50 → N07A 09-25 23:29
PROVIDERS: ADMIT Hospitalist; ATTEND Hospitalist
PROC: 30233N1 Transfusion of Nonautologous Red Blood Cells into Peripheral Vein, Percutaneous Approach (ICD-10-PCS; 2016-09-16)
PROC: 0CJS8ZZ Inspection of Larynx, Via Natural or Artificial Opening Endoscopic (ICD-10-PCS; principal; 2016-09-20)
DX: J18.9 Pneumonia, unspecified organism (principal); J96.01 Acute respiratory failure with hypoxia; E43 Unspecified severe protein-calorie malnutrition; G93.41 Metabolic encephalopathy; K92.0 Hematemesis; I50.43 Acute on chronic combined systolic (congestive) and diastolic (congestive) heart failure; N18.4 Chronic kidney disease, stage 4 (severe); N17.9 Acute kidney failure, unspecified; E87.2 Acidosis; J44.0 Chronic obstructive pulmonary disease with (acute) lower respiratory infection; B37.0 Candidal stomatitis; E87.3 Alkalosis; I48.1 Persistent atrial fibrillation; K92.1 Melena; E87.1 Hypo-osmolality and hyponatremia; I13.0 Hypertensive heart and chronic kidney disease with heart failure and stage 1 through stage 4 chronic kidney disease, or unspecified chronic kidney disease; N25.81 Secondary hyperparathyroidism of renal origin; J44.1 Chronic obstructive pulmonary disease with (acute) exacerbation; D62 Acute posthemorrhagic anemia; Z68.1 Body mass index [BMI] 19.9 or less, adult; D63.1 Anemia in chronic kidney disease; E83.42 Hypomagnesemia; I08.1 Rheumatic disorders of both mitral and tricuspid valves; E83.39 Other disorders of phosphorus metabolism; E83.51 Hypocalcemia; E03.9 Hypothyroidism, unspecified; E87.6 Hypokalemia; H43.11 Vitreous hemorrhage, right eye; R49.0 Dysphonia; J04.0 Acute laryngitis; E78.5 Hyperlipidemia, unspecified; K21.9 Gastro-esophageal reflux disease without esophagitis; K59.00 Constipation, unspecified; Z85.038 Personal history of other malignant neoplasm of large intestine; Z92.21 Personal history of antineoplastic chemotherapy; Z92.3 Personal history of irradiation; Z86.73 Personal history of transient ischemic attack (TIA), and cerebral infarction without residual deficits; Z88.1 Allergy status to other antibiotic agents; Z88.2 Allergy status to sulfonamides; Z88.8 Allergy status to other drugs, medicaments and biological substances; Y95 Nosocomial condition
CPT/HCPCS: 36430; 36600; 71010; 71250; 76937; 78582; 80048; 80053; 80069; 80162; 80202; 81001; 82272; 82306; 82550; 82565; 82805; 83605; 83735; 83880; 83930; 83935; 83970; 84100; 84155; 84443; 84484; 84550; 85007; 85014; 85018; 85025; 85027; 85610; 85730; 86850; 86900; 86901; 86920; 87040; 87070; 87205; 87493; 87641; 87804; 93005; 94150; 94640; 94664; 94667; 94668; 96374; 99211; A9540; A9567; C9113; G0463; J0692; J0696; J1205; J1644; J1940; J2060; J2405; J2920; J3370; J3475; J7030; J7050; J7613; J7644; P9016; P9047

== ENCOUNTER 2016-10-13 14:52 | Emergency (ER) | payer BC, MEDICARE, OTHER ==
[~2016-10-13 14:52] MED LIST changes: +BYST2.5T2 PO; +LOPE2TAB PO; +NYST1000 SWISH-SWAL
[2016-10-13 14:58] VITALS: BP 100/55; PULSE 74; RESP 28; TEMP 98.8; O2SAT 91
[2016-10-13] MEDS ORDERED: SODIUM CHLORID 0.9% 500 ML INJ 500 ML IV ONE (15:15)
[2016-10-13 15:38] VITALS: O2SAT 95
--- NOTE | 2016-10-13 15:38 | RADRPT ---
EXAM DATE/TIME: 10/13/2016 15:22 [facility] COMPARISON: CHEST SINGLE AP, September 19, 2016, 8:38. INDICATIONS : Shortness of breath. MEDICAL HISTORY : Chronic obstructive pulmonary disease. A-fib. SURGICAL HISTORY : None. ENCOUNTER: Subsequent ACUITY: 2 days PAIN SCORE: Non-responsive. LOCATION: chest FINDINGS: Mild bibasilar consolidation and small effusions. No pneumothorax seen. Mild cardiomegaly is stable. Thoracic aorta is tortuous and atherosclerotic. CONCLUSION: Mild bibasilar consolidation and small effusions. Similar findings were seen on the prior. Jones Lucero MD on October 13, 2016 at 15:35 Board Certified Radiologist. This report was verified electronically.
--- NOTE | 2016-10-13 15:38 | PD ---
HPI Chief Complaint: General Weakness Time Seen by Provider: 15:12 Travel History International Travel<30 days: No Contact w/Intl Traveler<30days: No Traveled to known affect area: No History of Present Illness HPI 89-year-old female presents with critically low sodium of 117. Her family states that they have been giving IV fluids in the prison but it is still low. She is also had a IV infiltrate on the right arm and that his why it is so swollen. Patient denies complaints but looks acutely short of breath and family states that she has been that way for a couple months. They state that she has been on 2 L of oxygen since she was in the hospital in August. They state Dr. Mercado is her web specialist he wanted her to come to the emergency department. She was hypotensive in route and given IV fluid hydration. Patient unable to provide significant history, history obtained by records, family, ambulance team [facility] Past Medical History Narrative Medical By records and family Hx Anticoagulant Therapy: Yes Anemia: Yes Arthritis: Yes Asthma: No Autoimmune Disease: No Blood Disorders: No Heart Rhythm Problems: Yes (A-Fib) Cancer: Yes (Rectal) Cardiovascular Problems: Yes High Cholesterol: Yes Chemotherapy: Yes Chest Pain: No Congestive Heart Failure: No COPD: Yes Cerebrovascular Accident: Yes (2016) Coronary Artery Disease: No Diabetes: No Diminished Hearing: No Endocrine: Yes GERD: Yes Genitourinary: Yes Hiatal Hernia: No Hypertension: Yes Immune Disorder: No Implanted Vascular Access Dvce: Yes Kidney Stones: Yes (left kidney- leave til having problems) Musculoskeletal: No Neurologic: Yes Psychiatric: No Reproductive: No Respiratory: Yes (COPD) Immunizations Current: Yes Migraines: No Radiation Therapy: Yes Renal Failure: No Seizures: No Sleep Apnea: No Thyroid Disease: Yes Ulcer: Yes Menopausal: Yes Past Surgical History Narrative Surgical By records and family Abdominal Surgery: Yes (Gallbladder removed) AICD: No Arteriovenous Shunt: No Cardiac Surgery: No Cholecystectomy: Yes Ear Surgery: No Endocrine Surgery: No Eye Surgery: Yes (CATARACTS) Genitourinary Surgery: No Gynecologic Surgery: Yes (Hysterectomy) Hysterectomy: Yes Insulin Pump: No Joint Replacement: Yes (Right Hip and Right Knee) Oral Surgery: Yes Pacemaker: No Thoracic Surgery: No Other Surgery: Yes ([place], hysterectomy, right hip, right knee) Social History Alcohol Use: No Tobacco Use: No Substance Use: No Allergies-Medications (Allergen,Severity, Reaction): Coded Allergies: Atenolol (Verified Allergy, Severe, 10/13/16) LIGHT HEADED/FAINT Cardizem (Verified Allergy, Severe, AIRWAY SWELLING, 10/13/16) AIRWAY OBSTRUCTION Levofloxacin (Verified Allergy, Severe, 10/13/16) Lisinopril (Verified Allergy, Severe, CP, 10/13/16) Phenergan (Verified Allergy, Severe, RASH, 10/13/16) Sulfa (Verified Allergy, Severe, 10/13/16) Toprol Xl (Verified Allergy, Severe, BRADYCARDIA, 10/13/16) Verapamil (Verified Allergy, Severe, Anaphylaxis, 10/13/16) Amoxicillin (Verified Allergy, Mild, 10/13/16) Levaquin (Verified Allergy, Mild, Irritability/Anxiety, 10/13/16) EDOXABAN (Verified Adverse Reaction, Severe, LIGHT HEADED, 10/13/16) Potassium (Verified Adverse Reaction, Severe, CAN'T BREATHE, 10/13/16) Uncoded Allergies: GINGERALE (Adverse Reaction, Severe, VOMITING, 08/24/16) Reported Meds & Prescriptions Reported Meds & Active Scripts Active Loperamide (Loperamide HCl) 2 Mg Tab 2 Mg PO Q6H PRN Bystolic (Nebivolol) 2.5 Mg Tab 2.5 Mg PO DAILY Amiodarone (Amiodarone HCl) 200 Mg Tab 200 Mg PO DAILY Reported Fleet Enema Rectal (Sodium Phosphates Rectal) 7-19 Gm/118 Ml Enem 118 Ml RECTAL DAILY PRN Dulcolax Supp (Bisacodyl) 10 Mg Supp 10 Mg RECTAL DAILY PRN Latanoprost Opth Drops (Latanoprost) 0.005% Drops 1 Drop EACH EYE HS Refrigerate until opened. Buspirone (Buspirone HCl) 5 Mg Tab 5 Mg PO BID PRN Culturelle Immunity Suppo (Lactobacillus Rhamnosus (GG)) 15 B Cell Cap 15 B PO DAILY Cholestyramine 4 Gm/Pkt Powd 4 Gm PO BID 1 packet contains 4 grams of cholestyramine. Xopenex Neb (Levalbuterol HCl) 0.63 Mg/3 Ml Neb 0.63 Mg NEB TID Magnesium Oxide 400 Mg Tab 400 Mg PO BID Tramadol (Tramadol HCl) 50 Mg Tab 50 Mg PO Q6H PRN Aranesp (Albumin Free) Inj (Darbepoetin [place] Inj) 25 Mcg/0.42 Ml Inj 25 Mcg SQ Q7D Advil (Ibuprofen) 200 Mg Cap 200 Mg PO DAILY PRN Normal Saline Flush For F (Sodium Chloride Flush) 0.9 % Inj 40 Ml IV Q1HR Acetaminophen 325 Mg Tab 650 Mg PO Q4HR PRN Levothyroxine (Levothyroxine Sodium) 75 Mcg Tab 75 Mcg PO DAILY Ferrous Sulfate 325 Mg Tab 325 Mg PO DAILY Refresh Opth Drops (Polyvinyl Alcohol-Povidone Opth Drops) 1.4-0.6% Drops 1 Drop EACH EYE QID Centrum Silver (Multiple Vitamins W/ Minerals) 1 Tab 1 Tab PO DAILY Omeprazole 20 Mg Tab 20 Mg PO DAILY Simvastatin 40 Mg Tab 40 Mg PO HS Eliquis (Apixaban) 2.5 Mg Tab 2.5 Mg PO BID Review of Systems ROS Limitations: Poor Historian Except as stated in HPI: all other systems reviewed are Neg Physical Exam Exam Limitations: Poor Historian Narrative GENERAL: Elderly ill-appearing, well-developed patient. SKIN: Right arm swelling from IV infiltration noted with bruising HEAD: Normocephalic EYES: No injection or drainage. ENT: No nasal drainage noted. NECK: Supple, trachea midline. CARDIOVASCULAR: irregular rate and rhythm RESPIRATORY: Breath sounds equal bilaterally at apices. No accessory muscle use. GASTROINTESTINAL: Abdomen soft, non-tender, nondistended. EXTREMITIES: 3+ pitting edema bilateral legs to mid tibia NEUROLOGICAL: Awake. Moves all extremities. Normal speech. Data Data Last Documented VS Orders Magnesium (Mg) (10/13/16 15:12) Phosphorus (Po4) (10/13/16 15:12) Complete Blood Count With Diff (10/13/16 15:12) Comprehensive Metabolic Panel (10/13/16 15:12) Ckmb (Isoenzyme) Profile (10/13/16 15:12) Troponin I (10/13/16 15:12) Act Partial Throm Time (Ptt) (10/13/16 15:12) Prothrombin Time / Inr (Pt) (10/13/16 15:12) B-Type Natriuretic Peptide (10/13/16 15:12) Chest, Single Ap (10/13/16 ) Electrocardiogram (10/13/16 ) Iv Access Insert/Monitor (10/13/16 15:12) Ecg Monitoring (10/13/16 15:12) Oximetry (10/13/16 15:12) Lactic Acid Sepsis Protocol (10/13/16 15:12) Blood Culture (10/13/16 15:12) Oxygen Administration (10/13/16 15:12) Sodium Chlorid 0.9% 500 Ml Inj (Ns 500 M (10/13/16 15:15) CKMB (10/13/16 15:30) CKMB% (10/13/16 15:30) Sodium Chloride 0.9% Flush (Ns Flush) (10/13/16 16:30) Aztreonam Inj (Azactam Inj) (10/13/16 16:30) Azithromycin Inj (Zithromax Inj) (10/13/16 16:30) Blood Product Administration .UPON TRANSFUSION (10/13/16 16:26) Sodium Chlor 0.9% 250 Ml Inj (Ns 250 Ml (10/13/16 16:30) Type And Screen (10/13/16 16:26) Hospice Consult (10/13/16 16:42) Code Status (10/13/16 17:19) Labs MDM Medical Decision Making Medical Screen Exam Complete: Yes Emergency Medical Condition: Yes Medical Record Reviewed: Yes (past history confirmed) Interpretation(s) CBC & BMP Diagram 10/13/16 15:30 Last 24 hours Impressions Chest X-Ray 10/13/16 0000 Signed Impressions: Service Date/Time: Thursday, October 13, 2016 15:22 - CONCLUSION: Mild bibasilar consolidation and small effusions. Similar findings were seen on the prior. Jones Lucero MD Differential Diagnosis Hyponatremia, renal failure, heart failure, pneumonia, [place], sepsis effusion.... Narrative Course Will check blood work and dose with IV fluids and reevaluate, patient's daughter notified of critical condition and state patient should be DNR and will go from here based on workup Updated daughter and she states she would like to talk with her sister Lengthy discussion with daughter and given multiple critical issues and age with comorbidities to proceed with hospice inpatient care center transfer hospice nurse arrived and given transfer report Critical Care Narrative Aggregate critical care time was 40 minutes. Time to perform other separately billable procedures was not included in the critical care time. My time did not include minutes spent treating any other patients simultaneously or on activities that did not directly contribute to the patient's treatment. The services I provided to this patient were to treat and/or prevent clinically significant deterioration that could result in: Cardiogenic shock, septic shock I provided critical care services requiring my management, as noted below: Chart data review, documentation time, medication orders and management, vital sign assessments/reviewing monitor data, ordering and reviewing lab tests, ordering and interpreting/reviewing x-rays and diagnostic studies, care of the patient and discussion of the patient with the admitting physicians. Sepsis Criteria SIRS Criteria (2 or more): RR > 20 or PaCO2 < 32, WBC > 08854, < 4000 or > 10 % bands Sepsis Criteria (SIRS+source): Infect source susp/known Severe Sepsis (+one): Hypotension Diagnosis Primary Impression: Acute CHF Qualified Code: I50.9 - Acute congestive heart failure, unspecified congestive heart failure type Additional Impressions: Anemia Qualified Code: D64.9 - Anemia, unspecified type Chronic kidney disease, stage 4 (severe) Dyspnea Qualified Code: R06.00 - Dyspnea, unspecified type Hyponatremia Acidosis Sepsis Qualified Code: A41.9 - Sepsis, due to unspecified organism Patient Instructions: General Instructions Disposition: 70 TRANSFER TO OTHER FACILITY (hospice) Condition: Stable Sandee Ríos MD Oct 13, 2016 15:38 Blood Urea Nitrogen 44 MG/DL Creatinine 2.64 MG/DL Estimat Glomerular Filtration 17 ML/MIN Rate Random Glucose 106 MG/DL Lactic Acid Level 2.0 mmol/L Calcium Level 7.4 MG/DL Protein Corrected Calcium 8.6 MG/DL Phosphorus Level 3.2 MG/DL Magnesium Level 1.5 MG/DL Total Bilirubin 1.6 MG/DL Aspartate Amino Transf 109 U/L (AST/SGOT) Alanine Aminotransferase 64 U/L (ALT/SGPT) Alkaline Phosphatase 115 U/L Total Creatine Kinase 627 U/L Creatine Kinase MB 34.8 NG/ML Creatine Kinase MB % 5.6 % Troponin I 0.11 NG/ML B-Type Natriuretic Peptide 1327 PG/ML Total Protein 5.0 GM/DL Albumin 2.1 GM/DL MDM Medical Decision Making Medical Screen Exam Complete: Yes Emergency Medical Condition: Yes Medical Record Reviewed: Yes (past history confirmed) Interpretation(s) CBC & BMP Diagram 10/13/16 15:30 Last 24 hours Impressions Chest X-Ray 10/13/16 0000 Signed Impressions: Service Date/Time: Thursday, October 13, 2016 15:22 - CONCLUSION: Mild bibasilar consolidation and small effusions. Similar findings were seen on the prior. Jones Lucero MD Differential Diagnosis Hyponatremia, renal failure, heart failure, pneumonia, [place], sepsis effusion.... Narrative Course Will check blood work and dose with IV fluids and reevaluate, patient's daughter notified of critical condition and state patient should be DNR and will go from here based on workup Updated daughter and she states she would like to talk with her sister Lengthy discussion with daughter and given multiple critical issues she agrees to hospice inpatient care center transfer Critical Care Narrative Aggregate critical care time was 40 minutes. Time to perform other separately billable procedures was not included in the critical care time. My time did not include minutes spent treating any other patients simultaneously or on activities that did not directly contribute to the patient's treatment. The services I provided to this patient were to treat and/or prevent clinically significant deterioration that could result in: Cardiogenic shock, septic shock I provided critical care services requiring my management, as noted below: Chart data review, documentation time, medication orders and management, vital sign assessments/reviewing monitor data, ordering and reviewing lab tests, ordering and interpreting/reviewing x-rays and diagnostic studies, care of the patient and discussion of the patient with the admitting physicians. Diagnosis Primary Impression: Acute CHF Qualified Code: I50.9 - Acute congestive heart failure, unspecified congestive heart failure type Additional Impressions: Anemia Qualified Code: D64.9 - Anemia, unspecified type Chronic kidney disease, stage 4 (severe) Dyspnea Qualified Code: R06.00 - Dyspnea, unspecified type Hyponatremia Acidosis Disposition: 70 TRANSFER TO OTHER FACILITY (hospice) Condition: Stable Sandee Ríos MD Oct 13, 2016 15:38
[2016-10-13 15:51] LABS: AUTOMATED NEUTROPHIL # 24.8 TH/MM3 (1.8-7.7); BASOPHIL # 0.1 TH/MM3 (0-0.2); BASOPHIL % 0.6 % (0.0-2.0); EOSINOPHIL % 0.1 % (0.0-4.0); HEMATOCRIT 23.7 % (35.0-46.0); HEMO FLAGS DIFF FINAL; LYMPH % 0.4 % (9.0-44.0); LYMPHOCYTE # 0.1 TH/MM3 (1.0-4.8); MEAN CELL VOLUME 85.4 FL (80.0-100.0); MEAN CORPUSCULAR HEMOGLOBIN 28.4 PG (27.0-34.0); MEAN CORPUSCULAR HGB CONC 33.2 % (32.0-36.0); MONO % 0.8 % (0.0-8.0); NEUT % 98.1 % (16.0-70.0); PLATELET COUNT 299 TH/MM3 (150-450); RED BLOOD COUNT 2.78 MIL/MM3 (4.00-5.30); RED CELL DISTRIBUTION WIDTH 18.7 % (11.6-17.2); WHITE BLOOD COUNT 25.3 TH/MM3 (4.0-11.0)
[2016-10-13 16:04] LABS: APTT (PATIENT) 45.3 SEC (24.3-30.1); INTERNATIONAL NORMALIZED RATIO 1.9 RATIO; PROTHROMBIN TIME - PATIENT 21.6 SEC (9.8-11.6)
[2016-10-13 16:18] LABS: BICARBONATE 18.6 MEQ/L (21.0-32.0); CALCIUM-PROTEIN CORRECTED 8.6 MG/DL (8.5-10.1); MAGNESIUM 1.5 MG/DL (1.5-2.5); POTASSIUM 4.2 MEQ/L (3.5-5.1); TOTAL BILIRUBIN ADULT 1.6 MG/DL (0.2-1.0)
[2016-10-13] MEDS ORDERED: SODIUM CHLORIDE 0.9% FLUSH 5 ML FLUSH IVF PRN (16:30)
[2016-10-13] MEDS ORDERED: AZITHROMYCIN INJ 500 MG in SODIUM CHLOR 0.9% 250 ML INJ 250 ML IV ONE (16:30)
[2016-10-13] MEDS ORDERED: SODIUM CHLOR 0.9% 250 ML INJ 250 ML IV ONE (16:30)
[2016-10-13] MEDS ORDERED: AZTREONAM INJ 2,000 MG in SODIUM CHLORIDE 0.9% INJ 100 ML IV ONE (16:30)
[2016-10-13 16:50] LABS: CKMB 34.8 NG/ML (0.5-3.6)
[2016-10-13 17:13] VITALS: BP 92/42; PULSE 71; RESP 26; O2SAT 98
[2016-10-13] MEDS ORDERED: TRAM50TA PO (17:35)
[2016-10-13] MEDS ORDERED: [UNRECOGNIZED DRUG - CODE] SQ (17:35)
[2016-10-13] MEDS ORDERED: LEVO75TA3 PO (17:35)
[2016-10-13] MEDS ORDERED: CHOL4POW4 PO (17:35)
[2016-10-13] MEDS ORDERED: MAGN400T2 PO (17:35)
[2016-10-13] MEDS ORDERED: ADVI200C5 PO (17:35)
[2016-10-13] MEDS ORDERED: ACET325T PO (17:35)
[2016-10-13] MEDS ORDERED: NORM0.9I4 IV (17:35)
[2016-10-13] MEDS ORDERED: LEVA.63I NEB (17:35)
[2016-10-13] MEDS ORDERED: CULT10CA PO (17:37)
[2016-10-13] MEDS ORDERED: LATA0.002 EACH EYE (17:42)
[2016-10-13] MEDS ORDERED: BUSP5TAB PO (17:42)
[2016-10-13] MEDS ORDERED: DULC10SU3 RECTAL (17:55)
[2016-10-13] MEDS ORDERED: FLEEENE3 RECTAL (17:55)
[2016-10-13 20:00] VITALS: BP 87/47; PULSE 76; RESP 22; O2SAT 92
[2016-10-13 22:40] VITALS: BP 82/64
--- NOTE | 2016-10-14 14:38 | EKG ---
Date Performed: 10/13/2016 Time Performed: 16:25:50 PTAGE: 89 years EKG: ATRIAL FIBRILLATION Left bundle branch block Compared to prior tracing no significant champion e ABNORMAL ECG PREVIOUS TRACING : 09/05/2016 22.34 DOCTOR: Corwin Zaman Interpretating Date/Time 10/14/2016 14:37:38
== END 2016-10-13 22:40 | disposition short-term general hospital (02) ==
LOC: NEPC 14:52
DX: I50.9 Heart failure, unspecified (principal); D64.9 Anemia, unspecified; N18.4 Chronic kidney disease, stage 4 (severe); R06.00 Dyspnea, unspecified; E87.1 Hypo-osmolality and hyponatremia; E87.2 Acidosis; R94.31 Abnormal electrocardiogram [ECG] [EKG]; I48.91 Unspecified atrial fibrillation; I12.9 Hypertensive chronic kidney disease with stage 1 through stage 4 chronic kidney disease, or unspecified chronic kidney disease; E07.9 Disorder of thyroid, unspecified; E78.00 Pure hypercholesterolemia, unspecified; Z79.01 Long term (current) use of anticoagulants; Z87.39 Personal history of other diseases of the musculoskeletal system and connective tissue; Z86.79 Personal history of other diseases of the circulatory system; Z87.09 Personal history of other diseases of the respiratory system; Z87.19 Personal history of other diseases of the digestive system; Z87.448 Personal history of other diseases of urinary system; Z86.69 Personal history of other diseases of the nervous system and sense organs
CPT/HCPCS: 71010; 80053; 82550; 82552; 83605; 83735; 83880; 84100; 84484; 85025; 85610; 85730; 86403; 86850; 86900; 86901; 86920; 87040; 87147; 87186; 87205; 93005; 99291; J7040